=== PATIENT | female | born 1960 | race Caucasian/White ===

== ENCOUNTER → 2018-05-16 11:04 | Outpatient (CLI) | payer MEDICARE, MEDICAID, SELFPAY ==
[2018-05-16 12:45] LABS: Basophils % 0.5 % (0.1-2.0); Eosinophils # 0.2 K/mm3 (0.0-0.4); Eosinophils % 3.2 % (0.1-12.0); Hematocrit 38.9 % (37.0-47.0); Hemoglobin 12.4 g/dL (12.2-16.2); Lymphocytes # 1.3 K/mm3 (0.7-4.5); Mean Corpuscular HGB Conc 31.9 g/dL (31.8-35.4); Mean Corpuscular Hemoglobin 28.1 pg (27.0-31.2); Mean Corpuscular Volume 88.1 fl (81-99); Monocytes # 0.2 K/mm3 (0.1-1.0); Monocytes % 4.5 % (1.7-9.3); Neutrophils # 3.1 K/mm3 (1.8-7.8); Neutrophils % 64.8 % (37.0-80.0); Platelet Count 147 K/mm3 (142-424); Red Blood Count 4.41 M/mm3 (4.20-5.40); Red Cell Distribution Width 14.8 % (11.5-17.5); White Blood Count 4.8 K/mm3 (4.8-10.8)
[2018-05-16 14:42] LABS: Alanine Aminotransferase 46 U/L (12-78); Albumin Level 2.9 gm/dL (3.4-5.0); Albumin/Globulin Ratio 0.8 (1.1-1.8); Alkaline Phosphatase 131 U/L (46-116); Anion Gap 12.3 mEq/L (5-15); Aspartate Amino Transferase 52 U/L (15-37); Bilirubin,Total 0.3 mg/dL (0.2-1.0); Blood Urea Nitrogen 14 mg/dL (7-18); Calcium 8.3 mg/dL (8.5-10.1); Carbon Dioxide 29 mmol/L (21.0-32.0); Chloride 106 mmol/L (98-107); Chol/HDL Ratio 4.5 (1-3.5); Cholesterol 201 mg/dL (140-200); Creatinine,Serum 0.55 mg/dL (0.55-1.02); Estimated Glomerular Filt Rate 113 ml/min (>60); Ferritin 247 ng/mL (8-388); GFR (African American) 137 ML/MIN (>60); Globulin 3.7 gm/dl (1.3-3.2); Glucose 100 mg/dL (74-106); HDL Cholesterol 45 mg/dL (29-89); Iron 61 ug/dl (28-170); LDL Cholesterol 128 mg/dL (0-130); Magnesium 1.6 mg/dL (1.4-2.2); Phosphorous 3.3 mg/dL (2.4-4.9); Potassium 4.3 mmoL/L (3.5-5.1); Sodium 143 mmol/L (136-145); Thyroid Stimulating Hormone 2.18 uIU/ml (0.358-3.740); Total Protein,Serum 6.6 gm/dL (6.4-8.2); Triglycerides 139 mg/dL (30-200); VLDL Cholesterol 28 mg/dL (0-40)
[2018-05-16 17:44] LABS: Hemoglobin A1C 5.9 % (0.0-7.0)
[2018-05-17 15:53] LABS: Folate 15.2 ng/mL (>3.0); Prealbumin 21 mg/dL (10-36)
[2018-05-18 22:47] LABS: Zinc 76 ug/dL (56-134)
[2018-05-18 22:48] LABS: Vitamin B1 203.2 nmol/L (66.5-200.0)
[2018-05-21 03:38] LABS: Methylmalonic Acid 146 nmol/L (0-378)
[2018-05-21 10:24] LABS: Vitamin E Alpha Tocopherol 10.8 mg/L (7.0-25.1)
[2018-05-21 11:45] LABS: Vitamin A 40.2 ug/dL (33.1-100.0); Vitamin E Gamma Tocopherol 1.6 mg/L (0.5-5.5)
== END ==
PROVIDERS: Visit Provider Physician Assistant
DX: E11.9 Type 2 diabetes mellitus without complications (principal); R63.4 Abnormal weight loss; E78.5 Hyperlipidemia, unspecified; E55.9 Vitamin D deficiency, unspecified; Z98.84 Bariatric surgery status
CPT/HCPCS: 36415; 80053; 80061; 82131; 82652; 82728; 82746; 83036; 83540; 83735; 84100; 84134; 84425; 84443; 84446; 84590; 84630; 85025

== ENCOUNTER → 2018-08-26 09:08 | Outpatient (CLI) | payer MEDICARE, MEDICAID, SELFPAY ==
--- NOTE | 2018-08-26 09:17 | XR_ITS ---
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 Postmenopausal. Sleep apnea. TECHNIQUE: DEXA scan hip and lumbar spine The most complete data summary and color graphic presentation of the today's ( and any prior ) DEXA findings are available in PACS. Definition and treatment guidelines included. COMPARISON: None listed LUMBAR SPINE: Normal bone density L2 vertebral body demonstrates the lowest T score L1 1 0.4 with BMD1.304 g/cm sq Overall mean lumbar L1-L4 T score 2.2 with BMD1.449 g/cm sq . The generous marginal osteophytes multiple levels likely contribute to the increased bone density throughout the L-spine Noting Particular large exuberant marginal osteophytes to the right L2/3 HIPS: Femoral neck density is best predictor of hip fracture risk . Left femoral neck demonstrates the lowest T score -1.9 with BMD0.78 g/cm sq . Right femoral neck T score -1.5 with with BMD 0.825 Averaging region included yields today's mean Hip Mean T score -0.5 with BMD0.944 g/cm sq . ----IMPRESSION ---- 1. LUMBAR SPINE: Normal bone density overall as well as at each vertebral level. Lumbar spine. 2. HIPS: Overall low normal mean hip T score = -0.5. However note osteopenia the femoral necks. Left femoral neck T score = -1.9 WHO criteria for post-menopausal, Women: Normal: T-score at or above -1 SD Osteopenia: T-score between -1 and -2.5 SD Osteoporosis: T-score at or below -2.5 SD
--- NOTE | 2018-08-26 09:48 | MM_ITS ---
MM Dig screening mamm BI w/CAD CAD Screening COMPARISON: None, this is baseline INDICATION: There is no personal or family history of breast cancer TECHNIQUE: Standard CC and MLO images were obtained. R2 CAD reviewed. FINDINGS: The breasts are composed primarily of fat with minimal scattered fibroglandular densities in each breast. There is mild diffuse arterial calcification in each breast. There is no suspicious lesion and there are no suspicious microcalcifications. IMPRESSION: Fatty type breast parenchyma with no suspicious lesion seen BI-RADS Category: 2 Benign Finding(s) RECOMMENDED FOLLOW-UP: 1YR - 1 YEAR FOLLOW-UP (A letter has been sent to the patient regarding results of the study.)
== END ==
PROVIDERS: PCP Family Medicine; Visit Provider Family Medicine
DX: M85.89 Other specified disorders of bone density and structure, multiple sites (principal); Z12.31 Encounter for screening mammogram for malignant neoplasm of breast
CPT/HCPCS: 77067; 77080

== ENCOUNTER → 2018-12-13 08:29 | Outpatient (CLI) | payer MEDICARE, MEDICAID, SELFPAY ==
--- NOTE | 2018-12-13 08:36 | US_ITS ---
US 07/18/2013 History:Elevated liver enzymes, obesity Ordering Physician:Suzette Barton MD Patient Age: 58 years Comparison:07/18/2013 Findings: Pancreas:Unremarkable. No obvious mass or abnormal fluid collection. No ductal dilatation Liver:No focal liver lesions demonstrated. The liver is normal in size and shows overall increased and somewhat coarsened echogenicity consistent with diffuse fatty infiltration. The right kidney measures 9.1 x 4.4 x 6.4 cm and appears sonographically normal with no hydronephrosis or other abnormality. Gallbladder: The patient is post cholecystectomy. The common bile duct measures 6 mm in diameter. Impression:Diffuse fatty infiltration of the liver which has shown some interval progression from the previous study
== END ==
PROVIDERS: PCP Family Medicine; Visit Provider Family Medicine
DX: R94.5 Abnormal results of liver function studies (principal)
CPT/HCPCS: 76705

== ENCOUNTER → 2019-05-28 17:33 | Outpatient (CLI) | payer MEDICARE, MEDICAID, SELFPAY | PROVIDERS: Visit Provider Podiatrist | DX: B35.1 Tinea unguium (principal); L60.3 Nail dystrophy | CPT/HCPCS: 87102; 87206; 87220 ==

== ENCOUNTER → 2019-11-24 11:13 | Outpatient (CLI) | payer MEDICARE, MEDICAID, SELFPAY ==
[2019-11-24 12:23] LABS: Hematocrit 40.8 % (37.0-47.0); Mean Corpuscular HGB Conc 31.9 g/dL (31.8-35.4); Mean Corpuscular Hemoglobin 28.4 pg (27.0-31.2); Platelet Count 138 K/mm3 (142-424); Red Blood Count 4.59 M/mm3 (4.20-5.40); Red Cell Distribution Width 14.6 % (11.5-17.5); White Blood Count 5.1 K/mm3 (4.8-10.8)
[2019-11-24 12:42] LABS: Chloride 104 mmol/L (98-107)
[2019-11-24 12:43] LABS: Potassium 4.5 mmoL/L (3.5-5.1); Sodium 138 mmol/L (136-145)
[2019-11-24 12:45] LABS: Alanine Aminotransferase 20 U/L (12-78); Alkaline Phosphatase 97 U/L (38-126); Anion Gap 7.5 mEq/L (5-15); Aspartate Amino Transferase 34 U/L (14-36); Bilirubin,Total 0.3 mg/dl (0.2-1.3); Blood Urea Nitrogen 21 mg/dl (7-17); Carbon Dioxide 31 mmol/L (22.0-30.0); Cholesterol 201 mg/dl (140-200); Estimated Glomerular Filt Rate 73 ml/min (>60); GFR (African American) 88 ML/MIN (>60); Iron 81 ug/dL (37-170); Triglycerides 123 mg/dl (30-150); VLDL Cholesterol 25 mg/dL (0-40)
[2019-11-24 12:46] LABS: Albumin Level 3.5 g/dl (3.5-5.0); Albumin/Globulin Ratio 1.1 (1.1-1.8); Calcium 8.8 mg/dl (8.4-10.2); Chol/HDL Ratio 4.7 (1-3.5); Globulin 3.1 g/dL (1.3-3.2); Glucose 116 mg/dl (74-100); HDL Cholesterol 43 mg/dl (40-60); Phosphorous 3.4 mg/dl (2.5-4.5); Total Protein,Serum 6.6 g/dl (6.3-8.2)
[2019-11-24 12:50] LABS: Hemoglobin A1C 5.6 % (4.0-6.0)
[2019-11-24 12:57] LABS: Direct LDL Cholesterol 132.99 mg/dL (100-129)
[2019-11-24 13:17] LABS: Thyroid Stimulating Hormone 0.05 uIU/mL (0.465-4.68)
[2019-11-24 13:21] LABS: Ferritin 175 ng/ml (11.1-264)
[2019-11-25 13:34] LABS: Folate 16.9 ng/mL (>3.0); Prealbumin 22 mg/dL (10-36); Vitamin D 25 Hydroxy 43.3 ng/mL (30.0-100.0)
[2019-11-25 15:33] LABS: Parathyroid Hormone Intact 46 pg/mL (15-65)
[2019-11-27 11:34] LABS: Vitamin B1 216.4 nmol/L (66.5-200.0)
[2019-11-27 18:13] LABS: Methylmalonic Acid 149 nmol/L (0-378)
[2019-11-28 05:36] LABS: Vitamin A 50.7 ug/dL (22.0-69.5); Vitamin E Gamma Tocopherol 3.2 mg/L (0.5-4.9)
== END ==
PROVIDERS: Visit Provider Physician Assistant
DX: E11.9 Type 2 diabetes mellitus without complications (principal); E55.9 Vitamin D deficiency, unspecified; E78.5 Hyperlipidemia, unspecified
CPT/HCPCS: 36415; 80053; 80061; 82131; 82652; 82728; 82746; 83036; 83540; 83735; 83970; 84100; 84134; 84425; 84443; 84446; 84590; 85014; 85018; 85048; 85049

== ENCOUNTER 2019-11-28 19:44 | Emergency (ER) | payer MEDICARE, MEDICAID, SELFPAY ==
[2019-11-28 19:45] VITALS: BP 120/68; PULSE 67; RESP 18; TEMP 36.7; O2SAT 100; BMI 68.3
--- NOTE | 2019-11-28 19:55 | XR_ITS ---
PROCEDURE: XR FOOT LT MIN 3V CLINICAL INDICATION: PAIN Posttraumatic pain COMPARISON: No exams were available for comparison FINDINGS: Nondisplaced fracture involves the shaft of the proximal phalanx of the 5th toe . No other significant anomalies are evident. Other findings:None. IMPRESSION: Nondisplaced fracture of the proximal phalanx of the 5th toe Dictated by: Vj Reddy MD 11/28/2019 21:41 Electronically signed by Vj Reddy MD in [place] 11/28/2019 21:41
--- NOTE | 2019-11-28 20:22 | PC.NURSE ---
Renaldo speaking to dr Block at this time
--- NOTE | 2019-11-28 20:32 | HMH.EDUTC ---
[facility] Disposition Clinical Impression: Fracture of fifth toe, left, closed Qualifiers: Encounter type: initial encounter Qualified Code(s): S92.502A - Displaced unspecified fracture of left lesser toe(s), initial encounter for closed fracture Superficial laceration of foot Qualifiers: Encounter type: initial encounter Laterality: left Qualified Code(s): S91.312A - Laceration without foreign body, left foot, initial encounter Disposition: Home, Self-Care Condition on Discharge: Good Additional Instructions: Rest the extremity, Elevate the extremity as tolerated while you are resting. Take ibuprofen for pain. Take the antibiotics as directed. Watch the site for any signs of infection, such as redness, swelling, drainage, etc. Follow up with Dr. Madera. I called and spoke to Dr. Block. Please call Dr. Madera on Sunday and get an appointment to be seen in her office. Follow up with your regular doctor. GO TO THE ER FOR ANY WORSENING SYMPTOMS Prescriptions: Mupirocin [Bactroban 2% Ointment 22gm tube] 1 applicatio TP TID 7 Days #1 tube Transmission Status: Received by [facility] # cephALEXin [Keflex 500mg Cap] 500 mg PO Q6H 10 Days #40 cap Transmission Status: Received by [facility] [facility] # Referrals: Suzette Barton MD [Primary Care Provider] - Heather Madera DPM [Staff Physician] - Time of Disposition: 20:40 Medical Decision Making - Medical Records Medical records reviewed: No: I reviewed the patient's medical records. - [place] Inquiry Pt receiving controlled substance: No Vital Signs: 11/28/19 19:45 11/28/19 20:43 Temperature 98.1 F 98.2 F Temperature Source Oral Pulse Rate 87 Pulse Rate [Right] 67 Respiratory Rate 18 20 Blood Pressure 125/87 Blood Pressure [Right Arm] 120/68 Blood Pressure Mean [Right Arm] 85 02 Sat by Pulse Oximetry 100 - Radiology Data #1 Image(s): Foot/Toes Image Reviewed: Yes I reviewed the patient's radiology image, Yes I have reviewed radiologist's interpretation PROCEDURE: XR FOOT LT MIN 3V CLINICAL INDICATION: PAIN Posttraumatic pain COMPARISON: No exams were available for comparison FINDINGS: Nondisplaced fracture involves the shaft of the proximal phalanx of the 5th toe . No other significant anomalies are evident. Other findings:None. IMPRESSION: Nondisplaced fracture of the proximal phalanx of the 5th toe Dictated by: Vj Reddy MD 11/28/2019 21:41 Electronically signed by Vj Reddy MD in [place] 11/28/2019 21:41 Medical Decision Narrative: This case was discussed with Dr. Block over the telephone. [facility] HPI - General Stated complaint: bruise/possible broken toes on L foot Time Seen by Provider: 11/28/19 19:50 Mode of Arrival: Ambulatory Limitations: No Limitations Description of Symptoms (Recalled from Triage Doc. by RN): Injury to left foot HEENT Symptoms (Recalled from RN notes): No Resp Symptoms (Recalled from RN notes): No Skin Symptoms (Recalled from RN notes): No MS Symptoms (Recalled from RN notes): Yes Functional Status (Recalled from RN notes): na - History of Present Illness Provider Complaint: She states that she was riding her motorized wheel chair at home when she accidentily hooked her left smallest toe on the molding around a door. This caused her left toe to get jerked out to the side and also resulted in a laceration to the skin under the toe at the base. Since then she has had pain and tenderness of the foot in the area of the 5th toe. - Related Data Home Medications Medication Instructions Recorded Confirmed B-complex with vitamin C 1 cap PO DAILY cap 09/25/17 11/24/19 acetaminophen 500 mg capsule 500 mg PO Q6H PRN 09/25/17 11/24/19 cyanocobalamin (vitamin B-12) 1,000 mcg PO DAILY cap 09/25/17 11/24/19 1,000 mcg capsule diphenhydramine HCl 25 mg capsule 50 mg PO QHS cap 09/25/17 11/24/19 gabapentin 800 mg tablet 800 mg PO
[2019-11-28 20:43] VITALS: BP 125/87; PULSE 87; RESP 20; TEMP 36.8; O2SAT 98
== END 2019-11-28 20:43 | disposition home or self-care (01) ==
PROVIDERS: Emergency Provider Nurse Practitioner Family; PCP Family Medicine
DX: S91.312A Laceration without foreign body, left foot, initial encounter (principal); S92.515A Nondisplaced fracture of proximal phalanx of left lesser toe(s), initial encounter for closed fracture; W22.09XA Striking against other stationary object, initial encounter; Y92.019 Unspecified place in single-family (private) house as the place of occurrence of the external cause; I10 Essential (primary) hypertension; E11.9 Type 2 diabetes mellitus without complications; F41.9 Anxiety disorder, unspecified; E78.5 Hyperlipidemia, unspecified; E03.9 Hypothyroidism, unspecified; Z98.84 Bariatric surgery status; Z90.49 Acquired absence of other specified parts of digestive tract; Z88.1 Allergy status to other antibiotic agents; Z88.2 Allergy status to sulfonamides; Z79.899 Other long term (current) drug therapy
CPT/HCPCS: 29515; G0463; 73630; 99202

== ENCOUNTER → 2019-12-25 07:52 | Outpatient (CLI) | payer MEDICARE, MEDICAID, SELFPAY ==
--- NOTE | 2019-12-25 07:58 | XR_ITS ---
PROCEDURE: XR FOOT WT BEARING LT 3V CLINICAL INDICATION: fracture follow up. 8 percent the the COMPARISON: XR FOOT LT MIN 3V from 11/28/2019 FINDINGS: No fracture or dislocation. No lytic or blastic change. There is normal mineralization. Mild hypertrophic changes are present along the talar neck. Minimal osteoarthritic change 1st metatarsophalangeal joint. Other findings:None. IMPRESSION: Mild degenerative changes Dictated by: Vj Reddy MD 12/25/2019 17:33 Electronically signed by Vj Reddy MD in [place] 12/25/2019 17:33
== END ==
PROVIDERS: PCP Family Medicine; Visit Provider Podiatrist
DX: S92.502A Displaced unspecified fracture of left lesser toe(s), initial encounter for closed fracture (principal); T14.8XXA Other injury of unspecified body region, initial encounter
CPT/HCPCS: 73630

== ENCOUNTER → 2020-02-25 08:03 | Outpatient (CLI) | payer MEDICARE, MEDICAID, SELFPAY ==
--- NOTE | 2020-02-25 08:07 | XR_ITS ---
PROCEDURE: XR FOOT WT BEARING LT 3V CLINICAL INDICATION: left 5th toe fracture follow up. COMPARISON: CR XR FOOT LT MIN 3V from 11/28/2019 CR XR FOOT WT BEARING LT 3V from 12/25/2019 FINDINGS: Comminuted fracture proximal phalanx 5th toe once again noted. There is developing callus formation along the medial aspect of the fracture site. No other significant anomalies . Other findings:None. IMPRESSION: Healing fracture proximal phalanx 5th toe Dictated by: Vj Reddy MD 02/25/2020 14:53 Vj Reddy MD in [place] 02/25/2020 14:53
== END ==
PROVIDERS: PCP Family Medicine; Visit Provider Nurse Practitioner
DX: S92.502A Displaced unspecified fracture of left lesser toe(s), initial encounter for closed fracture (principal)
CPT/HCPCS: 73630

== ENCOUNTER → 2020-03-30 09:34 | Outpatient (CLI) | payer MEDICARE, MEDICAID, SELFPAY ==
--- NOTE | 2020-03-30 09:42 | XR_ITS ---
PROCEDURE: XR KNEE RT 3V CLINICAL INDICATION: right knee pain COMPARISON: CR KNEE3R KNEE-3 VIEWS-RT from 11/04/2013 CR KNEE3R KNEE-3 VIEWS-RT from 06/22/2015 CR KNEE3L KNEE-3 VIEWS-LT from 06/22/2015 FINDINGS: There are severe tricompartmental osteoarthritic changes with prominent osteophyte formation and mild genu varum. There is mild lateral translation of the tibia by 6 mm. Prominent osteophytes are present involving all 3 compartments facial at the distal femur. IMPRESSION: Severe osteoarthritis with prominent osteophyte formation which has progressed since 11/04/2013 Dictated by: Vj Reddy MD 03/30/2020 19:02 Vj Reddy MD in [place] 03/30/2020 19:02
--- NOTE | 2020-03-30 09:42 | XR_ITS ---
PROCEDURE: XR KNEE LT 3V CLINICAL INDICATION: left knee pain COMPARISON: CR KNEE3R KNEE-3 VIEWS-RT from 11/04/2013 CR KNEE3R KNEE-3 VIEWS-RT from 06/22/2015 CR KNEE3L KNEE-3 VIEWS-LT from 06/22/2015 FINDINGS: There are severe osteoarthritic changes involving all 3 compartments with loss of joint space with osteophyte formation. Prominent osteophyte is present along the distal femur at the patellofemoral junction. No acute fracture or dislocation. No significant change. Along the lateral aspect of the distal femur there is a faint density noted along with central lucency possibly due to a thin overlying osteophyte and may have been present previously but not as apparent due to the rotation. IMPRESSION: Osteoarthritis as described Dictated by: Vj Reddy MD 03/30/2020 18:40 Vj Reddy MD in [place] 03/30/2020 18:40
== END ==
PROVIDERS: PCP Family Medicine; Visit Provider Orthopaedic Surgery
DX: M25.562 Pain in left knee (principal); M25.561 Pain in right knee
CPT/HCPCS: 73562

== ENCOUNTER 2020-05-05 13:00 | Outpatient (RCR) | payer MEDICARE, MEDICAID, SELFPAY ==
--- NOTE | 2019-12-29 11:36 | HMH.PTOPEV ---
PT Outpatient Evaluation Rehab PT Outpatient Evaluation Start: 12/29/19 11:15 Freq: Status: Active Protocol: Document 12/29/19 11:15 MARY CARMEN (Rec: 12/29/19 11:35 PHOANN MARIE [id number]) Electronically Signed By Ab Mcqueen, PT 12/29/19 11:15 Outpatient Therapy Subjective History Subjective History Pt is 59 yowf who presents with c/o LBP and sciatic worse on the L side x > 30 yrs, worse x ~ 5 yrs. She is morbidly obese and has difficulty with transfers or gait, using a motorized chair for most mobility. She has OA in B knees which also limits mobility. She wishes to try aquatic therapy, as she has had success with this in the past. PMH: Depression, anxiety , DM-II, HTN, sleep apnea, OA. Chief Complaint Pain Symptom Type Ache Symptoms Relieved By Ice Symptoms Aggravated By Physical Activity,Lifting Prior Functional Limitations Standing,Recreation Activity, Walking Current Functional Limitations Standing,Recreation Activity, Walking Symptom Description Intermittent,Activity Dependent Level of pain today (0-10) 1 Pain scale - at its worst (0-10) 10 Lumbopelvic Eval Palapation tenderness left lumbar spinal tenderness Yes paraspinal tenderness Yes Range of Motion Lumbar Spine Active Flexion Range of 0-40 Motion (degrees) Lumbar Spine Active Extension Range of 0-10 Motion (degrees) Left Lumbar Spine Lateral Flexion Active 0-10 Range of Motion (degrees) Right Lumbar Spine Lateral Flexion 0-10 Active Range of Motion (degrees) Manual Muscle Test Bilateral Knee Extension Strength Grade 4 Good Knee Flexion Strength Grade 4 Good Hip Flexion Strength Grade 3 Fair Hip Abduction Strength Grade 3 Fair Hip Adduction Strength Grade 3 Fair Hip Extension Strength Grade 3 Fair Extensor Hallucis Longus Strength Grade 4 Good Ankle Dorsiflexion Strength Grade 4 Good Gastronemius/Soleus Strength Grade 4 Good Special Tests Sciatic Nerve Tension Test Negative Right,Positive Left Outpatient Therapy Assessment Impairments Problems/Impairmments Palpation Tenderness,Impaired Range of Motion,Impaired Strength,Impaired Endurance, Impaired Transfers,Impaired
--- NOTE | 2020-01-30 14:49 | HMH.RHREAS ---
Rehab Reassessment Rehab OP Re-assessment Start: 01/30/20 14:45 Freq: Status: Active Protocol: Document 01/30/20 14:46 MARY CARMEN (Rec: 01/30/20 14:49 PHOANN MARIE [id number]) Electronically Signed By Ab Mcqueen, PT 01/30/20 14:46 Rehab Re-assessment Subjective Subjective Pt reports she feels more comfortable with transfers and back is feeling a little better. Objective Objective Notes AROM Lumbar spine: Flex= 0-50 deg, Ext= 0-14 deg, R SB= 0-12 deg, L SB= 0-14 deg. Assessment Progress Assessment Progressing as Expected Assessment Notes Improving endurance to all activity in the therapy pool. Aquatic therapy helping build strength as well. Patient goals met none Goals Not Met ST,2,3,4,5 LT,2,3,4 ,5,6 Revised Goals none Plan Plan Continue per initial POC. Frequency of Therapy 2 x/wk Duration of therapy 8 wks Time and Billing Re-Eval Time 15 Re-Eval Billing Units 1 PHYSICIAN CERTIFICATION: I certify the specified therapy services for Lakshmi Merritt are required, authorized, and reviewed every 30 days.
--- NOTE | 2020-03-03 14:18 | HMH.RHREAS ---
Rehab Reassessment Rehab OP Re-assessment Start: 01/30/20 14:45 Freq: Status: Active Protocol: Document 03/03/20 14:15 PHOANN MARIE (Rec: 03/03/20 14:18 PHORRUBEN [id number]) Electronically Signed By Ab Mcqueen, PT 03/03/20 14:15 Rehab Re-assessment Subjective Subjective Pt reports, My right side feels better, but my left sicde hurts more now. I don't know if I lifted something too heavy or not. Objective Objective Notes AROM: lumbar spine flex= 0-50, ext= 0-15, R SB= 0-15, L SB= 0-15. Pain: remains 10/10 at worst. Assessment Progress Assessment Progressing as Expected Assessment Notes Pt continues to improve mobility overall and has less R sciatic symptoms. She continues to show poor endurance to activity and severely decreased stair climbing ability. Patient goals met ST,2,3,4,5 Goals Not Met LT,2,3,4,5,6 Revised Goals none Plan Plan Continue per initial POC. Frequency of Therapy 2 x/wk Duration of therapy 8 wks Time and Billing Re-Eval Time 15 Re-Eval Billing Units 1 PHYSICIAN CERTIFICATION: I certify the specified therapy services for Lakshmi Merritt are required, authorized, and reviewed every 30 days.
--- NOTE | 2020-04-05 14:19 | HMH.RHREAS ---
Rehab Reassessment Rehab OP Re-assessment Start: 01/30/20 14:45 Freq: Status: Active Protocol: Document 04/05/20 14:17 MARY CARMEN (Rec: 04/05/20 14:19 PHOANN MARIE [id number]) Electronically Signed By Ab Mcqueen, PT 04/05/20 14:17 Rehab Re-assessment Subjective Subjective Pt continues to report pain in the L LE to mid-thigh distally at all times. Objective Objective Notes AROM Lumbar spine: Flex= 0-55, ext= 0-17, R SB= 0-15, L SB= 0-15 Pain at rest: 11/15 Assessment Progress Assessment Progressing as Expected Assessment Notes [place] improved in aquatic therapy, continues to need improved and transfers. Patient goals met ST,2,3,4,5 Goals Not Met LT,2,3,4,5,6 Revised Goals none Plan Plan Continue per initial POC. Frequency of Therapy 2 x/wk Duration of therapy 8 wks Time and Billing Re-Eval Time 15 Re-Eval Billing Units 1 PHYSICIAN CERTIFICATION: I certify the specified therapy services for Lakshmi Merritt are required, authorized, and reviewed every 30 days.
== END 2020-05-05 13:05 | disposition home or self-care (01) ==
LOC: PT 13:00
PROVIDERS: PCP Family Medicine; Visit Provider Family Medicine
DX: M54.32 Sciatica, left side (principal)
CPT/HCPCS: 97110; 97113; 97163; 97164

== ENCOUNTER → 2020-05-26 07:42 | Outpatient (CLI) | payer MEDICARE, MEDICAID, SELFPAY ==
--- NOTE | 2020-05-26 07:46 | XR_ITS ---
PROCEDURE: XR FOOT WT BEARING LT 3V CLINICAL INDICATION: Fracture follow up Follow-up fracture COMPARISON: CR XR FOOT WT BEARING LT 3V from 02/25/2020 FINDINGS: Healing fracture once again noted involving the proximal phalanx of the 5th toe. Fracture line is barely visible at this. No other significant anomalies are evident aside from hammertoe deformity of the 2nd and 3rd toes. IMPRESSION: Healing proximal phalanx fracture of the 5th toe Dictated by: Vj Reddy MD 05/26/2020 15:24 Vj Reddy MD in [place] 05/26/2020 15:24
== END ==
PROVIDERS: PCP Family Medicine; Visit Provider Nurse Practitioner
DX: S92.502A Displaced unspecified fracture of left lesser toe(s), initial encounter for closed fracture (principal)
CPT/HCPCS: 73630

== ENCOUNTER → 2020-09-08 14:52 | Outpatient (CLI) | payer MEDICARE, MEDICAID, SELFPAY ==
[2020-09-08 16:17] LABS: Basophils % 0.4 % (0.1-2.0); Eosinophils # 0.1 K/mm3 (0.0-0.4); Eosinophils % 1.5 % (0.1-12.0); Hematocrit 41.9 % (37.0-47.0); Hemoglobin 13.7 g/dL (12.2-16.2); Lymphocytes # 1.5 K/mm3 (0.7-4.5); Lymphocytes % 23.1 % (10-50); Mean Corpuscular HGB Conc 32.7 g/dL (31.8-35.4); Mean Corpuscular Hemoglobin 29.4 pg (27.0-31.2); Mean Corpuscular Volume 89.8 fl (81-99); Mean Platelet Volume 7.6 fl (7.4-10.4); Monocytes # 0.2 K/mm3 (0.1-1.0); Monocytes % 3.7 % (1.7-9.3); Neutrophils # 4.5 K/mm3 (1.8-7.8); Neutrophils % 71.3 % (37.0-80.0); Platelet Count 152 K/mm3 (142-424); Red Blood Count 4.67 M/mm3 (4.20-5.40); Red Cell Distribution Width 13.8 % (11.5-17.5); White Blood Count 6.4 K/mm3 (4.8-10.8)
[2020-09-08 17:03] LABS: Hemoglobin A1C 5.9 % (4.0-6.0)
[2020-09-08 17:12] LABS: 25-OH Vitamin D, Total 57.8 ng/mL (30-100)
[2020-09-08 19:49] LABS: Chloride 107 mmol/L (98-107); Sodium 141 mmol/L (136-145)
[2020-09-08 19:50] LABS: Potassium 4.5 mmoL/L (3.5-5.1)
[2020-09-08 19:52] LABS: Alanine Aminotransferase 22 U/L (12-78); Albumin Level 3.6 g/dl (3.5-5.0); Albumin/Globulin Ratio 1.1 (1.1-1.8); Alkaline Phosphatase 102 U/L (38-126); Anion Gap 9.5 mEq/L (5-15); Aspartate Amino Transferase 40 U/L (14-36); Bilirubin,Total 0.4 mg/dl (0.2-1.3); Blood Urea Nitrogen 28 mg/dl (7-17); Calcium 9.4 mg/dl (8.4-10.2); Carbon Dioxide 29 mmol/L (22.0-30.0); Cholesterol 214 mg/dl (140-200); Estimated Glomerular Filt Rate 85 ml/min (>60); GFR (African American) 103 ML/MIN (>60); Globulin 3.4 g/dL (1.3-3.2); Glucose 111 mg/dl (74-100); Iron 77 ug/dL (37-170); Triglycerides 137 mg/dl (30-150); VLDL Cholesterol 27 mg/dL (0-40)
[2020-09-08 19:53] LABS: Chol/HDL Ratio 4.7 (1-3.5); HDL Cholesterol 46 mg/dl (40-60)
[2020-09-08 20:03] LABS: Direct LDL Cholesterol 129.65 mg/dL (100-129)
[2020-09-08 20:24] LABS: Thyroid Stimulating Hormone 0.05 uIU/mL (0.465-4.68)
[2020-09-08 20:28] LABS: Ferritin 143 ng/ml (11.1-264)
[2020-09-08 23:03] LABS: Folate > 20.00 ng/mL
[2020-09-10 14:02] LABS: Prealbumin 20 mg/dL (10-36)
[2020-09-17 00:06] LABS: Vitamin E Alpha Tocopherol 12.1 mg/L (9.0-29.0)
[2020-09-17 04:59] LABS: Vitamin A 41.1 ug/dL (22.0-69.5); Vitamin E Gamma Tocopherol 2.2 mg/L (0.5-4.9)
[2020-09-17 20:51] LABS: Methylmalonic Acid 172 nmol/L (0-378)
== END ==
PROVIDERS: Visit Provider Physician Assistant
DX: E11.9 Type 2 diabetes mellitus without complications (principal); E66.01 Morbid (severe) obesity due to excess calories; E55.9 Vitamin D deficiency, unspecified; Z98.84 Bariatric surgery status
CPT/HCPCS: 36415; 80053; 80061; 82131; 82306; 82728; 82746; 83036; 83540; 83970; 84134; 84425; 84443; 84446; 84590; 85025

== ENCOUNTER 2020-11-06 18:48 | Emergency (ER) | payer MEDICARE, MEDICAID, SELFPAY ==
[2020-11-06] VITALS (10 sets, daily range): BP systolic 110–135; BP diastolic 49–69; PULSE 59–75; RESP 18–20; TEMP 36.8–36.9; O2SAT 93–99; BMI 71.2; BMI 71.6
--- NOTE | 2020-11-06 19:05 | HMH.EDUTC ---
[facility] Disposition Clinical Impression: Abdominal pain Qualifiers: Abdominal location: unspecified location Qualified Code(s): R10.9 - Unspecified abdominal pain Disposition: Still a Patient Condition on Discharge: Good Referrals: Suzette Barton MD [Primary Care Provider] - Time of Disposition: 19:18 Medical Decision Making - [place] Inquiry Pt receiving controlled substance: No [place] was queried for this patient: No Vital Signs: 11/06/20 18:50 Temperature 98.5 F Temperature Source Oral Pulse Rate [Right Brachial] 75 Respiratory Rate 20 Blood Pressure [Right Arm] 132/51 L Blood Pressure Mean [Right Arm] 78 Blood Pressure Source [Right Arm] Automatic Cuff Blood Pressure Position [Right Arm] Sitting 02 Sat by Pulse Oximetry 99 Oxygen Delivery Method Room Air Medical Decision Narrative: Patient states that she started having pain in her left upper abdomen yesterday that has continued to get worse and has since moved throughout her abdomen but reports that worse pain in left lower quad. States that she has history of umbilical hernia Reports pain as sharp burning constant pain that is worse with certain movements Reports that she was belching a lot earlier and thought it may have been gas so she took GasX but not had any relief Discussed with patient and due to her complaining of abdominal pain that it was recommended that she be transferred to the ED for further work up for abdominal pain and patient agreed Called ED and spoke with staff and patient was moved to room 10 [facility] HPI - General Stated complaint: stomach pain Time Seen by Provider: 11/06/20 19:06 Mode of Arrival: Ambulatory Source of Information: Patient, Relative Limitations: No Limitations Description of Symptoms (Recalled from Triage Doc. by RN): PATIENT C/O LEFT SIDE ABDOMINAL PAIN THAT STARTED YESTERDAY. SHE REPORTS THAT LAST NIGHT IT DID MOVE ACROSS TO RIGHT SIDE, BUT IT IS MAINLY IN THE LEFT. DENIES NAUSEA, VOMITING, OR DIARRHEA. DESCRIBES PAIN SHARP, BURNING AND CONSTANT. PAIN IS ONLY RELIEVED WITH SLEEP. HAS NORMAL BOWEL MOVEMENT THIS MORNING HEENT Symptoms (Recalled from RN notes): No Resp Symptoms (Recalled from RN notes): No Skin Symptoms (Recalled from RN notes): No MS Symptoms (Recalled from RN notes): No Functional Status (Recalled from RN notes): WNL - History of Present Illness Provider Complaint: Patient states that she started having pain her left upper abdomen area yesterday and last night it moved down into her left lower abdomen and across to her right side of abdomen States that pain is more in left lower but when she moves it will shoot pain across her abdomen. States that she has history of umbilical hernia State that today pain continued States that she is not had any N/V/D and had BM eariler today States that pain is 10/10 right now States that she was belching and thought she may have gas so she took GasX but no relief - Related Data Home Medications Medication Instructions Recorded Confirmed B-complex with vitamin C 1 cap PO DAILY cap 09/25/17 09/08/20 acetaminophen 500 mg capsule 500 mg PO Q6H PRN 09/25/17 09/08/20 cyanocobalamin (vitamin B-12) 1,000 mcg PO DAILY cap 09/25/17 09/08/20 1,000 mcg capsule diphenhydramine HCl 25 mg capsule 50 mg PO QHS cap 09/25/17 09/08/20 levothyroxine 125 mcg capsule 125 mcg PO DAILY cap 09/25/17 09/08/20 mometasone 50 mcg/actuation nasal 2 spray INTRANASAL ONCE PRN 09/25/17 09/08/20 spray multivitamin with iron 1 tab PO ONCE 09/25/17 09/08/20 Ascorbic Acid [Vitamin C 500mg 500 mg PO DAILY 12/10/17 09/08/20 tablet] Calcium Carb/D3/Magnesium/Zinc 1 each PO DAILY 12/10/17 09/08/20 [Bartolome Mag Zinc + D Tablet] Sertraline HCl [Zoloft 100mg 200 mg PO DAILY 12/10/17 09/08/20 tablet] magnesium oxide 400 mg (241.3 mg 400 mg PO DAILY tab 03/26/18 09/08/20 magnesium) tablet alprazolam 1 mg tablet 1 mg PO DAILY tab 11/24/19 09/08/20 lisinopril 2.5 mg tablet 2.5 mg PO t
--- NOTE | 2020-11-06 19:15 | CT_ITS ---
PROCEDURE INFORMATION: Exam: CT Abdomen And Pelvis With Contrast Exam date and time: 11/06/2020 7:15 PM Age: 59 years old Clinical indication: Flank; Patient HX: Left sided abdominal pain; Additional info: Abd pain TECHNIQUE: Imaging protocol: Computed tomography of the abdomen and pelvis with contrast. Radiation optimization: All CT scans at this facility use at least one of these dose optimization techniques: automated exposure control; mA and/or kV adjustment per patient size (includes targeted exams where dose is matched to clinical indication); or iterative reconstruction. Contrast material: ISOVUE; Contrast volume: 75 ml; Contrast route: IV; COMPARISON: [id number] CT abdomen pelvis wo/w con 12/25/2017 12:37 PM FINDINGS: Lungs: Dependent bilateral lung base opacities favor atelectasis. Liver: Multiple calcific densities spleen and liver are likely related to prior granulomatous process. Gallbladder and bile ducts: Gallbladder surgically absent. Pancreas: Moderate fatty replacement of the pancreas with subtle nonspecific inflammatory changes could represent early pancreatitis in the appropriate clinical setting. Correlate with laboratory values. Spleen: Normal. No splenomegaly. Adrenal glands: Normal. No mass. Kidneys and ureters: Normal. No hydronephrosis. Stomach and bowel: Surgical changes compatible with partial gastrectomy with chain suture in place. No dilated loops of bowel to suggest obstruction. Appendix: No evidence of appendicitis. Intraperitoneal space: Unremarkable. No free air. No significant fluid collection. Vasculature: Infrarenal IVC filter in place. Lymph nodes: Unremarkable. No enlarged lymph nodes. Urinary bladder: Unremarkable as visualized. Reproductive: Unremarkable as visualized. Bones/joints: Multilevel discogenic degenerative changes of the lumbar spine are incidentally noted greatest at L5-S1. Soft tissues: Right lower quadrant ventral abdominal hernia measures 4.9 x 5.5 cm with hernia sac measuring 12.8 x 7.8 x 17.5 cm, which is incompletely imaged and contains bowel and mesenteries. IMPRESSION: 1. Moderate fatty replacement of the pancreas with subtle nonspecific inflammatory changes could represent early pancreatitis in the appropriate clinical setting. Correlate with laboratory values. 2. Right lower quadrant ventral abdominal hernia measures 4.9 x 5.5 cm with hernia sac measuring 12.8 x 7.8 x 17.5 cm, which is incompletely imaged and contains bowel and mesenteries. No dilated loops of bowel to suggest obstruction. COMMENTS: For patients with an IVC filter, recommend assessment for a management plan for the patient's IVC filter. If there is no established management plan, recommend referral to an interventional clinician on a nonemergent basis for evaluation.
[2020-11-06 19:35] LABS: Appearance,Urine SL CLOUDY (Clear); Bilirubin,Urine Negative (Negative); Blood, Urine 3+ (Negative); Color,Urine YELLOW (Yellow); Glucose,Urine (UA) Negative (Negative); Ketones,Urine Negative (Negative); Leukocyte Esterase,Urine 1+ (Negative); Microscopic, Urine URINE MICROSCOPIC (MICROSCOPIC); Nitrate,Urine Negative (Negative); PH,Urine 5.5 (5.0-8.5); Protein,Urine Negative (Negative); Urobilinogen,Urine 0.2 EU/dl (0.2)
[2020-11-06 19:44] LABS: Basophils % 0.5 % (0.1-2.0); Eosinophils # 0.1 K/mm3 (0.0-0.4); Eosinophils % 1.7 % (0.1-12.0); Hematocrit 44.3 % (37.0-47.0); Hemoglobin 14.3 g/dL (12.2-16.2); Lymphocytes # 1.3 K/mm3 (0.7-4.5); Lymphocytes % 21.3 % (10-50); Mean Corpuscular HGB Conc 32.2 g/dL (31.8-35.4); Mean Corpuscular Hemoglobin 29.2 pg (27.0-31.2); Mean Corpuscular Volume 90.4 fl (81-99); Mean Platelet Volume 7.9 fl (7.4-10.4); Monocytes # 0.3 K/mm3 (0.1-1.0); Monocytes % 4.6 % (1.7-9.3); Neutrophils # 4.5 K/mm3 (1.8-7.8); Neutrophils % 71.9 % (37.0-80.0); Platelet Count 163 K/mm3 (142-424); Red Blood Count 4.89 M/mm3 (4.20-5.40); Red Cell Distribution Width 14.5 % (11.5-17.5); White Blood Count 6.3 K/mm3 (4.8-10.8)
[2020-11-06 19:45] LABS: Bacteria,Urine 3+ /lpf; RBC,Urine TNTC #/hpf (0-3); Squamous Epithelial Cell,Urine 50-100 #/hpf (0-5); WBC,Urine TNTC #/hpf (0-3)
[2020-11-06 19:48] LABS: Chloride 105 mmol/L (98-107); Potassium 4.1 mmoL/L (3.5-5.1); Sodium 139 mmol/L (136-145)
[2020-11-06 19:50] LABS: Amylase 45 U/L (30-110)
[2020-11-06 19:51] LABS: Alanine Aminotransferase 22 U/L (12-78); Albumin Level 3.9 g/dl (3.5-5.0); Albumin/Globulin Ratio 1.1 (1.1-1.8); Alkaline Phosphatase 117 U/L (38-126); Anion Gap 11.1 mEq/L (5-15); Aspartate Amino Transferase 35 U/L (14-36); Bilirubin,Total 0.5 mg/dl (0.2-1.3); Blood Urea Nitrogen 18 mg/dl (7-17); Calcium 9.3 mg/dl (8.4-10.2); Carbon Dioxide 27 mmol/L (22.0-30.0); Creatinine Clearance Estimated 40 mL/min (50-200); Estimated Glomerular Filt Rate 85 ml/min (>60); GFR (African American) 103 ML/MIN (>60); Globulin 3.5 g/dL (1.3-3.2); Glucose 129 mg/dl (74-100); Lipase 59 U/L (23-300); Total Protein,Serum 7.4 g/dl (6.3-8.2)
[2020-11-06 20:04] LABS: C-Reactive Protein 36.6 mg/L (0-4)
[2020-11-06 20:13] LABS: Erythrocyte Sedimentation Rate 60 mm/hr (0-30)
[2020-11-06 20:14] LABS: Procalcitonin 0.063 ng/mL (0.0-2.0)
--- NOTE | 2020-11-06 20:17 | PC.NURSE ---
pt out of room. gone to radiology
--- NOTE | 2020-11-06 21:26 | HMH.EDNVD ---
ED Disposition Clinical Impression: Ventral hernia without obstruction or gangrene Abdominal pain Qualifiers: Abdominal location: unspecified location Qualified Code(s): R10.9 - Unspecified abdominal pain UTI (urinary tract infection) Qualifiers: Urinary tract infection type: site unspecified Hematuria presence: without hematuria Qualified Code(s): N39.0 - Urinary tract infection, site not specified Disposition: Home, Self-Care Condition on Discharge: Good Instructions: DI for Acute Abdominal Pain Additional Instructions: use meds and call pcp for follow up and urine culture results Prescriptions: cephALEXin [cephALEXin 500mg capsule*] 500 mg PO TID #21 cap Transmission Status: Pending to [facility] #[id number] Referrals: Suzette Barton MD [Primary Care Provider] - - Critical Care Critical Care Time: No Attestation: On 11/06/20, the high probability of a clinically significant, sudden or life threatening deterioration of the following system(s) required my full and direct attention, intervention and personal management. The time I documented below is in addition to time spent performing reported procedures but includes the following listed in this critical care notation. Medical Decision Making - Medical Records Medical records reviewed: Yes: I reviewed the patient's medical records. - Kennedy Inquiry Pt receiving controlled substance: No Vital Signs: 11/06/20 18:50 11/06/20 19:12 11/06/20 19:18 Temperature 98.5 F 98.3 F Temperature Source Oral Oral Pulse Rate Pulse Rate [Right Brachial] 75 65 72 Respiratory Rate 20 18 Blood Pressure Blood Pressure [Right Arm] 132/51 L 135/49 L 135/49 L Blood Pressure Mean Blood Pressure Mean [Right Arm] 78 77 77 Blood Pressure Source [Right Arm] Automatic Cuff Automatic Cuff Blood Pressure Position [Right Arm] Sitting Supine 02 Sat by Pulse Oximetry 99 95 95 Oxygen Delivery Method Room Air Room Air 11/06/20 19:37 11/06/20 19:43 11/06/20 20:30 Temperature Temperature Source Pulse Rate 66 63 Pulse Rate [Right Brachial] 69 Respiratory Rate Blood Pressure 110/69 120/60 Blood Pressure [Right Arm] 110/69 Blood Pressure Mean Blood Pressure Mean [Right Arm] 82 Blood Pressure Source [Right Arm] Automatic Cuff Blood Pressure Position [Right Arm] Supine 02 Sat by Pulse Oximetry 96 95 95 Oxygen Delivery Method Room Air 11/06/20 20:45 11/06/20 21:00 11/06/20 21:30 Temperature Temperature Source Pulse Rate 65 59 L Pulse Rate [Right Brachial] Respiratory Rate Blood Pressure 112/59 L 112/60 Blood Pressure [Right Arm] Blood Pressure Mean 68 Blood Pressure Mean [Right Arm] Blood Pressure Source [Right Arm] Blood Pressure Position [Right Arm] 02 Sat by Pulse Oximetry 93 L 93 L 95 Oxygen Delivery Method - Lab Data Lab results reviewed: Yes: I reviewed the patient's lab results. Lab Results 11/06/20 19:27: Urine Color Yellow, Urine Appearance Sl cloudy, Urine pH 5.5, Ur Specific [place] 1.020, Urine Protein Negative, Urine Glucose (UA) Negative, Urine Ketones Negative, Urine Blood 3+, Urine Nitrate Negative, Urine Bilirubin Negative, Urine Urobilinogen 0.2, Ur Leukocyte Esterase 1+ A, Urine RBC Tntc, Urine WBC Tntc, Ur Squamous Epith Cells 50-100, Urine Bacteria 3+ 11/06/20 19:34: WBC 6.3, RBC 4.89, Hgb 14.3, Hct 44.3, MCV 90.4, MCH 29.2, MCHC 32.2, RDW 14.5, Plt Count 163, MPV 7.9, Neut % (Auto) 71.9, Lymph % (Auto) 21.3, [place] % (Auto) 4.6, Eos % (Auto) 1.7, Baso % (Auto) 0.5, Neut # (Auto) 4.5, Lymph # (Auto) 1.3, [place] # (Auto) 0.3, Eos # (Auto) 0.1, Baso # (Auto) 0.0, ESR 60 H 11/06/20 19:34: Sodium 139, Potassium 4.1, Chloride 105, Carbon Dioxide 27, Anion Gap 11.1, BUN 18 H, Creatinine 0.70, Estimated Creat Clear 40, Estimated GFR 85, Est GFR ( Amer) 103, Glucose 129 H, Calcium 9.3, Total Bilirubin 0.5, AST 35, ALT 22, Alkaline Phosphatase 117, C-Reactive Protein 36.6 H, Tot
[2020-11-06 21:51] LABS: Prothrombin Time 26.5 seconds (10.1-12.5)
== END 2020-11-06 21:55 | disposition home or self-care (01) ==
LOC: UTC 18:53 → ER 19:11
PROVIDERS: Emergency Medicine; Emergency Provider Emergency Medicine; PCP Family Medicine
DX: K43.9 Ventral hernia without obstruction or gangrene (principal); I10 Essential (primary) hypertension; E78.5 Hyperlipidemia, unspecified; E03.9 Hypothyroidism, unspecified; F41.9 Anxiety disorder, unspecified; N39.0 Urinary tract infection, site not specified; Z79.899 Other long term (current) drug therapy; E66.01 Morbid (severe) obesity due to excess calories; Z68.45 Body mass index [BMI] 70 or greater, adult; Z88.0 Allergy status to penicillin; Z88.2 Allergy status to sulfonamides
CPT/HCPCS: 74177; 80053; 81001; 82150; 83690; 84145; 85025; 85610; 85651; 86140; 87086; 87088; 87186; 96365; 96375; 99283; Q9967

== ENCOUNTER → 2021-01-17 08:55 | Outpatient (CLI) | payer MEDICARE, MEDICAID, SELFPAY ==
[2021-01-17 09:42] LABS: Basophils % 0.4 % (0.1-2.0); Eosinophils # 0.2 K/mm3 (0.0-0.4); Hematocrit 41.5 % (37.0-47.0); Hemoglobin 13.6 g/dL (12.2-16.2); Lymphocytes # 1.4 K/mm3 (0.7-4.5); Lymphocytes % 30.4 % (10-50); Mean Corpuscular HGB Conc 32.7 g/dL (31.8-35.4); Mean Corpuscular Volume 88.7 fl (81-99); Mean Platelet Volume 7.5 fl (7.4-10.4); Monocytes # 0.2 K/mm3 (0.1-1.0); Monocytes % 4.7 % (1.7-9.3); Neutrophils # 2.7 K/mm3 (1.8-7.8); Neutrophils % 60.4 % (37.0-80.0); Platelet Count 134 K/mm3 (142-424); Red Blood Count 4.68 M/mm3 (4.20-5.40); Red Cell Distribution Width 14.1 % (11.5-17.5); White Blood Count 4.5 K/mm3 (4.8-10.8)
[2021-01-17 09:56] LABS: Prothrombin Time 27.3 seconds (10.1-12.5)
[2021-01-17 10:01] LABS: INR 2.47 (0.9-1.1)
[2021-01-17 10:37] LABS: Alanine Aminotransferase 23 U/L (12-78); Albumin Level 3.6 g/dl (3.5-5.0); Albumin/Globulin Ratio 1.2 (1.1-1.8); Alkaline Phosphatase 92 U/L (38-126); Anion Gap 11.1 mEq/L (5-15); Aspartate Amino Transferase 42 U/L (14-36); Bilirubin,Total 0.5 mg/dl (0.2-1.3); Blood Urea Nitrogen 26 mg/dl (7-17); Calcium 8.5 mg/dl (8.4-10.2); Carbon Dioxide 29 mmol/L (22.0-30.0); Chloride 104 mmol/L (98-107); Estimated Glomerular Filt Rate 85 ml/min (>60); GFR (African American) 103 ML/MIN (>60); Glucose 110 mg/dl (74-100); Potassium 4.1 mmoL/L (3.5-5.1); Sodium 140 mmol/L (136-145); Total Protein,Serum 6.6 g/dl (6.3-8.2)
[2021-01-18 09:14] LABS: AFP, Tumor Marker 2.8 ng/mL (0.0-8.3)
== END ==
PROVIDERS: Visit Provider Physician Assistant
DX: K74.60 Unspecified cirrhosis of liver (principal)
CPT/HCPCS: 36415; 80053; 82105; 85025; 85610

== ENCOUNTER 2021-06-15 16:49 | Emergency (ER) | payer MEDICARE, MEDICAID, SELFPAY ==
[2021-06-15 17:05] VITALS: BP 126/73; PULSE 79; RESP 18; TEMP 36.9; O2SAT 97; BMI 72.2
--- NOTE | 2021-06-15 17:20 | HMH.EDUTC ---
[facility] [place] Clinical Impression: Sinusitis Qualifiers: Sinusitis location: unspecified location Chronicity: unspecified Qualified Code(s): J32.9 - Chronic sinusitis, unspecified Disposition: Home, Self-Care Condition on Discharge: Good Instructions: Sinusitis, DI for Sinusitis Additional Instructions: *Monitor Temp, Over the counter Motrin or Tylenol as directed/as needed Tylenol every 4 hours and Motrin every 6 hours (as long as your family doctor has told you that you can take it) for fever or pain. and straight to ER if unable to lower temp less than 101.0 after medication given *Warm salt water gargles may help to soothe the throat *Throat Lozenges *Warm fluids like tea with honey may help to soothe the throat *Sleep elevated *Humidifier/Vaporizer Start oral medication tomorrow Make sure to notify the [facility] Clinic that you are on antibiotics they may need to adjust your Warfarin Follow up IMMEDIATELY for new or worsening symptoms or no Noticeable improvement over the next 48-72 hours. 911 for difficulty breathing or swallowing Prescriptions: Cefdinir [Omnicef 300mg Capsule] 300 mg PO BID #20 cap Transmission Status: Received by [facility] #[id number] Referrals: Suzette Barton MD [Primary Care Provider] - Medical Decision Making - Kennedy Inquiry Pt receiving controlled substance: No Kennedy was queried for this patient: No Vital Signs: 06/15/21 17:05 06/15/21 17:32 Temperature 98.5 F 98.5 F Temperature Source Oral Pulse Rate 79 Pulse Rate [Left] 79 Respiratory Rate 18 18 Blood Pressure 126/73 Blood Pressure [Right Arm] 126/73 Blood Pressure Mean [Right Arm] 90 02 Sat by Pulse Oximetry 97 - Lab Data Lab results reviewed: Yes: I reviewed the patient's lab results. Lab Results 06/15/21 17:33: Strep Scn Rapid Clinic Negative Orders (Tests/Meds): ED MEDICATIONS Discontinued Medications Generic Name Dose Route Start Last Admin Trade Name Freq PRN Reason Stop Dose Admin Ceftriaxone Sodium 1 gm 06/15/21 17:53 06/15/21 18:07 Ceftriaxone 1gm Vial IM 06/15/21 17:54 1 gm ONCE ONE Administration Lidocaine HCl 0 ml 06/15/21 17:53 06/15/21 18:07 Lidocaine 1% 5ml Pf Vial IM 06/15/21 17:54 2.5 ml ONCE ONE Administration Methylprednisolone Sodium Succinate 125 mg 06/15/21 17:53 06/15/21 18:07 Methylprednisolone Sod Succ 125mg Vial IM 06/15/21 17:54 125 mg ONCE ONE Administration ORDERS Category Date Time Status Full Resp Panel w/COVID ([facility]) Routine Lab 06/15/21 17:35 Received Strep Screen Confirmation Stat Micro 06/15/21 17:33 Received Medical Decision Narrative: Patient states that she has taken Cephalosporins in the past without complications or reactions [facility] - General Stated complaint: sore throat cough runny nose congestion/ covid gio Time Seen by Provider: 06/15/21 17:20 Mode of Arrival: Ambulatory Source of Information: Patient Limitations: No Limitations Description of Symptoms (Recalled from Triage Doc. by RN): pt c/o congestion and a cough. x3 days HEENT Symptoms (Recalled from RN notes): Yes (congestion) Resp Symptoms (Recalled from RN notes): Yes (cough) Skin Symptoms (Recalled from RN notes): No MS Symptoms (Recalled from RN notes): No Functional Status (Recalled from RN notes): wnl - History of Present Illness Provider Complaint: Patient states that she has been having sinus pain and pressure, drainage in the back of her throat and cough and congestion States that family was worried that she may have strep throat or COVID but she feels like she may ahve a sinus infection but she came in to get checked out - Related Data Home Medications Medication Instructions Recorded Confirmed B-complex with vitamin C 1 cap PO DAILY cap 09/25/17 03/23/21 acetaminophen 500 mg capsule 500 mg PO Q6H PRN 09/25/17 03/23/21 cyanocobalamin (vitamin B-12) 1,000 mcg PO DAILY cap 09/25/17 03/23/21 1,000 mcg
[2021-06-15 17:32] VITALS: BP 126/73; PULSE 79; RESP 18; TEMP 36.9
[2021-06-15 17:44] LABS: Adenovirus,PCR Not Detected (NotDetected); Bordetella Pertussis Not Detected (NotDetected); Chlamydophila Pneumoniae, PCR Not Detected (NotDetected); Coronavirus 19, PCR Not Detected (NotDetected); Coronavirus 229E Not Detected (NotDetected); Coronavirus NL63 Not Detected (NotDetected); Coronavirus OC43 Not Detected (NotDetected); Coronovirus HKU1,PCR Not Detected (NotDetected); Influenza A, PCR Not Detected (NotDetected); Influenza AH1, 2009 Not Detected (NotDetected); Influenza AH1, PCR Not Detected (NotDetected); Influenza AH3,PCR Not Detected (NotDetected); Influenza B, PCR Not Detected (NotDetected); Mycoplasma Pneumoniae, PCR Not Detected (NotDetected); Parainfluenza 1, PCR Not Detected (NotDetected); Parainfluenza 2, PCR Not Detected (NotDetected); Parainfluenza 3, PCR Not Detected (NotDetected); Parainfluenza 4, PCR Not Detected (NotDetected); Respiratory Syncytial Virus Not Detected (NotDetected); Rhinovirus/Enterovirus Not Detected (NotDetected)
[2021-06-15 17:49] LABS: UTC Strep Screen (Rapid) Negative (Negative)
[2021-06-15 23:15] LABS: Human Metapneumovirus Detected (NotDetected)
== END 2021-06-15 18:27 | disposition home or self-care (01) ==
PROVIDERS: Emergency Provider Nurse Practitioner; PCP Family Medicine
DX: J32.9 Chronic sinusitis, unspecified (principal); F41.9 Anxiety disorder, unspecified; E78.5 Hyperlipidemia, unspecified; I10 Essential (primary) hypertension; E03.9 Hypothyroidism, unspecified; Z79.899 Other long term (current) drug therapy; E66.01 Morbid (severe) obesity due to excess calories; Z68.45 Body mass index [BMI] 70 or greater, adult
CPT/HCPCS: 87581; 87632; 87798; 87880; 96372; 99202; C9803; G0463; U0003; U0005

== ENCOUNTER → 2021-08-09 11:32 | Outpatient (CLI) | payer MEDICARE, MEDICAID, SELFPAY ==
[2021-08-09 12:33] LABS: Adenovirus,PCR Not Detected (NotDetected); Bordetella Pertussis Not Detected (NotDetected); Chlamydophila Pneumoniae, PCR Not Detected (NotDetected); Coronavirus 229E Not Detected (NotDetected); Coronavirus NL63 Not Detected (NotDetected); Coronavirus OC43 Not Detected (NotDetected); Coronovirus HKU1,PCR Not Detected (NotDetected); Human Metapneumovirus Not Detected (NotDetected); Influenza A, PCR Not Detected (NotDetected); Influenza AH1, 2009 Not Detected (NotDetected); Influenza AH1, PCR Not Detected (NotDetected); Influenza AH3,PCR Not Detected (NotDetected); Influenza B, PCR Not Detected (NotDetected); Mycoplasma Pneumoniae, PCR Not Detected (NotDetected); Parainfluenza 1, PCR Not Detected (NotDetected); Parainfluenza 2, PCR Not Detected (NotDetected); Parainfluenza 3, PCR Not Detected (NotDetected); Parainfluenza 4, PCR Not Detected (NotDetected); Respiratory Syncytial Virus Not Detected (NotDetected); Rhinovirus/Enterovirus Not Detected (NotDetected)
== END ==
PROVIDERS: PCP Family Medicine; Visit Provider Family Medicine
DX: U07.1 COVID-19 (principal)
CPT/HCPCS: 87486; 87581; 87632; 87798; C9803; U0003; U0005

== ENCOUNTER 2021-08-16 14:51 | Emergency (ER) | payer MEDICARE, MEDICAID, SELFPAY ==
[2021-08-16 14:52] VITALS: BP 116/57; PULSE 72; RESP 20; TEMP 37.1; O2SAT 91; BMI 71.2
--- NOTE | 2021-08-16 15:06 | XR_ITS ---
FINAL REPORT CLINICAL HISTORY: weakness, covid 1 week ago COMPARISON: December 25, 2017 FINDINGS: The heart size is normal. The mediastinum is normal. There are mild bibasilar opacities worrisome for pneumonia. There are no pleural effusions. There is no pneumothorax. There is no osseous abnormality. IMPRESSION: Mild bibasilar opacities worrisome for pneumonia. Reviewed, Interpreted and Dictated by Benedicto Marie III, MD Transcribed by Tremaine Powell Authenticated by Benedicto Marie III, MD on 08/16/2021 03:53:13 PM [facility]
[2021-08-16 15:42] LABS: Basophils % 0.6 % (0.1-2.0); Eosinophils % 0.7 % (0.1-12.0); Hematocrit 43.5 % (37.0-47.0); Hemoglobin 13.8 g/dL (12.2-16.2); Lymphocytes # 0.8 K/mm3 (0.7-4.5); Lymphocytes % 16.4 % (10-50); Mean Corpuscular HGB Conc 31.8 g/dL (31.8-35.4); Mean Corpuscular Hemoglobin 29.4 pg (27.0-31.2); Mean Corpuscular Volume 92.5 fl (81-99); Mean Platelet Volume 8.4 fl (7.4-10.4); Monocytes # 0.2 K/mm3 (0.1-1.0); Monocytes % 3.3 % (1.7-9.3); Platelet Count 159 K/mm3 (142-424)
[2021-08-16 15:47] LABS: Anion Gap 9.9 mEq/L (5-15); Blood Urea Nitrogen 22 mg/dl (7-17); Calcium 8.6 mg/dl (8.4-10.2); Carbon Dioxide 27 mmol/L (22.0-30.0); Chloride 108 mmol/L (98-107); Creatinine Clearance Estimated 42 mL/min (50-200); Estimated Glomerular Filt Rate 101 ml/min (>60); GFR (African American) 123 ML/MIN (>60); Glucose 128 mg/dl (74-100); Potassium 3.9 mmoL/L (3.5-5.1); Sodium 141 mmol/L (136-145)
[2021-08-16 16:02] LABS: Troponin I < 0.01 ng/ml (0.00-0.034)
--- NOTE | 2021-08-16 16:02 | ECG_ITS ---
APPROVED REPORT Exam: Resting ECG HR:59 bpm ECG Measurements Heart Rate 59 AXES [place] 143 P 3 QRSd 77 QRS 27 QT 396 T 96 QTc 396 Conclusion SINUS BRADYCARDIA NONSPECIFIC T-WAVE ABNORMALITY ABNORMAL ECG UNCONFIRMED REPORT Electronically signed by : Emerson Prabhakar MD 08/18/2021 19:05:50
[2021-08-16 16:17] LABS: INR 5.35 (0.9-1.1); Prothrombin Time 53.4 seconds (10.1-12.5)
--- NOTE | 2021-08-16 16:18 | PC.NURSE ---
Lab called critical on patient, PT 53.4 and INR5.35 results were read back and verfied.
--- NOTE | 2021-08-16 16:43 | HMH.EDGENADL ---
ED Disposition Clinical Impression: Anxiety, Supratherapeutic INR Diarrhea Qualifiers: Diarrhea type: unspecified type Qualified Code(s): R19.7 - Diarrhea, unspecified Disposition: Home, Self-Care Condition on Discharge: Good Instructions: DI for Diarrhea and Traveler's Diarrhea -- Adult, DI for Nausea -- Adult Additional Instructions: Zofran as needed for uneasy stomach/nausea. [id number] Imodium as needed for diarrhea. Call Dr. Barton tomorrow for further care. Do not take Coumadin until you are further instructed by Dr. Barton tomorrow. Zithromax as prescribed. Prescriptions: Azithromycin [Zithromax 250mg tab] 250 mg PO DAILY #4 tab Transmission Status: Pending to [facility] #[id number] Ondansetron [Zofran 4mg ODT] 4 mg PO TIDP PRN #10 tab PRN Reason: Nausea And Vomiting Transmission Status: Pending to [facility] #[id number] Referrals: Suzette Barton MD [Primary Care Provider] - - Critical Care Critical Care Time: No Attestation: On 08/16/21, the high probability of a clinically significant, sudden or life threatening deterioration of the following system(s) required my full and direct attention, intervention and personal management. The time I documented below is in addition to time spent performing reported procedures but includes the following listed in this critical care notation. Medical Decision Making - Kennedy Inquiry Pt receiving controlled substance: No Kennedy was queried for this patient: No Vital Signs: 08/16/21 14:52 Temperature 98.8 F Temperature Source Oral Pulse Rate [Radial] 72 Respiratory Rate 20 Blood Pressure [Right Arm] 116/57 L Blood Pressure Mean [Right Arm] 76 Blood Pressure Position [Right Arm] Sitting 02 Sat by Pulse Oximetry 91 L Oxygen Delivery Method Room Air - Lab Data Lab Results 08/16/21 15:30: WBC 5.0, RBC 4.70, Hgb 13.8, Hct 43.5, MCV 92.5, MCH 29.4, MCHC 31.8, RDW 14.0, Plt Count 159, MPV 8.4, Neut % (Auto) 79.0, Lymph % (Auto) 16.4, [place] % (Auto) 3.3, Eos % (Auto) 0.7, Baso % (Auto) 0.6, Neut # (Auto) 4.0, Lymph # (Auto) 0.8, [place] # (Auto) 0.2, Eos # (Auto) 0.0, Baso # (Auto) 0.0 08/16/21 15:30: Sodium 141, Potassium 3.9, Chloride 108 H, Carbon Dioxide 27, Anion Gap 9.9, BUN 22 H, Creatinine 0.60, Estimated Creat Clear 42, Estimated GFR 101, Est GFR ( Amer) 123, Glucose 128 H, Calcium 8.6, Troponin I < 0.01 08/16/21 15:44: PT 53.4 H, INR 5.35 H Result diagrams: 08/16/21 15:30 08/16/21 15:30 Orders (Tests/Meds): ED MEDICATIONS Discontinued Medications Generic Name Dose Route Start Last Admin Trade Name Freq PRN Reason Stop Dose Admin Azithromycin 500 mg 08/16/21 17:21 Azithromycin 250mg Tablet PO 08/16/21 17:22 ONCE ONE Ondansetron HCl 4 mg 08/16/21 17:20 Ondansetron 4mg/2ml Vial IV 08/16/21 17:21 ONCE ONE ORDERS Category Date Time Status Troponin I Q3H Lab 08/16/21 18:15 Ordered Troponin I Q3H Lab 08/16/21 21:15 Ordered - Radiology Data #1 Image(s): Chest Image Reviewed: Yes I have reviewed radiologist's interpretation - ECG Data Tracing #1 EKG interpreted by David Banerjee MD: Rhythm: sinus Rate: 60 [place]: normal Ectopy: none Conduction: normal ST Segment Changes: none T Wave Changes: Nonspecific Q Waves: none No evidence of acute ischemia or injury No prior EKGs available for comparison. - Physician Consults Physician Consulted: Bella Time: 17:15 Reason -: Pt condition Comment/Response: Discussed all clinical findings. He feels patient can be discharged. Recommend Zithromax. Patient will also be started on Zofran. Dr. Blanco recommends that she call Dr. Barton tomorrow. Hold Coumadin until further instructed by Dr. Barton tomorrow. - Reevaluation(s) Time: 17:18 Reevaluation #1: I put the patient on room air when I saw her and her pulse ox is remained good since then. Currently she is 95% on room air. General Adult HP
--- NOTE | 2021-08-16 17:04 | PC.NURSE ---
Had acid crane operator page who is leasing consultant for Dr Barton, they stated Dr Blanco,
--- NOTE | 2021-08-16 17:11 | PC.NURSE ---
Dr Banerjee talking to Dr Blanco about patient.
[2021-08-16 18:01] VITALS: BP 135/74; PULSE 65; RESP 22; TEMP 36.6; O2SAT 98
== END 2021-08-16 18:03 | disposition home or self-care (01) ==
PROVIDERS: Emergency Provider Emergency Medicine; PCP Family Medicine
DX: R53.83 Other fatigue (principal); Z86.16 Personal history of COVID-19; D68.9 Coagulation defect, unspecified; F41.9 Anxiety disorder, unspecified; E03.9 Hypothyroidism, unspecified; I10 Essential (primary) hypertension; E78.5 Hyperlipidemia, unspecified; E11.9 Type 2 diabetes mellitus without complications; Z79.899 Other long term (current) drug therapy
CPT/HCPCS: 71045; 80048; 84484; 85025; 85610; 93005; 96374; 96375; 99283; J2405

== ENCOUNTER → 2022-07-06 10:11 | Outpatient (CLI) | payer MEDICARE, MEDICAID, SELFPAY ==
--- NOTE | 2022-07-06 10:15 | XR_ITS ---
FINAL REPORT CLINICAL HISTORY: knee pain FINDINGS: RIGHT KNEE 3 views of the right knee were obtained. The images are suboptimal secondary to patient body habitus. There is no acute fracture or dislocation. Visualized joint spaces are normally aligned. There is severe degenerative changes with 3 compartment joint space narrowing. Soft tissue calcifications are noted. IMPRESSION: Suboptimal images. Severe degenerative change with no acute bony abnormality. Reviewed, Interpreted and Dictated by Benedicto Marie III, MD Transcribed by Shea Paniagua Authenticated and [facility]
--- NOTE | 2022-07-06 10:15 | XR_ITS ---
FINAL REPORT CLINICAL HISTORY: knee pain FINDINGS: LEFT KNEE 3 views of the left knee were obtained. The images are suboptimal secondary to patient body habitus. There is no acute fracture or dislocation. Visualized joint spaces are normally aligned. There is severe degenerative changes with 3 compartment joint space narrowing. Soft tissue calcifications are noted. There is a posterior loose body measuring approximately 18 mm. IMPRESSION: Suboptimal images. Severe degenerative change with no acute bony abnormality. Reviewed, Interpreted and Dictated by Benedicto Marie III, MD Transcribed by Shea Paniagua Authenticated and . [facility]
== END ==
PROVIDERS: PCP Family Medicine; Visit Provider Nurse Practitioner Acute Care
DX: M25.561 Pain in right knee (principal); M25.562 Pain in left knee
CPT/HCPCS: 73562

== ENCOUNTER 2022-07-06 12:49 | Emergency (ER) | payer MEDICARE, MEDICAID, SELFPAY ==
[2022-07-06 13:05] VITALS: BP 118/61; PULSE 68; RESP 21; TEMP 36.8; O2SAT 99; BMI 70.3
--- NOTE | 2022-07-06 13:25 | EXP.UTC ---
Discharge Plan Disposition Patient Disposition: Home, Self-Care Condition: Good Prescriptions Prescriptions: No Action magnesium oxide 400 mg (241.3 mg magnesium) tablet 400 mg PO DAILY alprazolam 1 mg tablet 1 mg PO DAILY lisinopril 2.5 mg tablet 2.5 mg PO Label Comments: TK 1 T PO QD pantoprazole 40 mg tablet,delayed release (DR/EC) 40 mg PO Label Comments: TK 1 T PO DAILY oxybutynin chloride 5 mg tablet 5 mg PO BID ciclopirox 8 % solution 1 applic TOPICAL DAILY 90 Days Qty: 6.6 3RF Rx Instructions: apply over previous coat; remove with alcohol every 7 days and file down nail warfarin 10 mg tablet 10 mg PO Label Comments: TAKE 1 TABLET BY MOUTH EVERY DAY mometasone [Nasonex] 50 mcg/actuation spray,non-aerosol 2 spray INTRANASAL ONCE PRN (Reason: allergies) levothyroxine 125 mcg capsule 125 mcg PO DAILY multivitamin with iron [Daily Multi-Vitamins/Iron] tablet 1 tab PO ONCE diphenhydramine HCl [Benadryl] 25 mg capsule 50 mg PO QHS B-complex with vitamin C capsule 1 cap PO DAILY cyanocobalamin (vitamin B-12) 1,000 mcg capsule 1,000 mcg PO DAILY acetaminophen 500 mg capsule 500 mg PO Q6H PRN (Reason: pain) gabapentin 800 mg tablet 800 mg PO TID fluticasone propionate 50 mcg/actuation spray,suspension 1 spray INTRANASAL Label Comments: USE 1 SPRAY INTO EACH NOSTRIL DAILY vitamin E 200 unit capsule 200 unit PO DAILY oxybutynin chloride 10 mg tablet extended release 24hr 10 mg PO Label Comments: TAKE 1 TABLET BY MOUTH EVERY DAY ondansetron 4 MG tablet,disintegrating 4 mg PO TIDP PRN (Reason: Nausea And Vomiting) Qty: 10 0RF sertraline 100 MG tablet 200 mg PO DAILY ascorbic acid (vitamin C) 500 MG tablet 500 mg PO DAILY calcium carb-D3-mag ox-zinc ox 1 EACH tablet 1 each PO DAILY Referrals Follow up/Referrals: Cb Myers MD [Physician] - See instructions Bartolo Hunter MD [Physician] - See instructions Suzette Barton MD [Primary Care Provider] - See instructions Dorian Beatty III, MD [Staff Physician] - See instructions Activity Restrictions/Add. Instructions Additional Instructions/Restrictions: 1) Do not blow your nose until 2 days after the bleeding stops. 2) Do not pick your nose or put anything into it. These actions may dislodge any blood clots. 3) If the bleeding starts again, sit up, lean forward and breathe through your mouth. Pinch the soft part of your nose tightly for 10 minutes without letting go. 4) Use a humidifier or vaporizer in your home. This will increase the moisture to your mucous membranes to prevent future nosebleeds. 5) For the next few days, elevate your head on several pillows when lying down. Ice to the bridge of the nose may help [place] one spray of afrin in nose this may help to stop the bleeding Follow up with ENT for further evaluation and examination Return if needed Straight to ER if any life threatening symptoms Clinical Impressions Clinical Impression: Bleeding from the nose Instructions Patient Instructions: Nosebleeds (Alternative Therapy), Nosebleed, DI for Nosebleed Discharge ED Provider: Natividad Pruitt [facility] [place] General Stated complaint: Nose bleed Mode of Arrival: Ambulatory Source of Information: Patient Limitations: No Limitations Time Seen by Provider: 07/06/22 13:25 Description of Symptoms (Recalled from Triage Doc. by RN): PATIENT C/O NOSE BLEED THAT STARTE APPROX 0830 THIS MORNING HEENT Symptoms (Recalled from RN notes): Yes Resp Symptoms (Recalled from RN notes): No Skin Symptoms (Recalled from RN notes): No MS Symptoms (Recalled from RN notes): No Functional Status (Recalled from RN notes): WNL History of Present Illness Provider Complaint: Patient states that she has been having nose bleeds on and off States that this morning she woke up and around 8
[2022-07-06 13:42] VITALS: BP 118/61; PULSE 68; RESP 21; TEMP 36.8; O2SAT 99
== END 2022-07-06 13:45 | disposition home or self-care (01) ==
PROVIDERS: Emergency Provider Nurse Practitioner; PCP Family Medicine
DX: R04.0 Epistaxis (principal)
CPT/HCPCS: 73562; 99212; G0463

== ENCOUNTER 2022-10-24 21:58 | Inpatient (IN) | payer MEDICARE, MEDICAID, SELFPAY ==
[2022-10-24] VITALS (8 sets, daily range): BP systolic 59–82; BP diastolic 33–49; PULSE 81–117; RESP 16; TEMP 37.6–39.1; O2SAT 81–95; BMI 65.0
--- NOTE | 2022-10-24 22:20 | XR_ITS ---
PROCEDURE INFORMATION: Exam: XR Chest Exam date and time: 10/24/2022 10:55 PM Age: 61 years old Clinical indication: Fever TECHNIQUE: Imaging protocol: Radiologic exam of the chest. Views: 1 view. COMPARISON: CR XR CHEST PORTABLE 08/16/2021 3:18 PM FINDINGS: Lungs: Hyperinflated lungs. No infiltration is seen. Pleural spaces: Unremarkable. No pleural effusion. No pneumothorax. Heart/Mediastinum: Mediastinum aorta, cardiac silhouettes unremarkable. Bones/joints: Unremarkable. IMPRESSION: Hyperinflated lungs without infiltration identified.
[2022-10-24 22:24] LABS: Coronavirus 19, PCR Not Detected (NotDetected); Influenza A, PCR Not Detected (NotDetected); Influenza B, PCR Not Detected (NotDetected)
[2022-10-24 22:48] LABS: Microscopic, Urine URINE MICROSCOPIC (MICROSCOPIC)
[2022-10-24 22:51] LABS: Basophils % 0.2 % (0.1-2.0); Eosinophils # 0.1 K/mm3 (0.0-0.4); Eosinophils % 0.8 % (0.1-12.0); Hematocrit 41.3 % (37.0-47.0); Hemoglobin 13.5 g/dL (12.2-16.2); Lymphocytes # 0.8 K/mm3 (0.7-4.5); Lymphocytes % 7.1 % (10-50); Mean Corpuscular HGB Conc 32.7 g/dL (31.8-35.4); Mean Corpuscular Hemoglobin 28.7 pg (27.0-31.2); Mean Corpuscular Volume 87.7 fl (81-99); Mean Platelet Volume 8.1 fl (7.4-10.4); Monocytes # 0.3 K/mm3 (0.1-1.0); Monocytes % 2.2 % (1.7-9.3); Neutrophils # 10.4 K/mm3 (1.8-7.8); Neutrophils % 89.7 % (37.0-80.0); Platelet Count 126 K/mm3 (142-424); Red Blood Count 4.71 M/mm3 (4.20-5.40); Red Cell Distribution Width 16.3 % (11.5-17.5); White Blood Count 11.6 K/mm3 (4.8-10.8)
[2022-10-24 22:54] LABS: MANUAL DIFFERENTIAL MANUAL DIFFERENTIAL (MANUAL DIFF)
[2022-10-24 22:57] LABS: Appearance,Urine CLEAR (Clear); Blood, Urine Negative (Negative); Color,Urine YELLOW (Yellow); Glucose,Urine (UA) Negative (Negative); Ketones,Urine TRACE (Negative); Leukocyte Esterase,Urine 1+ (Negative); Nitrate,Urine Negative (Negative); Protein,Urine Negative (Negative)
[2022-10-24 22:59] LABS: Alanine Aminotransferase 43 U/L (12-78); Albumin Level 3.5 g/dl (3.5-5.0); Albumin/Globulin Ratio 1.1 (1.1-1.8); Alkaline Phosphatase 200 U/L (38-126); Anion Gap 11.9 mEq/L (5-15); Aspartate Amino Transferase 92 U/L (14-36); Bilirubin,Total 1.2 mg/dl (0.2-1.3); Blood Urea Nitrogen 18 mg/dl (7-17); Calcium 8.3 mg/dl (8.4-10.2); Carbon Dioxide 21 mmol/L (22.0-30.0); Chloride 104 mmol/L (98-107); Creatinine Clearance Estimated 34 mL/min (50-200); Estimated Glomerular Filt Rate 45 ml/min (>60); GFR (African American) 55 ML/MIN (>60); Globulin 3.3 g/dL (1.3-3.2); Glucose 140 mg/dl (74-100); Potassium 3.9 mmoL/L (3.5-5.1); Sodium 133 mmol/L (136-145); Total Protein,Serum 6.8 g/dl (6.3-8.2)
[2022-10-24 23:04] LABS: C-Reactive Protein 103.5 mg/L (0-4)
[2022-10-24 23:18] LABS: Procalcitonin 4.39 ng/mL (0.0-2.0)
[2022-10-24 23:23] LABS: Lactic Acid 3.9 mmol/L (0.7-2.1)
[2022-10-24 23:25] LABS: Bilirubin,Urine 1+ (Negative)
[2022-10-24 23:34] LABS: Bacteria,Urine 1+ /lpf; RBC,Urine Occasional #/hpf (0-3)
[2022-10-24 23:53] LABS: Lymphocytes % 10 % (10-50); Monocytes % 1 % (2-9); Neutrophils % 89 % (42-76); Platelet Estimate Normal; RBC Morphology Normal; Total Cells Counted 100
[2022-10-24 23:54] LABS: Erythrocyte Sedimentation Rate 100 mm/hr (0-30)
--- NOTE | 2022-10-24 23:59 | HMH.EDWEAK ---
Discharge Plan Disposition Patient Disposition: Admitted As Inpatient Chief Complaint: Weakness Clinical Impressions Clinical Impression: Acute febrile illness, Morbid obesity with BMI of 60.0-69.9, adult, Severe sepsis with acute organ dysfunction, Septic shock Discharge ED Provider: Juan (ED),Julio Pineda HPI General Chief complaint: Weakness Stated complaint: fever,chills, body aches Time Seen by Provider: 10/24/22 23:59 Mode of Arrival: Wheelchair Source of Information: Patient, Relative and Medical Record Limitations: No Limitations Description of Symptoms (Recalled from ER Triage Doc. by RN): pt c/o fever increasing weakness and redness under her abd fold that started today. History of Present Illness HPI Narrative: fever with weakness and reddness since last pm - no cough - MD Complaint: generalized weakness Onset (ago): hour(s) Duration: constant Location: generalized Migration: none Severity: moderate Associated symptoms: denies other symptoms Related Data Home Medications Medication Instructions Recorded Confirmed B-complex with vitamin C 1 cap PO DAILY Supplement 09/25/17 10/02/22 acetaminophen 500 mg capsule 500 mg PO Q6H PRN pain 09/25/17 10/02/22 cyanocobalamin (vitamin B-12) 1,000 mcg PO DAILY daily 09/25/17 10/02/22 1,000 mcg capsule diphenhydramine HCl 25 mg capsule 50 mg PO QHS allergies 09/25/17 10/02/22 (Benadryl) levothyroxine 125 mcg capsule 125 mcg PO DAILY hypothyroid 09/25/17 10/02/22 mometasone 50 mcg/actuation nasal 2 spray intranasal ONCE PRN 09/25/17 10/02/22 spray (Nasonex) allergies multivitamin with iron (Daily 1 tab PO ONCE Supplement 09/25/17 10/02/22 Multi-Vitamins/Iron tablet) ascorbic acid (vitamin C) 500 mg 500 mg PO DAILY Supplement 12/10/17 10/02/22 tablet calcium carb 333 mg-vit D3 133 1 each PO DAILY Supplement 12/10/17 10/02/22 unit-mag ox 133 mg-zinc oxide 5 mg tab sertraline 100 mg tablet 200 mg PO DAILY mood 12/10/17 10/02/22 magnesium oxide 400 mg (241.3 mg 400 mg PO DAILY 03/26/18 10/02/22 magnesium) tablet alprazolam 1 mg tablet 1 mg PO DAILY 11/24/19 10/02/22 lisinopril 2.5 mg tablet 2.5 mg PO 11/24/19 10/02/22 oxybutynin chloride 5 mg tablet 5 mg PO BID 11/24/19 10/02/22 pantoprazole 40 mg tablet,delayed 40 mg PO 11/24/19 10/02/22 release fluticasone propionate 50 1 spray intranasal 09/08/20 10/02/22 mcg/actuation nasal spray,suspension gabapentin 800 mg tablet 800 mg PO TID 09/08/20 10/02/22 vitamin E 200 unit capsule 200 unit PO DAILY 03/23/21 10/02/22 oxybutynin chloride 10 mg 10 mg PO 10/05/21 10/02/22 tablet,extended release 24 hr warfarin 10 mg tablet 10 mg PO 03/27/22 10/02/22 Previous Rx's Medication Instructions Recorded ciclopirox 8 % topical solution 1 applic topical DAILY toenail 05/26/20 fungus 3 months #6.6 mL ondansetron 4 mg disintegrating 4 mg PO TIDP PRN Nausea And 08/16/21 tablet Vomiting #10 tabs Allergies Allergy/AdvReac Type Severity Reaction Status Date / Time atorvastatin [ATORVASTATIN] Allergy Mild Verified 10/02/22 10:44 levofloxacin [From LEVAQUIN] Allergy Mild Verified 10/02/22 10:44 sulfamethoxazole Allergy Mild Verified 10/02/22 10:44 [From BACTRIM] trimethoprim [From BACTRIM] Allergy Mild Verified 10/02/22 10:44 amoxicillin AdvReac Severe Verified 10/02/22 10:44 clavulanic acid AdvReac Severe Verified 10/02/22 10:44 [From Augmentin] cyclobenzaprine AdvReac Severe Verified 10/02/22 10:44 [From Flexeril] [facility] Disclaimer: The information contained in this section may have been updated after the patient was seen, as this information can be updated by other users. Medical History Epistaxis Nasal septum ulceration Osteoarthritis of left knee Osteoarthritis of right knee Spinal stenosis at L4-L5 level Surgical History History of delive
[2022-10-25] VITALS (25 sets, daily range): BP systolic 59–150; BP diastolic 28–64; PULSE 62–113; RESP 16–26; TEMP 36.9–39.5; O2SAT 90–97; BMI 65.0; BMI 64.9
--- NOTE | 2022-10-25 00:11 | PC.NURSE ---
paged at this time.
--- NOTE | 2022-10-25 00:12 | PC.NURSE ---
on the phone with at this time.
[2022-10-25 00:13] LABS: INR 2.34 (0.9-1.1); Prothrombin Time 24.1 seconds (10.1-12.5)
--- NOTE | 2022-10-25 01:28 | PC.NURSE ---
PT. ARRIVED TO FLOOR AT THIS TIME
[2022-10-25 02:45] LABS: Reflex Lactic Add Lactic Reflex
[2022-10-25 03:21] LABS: Lactic Acid Follow Up (RFLX 1) 2.4 mmol/L (0.7-2.1)
--- NOTE | 2022-10-25 04:49 | ECG_ITS ---
APPROVED REPORT Exam: Resting ECG HR:100 bpm ECG Measurements Heart Rate 100 AXES [place] 147 P 62 QRSd 85 QRS 60 QT 345 T 69 QTc 402 Conclusion SINUS TACHYCARDIA ABNORMAL RHYTHM ECG UNCONFIRMED REPORT Electronically signed by : Emerson Prabhakar MD 10/27/2022 14:27:54
[2022-10-25 04:58] LABS: Reflex Lactic (2 hrs) Add Lactic Reflex
--- NOTE | 2022-10-25 05:12 | PC.NURSE ---
0415 BP reading 55/30 on datascope 0422 Manual BP 64/40 0424 Mick CAN paged [id number] Notified MD of bp, states to give 200ml NS bolus 0428 MD calls and states to order STAT EKG, set of troponins, and consult for cardiology. 0435 200ml NS bolus started 0455 BP rechecked, 60/40. 0505 Notified Mick CAN, states to move to step down and start levo gtt at this time. States to order echo this morning. 0515 supervisor compounding and finishing in room attempting to insert 2nd IV.
[2022-10-25 05:51] LABS: Basophils % 0.2 % (0.1-2.0); Eosinophils # 0.1 K/mm3 (0.0-0.4); Eosinophils % 0.6 % (0.1-12.0); Hematocrit 34.5 % (37.0-47.0); Lymphocytes # 0.5 K/mm3 (0.7-4.5); Lymphocytes % 6.1 % (10-50); Mean Corpuscular HGB Conc 32.7 g/dL (31.8-35.4); Mean Corpuscular Hemoglobin 28.7 pg (27.0-31.2); Mean Corpuscular Volume 87.7 fl (81-99); Mean Platelet Volume 8.9 fl (7.4-10.4); Monocytes # 0.3 K/mm3 (0.1-1.0); Monocytes % 3.1 % (1.7-9.3); Neutrophils # 7.9 K/mm3 (1.8-7.8); Neutrophils % 89.9 % (37.0-80.0); Platelet Count 87 K/mm3 (142-424); Red Blood Count 3.93 M/mm3 (4.20-5.40); Red Cell Distribution Width 16.5 % (11.5-17.5); White Blood Count 8.8 K/mm3 (4.8-10.8)
[2022-10-25 05:56] LABS: Lactic Acid Follow up (RFLX 2) 2.3 mmol/L (0.7-2.1)
[2022-10-25 05:58] LABS: Hemoglobin 11.4 g/dL (12.2-16.2)
[2022-10-25 06:07] LABS: Chloride 105 mmol/L (98-107); Potassium 3.6 mmoL/L (3.5-5.1); Sodium 132 mmol/L (136-145)
[2022-10-25 06:10] LABS: Anion Gap 8.6 mEq/L (5-15); Blood Urea Nitrogen 22 mg/dl (7-17); Carbon Dioxide 22 mmol/L (22.0-30.0); Creatinine Clearance Estimated 30 mL/min (50-200); Estimated Glomerular Filt Rate 41 ml/min (>60); GFR (African American) 50 ML/MIN (>60)
[2022-10-25 06:11] LABS: Calcium 7.2 mg/dl (8.4-10.2); Glucose 105 mg/dl (74-100)
[2022-10-25 06:17] LABS: Troponin I < 0.01 ng/ml (0.00-0.034)
--- NOTE | 2022-10-25 06:30 | PC.NURSE ---
0550 IV inserted into L UA. Levophed started at 8mcg/min @ 0602. BP 63/28Pt continues to be awake and alert
--- NOTE | 2022-10-25 06:36 | PC.NURSE ---
BP 59/30, Levo gtt titrated up to 12mcg/min
--- NOTE | 2022-10-25 06:50 | PC.NURSE ---
BP 75/46 Levo gtt titrated up to 16mcg/min
[2022-10-25 06:59] LABS: POC Glucose,Bedside 104 (70-110)
--- NOTE | 2022-10-25 07:46 | EXP.PHA.CONS ---
Pharmacy Consult Date: 10/25/22 Time: 07:46 Referring provider: DR BURT Reason for Consult:: VANCOMYCIN DOSING CONSULT Allergies Allergy/AdvReac Type Severity Reaction Status Date / Time atorvastatin [ATORVASTATIN] Allergy Mild Verified 10/02/22 10:44 levofloxacin [From LEVAQUIN] Allergy Mild Verified 10/02/22 10:44 sulfamethoxazole Allergy Mild Verified 10/02/22 10:44 [From BACTRIM] trimethoprim [From BACTRIM] Allergy Mild Verified 10/02/22 10:44 amoxicillin AdvReac Severe Verified 10/02/22 10:44 clavulanic acid AdvReac Severe Verified 10/02/22 10:44 [From Augmentin] cyclobenzaprine AdvReac Severe Verified 10/02/22 10:44 [From Flexeril] Home Medications Medication Instructions Recorded Confirmed Type acetaminophen 500 mg capsule 500 mg PO Q6H PRN pain 09/25/17 10/25/22 History cyanocobalamin (vitamin B-12) 1,000 mcg PO DAILY daily 09/25/17 10/25/22 History 1,000 mcg capsule diphenhydramine HCl 25 mg capsule 50 mg PO QHS allergies 09/25/17 10/25/22 History (Benadryl) levothyroxine 125 mcg capsule 125 mcg PO DAILY hypothyroid 09/25/17 10/25/22 History mometasone 50 mcg/actuation nasal 2 spray intranasal ONCE PRN 09/25/17 10/25/22 History spray (Nasonex) allergies multivitamin with iron (Daily 1 tab PO ONCE Supplement 09/25/17 10/25/22 History Multi-Vitamins/Iron tablet) ascorbic acid (vitamin C) 500 mg 500 mg PO HS Supplement 12/10/17 10/25/22 History tablet sertraline 100 mg tablet 200 mg PO DAILY mood 12/10/17 10/25/22 History magnesium oxide 400 mg (241.3 mg 400 mg PO HS Supplement 03/26/18 10/25/22 History magnesium) tablet alprazolam 1 mg tablet 1 mg PO HS Anxiety 11/24/19 10/25/22 History lisinopril 2.5 mg tablet 2.5 mg PO DAILY blood pressure 11/24/19 10/25/22 History pantoprazole 40 mg tablet,delayed 40 mg PO DAILY Heartburn 11/24/19 10/25/22 History release fluticasone propionate 50 1 spray intranasal NEEDED PRN 09/08/20 10/25/22 History mcg/actuation nasal allergies spray,suspension gabapentin 800 mg tablet 800 mg PO TID pain 09/08/20 10/25/22 History ondansetron 4 mg disintegrating 4 mg PO TIDP PRN Nausea And 08/16/21 10/25/22 Rx tablet Vomiting #10 tabs oxybutynin chloride 10 mg 10 mg PO BID Depression 10/05/21 10/25/22 History tablet,extended release 24 hr warfarin 10 mg tablet 7.5 mg PO DAILY Blood thinner 03/27/22 10/25/22 History New Prescriptions to Start Prescriptions: Height: 1.52 m Weight: 150.338 kg Laboratory Results:: Laboratory Results - last 24 hr 10/24/22 22:11: SARS-CoV-2 (PCR) Not detected, Influenza A Untype (PCR) Not detected, Influenza Type B (PCR) Not detected 10/24/22 22:30: Urine Color Yellow, Urine Appearance Clear, Urine pH 6.0, Ur Specific [place] 1.020, Urine Protein Negative, Urine Glucose (UA) Negative, Urine Ketones Trace, Urine Blood Negative, Urine Nitrate Negative, Urine Bilirubin 1+ A, Urine Urobilinogen 1.0, Ur Leukocyte Esterase 1+ A, Urine RBC Occasional, Urine WBC 3-5, Ur Squamous Epith Cells 10-20, Urine Bacteria 1+ 10/24/22 22:30: WBC 11.6 H, RBC 4.71, Hgb 13.5, Hct 41.3, MCV 87.7, MCH 28.7, MCHC 32.7, RDW 16.3, Plt Count 126 L, MPV 8.1, Neut % (Auto) 89.7 H, Lymph % (Auto) 7.1 L, [place] % (Auto) 2.2, Eos % (Auto) 0.8, Baso % (Auto) 0.2, Neut # (Auto) 10.4 H, Lymph # (Auto) 0.8, [place] # (Auto) 0.3, Eos # (Auto) 0.1, Baso # (Auto) 0.0, Total Counted 100, Neutrophils % (Manual) 89 H, Lymphocytes % (Manual) 10, Monocytes % (Manual) 1 L, Platelet Estimate Normal, RBC Morphology Normal, ESR 100 H 10/24/22 22:30: Sodium 133 L, Potassium 3.9, Chloride 104, Carbon Dioxide 21 L, Anion Gap 11.9, BUN 18 H, Creatinine 1.20 H, Estimated Creat Clear 34, Estimated GFR 45 L, Est GFR ( Amer) 55 L, Glucose 140 H, Calcium 8.3 L, Total Bilirubin 1.2, AST 92 H, ALT 43, Alkaline Phosphatase 200 H, C-Reactive Protein 103.5 H, Total Protein 6.8, Albumin 3.5, Globulin 3.3 H, Albumin/Globulin Ratio 1.1, Procalcitonin 4.39 H 10/24/22 22:30: La
--- NOTE | 2022-10-25 08:28 | EXP.HP ---
History of Present Illness *Admission Date: 10/25/22 *Reason for visit:: weakness, fever *History of present illness: Ms. Merritt is a 61-year-old morbidly obese female with a history of type 2 diabetes, hypertension, hypothyroidism, history of DVT on anticoagulation, and nonalcoholic cirrhosis who began running a fever on Sunday. She states she has been extremely weak but denies any pain. She has had some cellulitis on the right side of her abdomen and back. She became so weak that she was brought to the emergency room for evaluation. Her white blood cell count was elevated as was her ESR, procalcitonin, and lactate. Her blood pressure was low. She was admitted with severe sepsis and started on sepsis protocol. This morning she is still extremely weak. She has had multiple bags of fluids and has been unable to urinate. She continues to deny any pain. [facility] Disclaimer: The information contained in this section may have been updated after the patient was seen, as this information can be updated by other users. Medical History (Updated 10/25/22 @ 08:56 by JUDY Blanton) Cellulitis of right abdominal wall Epistaxis History of DVT (deep vein thrombosis) Hypertension Hypothyroidism Morbid obesity Morbid obesity with BMI of 70 and over, adult Nasal septum ulceration Osteoarthritis of left knee Osteoarthritis of right knee Sleep apnea Spinal stenosis at L4-L5 level Type 2 diabetes mellitus Umbilical hernia Surgical History (Updated 10/25/22 @ 08:50 by JUDY Blanton) H/O superior vena cava filter placement History of delivery History of cholecystectomy History of D&C History of ERCP History of esophagogastroduodenoscopy (EGD) History of gastric surgery History of tonsillectomy Family History (Updated 10/25/22 @ 08:50 by JUDY Blanton) Ankylosing spondylitis Social History (Updated 10/25/22 @ 01:54 by Betty Lauren RN) Smoking Status: Never smoker alcohol intake: never substance use type: denies use current occupational status: other Travel in the last 8 weeks: None household members: spouse housing: house Review of Systems Constitutional Constitutional: Reports fatigue, Reports fever(s), Denies headache(s) and Reports weakness Eyes Eyes: Denies blurry vision and Denies diplopia ENT Ears, Nose, Mouth, and Throat: Denies headache(s), Denies nasal congestion, Denies sore throat and Denies vertigo *Cardiovascular Cardiovascular: Denies chest pain, Denies dyspnea and Denies leg edema *Respiratory Respiratory: Denies cough and Denies dyspnea *Gastrointestinal Gastrointestinal: Denies abdominal pain, Denies loose stools, Denies nausea and Denies vomiting *Genitourinary Genitourinary: Reports difficulty voiding, Denies dysuria and Reports urinary hesitancy *Musculoskeletal Musculoskeletal: Denies arthralgias and Denies myalgias *Neurologic Neurologic: Denies headache(s), Denies vertigo and Reports weakness Endocrine Endocrine: Reports fatigue Meds Home Medications and Allergies Home Medications Medication Instructions Recorded Confirmed Type acetaminophen 500 mg capsule 500 mg PO Q6HP PRN pain 09/25/17 10/25/22 History cyanocobalamin (vitamin B-12) 1,000 mcg PO DAILY daily 09/25/17 10/25/22 History 1,000 mcg capsule diphenhydramine HCl 25 mg capsule 50 mg PO HS SLEEP 09/25/17 10/25/22 History (Benadryl) levothyroxine 125 mcg capsule 125 mcg PO DAILY THYROID 09/25/17 10/25/22 History ascorbic acid (vitamin C) 500 mg 500 mg PO HS Supplement 12/10/17 10/25/22 History tablet sertraline 100 mg tablet 200 mg PO DAILY mood 12/10/17 10/25/22 History magnesium oxide 400 mg (241.3 mg 400 mg PO HS Supplement 03/26/18 10/25/22 History magnesium) tablet alprazolam 1 mg tablet 1 mg PO HS Anxiety 11/24/19 10/25/22 History lisinopril 2.5 mg tablet 2.5 mg PO DAILY Hypertension 11/24/19 10/25/22 History pantoprazole 40 mg tablet,delayed 40 mg PO DAILY Acid reflux 11/23
[2022-10-25 09:18] LABS: Troponin I < 0.01 ng/ml (0.00-0.034)
--- NOTE | 2022-10-25 10:01 | EXP.CARD.CON ---
History of Present Illness History of Present Illness Consult date: 10/25/22 Requesting physician: Suzette Barton Chief complaint: sepsis History of present illness: 61-year-old white female with past medical history of morbid obesity, type 2 diabetes mellitus, hypertension, hypothyroidism, history of DVT on anticoagulation, recurrent UTIs and nonalcoholic cirrhosis presented to emergency department yesterday with complaints of fever and generalized weakness. Patient reports started feeling poorly on Sunday and developed fever which progressed throughout yesterday prompting patient to go to ER. Patient reports has had some cellulitis on right side of abdomen and back and has had some difficulties with urinating. Upon presentation to emergency department initial temperature was 102.3, pulse 116, and blood pressure 73/49. X-ray was negative for acute process. Labs as follow: WBC 11.6, hemoglobin 13.5, sed rate 100, sodium 133, potassium 3.9, BUN 18, creatinine 1.20, lactate 3.9, serial troponins negative C-reactive protein 103.5 and procalcitonin of 4.39. Urine was negative for nitrates and had 1+ leukocyte Esterease with 1+ bacteria and 10-20 squamous epithelial cells noted. Sepsis protocol was initiated and patient was admitted by her primary care provider with initial impression of sepsis and UTI per provider note. Cardiology was asked to consult to help manage hypotension in the setting of acute sepsis. This morning patient denies any complaints. Am labs reviewed. EKG from this morning reviewed and shows sinus tachycardia with a rate of 100 without acute ischemic changes noted. [facility] Disclaimer: The information contained in this section may have been updated after the patient was seen, as this information can be updated by other users. Medical History (Updated 10/25/22 @ 10:36 by Shirley Pizarro APRN) Cellulitis of right abdominal wall Epistaxis History of DVT (deep vein thrombosis) Hypertension Hypothyroidism Morbid obesity Morbid obesity with BMI of 70 and over, adult Nasal septum ulceration Osteoarthritis of left knee Osteoarthritis of right knee Sleep apnea Spinal stenosis at L4-L5 level Type 2 diabetes mellitus Umbilical hernia Surgical History (Updated 10/25/22 @ 08:50 by JUDY Blanton) H/O superior vena cava filter placement History of delivery History of cholecystectomy History of D&C History of ERCP History of esophagogastroduodenoscopy (EGD) History of gastric surgery History of tonsillectomy Family History (Updated 10/25/22 @ 08:50 by JUDY Blanton) Other Ankylosing spondylitis Social History (Updated 10/25/22 @ 01:54 by Betty Lauren RN) Smoking Status: Never smoker alcohol intake: never substance use type: denies use current occupational status: other Travel in the last 8 weeks: None household members: spouse housing: house Review of Systems Review of Systems Review of systems:: pertinent systems reviewed and negative unless documented below Constitutional Constitutional: Reports body ache(s), Denies headache(s) and Reports weakness ENT Ears, Nose, Mouth, and Throat: Denies headache(s) and Denies vertigo *Genitourinary Genitourinary: Reports urinary frequency *Neurologic Neurologic: Denies headache(s), Denies vertigo and Reports weakness Exam Data for Last 24 hours Vital signs and Labs for Last 24 Hours: Temp Pulse Resp BP Pulse Ox 100.5 F H 106 H 18 75/46 L 93 L 10/25/22 07:36 10/25/22 06:04 10/25/22 06:04 10/25/22 06:50 10/25/22 06:04 Laboratory Results - last 24 hr 10/24/22 22:11: SARS-CoV-2 (PCR) Not detected, Influenza A Untype (PCR) Not detected, Influenza Type B (PCR) Not detected 10/24/22 22:30: Urine Color Yellow, Urine Appearance Clear, Urine pH 6.0, Ur Specific [place] 1.020, Urine Protein Negative, Urine Glucose (UA) Negative, Urine Ketones Trace, Urine Blood Negative, Urine Nitrate Negative, Urine Bilirubin 1+ A
[2022-10-25 11:10] LABS: Troponin I < 0.01 ng/ml (0.00-0.034)
--- NOTE | 2022-10-25 12:02 | PC.NURSE ---
Levophed titration: 0730 @ 22 mcg/min 1045 @ 24 mcg/min 1133 @ 26 mcg/min
--- NOTE | 2022-10-25 12:24 | PC.WOUNDNOTE ---
(R) side of abdomen umbilical wound 1.5 cm ulceration
--- NOTE | 2022-10-25 13:36 | DIET.NUTRFU ---
upon visit patient reported she is weak and finding it tiresome to chew and swallow tough or dry meat and is requesting it come chopped up. Will notify kitchen
--- NOTE | 2022-10-25 13:56 | PC.NURSE ---
Pt resting in bed. No complaints stated. Levophed currently infusing @ 26 mcg/min. BP stable at this time. Pt declined her gabapentin @ 1300. Stated she doesn't want to take it until 4 pm.
[2022-10-25 14:38] LABS: Thyroid Stimulating Hormone 0.19 uIU/mL (0.465-4.68)
--- NOTE | 2022-10-25 16:00 | PC.NURSE ---
Levophed titrated to 24 mcg/min
[2022-10-25 16:10] LABS: POC Glucose,Bedside 88 (70-110)
[2022-10-25 16:10] LABS: POC Glucose,Bedside 78 (70-110)
--- NOTE | 2022-10-25 18:25 | EXP.ACUTE.PN ---
Subjective *Date: 10/25/22 *Time: 18:25 Interval history: She is improved this evening. She is mentating well. 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 Her blood pressure is normalizing. Her pulse is normalizing. Her hydration appears better. I see in the past a urinary tract infection with E. coli with wide sensitivities. Microbiology for the present is pending. She has no abdominal pain or shortness of breath. Medical Exam Vital signs and Labs for Last 24 Hours: Vital Signs Temp Pulse Pulse Pulse Resp BP BP 10/25/22 16:00 104 H 10/25/22 16:00 99 H 21 125/58 L 10/25/22 15:10 99.6 F 10/25/22 14:00 100 H 20 125/51 L 10/25/22 12:00 113 H 10/25/22 12:00 101 H 21 106/59 L 10/25/22 09:30 103 H 21 88/38 L 10/25/22 10:45 97 H 21 86/43 L 10/25/22 09:00 98.4 F 104 H 26 H 85/40 L 10/25/22 08:00 107 H 22 90/40 L 10/25/22 11:05 99.3 F 10/25/22 08:00 110 H 10/25/22 06:50 75/46 L 10/25/22 06:36 59/30 L 10/25/22 07:36 100.5 F H 10/25/22 02:50 103.1 F H 10/25/22 06:15 59/30 L 10/25/22 04:55 60/40 L 10/25/22 06:04 99.7 F H 106 H 18 63/28 L 10/25/22 04:00 101 H 18 64/40 L 10/25/22 02:00 101.0 F H 62 18 100/54 L 10/25/22 01:02 99.5 F 87 16 100/44 L 10/25/22 00:30 90 97/47 L 10/25/22 00:00 83 83/48 L 10/24/22 23:45 99.7 F H 81 82/42 L 10/24/22 23:30 83 71/33 L 10/24/22 23:22 85 59/42 L 10/24/22 23:00 92 H 77/42 L 10/24/22 22:41 105 H 72/48 L 10/24/22 22:15 117 H 73/49 L 10/24/22 22:13 73/33 L 10/24/22 21:59 102.3 F H 116 H 16 73/49 L Pulse Ox 10/25/22 16:00 10/25/22 16:00 97 10/25/22 15:10 10/25/22 14:00 93 L 10/25/22 12:00 10/25/22 12:00 94 L 10/25/22 09:30 94 L 10/25/22 10:45 96 10/25/22 09:00 92 L 10/25/22 08:00 93 L 10/25/22 11:05 10/25/22 08:00 10/25/22 06:50 10/25/22 06:36 10/25/22 07:36 10/25/22 02:50 10/25/22 06:15 10/25/22 04:55 10/25/22 06:04 93 L 10/25/22 04:00 90 L 10/25/22 02:00 92 L 10/25/22 01:02 10/25/22 00:30 96 10/25/22 00:00 95 10/24/22 23:45 95 10/24/22 23:30 94 L 10/24/22 23:22 95 10/24/22 23:00 94 L 10/24/22 22:41 92 L 10/24/22 22:15 93 L 10/24/22 22:13 81 L 10/24/22 21:59 93 L Intake and Output 10/25/22 10/25/22 10/25/22 03:59 11:59 19:59 Intake Total 2445 / 2445 618 / 618 Output Total 400 / 400 200 / 200 Balance 2044 / 204 418 / 418 Intake: Intake, Oral Amount 300 / 300 360 / 360 Intake, Total IV Amount 2145 / 214 258 / 258 0.9 % Sodium Chloride 1000ML 1, 2000 / 1999 000 ml @ 999 mls/hr IV .Q1H1M [facility] Rx#:[id number] Norepinephrine Bitartrate 8 mg 145 / 145 In Dextrose 5 % in Water 250 ml @ 22 MCG/MIN 42.57 mls/hr IV . Q6H4M [facility] Rx#:[id number] Output: Output, Urine Amount 200 / 200 0 / 0 Output, Urine Amount (Catheter) 200 / 200 200 / 200 Rios 200 / 200 200 / 200 Other: Number of Unmeasured Voids 0 0 Weight 331 lb 7 oz 330 lb 11.094 oz Laboratory Results - last 24 hr 10/24/22 22:11: SARS-CoV-2 (PCR) Not detected, Influenza A Untype (PCR) Not detected, Influenza Type B (PCR) Not detected 10/24/22 22:30: Urine Color Yellow, Urine Appearance Clear, Urine pH 6.0, Ur Specific [place] 1.020, Urine Protein Negative, Urine Glucose (UA) Negative, Urine Ketones Trace, Urine Blood Negative, Urine Nitrate Negative, Urine Bilirubin 1+ A, Urine Urobilinogen 1.0, Ur Leukocyte Esterase 1+ A, Urine RBC Occasional, Urine WBC 3-5, Ur Squamous Epith Cells 10-20, Urine Bacteria 1+ 10/24/22 22:30: WBC 11.6 H, RBC 4.71, Hgb 13.5, Hct 41.3, MCV 87.7, MCH 28.7, MCHC 32.7, RDW 16.3, Plt Count 126 L, MPV 8.1, Neut % (Auto) 89.7 H, Lymph % (Auto) 7.1 L, [place] % (Auto) 2.2, Eos % (Auto) 0.8,
--- NOTE | 2022-10-25 19:20 | PC.NURSE ---
pt would like password to be Evita
--- NOTE | 2022-10-25 20:28 | PC.NURSE ---
1900-bp124/49, decreased levophed drip to 18mcg/min 191-bp 144/52, decreased levophed drip to 16mcg/min 192-bp151/50, decreased levophed drip to 14mcg/min 1930-bp137/50, decreased levophed drip to 12mcg/min 194-bp133/48, decreased levophed drip to 10mcg/min 1999-bp 130/64, decreased levophed drip to 7.5mcg/min 2014-bp 146/52, decreased levophed drip to 5mcg/min
--- NOTE | 2022-10-25 20:45 | PC.NURSE ---
2029-bp 129/47, decreased levophed drip to 2.5mcg/min 2044-bp 123/56, held levophed drip at this time
--- NOTE | 2022-10-25 22:38 | PC.NURSE ---
pt had open area with mild sanguineous drainage from umbilicus, placed 2x2 and tegaderm over area
[2022-10-26] VITALS (16 sets, daily range): BP systolic 90–146; BP diastolic 41–62; PULSE 92–140; RESP 17–28; TEMP 36.9–38.5; O2SAT 92–96; BMI 69.4
--- NOTE | 2022-10-26 02:12 | PC.NURSE ---
changed pt to bariatric bed, used talat lift to move pt to new bed, call light within reach
[2022-10-26 06:29] LABS: INR 4.07 (0.9-1.1); Prothrombin Time 40.6 seconds (10.1-12.5)
--- NOTE | 2022-10-26 08:17 | PC.NURSE ---
0810 notified Kelsey Vázquez face to face that pt is requesting her xanax be ordered as she takes it at home. xanax 1 mg po in the am and at bedtime. and xanax 0.5mg po at 1600
--- NOTE | 2022-10-26 08:20 | EXP.ACUTE.PN ---
Subjective *Date: 10/26/22 *Time: 08:20 Interval history: Patient is feeling better this am. She is complaining of dry mouth and being achy all over. She has been able to eat and drink and has been much more alert. She is still having pain of the skin on the right side. Medical Exam Vital signs and Labs for Last 24 Hours: Vital Signs Temp Pulse Pulse Resp BP Pulse Ox 10/26/22 08:00 99.4 F 10/26/22 06:00 93 H 24 120/41 L 92 L 10/25/22 20:46 90 10/26/22 04:00 100 H 10/26/22 04:00 98.5 F 10/26/22 02:00 93 H 20 109/58 L 93 L 10/26/22 00:00 104 H 20 114/44 L 95 10/25/22 22:00 98 H 20 131/50 L 97 10/26/22 00:00 100.0 F H 10/26/22 00:16 100 H 10/25/22 20:00 100.8 F H 10/25/22 20:00 96 H 17 130/64 94 L 10/25/22 18:00 93 H 16 150/50 H 97 10/25/22 16:00 104 H 10/25/22 16:00 99 H 21 125/58 L 97 10/25/22 15:10 99.6 F 10/25/22 14:00 100 H 20 125/51 L 93 L 10/25/22 12:00 113 H 10/25/22 12:00 101 H 21 106/59 L 94 L 10/25/22 09:30 103 H 21 88/38 L 94 L 10/25/22 10:45 97 H 21 86/43 L 96 10/25/22 09:00 98.4 F 104 H 26 H 85/40 L 92 L 10/25/22 11:05 99.3 F Intake and Output 10/25/22 10/26/22 10/26/22 19:59 03:59 11:59 Intake Total 618 / 1388 530 / 1388 240 / 1388 Output Total 200 / 800 0 / 800 600 / 800 Balance 418 / 588 530 / 588 -360 / 588 Intake: Intake, Oral Amount 360 / 1080 480 / 1080 240 / 1080 Intake, Total IV Amount 258 / 308 50 / 308 Ceftriaxone 1 gm 1 gm In 0.9 % 50 / 50 Sodium Chloride 50 ml @ 100 mls /hr IV Q24H [facility] Rx#:[id number] Output: Output, Urine Amount 0 / 600 0 / 600 600 / 600 Output, Urine Amount (Catheter) 200 / 200 Rios 200 / 200 Other: Number of Unmeasured Voids 0 0 0 Number of Bowel Movements 1 Weight 353 lb 9.175 oz Patient Weight 10/26/22 11:59 Weight 353 lb 9.175 oz Laboratory Results - last 24 hr 10/24/22 22:30: Urine Color Yellow, Urine Appearance Clear, Urine pH 6.0, Ur Specific [place] 1.020, Urine Protein Negative, Urine Glucose (UA) Negative, Urine Ketones Trace, Urine Blood Negative, Urine Nitrate Negative, Urine Bilirubin 1+ A, Urine Urobilinogen 1.0, Ur Leukocyte Esterase 1+ A, Urine RBC Occasional, Urine WBC 3-5, Ur Squamous Epith Cells 10-20, Urine Bacteria 1+ 10/25/22 08:45: Troponin I < 0.01 10/25/22 08:45: TSH 0.19 L 10/25/22 10:30: Troponin I < 0.01 10/25/22 11:01: POC Glucose 88 10/25/22 15:50: POC Glucose 78 10/26/22 06:05: PT 40.6 H, INR 4.07 H I & O for Labs for Last 24 Hours: Intake & Output 10/23/22 10/24/22 10/25/22 10/26/22 11:59 11:59 11:59 11:59 Intake Total 2445 / 2445 1388 / 1388 Output Total 400 / 400 800 / 800 Balance 2045 / 2045 588 / 588 Weight 330 lb 11.094 oz 353 lb 9.175 oz Microbiology Reports for the Last 24 Hours: Microbiology 10/24/22 22:30 Blood Blood Culture - Preliminary Gram Positive Cocci 10/24/22 22:30 Blood Blood Culture - Preliminary Gram Positive Cocci 10/24/22 22:30 Urine,Clean Catch Urine Culture - Preliminary Constitutional: Present no acute distress ENT: Present mucous membranes dry Respiratory: Present CTA bilaterally Cardiac: Present Reg Rate and Rhythm GI: Present soft; Absent distention, tenderness or guarding Extremities: Present edema (trace) Skin: Present erythema (along entire right side onto the back, warm to the touch and tender) Neuro: Present alert and awake Assessment and Plan *Assessment and plan (1) Septic shock: Status: Acute Category: Medical Code(s): A41.9 - Sepsis, unspecified organism; R65.21 - Severe sepsis with septic shock (2) Hypotension: Status: Acute Category: Medical Code(s): I95.9 - Hypotension, unspecified (3) Acute febrile illness: Status: Acute Catego
--- NOTE | 2022-10-26 08:22 | HMH.PHAINT1 ---
Pharmacy Intervention Comments: Reconciled patient's home medications using pharmacy fill history and patient interview.
--- NOTE | 2022-10-26 09:12 | EXP.CARD.PN ---
Subjective Subjective Date: 10/26/22 Time: 08:00 Principal diagnosis: acute sepsis Interval history: Doing well this am, off of Levophed and holding acceptable BP. AM labs reviewed. Exam Data for Last 24 hours Vital signs and Labs for Last 24 Hours: Temp Pulse Resp BP Pulse Ox 99.4 F 96 H 20 90/53 L 95 10/26/22 08:00 10/26/22 08:00 10/26/22 08:00 10/26/22 08:00 10/26/22 08:00 Laboratory Results - last 24 hr 10/24/22 22:30: Urine Color Yellow, Urine Appearance Clear, Urine pH 6.0, Ur Specific [place] 1.020, Urine Protein Negative, Urine Glucose (UA) Negative, Urine Ketones Trace, Urine Blood Negative, Urine Nitrate Negative, Urine Bilirubin 1+ A, Urine Urobilinogen 1.0, Ur Leukocyte Esterase 1+ A, Urine RBC Occasional, Urine WBC 3-5, Ur Squamous Epith Cells 10-20, Urine Bacteria 1+ 10/25/22 08:45: Troponin I < 0.01 10/25/22 08:45: TSH 0.19 L 10/25/22 10:30: Troponin I < 0.01 10/25/22 11:01: POC Glucose 88 10/25/22 15:50: POC Glucose 78 10/26/22 06:05: PT 40.6 H, INR 4.07 H I & O for Last 24 hours: Intake & Output 10/23/22 10/24/22 10/25/22 10/26/22 23:59 23:59 23:59 23:59 Intake Total 3063 / 3063 770 / 770 Output Total 600 / 600 600 / 600 Balance 2463 / 2463 170 / 170 Weight 333 lb 330 lb 11.094 oz 353 lb 9.175 oz Microbiology Reports for the Last 24 Hours: Microbiology 10/24/22 22:30 Blood Blood Culture - Preliminary Gram Positive Cocci 10/24/22 22:30 Blood Blood Culture - Preliminary Gram Positive Cocci 10/24/22 22:30 Urine,Clean Catch Urine Culture - Preliminary Constitutional Constitutional: no acute distress *Routine Respiratory Exam Respiratory: Present CTA bilaterally and symmetric chest movement *Routine Cardiovascular Exam Cardiovascular: Present RRR, Normal S1 and Normal S2 *Routine Abdominal Exam Abdominal: Present soft and normoactive bowel sounds; Absent tenderness Comments: Erythema noted to right flank into right groin with warmth present. No visible abscess noted. *Routine Extremities Exam Extremities: Present full ROM and normal capillary refill; Absent edema *Routine Skin Exam Skin: Present intact, dry and warm Detailed Neck Exam: Thyroids Thyroid: Absent bruit Progress Note: A&P Assessment and plan (1) Septic shock: Status: Acute (2) Hypotension: Status: Acute (3) Acute febrile illness: Status: Acute (4) Cellulitis of right abdominal wall: Status: Acute (5) Bacteremia due to Streptococcus: Status: Acute (6) UTI (urinary tract infection): Status: Acute (7) Morbid obesity with BMI of 60.0-69.9, adult: Status: Chronic (8) Type 2 diabetes mellitus: Status: Chronic Assessment and Plan Assessment and Plan for All Diagnoses:: Acute sepsis -Secondary to UTI versus cellulitis of abdomen-primary service is following -Sepsis protocol initiated -Requiring Levophed for blood pressure support -Preliminary echo shows a normal ejection fraction, official read pending 10/26/2022: Off of Levo and holding BP. Official echo read from shows an estimated EF of 55 to 60%. [place] -BUN 22, creatinine 1.3 -Monitor closely 10/26/2022: improving Diabetes Mellitus Type 2 -Defer to primary service Morbid obesity -Complicates all aspects of care History of DVT -On Coumadin therapy CV summary 10/26/2022: Off of levo and maintaining BP. Continue to hold bp meds until BP can tolerate. Cards will sign off. Contact service as needed .
--- NOTE | 2022-10-26 09:24 | EXP.PHA.CONS ---
Pharmacy Consult Date: 10/26/22 Time: 09:24 Referring provider: DR. BURT Reason for Consult:: VANCOMYCIN DOSIN Allergies Allergy/AdvReac Type Severity Reaction Status Date / Time atorvastatin [ATORVASTATIN] Allergy Mild Verified 10/02/22 10:44 levofloxacin [From LEVAQUIN] Allergy Mild Verified 10/02/22 10:44 sulfamethoxazole Allergy Mild Verified 10/02/22 10:44 [From BACTRIM] trimethoprim [From BACTRIM] Allergy Mild Verified 10/02/22 10:44 amoxicillin AdvReac Severe Verified 10/02/22 10:44 clavulanic acid AdvReac Severe Verified 10/02/22 10:44 [From Augmentin] cyclobenzaprine AdvReac Severe Verified 10/02/22 10:44 [From Flexeril] Home Medications Medication Instructions Recorded Confirmed Type acetaminophen 500 mg capsule 500 mg PO Q6HP PRN pain 09/25/17 10/25/22 History cyanocobalamin (vitamin B-12) 1,000 mcg PO DAILY daily 09/25/17 10/25/22 History 1,000 mcg capsule diphenhydramine HCl 25 mg capsule 50 mg PO HS SLEEP 09/25/17 10/25/22 History (Benadryl) levothyroxine 125 mcg capsule 125 mcg PO DAILY THYROID 09/25/17 10/25/22 History ascorbic acid (vitamin C) 500 mg 500 mg PO HS Supplement 12/10/17 10/25/22 History tablet sertraline 100 mg tablet 200 mg PO AM mood 12/10/17 10/26/22 History magnesium oxide 400 mg (241.3 mg 400 mg PO HS Supplement 03/26/18 10/25/22 History magnesium) tablet alprazolam 1 mg tablet 1 mg PO HS Anxiety 11/24/19 10/25/22 History lisinopril 2.5 mg tablet 2.5 mg PO DAILY Hypertension 11/24/19 10/25/22 History pantoprazole 40 mg tablet,delayed 40 mg PO DAILY Acid reflux 11/24/19 10/25/22 History release fluticasone propionate 50 1 spray intranasal DAILYP PRN 09/08/20 10/25/22 History mcg/actuation nasal allergies spray,suspension gabapentin 800 mg tablet 800 mg PO TID pain 09/08/20 10/25/22 History oxybutynin chloride 10 mg 10 mg PO BID BLADDER 10/05/21 10/25/22 History tablet,extended release 24 hr warfarin 5 mg tablet 5 mg PO WEFR Blood thinner/HX OF PE 10/25/22 10/25/22 History warfarin 5 mg tablet 7.5 mg PO SUMOTUTHSA Blood 10/25/22 10/25/22 History thinner/HX OF PE alprazolam 1 mg tablet 0.5 mg PO 1600 Anxiety 10/26/22 10/26/22 History alprazolam 1 mg tablet 1 mg PO AM Anxiety 10/26/22 10/26/22 History New Prescriptions to Start Prescriptions: Height: 1.52 m Weight: 160.378 kg Laboratory Results:: Laboratory Results - last 24 hr 10/24/22 22:30: Urine Color Yellow, Urine Appearance Clear, Urine pH 6.0, Ur Specific [place] 1.020, Urine Protein Negative, Urine Glucose (UA) Negative, Urine Ketones Trace, Urine Blood Negative, Urine Nitrate Negative, Urine Bilirubin 1+ A, Urine Urobilinogen 1.0, Ur Leukocyte Esterase 1+ A, Urine RBC Occasional, Urine WBC 3-5, Ur Squamous Epith Cells 10-20, Urine Bacteria 1+ 10/25/22 08:45: TSH 0.19 L 10/25/22 10:30: Troponin I < 0.01 10/25/22 11:01: POC Glucose 88 10/25/22 15:50: POC Glucose 78 10/26/22 06:05: PT 40.6 H, INR 4.07 H Medical History: Medical History (Updated 10/26/22 @ 08:23 by JUDY Blanton) Cellulitis of right abdominal wall Epistaxis History of DVT (deep vein thrombosis) Hypertension Hypotension Hypothyroidism Morbid obesity Morbid obesity with BMI of 70 and over, adult Nasal septum ulceration Osteoarthritis of left knee Osteoarthritis of right knee Sleep apnea Spinal stenosis at L4-L5 level Type 2 diabetes mellitus Umbilical hernia Assessment and Plan Assessment and plan all Dx Assessment and Plan for all problems:: Pharmacokinetic dosing service Patient: Floor: Age: 61 yo Serum creatinine: 1.3 mg/dL Height: 59.8 Inches Weight (kg): 160 Assessment: IBW (kg): 45.35 Dosing wt(kg): 160 Estimated Creatinine clearance (ml/min): 31.7 CRCL method: Cockcroft and Gault using ibw(default). Drug selected: Vancomycin Loading dose (mg): 0 Vd (liters): 128.0 (factor used: 0.8 L/k
--- NOTE | 2022-10-26 09:47 | PC.NURSE ---
cleared for multiple shifts
[2022-10-26 09:57] LABS: Basophils % 0.2 % (0.1-2.0); Eosinophils # 0.1 K/mm3 (0.0-0.4); Eosinophils % 0.7 % (0.1-12.0); Hematocrit 33.4 % (37.0-47.0); Hemoglobin 10.9 g/dL (12.2-16.2); Lymphocytes # 0.5 K/mm3 (0.7-4.5); Lymphocytes % 6.3 % (10-50); Mean Corpuscular HGB Conc 32.6 g/dL (31.8-35.4); Mean Corpuscular Hemoglobin 29.1 pg (27.0-31.2); Mean Corpuscular Volume 89.4 fl (81-99); Mean Platelet Volume 9.2 fl (7.4-10.4); Monocytes # 0.1 K/mm3 (0.1-1.0); Monocytes % 1.3 % (1.7-9.3); Neutrophils # 7.1 K/mm3 (1.8-7.8); Neutrophils % 91.4 % (37.0-80.0); Platelet Count 62 K/mm3 (142-424); Red Blood Count 3.73 M/mm3 (4.20-5.40); Red Cell Distribution Width 16.4 % (11.5-17.5); White Blood Count 7.8 K/mm3 (4.8-10.8)
[2022-10-26 10:03] LABS: MANUAL DIFFERENTIAL MANUAL DIFFERENTIAL (MANUAL DIFF)
[2022-10-26 10:10] LABS: Chloride 106 mmol/L (98-107); Potassium 4.3 mmoL/L (3.5-5.1); Sodium 131 mmol/L (136-145)
[2022-10-26 10:13] LABS: Blood Urea Nitrogen 34 mg/dl (7-17); Creatinine Clearance Estimated 33 mL/min (50-200); Estimated Glomerular Filt Rate 45 ml/min (>60); GFR (African American) 55 ML/MIN (>60)
[2022-10-26 10:14] LABS: Anion Gap 8.3 mEq/L (5-15); Carbon Dioxide 21 mmol/L (22.0-30.0); Glucose 67 mg/dl (74-100)
[2022-10-26 10:25] LABS: Lymphocytes % 12 % (10-50); Monocytes % 2 % (2-9); Neutrophils % 86 % (42-76); Total Cells Counted 100
[2022-10-26 10:26] LABS: Platelet Estimate Marked Decrease; RBC Morphology Normal
[2022-10-26 11:32] LABS: POC Glucose,Bedside 63 (70-110)
--- NOTE | 2022-10-26 11:47 | PC.NURSE ---
[address] blount face to face during pt rounds that pt plts are 62, also notified md that pt has rash on abdomen that is painful (md to assess skin site) 1147 Messaged relayed through Lisa in Care Management, ok to transfer pt out of stepdown
--- NOTE | 2022-10-26 13:03 | PC.NURSE ---
CONTACTED SOFY ABOUT PT WANTING HER XANAX AT 0900, 1600, 2300. 1300 ORAL TEMP, 99.7. PTS HR 140'S. EKG ORDERED.
--- NOTE | 2022-10-26 13:06 | ECG_ITS ---
APPROVED REPORT Exam: Resting ECG HR:137 bpm ECG Measurements Heart Rate 137 AXES QRSd 80 QRS 42 QT 311 T -37 QTc 391 Conclusion ATRIAL FIBRILLATION WITH RAPID VENTRICULAR RESPONSE LOW QRS VOLTAGE IN PRECORDIAL LEADS [QRS DEFLECTION < 1.0 mV IN CHEST LEADS] NONSPECIFIC T-WAVE ABNORMALITY ABNORMAL ECG UNCONFIRMED REPORT Electronically signed by : Emerson Prabhakar MD 10/27/2022 14:22:11
--- NOTE | 2022-10-26 13:10 | PC.NURSE ---
pt noted to be in afib with rvr, ekg obtained. called and notified Shirley in cardiology. 1310 1312 notified john singh that pt is in afib with rvr at this time.
--- NOTE | 2022-10-26 13:41 | PC.NURSE ---
RECEIVED VERBAL ORDER FROM LOS TO GIVE 5MG METOPROLOL IV NOW. LOS STATED SHE WILL BE BACK TO ROUND ON PT.
--- NOTE | 2022-10-26 14:36 | PC.NURSE ---
Shirley at bedside at 1425. pt still noted to be in afib. 2nd dose of metoprolol 5mg iv ordered at this time. pt bp 143/52 hr 115. dose admin while shirley at bedside, pt remained in afib. bisoprolol 5mg po ordered at this time. (all med orders to be entered by shirley in Cardiology.)
[2022-10-26 16:52] LABS: POC Glucose,Bedside 91 (70-110)
[2022-10-26 20:13] LABS: POC Glucose,Bedside 88 (70-110)
[2022-10-27] VITALS: BP 107/41; PULSE 80; PULSE 83; RESP 27; TEMP 36.8; O2SAT 94
[2022-10-27 04:00] VITALS: BP 139/46; PULSE 80; PULSE 87; RESP 17; TEMP 38.2; O2SAT 92; BMI 71.7
--- NOTE | 2022-10-27 05:12 | PC.NURSE ---
NO ACUTE CHANGES SINCE PREVIOUS ASSESSMENT. PT HAS RESTED WELL. NO C/O COUGH OR SOB THIS SHIFT. REMAINS AFEBRILE. VSS. LUNG SOUNDS CLEAR. PT CONVERTED BACK TO NSR ON TELE THIS SHIFT. RATE IN THE MID 80'S.
[2022-10-27 05:15] LABS: POC Glucose,Bedside 93 (70-110)
[2022-10-27 06:18] LABS: INR 4.09 (0.9-1.1); Prothrombin Time 40.8 seconds (10.1-12.5)
--- NOTE | 2022-10-27 07:28 | XR_ITS ---
FINAL REPORT CLINICAL HISTORY: pulmonary edema COMPARISON: 10/24/2022 FINDINGS: A single portable view of the chest was obtained. The heart size is within normal limits. There is mild pulmonary vascular congestion, worse. The mediastinum is within normal limits. No acute pulmonary abnormality is identified. The bony thorax is intact. IMPRESSION: Mild pulmonary vascular congestion, worse. Reviewed, Interpreted and Dictated by Benedicto Marie III, MD Transcribed by Shea Paniagua Authenticated and . [facility]
--- NOTE | 2022-10-27 07:45 | ECG_ITS ---
APPROVED REPORT Exam: Resting ECG HR:80 bpm ECG Measurements Heart Rate 80 AXES [place] 140 P 65 QRSd 88 QRS 44 QT 373 T 61 QTc 409 Conclusion SINUS RHYTHM WITH OCCASIONAL SUPRAVENTRICULAR PREMATURE COMPLEXES LOW QRS VOLTAGE IN PRECORDIAL LEADS [QRS DEFLECTION < 1.0 mV IN CHEST LEADS] BORDERLINE ECG UNCONFIRMED REPORT Electronically signed by : Emerson Prabhakar MD 10/27/2022 14:19:35
[2022-10-27 08:00] VITALS: BP 137/50; PULSE 80; PULSE 90; RESP 20; TEMP 37.1; O2SAT 93
--- NOTE | 2022-10-27 08:16 | EXP.ACUTE.PN ---
Subjective *Date: 10/27/22 *Time: 08:16 Interval history: Patient is feeling better this am. Mouth is still dry and she still hurts along the right side where the cellulitis is present. She slept off and on last night. She has tried to eat. Has maintained BP off levo. She did go into afib with RVR yesterday. She was seen by cardiology and given Lopressor 5mg IV push x 2 with slight improvement of rate. Patient's daughter reports she developed afib rvr during another episode of sepsis years ago. Patient is already anticoagulated with warfarin. They started her on bisoprolol 5mg daily. She is in NSR now. Medical Exam Vital signs and Labs for Last 24 Hours: Vital Signs Temp Pulse Pulse Resp BP Pulse Ox 10/27/22 04:00 80 10/27/22 04:00 100.8 F H 87 17 139/46 L 92 L 10/27/22 00:00 80 10/27/22 00:00 98.2 F 83 27 H 107/41 L 94 L 10/26/22 20:00 110 H 10/26/22 19:50 100.1 F H 112 H 17 135/56 L 94 L 10/26/22 16:00 123 H 10/26/22 16:00 130 H 10/26/22 15:29 98.5 F 120 H 23 138/53 L 92 L 10/26/22 13:26 99.7 F H 140 H 26 H 146/57 H 93 L 10/26/22 12:13 92 H 26 H 122/51 L 96 10/26/22 12:00 133 H 10/26/22 11:22 101.3 F H 10/26/22 11:21 101.3 F H 10/26/22 10:00 100.3 F H 93 H 28 H 133/62 96 Intake and Output 10/26/22 10/27/22 10/27/22 19:59 03:59 11:59 Intake Total 1001 / 2394 1393 / 2394 Output Total 300 / 1700 800 / 1700 600 / 1700 Balance 701 / 694 -800 / 694 793 / 694 Intake: Intake, Oral Amount 240 / 240 Intake, Total IV Amount 761 / 2154 1393 / 2154 0.9 % Sodium Chloride 1000ML 1, 761 / 2154 1393 / 2154 000 ml @ 100 mls/hr IV .Q10H [facility] Rx#:[id number] Output: Output, Urine Amount 300 / 1700 800 / 1700 600 / 1700 Other: Number of Unmeasured Voids 0 0 Number of Bowel Movements 1 1 Weight 365 lb 4.895 oz Patient Weight 10/27/22 11:59 Weight 365 lb 4.895 oz Laboratory Results - last 24 hr 10/26/22 09:45: WBC 7.8, RBC 3.73 L, Hgb 10.9 L, Hct 33.4 L, MCV 89.4, MCH 29.1, MCHC 32.6, RDW 16.4, Plt Count 62 L D, MPV 9.2, Neut % (Auto) 91.4 H, Lymph % (Auto) 6.3 L, [place] % (Auto) 1.3 L, Eos % (Auto) 0.7, Baso % (Auto) 0.2, Neut # (Auto) 7.1, Lymph # (Auto) 0.5 L, [place] # (Auto) 0.1, Eos # (Auto) 0.1, Baso # (Auto) 0.0, Total Counted 100, Neutrophils % (Manual) 86 H, Lymphocytes % (Manual) 12, Monocytes % (Manual) 2, Platelet Estimate Marked decrease, RBC Morphology Normal 10/26/22 09:45: Sodium 131 L, Potassium 4.3, Chloride 106, Carbon Dioxide 21 L, Anion Gap 8.3, BUN 34 H D, Creatinine 1.20 H, Estimated Creat Clear 33, Estimated GFR 45 L, Est GFR ( Amer) 55 L, Glucose 67 L, Calcium 7.0 L 10/26/22 11:16: POC Glucose 63 L 10/26/22 16:35: POC Glucose 91 10/26/22 20:02: POC Glucose 88 10/27/22 05:02: POC Glucose 93 10/27/22 05:52: PT 40.8 H, INR 4.09 H I & O for Labs for Last 24 Hours: Intake & Output 10/24/22 10/25/22 10/26/22 10/27/22 11:59 11:59 11:59 11:59 Intake Total 2445 / 2445 3881 / 3881 2394 / 2394 Output Total 400 / 400 800 / 800 1700 / 1700 Balance 2045 / 2044 3081 / 3081 694 / 694 Weight 330 lb 11.094 oz 353 lb 9.175 oz 365 lb 4.895 oz Microbiology Reports for the Last 24 Hours: Microbiology 10/24/22 22:30 Urine,Clean Catch Urine Culture - Final Multiple organisms, suggests contamination. 10/24/22 22:30 Blood Blood Culture - Final Strep agalactiae - (group b) 10/24/22 22:30 Blood Blood Culture - Final Strep pyogenes (grp a) Constitutional: Present no acute distress ENT: Present mucous membranes dry Respiratory: Present CTA bilaterally Cardiac: Present Reg Rate and Rhythm GI: Present soft; Absent distention or tenderness Extremities: Present edema (bilateral LE's) Skin: Present erythema (still present along entire right side onto the back, tender and warm
[2022-10-27 08:49] LABS: Basophils % 0.3 % (0.1-2.0); Eosinophils # 0.1 K/mm3 (0.0-0.4); Eosinophils % 0.7 % (0.1-12.0); Hematocrit 32.2 % (37.0-47.0); Hemoglobin 10.5 g/dL (12.2-16.2); Lymphocytes # 0.7 K/mm3 (0.7-4.5); Lymphocytes % 9.6 % (10-50); Mean Corpuscular HGB Conc 32.5 g/dL (31.8-35.4); Mean Corpuscular Volume 89.1 fl (81-99); Mean Platelet Volume 9.2 fl (7.4-10.4); Monocytes # 0.1 K/mm3 (0.1-1.0); Monocytes % 1.9 % (1.7-9.3); Neutrophils # 6.2 K/mm3 (1.8-7.8); Neutrophils % 87.5 % (37.0-80.0); Red Blood Count 3.61 M/mm3 (4.20-5.40); Red Cell Distribution Width 16.5 % (11.5-17.5); White Blood Count 7.1 K/mm3 (4.8-10.8)
[2022-10-27 08:54] LABS: Chloride 108 mmol/L (98-107); Sodium 134 mmol/L (136-145)
--- NOTE | 2022-10-27 08:55 | US_ITS ---
FINAL REPORT CLINICAL HISTORY: cellulitis of abdomen COMPARISON: None FINDINGS: Sonographic images of the right upper quadrant were obtained. The pancreas is partially obscured. The portal vein is enlarged up to 15 mm with normal directional flow. There is a coarse hepatic echotexture consistent with history of cirrhosis. Gallbladder is absent. There is no evidence of biliary ductal dilatation.The common duct measures 3 mm. Limited images of the right kidney are unremarkable. There is edema or cellulitis in the right lateral abdomen wall. IMPRESSION: Edema or cellulitis right lateral abdominal wall. Cirrhosis of the liver. Enlarged portal vein with normal direction of flow. Reviewed, Interpreted and Dictated by Benedicto Marie III, MD Transcribed by Annie Payton Authenticated and . [facility]
[2022-10-27 08:56] LABS: Alanine Aminotransferase 35 U/L (12-78); Alkaline Phosphatase 130 U/L (38-126); Aspartate Amino Transferase 76 U/L (14-36); Bilirubin,Total 1.1 mg/dl (0.2-1.3); Blood Urea Nitrogen 41 mg/dl (7-17); Carbon Dioxide 21 mmol/L (22.0-30.0); Creatinine Clearance Estimated 36 mL/min (50-200); Estimated Glomerular Filt Rate 50 ml/min (>60); GFR (African American) 61 ML/MIN (>60)
[2022-10-27 08:57] LABS: Albumin Level 2.1 g/dl (3.5-5.0); Albumin/Globulin Ratio 0.7 (1.1-1.8); Globulin 2.9 g/dL (1.3-3.2); Glucose 95 mg/dl (74-100); Platelet Count 50 K/mm3 (142-424)
[2022-10-27 08:58] LABS: MANUAL DIFFERENTIAL MANUAL DIFFERENTIAL (MANUAL DIFF)
--- NOTE | 2022-10-27 08:58 | EXP.CARD.PN ---
Subjective Subjective Date: 10/27/22 Time: 08:00 Principal diagnosis: acute sepsis Interval history: Patient doing well this morning, Currently NSR with rate controlled. AM labs reviewed. Exam Data for Last 24 hours Vital signs and Labs for Last 24 Hours: Temp Pulse Resp BP Pulse Ox 98.8 F 80 20 137/50 L 93 L 10/27/22 08:00 10/27/22 08:00 10/27/22 08:00 10/27/22 08:00 10/27/22 08:00 Laboratory Results - last 24 hr 10/26/22 09:45: WBC 7.8, RBC 3.73 L, Hgb 10.9 L, Hct 33.4 L, MCV 89.4, MCH 29.1, MCHC 32.6, RDW 16.4, Plt Count 62 L D, MPV 9.2, Neut % (Auto) 91.4 H, Lymph % (Auto) 6.3 L, [place] % (Auto) 1.3 L, Eos % (Auto) 0.7, Baso % (Auto) 0.2, Neut # (Auto) 7.1, Lymph # (Auto) 0.5 L, [place] # (Auto) 0.1, Eos # (Auto) 0.1, Baso # (Auto) 0.0, Total Counted 100, Neutrophils % (Manual) 86 H, Lymphocytes % (Manual) 12, Monocytes % (Manual) 2, Platelet Estimate Marked decrease, RBC Morphology Normal 10/26/22 09:45: Sodium 131 L, Potassium 4.3, Chloride 106, Carbon Dioxide 21 L, Anion Gap 8.3, BUN 34 H D, Creatinine 1.20 H, Estimated Creat Clear 33, Estimated GFR 45 L, Est GFR ( Amer) 55 L, Glucose 67 L, Calcium 7.0 L 10/26/22 11:16: POC Glucose 63 L 10/26/22 16:35: POC Glucose 91 10/26/22 20:02: POC Glucose 88 10/27/22 05:02: POC Glucose 93 10/27/22 05:52: PT 40.8 H, INR 4.09 H 10/27/22 08:30: WBC 7.1, RBC 3.61 L, Hgb 10.5 L, Hct 32.2 L, MCV 89.1, MCH 29.0, MCHC 32.5, RDW 16.5, Plt Count 50 L, MPV 9.2, Neut % (Auto) 87.5 H, Lymph % (Auto) 9.6 L, [place] % (Auto) 1.9, Eos % (Auto) 0.7, Baso % (Auto) 0.3, Neut # (Auto) 6.2, Lymph # (Auto) 0.7, [place] # (Auto) 0.1, Eos # (Auto) 0.1, Baso # (Auto) 0.0 I & O for Last 24 hours: Intake & Output 10/24/22 10/25/22 10/26/22 10/27/22 23:59 23:59 23:59 23:59 Intake Total 3063 / 3063 4264 / 4264 1513 / 1513 Output Total 600 / 600 1300 / 1500 1000 / 1000 Balance 2463 / 2463 2964 / 2764 513 / 513 Weight 333 lb 330 lb 11.094 oz 353 lb 9.175 oz 365 lb 4.895 oz Microbiology Reports for the Last 24 Hours: Microbiology 10/24/22 22:30 Urine,Clean Catch Urine Culture - Final Multiple organisms, suggests contamination. 10/24/22 22:30 Blood Blood Culture - Final Strep agalactiae - (group b) 10/24/22 22:30 Blood Blood Culture - Final Strep pyogenes (grp a) Constitutional Constitutional: no acute distress *Routine Respiratory Exam Respiratory: Present CTA bilaterally and symmetric chest movement *Routine Cardiovascular Exam Cardiovascular: Present RRR, Normal S1 and Normal S2 *Routine Abdominal Exam Abdominal: Present soft and normoactive bowel sounds; Absent tenderness Comments: Erythema noted to right flank into right groin with warmth present. No visible abscess noted. *Routine Extremities Exam Extremities: Present full ROM and normal capillary refill; Absent edema *Routine Skin Exam Skin: Present intact, dry and warm Detailed Neck Exam: Thyroids Thyroid: Absent bruit Progress Note: A&P Assessment and plan (1) Septic shock: Status: Acute (2) Hypotension: Status: Acute (3) Acute febrile illness: Status: Acute (4) Cellulitis of right abdominal wall: Status: Acute (5) Bacteremia due to Streptococcus: Status: Acute (6) UTI (urinary tract infection): Status: Acute (7) Morbid obesity with BMI of 60.0-69.9, adult: Status: Chronic (8) Type 2 diabetes mellitus: Status: Chronic Assessment and Plan Assessment and Plan for All Diagnoses:: Acute sepsis -Secondary to UTI versus cellulitis of abdomen-primary service is following -Sepsis protocol initiated -Requiring Levophed for blood pressure support -Preliminary echo shows a normal ejection fraction, official read pending 10/26/2022: Off of Levo and holding BP.? Official echo read from [facility] shows an estimated EF of 55 to 60%. PAF Chadsvasc score 4 -Currently NSR on and rate contr
[2022-10-27 09:16] LABS: Vancomycin,Trough 14.6 ug/mL (5.0-10.0)
[2022-10-27 09:39] LABS: Lymphocytes % 9 % (10-50); Monocytes % 2 % (2-9); Neutrophils % 89 % (42-76); Total Cells Counted 100
[2022-10-27 09:40] LABS: Platelet Estimate Moderate Decrease; RBC Morphology Normal
--- NOTE | 2022-10-27 11:06 | HMH.OTEV ---
OT Inpatient Evaluation Rehab OT IP Evaluation Start: 10/27/22 07:53 Freq: ONCE Status: Active Protocol: Document 10/27/22 10:17 FOX (Rec: 10/27/22 11:05 FOX [id number]) Rehab OT IP Assessment Subjective History Ms. Merritt is a 61-year-old morbidly obese female with a history of type 2 diabetes, hypertension, hypothyroidism, history of DVT on anticoagulation, and nonalcoholic cirrhosis who began running a fever on Sunday. She states she has been extremely weak but denies any pain. She has had some cellulitis on the right side of her abdomen and back. She became so weak that she was brought to the emergency room for evaluation. Her white blood cell count was elevated as was her ESR, procalcitonin, and lactate. Her blood pressure was low. She was admitted with severe sepsis and started on sepsis protocol . This morning she is still extremely weak. She has had multiple bags of fluids and has been unable to urinate. She continues to deny any pain . Patient lives alone with family who provide transportations. Patient uses a power wheelchair to maneuver throughout the house and outside of home. Subjective I need help. Instructed Patient on participating in bed mobility of supine->sit @ EOB requiring TD x4 due to patient being morbidly obese. Patient able to sit @ EOB for >5 mins with needing SBA to prevent fall risk. Instructed patient to lay back in bed with needing TD x4 with repositioning. Left Patient sitting upright with
--- NOTE | 2022-10-27 11:46 | HMH.PTEV ---
Physical Therapy Evaluation Rehab PT IP Evaluation Start: 10/27/22 07:53 Freq: ONCE Status: Active Protocol: Document 10/27/22 11:33 LIU (Rec: 10/27/22 11:46 LIU [id number]) Subjective/History History History Pt is a 61 year old female that presented to the ED on with reports of running a fever since 2022. Pt reported that she has been extremely weak but denies any pain. She has had some cellulitis on the right side of her abdomen and back. er white blood cell count was elevated as was her ESR, procalcitonin, and lactate. On evaluation, pt's blood pressure was low. She was admitted with severe sepsis and started on sepsis protocol . PMH: Cellulitis of right abdominal wall, Epistaxis, History of DVT (deep vein thrombosis), Hypertension, Hypothyroidism, Morbid obesity , Morbid obesity with BMI of 70 and over, adult, Nasal septum ulceration, Osteoarthritis of left knee, Osteoarthritis of right knee, Sleep apnea, Spinal stenosis at L4-L5 level, Type 2 diabetes mellitus, Umbilical hernia Subjective Subjective Pt presents supine in bed, agreeable to therapy initial evaluation. Pt reports the right side of her abdomen is hurting at rest. At baseline, pt reports she lives at home alone and uses a motorized w/c for all mobility, states she is typically to use a walker to perform transfers. Pt reports that she uses community transportation for mobility outside the home. Pt performed supine to sit on EOB transfer with dependent assist x4, pt able to maintain
[2022-10-27 12:00] VITALS: BP 149/41; PULSE 78; PULSE 80; RESP 20; TEMP 37.2; O2SAT 96
--- NOTE | 2022-10-27 14:23 | EXP.PHA.CONS ---
Pharmacy Consult Date: 10/27/22 Time: 14:24 Referring provider: DR. BURT Reason for Consult:: VANCOMYCIN LEVEL Allergies Allergy/AdvReac Type Severity Reaction Status Date / Time atorvastatin [ATORVASTATIN] Allergy Mild Verified 10/02/22 10:44 levofloxacin [From LEVAQUIN] Allergy Mild Verified 10/02/22 10:44 sulfamethoxazole Allergy Mild Verified 10/02/22 10:44 [From BACTRIM] trimethoprim [From BACTRIM] Allergy Mild Verified 10/02/22 10:44 amoxicillin AdvReac Severe Verified 10/02/22 10:44 clavulanic acid AdvReac Severe Verified 10/02/22 10:44 [From Augmentin] cyclobenzaprine AdvReac Severe Verified 10/02/22 10:44 [From Flexeril] Home Medications Medication Instructions Recorded Confirmed Type acetaminophen 500 mg capsule 500 mg PO Q6HP PRN pain 09/25/17 10/25/22 History cyanocobalamin (vitamin B-12) 1,000 mcg PO DAILY daily 09/25/17 10/25/22 History 1,000 mcg capsule diphenhydramine HCl 25 mg capsule 50 mg PO HS SLEEP 09/25/17 10/25/22 History (Benadryl) levothyroxine 125 mcg capsule 125 mcg PO DAILY THYROID 09/25/17 10/25/22 History ascorbic acid (vitamin C) 500 mg 500 mg PO HS Supplement 12/10/17 10/25/22 History tablet sertraline 100 mg tablet 200 mg PO AM mood 12/10/17 10/26/22 History magnesium oxide 400 mg (241.3 mg 400 mg PO HS Supplement 03/26/18 10/25/22 History magnesium) tablet alprazolam 1 mg tablet 1 mg PO HS Anxiety 11/24/19 10/25/22 History lisinopril 2.5 mg tablet 2.5 mg PO DAILY Hypertension 11/24/19 10/25/22 History pantoprazole 40 mg tablet,delayed 40 mg PO DAILY Acid reflux 11/24/19 10/25/22 History release fluticasone propionate 50 1 spray intranasal DAILYP PRN 09/08/20 10/25/22 History mcg/actuation nasal allergies spray,suspension gabapentin 800 mg tablet 800 mg PO TID pain 09/08/20 10/25/22 History oxybutynin chloride 10 mg 10 mg PO BID BLADDER 10/05/21 10/25/22 History tablet,extended release 24 hr warfarin 5 mg tablet 5 mg PO WEFR Blood thinner/HX OF PE 10/25/22 10/25/22 History warfarin 5 mg tablet 7.5 mg PO SUMOTUTHSA Blood 10/25/22 10/25/22 History thinner/HX OF PE alprazolam 1 mg tablet 0.5 mg PO 1600 Anxiety 10/26/22 10/26/22 History alprazolam 1 mg tablet 1 mg PO AM Anxiety 10/26/22 10/26/22 History New Prescriptions to Start Prescriptions: Height: 1.52 m Weight: 165.7 kg Laboratory Results:: Laboratory Results - last 24 hr 10/26/22 16:35: POC Glucose 91 10/26/22 20:02: POC Glucose 88 10/27/22 05:02: POC Glucose 93 10/27/22 05:52: PT 40.8 H, INR 4.09 H 10/27/22 08:30: Vancomycin Trough 14.6 H 10/27/22 08:30: WBC 7.1, RBC 3.61 L, Hgb 10.5 L, Hct 32.2 L, MCV 89.1, MCH 29.0, MCHC 32.5, RDW 16.5, Plt Count 50 L, MPV 9.2, Neut % (Auto) 87.5 H, Lymph % (Auto) 9.6 L, [place] % (Auto) 1.9, Eos % (Auto) 0.7, Baso % (Auto) 0.3, Neut # (Auto) 6.2, Lymph # (Auto) 0.7, [place] # (Auto) 0.1, Eos # (Auto) 0.1, Baso # (Auto) 0.0, Total Counted 100, Neutrophils % (Manual) 89 H, Lymphocytes % (Manual) 9 L, Monocytes % (Manual) 2, Platelet Estimate Moderate decrease, RBC Morphology Normal 10/27/22 08:30: Sodium 134 L, Potassium 4.0, Chloride 108 H, Carbon Dioxide 21 L, Anion Gap 9.0, BUN 41 H, Creatinine 1.10 H, Estimated Creat Clear 36, Estimated GFR 50 L, Est GFR ( Amer) 61, Glucose 95 D, Calcium 7.0 L, Total Bilirubin 1.1, AST 76 H, ALT 35, Alkaline Phosphatase 130 H, Total Protein 5.0 L D, Albumin 2.1 L, Globulin 2.9, Albumin/Globulin Ratio 0.7 L Medical History: Medical History (Updated 10/26/22 @ 14:39 by Karla Martínez RN) Cellulitis of right abdominal wall Epistaxis History of DVT (deep vein thrombosis) Hypertension Hypotension Hypothyroidism Morbid obesity Morbid obesity with BMI of 70 and over, adult Nasal septum ulceration Osteoarthritis of left knee Osteoarthritis of right knee Paroxysmal atrial fibrillation Sleep apnea Spinal stenosis at L4-L5 level Type 2 diabetes mellitus Umbilical hernia Assessment and Plan Asses
[2022-10-27 14:25] LABS: Vancomycin,Peak 31.4 ug/ml (11-39)
--- NOTE | 2022-10-27 14:55 | CARE MANAGER ---
Met with patient and daughter at bedside to discuss discharge planning. Per PT/OT evals, patient will benefit from SNF upon discharge. Patient Choice signed for [facility] as first choice and [facility] swing bed ([place]) as second choice. Clinical faxed to [facility] and Re[facility] notified. [facility] is reviewing referral. CM will continue to follow.
[2022-10-27 16:00] VITALS: BP 139/53; PULSE 79; PULSE 80; RESP 18; TEMP 36.9; O2SAT 94
--- NOTE | 2022-10-27 19:19 | PC.NURSE ---
pt is aox4, able to make needs known to staff. barrier cream applied to problem areas in skin folds. tolerating room air well. juarez cath remains in place draining clear yellow urine.
[2022-10-27 20:00] VITALS: BP 157/57; PULSE 75; PULSE 79; PULSE 80; RESP 18; TEMP 36.9; O2SAT 92; O2SAT 98
[2022-10-28] VITALS (9 sets, daily range): BP systolic 80–161; BP diastolic 44–92; PULSE 68–80; RESP 18–26; TEMP 36.4–38; O2SAT 90–95; BMI 72.7
--- NOTE | 2022-10-28 06:29 | PC.NURSE ---
no acute distress, vss, o2 sats dip down to 88-89% while sleeping and encouraged to wear cpap machine, sats up to 92% after wearing machine, pt with cellulitis to lower abd more on right than left, umbilicus dressing changed, noted quarter dollar size open area under dressing when removed, pt with sheet under skin folds for wheeping, noted blister areas to right lower abd area, f/c to bsd with oralia clear urine noted, telemetry reveals nsr, ble edema 2-3+ non pitting, no other issues at this time.
[2022-10-28 06:45] LABS: POC Glucose,Bedside 90 (70-110)
[2022-10-28 06:45] LABS: POC Glucose,Bedside 106 (70-110)
[2022-10-28 06:45] LABS: POC Glucose,Bedside 99 (70-110)
[2022-10-28 06:45] LABS: POC Glucose,Bedside 90 (70-110)
[2022-10-28 07:06] LABS: INR 2.54 (0.9-1.1)
[2022-10-28 11:30] LABS: POC Glucose,Bedside 110 (70-110)
--- NOTE | 2022-10-28 13:29 | EXP.ACUTE.PN ---
Subjective *Date: 10/28/22 *Time: 13:29 Interval history: So today her blood pressure has again declined after running 160 systolic yesterday. She received 2.5 mg of lisinopril this morning. I had increased the furosemide. She got 40 mg twice yesterday and once this morning. Her mentation has not been as good as well according to her family. She has been more drowsy. She has been able to eat. Yesterday I found it reassuring that her INR was still therapeutic at 2.54. I resumed the order of warfarin 5 mg which she received this morning. We will have to watch this closely but I feel she does need anticoagulation due to her history of DVT. She still is at extreme risk for DVT due to her size and immobility. I plan to obtain venous duplex of her legs on Sunday morning. Her legs are not significantly edematous today. Again she has cultured strep agalactiae: And strep pyogenes. These are both sensitive to the antibiotics she is receiving. The erythema of her pannus seems decreased today. Medical Exam Vital signs and Labs for Last 24 Hours: Vital Signs Temp Pulse Pulse Resp BP Pulse Ox 10/28/22 08:00 80 10/28/22 11:09 99.7 F H 73 19 88/48 L 92 L 10/28/22 08:00 77 18 95 10/28/22 07:46 100.4 F H 78 20 161/73 H 95 10/28/22 04:00 97.6 F 79 18 152/66 H 90 L 10/28/22 04:00 80 10/28/22 00:00 80 10/27/22 20:00 75 10/27/22 20:00 79 92 L 10/28/22 00:00 99.2 F 80 18 141/92 H 91 L 10/27/22 20:00 98.4 F 80 18 157/57 H 98 10/27/22 16:00 80 10/27/22 16:00 98.4 F 79 18 139/53 L 94 L Intake and Output 10/28/22 10/28/22 10/28/22 03:59 11:59 19:59 Intake Total 50 / 1010 360 / 1010 Output Total 1900 / 6050 2250 / 6050 Balance -1850 / -5040 -1890 / -5040 Intake: Intake, Oral Amount 360 / 960 Intake, Total IV Amount 50 / 50 Ceftriaxone 1 gm 1 gm In 0.9 % 50 / 50 Sodium Chloride 50 ml @ 100 mls /hr IV Q24H [facility] Rx#:[id number] Output: Output, Urine Amount 1900 / 6050 2250 / 6050 Other: Number of Unmeasured Voids 0 1 Weight 370 lb 9.553 oz Laboratory Results - last 24 hr 10/27/22 11:33: POC Glucose 90 10/27/22 13:22: Vancomycin Peak 31.4 10/27/22 15:54: POC Glucose 90 10/27/22 21:10: POC Glucose 99 10/28/22 06:33: PT 26.0 H, INR 2.54 H 10/28/22 06:37: POC Glucose 106 10/28/22 11:14: POC Glucose 110 I & O for Labs for Last 24 Hours: Intake & Output 10/26/22 10/27/22 10/28/22 10/29/22 11:59 11:59 11:59 11:59 Intake Total 3881 / 3881 2514 / 2514 1010 / 1010 Output Total 800 / 800 1700 / 3600 6050 / 6050 Balance 3081 / 3081 814 / -1086 -5040 / -5040 Weight 353 lb 9.175 oz 365 lb 4.895 oz 370 lb 9.553 oz Head: Present normocephalic Neck: Present normal inspection Respiratory: Present normal respiratory effort Cardiac: Present Reg Rate and Rhythm GI: Present soft and tenderness (Especially at the right abdomen. Huge pannus. Dressing on the umbilicus. There seems to be less inflammation) Rectal (female): Present deferred (female): Present deferred Extremities: Present edema (Mild for her); Absent tenderness, joint swelling, calf tenderness or cyanosis Skin: Present erythema (Particularly of the right abdomen.) and wounds (Erosion of the umbilicus. There are some erosions in the sacral area as well.) Neuro: Present alert (Less so today.) Assessment and Plan *Assessment and plan (1) Cellulitis: Status: Acute Qualifiers: Site of cellulitis: unspecified site Qualified Code(s): L03.90 - Cellulitis, unspecified Category: Medical Code(s): L03.90 - Cellulitis, unspecified (2) Sepsis: Status: Acute Category: Medical Code(s): A41.9 - Sepsis, unspecified organism (3) Morbid obesity with BMI of 60.0-69.9, adult: Status: Chronic Category: Medical Code(s): E66.01 - Morbid (severe) obesity due to excess calories; Z68.44 - Body
[2022-10-28 13:38] LABS: Basophils % 0.4 % (0.1-2.0); Chloride 106 mmol/L (98-107); Eosinophils # 0.1 K/mm3 (0.0-0.4); Eosinophils % 1.3 % (0.1-12.0); Hematocrit 32.4 % (37.0-47.0); Hemoglobin 10.5 g/dL (12.2-16.2); Lymphocytes % 11.4 % (10-50); Mean Corpuscular HGB Conc 32.3 g/dL (31.8-35.4); Mean Corpuscular Hemoglobin 28.9 pg (27.0-31.2); Mean Corpuscular Volume 89.4 fl (81-99); Mean Platelet Volume 11.6 fl (7.4-10.4); Monocytes # 0.3 K/mm3 (0.1-1.0); Monocytes % 3.1 % (1.7-9.3); Neutrophils # 6.9 K/mm3 (1.8-7.8); Neutrophils % 83.7 % (37.0-80.0); Platelet Count 72 K/mm3 (142-424); Red Blood Count 3.63 M/mm3 (4.20-5.40); Red Cell Distribution Width 16.4 % (11.5-17.5); Sodium 135 mmol/L (136-145); White Blood Count 8.2 K/mm3 (4.8-10.8)
[2022-10-28 13:39] LABS: Potassium 3.5 mmoL/L (3.5-5.1)
[2022-10-28 13:41] LABS: Alanine Aminotransferase 32 U/L (12-78); Albumin Level 1.9 g/dl (3.5-5.0); Albumin/Globulin Ratio 0.7 (1.1-1.8); Alkaline Phosphatase 180 U/L (38-126); Anion Gap 8.5 mEq/L (5-15); Aspartate Amino Transferase 66 U/L (14-36); Bilirubin,Total 1.1 mg/dl (0.2-1.3); Blood Urea Nitrogen 42 mg/dl (7-17); Carbon Dioxide 24 mmol/L (22.0-30.0); Creatinine Clearance Estimated 39 mL/min (50-200); Estimated Glomerular Filt Rate 56 ml/min (>60); GFR (African American) 68 ML/MIN (>60); Globulin 2.6 g/dL (1.3-3.2); Total Protein,Serum 4.5 g/dl (6.3-8.2)
[2022-10-28 13:42] LABS: Calcium 7.3 mg/dl (8.4-10.2); Glucose 102 mg/dl (74-100)
--- NOTE | 2022-10-28 16:52 | PC.NURSE ---
A&OX4. PT HAS BEEN VERY SLEEPY THIS SHIFT. TOLERATING RA WELL. FAMILY AT BEDSIDE. MAX ASSIST, VOIDING PER F/C AND BEDPAN. DARK YELLOW URINE NOTED. PT HAS HAD NO NEEDS OR C/O THUS FAR. VSS.
[2022-10-28 18:09] LABS: POC Glucose,Bedside 124 (70-110)
--- NOTE | 2022-10-28 21:40 | PC.NURSE ---
pt lifted with talat lift and bed was changed, pt was positioned with pillows and wedge under right side to get pt off of her right side, family at bedside, no acute distress, dr blount was at bedside earlier and made aware of b/p still running on the lower soft side at times, pt requested fsbs be stopped, note new orders entered per provider.
--- NOTE | 2022-10-28 21:43 | PC.NURSE ---
dr blount told pt that he would discontinue finger sticks
[2022-10-28 22:16] LABS: POC Glucose,Bedside 121 (70-110)
[2022-10-29] VITALS (8 sets, daily range): BP systolic 83–106; BP diastolic 42–56; PULSE 68–115; RESP 11–18; TEMP 36.7–38.3; O2SAT 92–99; BMI 70.8
--- NOTE | 2022-10-29 00:15 | PC.NURSE ---
dr blount called regarding pt noted to be back in atrial fib on monitor with rate 115-130, b/p 83/47, maps have been 60-65, note telephone order received to obtain ekg and given lasix 20mg iv x1 dose now repeated and verified.
--- NOTE | 2022-10-29 00:30 | ECG_ITS ---
APPROVED REPORT Exam: Resting ECG HR:116 bpm ECG Measurements Heart Rate 116 AXES QRSd 93 QRS 26 QT 353 T 0 QTc 422 Conclusion ATRIAL FIBRILLATION WITH RAPID VENTRICULAR RESPONSE NONSPECIFIC ST & T-WAVE ABNORMALITY ABNORMAL RHYTHM ECG UNCONFIRMED REPORT Electronically signed by : Emerson Prabhakar MD 10/30/2022 19:45:04
--- NOTE | 2022-10-29 00:57 | PC.NURSE ---
0025 dr blount called back and gave telephone order to give amiodarone 200mg po now repeated and verified. informed ekg obtained revealed atrial fib with rvr hr 116
--- NOTE | 2022-10-29 01:43 | PC.NURSE ---
noted on monitor pt has converted back to nsr with rate 83-75
--- NOTE | 2022-10-29 04:23 | PC.NURSE ---
pt remains in nsr after po amiodarone for afib w/rvr rate was 115-136, good uop after iv lasix, pt attempted to turn to left side but did not tolerate after couple hours with complaints bilateral feet pain, b/p remains on the softer side with maps 60-65, telemetry at this time remains nsr, ble edema, cellulitis to abd with blistering noted and some oozing, pt encouraged to turn and reposition. no acute distress, no other issues at this time.
[2022-10-29 06:58] LABS: Basophils # 0.1 K/mm3 (0-0.2); Basophils % 0.6 % (0.1-2.0); Eosinophils # 0.2 K/mm3 (0.0-0.4); Eosinophils % 1.3 % (0.1-12.0); Hematocrit 35.9 % (37.0-47.0); Hemoglobin 11.5 g/dL (12.2-16.2); Lymphocytes % 8.9 % (10-50); Mean Corpuscular HGB Conc 31.9 g/dL (31.8-35.4); Mean Corpuscular Hemoglobin 28.4 pg (27.0-31.2); Mean Platelet Volume 9.8 fl (7.4-10.4); Monocytes # 0.3 K/mm3 (0.1-1.0); Neutrophils # 9.3 K/mm3 (1.8-7.8); Neutrophils % 86.2 % (37.0-80.0); Platelet Count 85 K/mm3 (142-424); Red Blood Count 4.03 M/mm3 (4.20-5.40); Red Cell Distribution Width 16.4 % (11.5-17.5); White Blood Count 10.8 K/mm3 (4.8-10.8)
[2022-10-29 07:03] LABS: MANUAL DIFFERENTIAL MANUAL DIFFERENTIAL (MANUAL DIFF)
[2022-10-29 07:05] LABS: Chloride 103 mmol/L (98-107); Sodium 134 mmol/L (136-145)
[2022-10-29 07:08] LABS: Blood Urea Nitrogen 37 mg/dl (7-17); Creatinine Clearance Estimated 39 mL/min (50-200); Estimated Glomerular Filt Rate 63 ml/min (>60); GFR (African American) 77 ML/MIN (>60)
[2022-10-29 07:09] LABS: Anion Gap 7.9 mEq/L (5-15); Calcium 7.6 mg/dl (8.4-10.2); Carbon Dioxide 26 mmol/L (22.0-30.0); Glucose 114 mg/dl (74-100); INR 2.52 (0.9-1.1); Prothrombin Time 25.8 seconds (10.1-12.5)
[2022-10-29 07:19] LABS: Potassium 2.9 mmoL/L (3.5-5.1)
--- NOTE | 2022-10-29 07:20 | PC.NURSE ---
CRITICALLAB OF POTASSIUM 2.9 RECEIVED ON PT, REPORTED TO NURSEALICE AT THIS TIME.
[2022-10-29 07:52] LABS: Lymphocytes % 12 % (10-50); Monocytes % 8 % (2-9); Neutrophils % 80 % (42-76); Platelet Estimate Moderate Decrease; RBC Morphology Normal; Total Cells Counted 100
[2022-10-29 08:59] LABS: Vancomycin,Trough 16.9 ug/mL (5.0-10.0)
--- NOTE | 2022-10-29 10:42 | EXP.PHA.CONS ---
Pharmacy Consult Date: 10/29/22 Time: 10:42 Referring provider: DR. BURT Reason for Consult:: VANCOMYCIN TROUGH LEVEL Allergies Allergy/AdvReac Type Severity Reaction Status Date / Time atorvastatin [ATORVASTATIN] Allergy Mild Verified 10/02/22 10:44 levofloxacin [From LEVAQUIN] Allergy Mild Verified 10/02/22 10:44 sulfamethoxazole Allergy Mild Verified 10/02/22 10:44 [From BACTRIM] trimethoprim [From BACTRIM] Allergy Mild Verified 10/02/22 10:44 amoxicillin AdvReac Severe Verified 10/02/22 10:44 clavulanic acid AdvReac Severe Verified 10/02/22 10:44 [From Augmentin] cyclobenzaprine AdvReac Severe Verified 10/02/22 10:44 [From Flexeril] Home Medications Medication Instructions Recorded Confirmed Type acetaminophen 500 mg capsule 500 mg PO Q6HP PRN pain 09/25/17 10/25/22 History cyanocobalamin (vitamin B-12) 1,000 mcg PO DAILY daily 09/25/17 10/25/22 History 1,000 mcg capsule diphenhydramine HCl 25 mg capsule 50 mg PO HS SLEEP 09/25/17 10/25/22 History (Benadryl) levothyroxine 125 mcg capsule 125 mcg PO DAILY THYROID 09/25/17 10/25/22 History ascorbic acid (vitamin C) 500 mg 500 mg PO HS Supplement 12/10/17 10/25/22 History tablet sertraline 100 mg tablet 200 mg PO AM mood 12/10/17 10/26/22 History magnesium oxide 400 mg (241.3 mg 400 mg PO HS Supplement 03/26/18 10/25/22 History magnesium) tablet alprazolam 1 mg tablet 1 mg PO HS Anxiety 11/24/19 10/25/22 History lisinopril 2.5 mg tablet 2.5 mg PO DAILY Hypertension 11/24/19 10/25/22 History pantoprazole 40 mg tablet,delayed 40 mg PO DAILY Acid reflux 11/24/19 10/25/22 History release fluticasone propionate 50 1 spray intranasal DAILYP PRN 09/08/20 10/25/22 History mcg/actuation nasal allergies spray,suspension gabapentin 800 mg tablet 800 mg PO TID pain 09/08/20 10/25/22 History oxybutynin chloride 10 mg 10 mg PO BID BLADDER 10/05/21 10/25/22 History tablet,extended release 24 hr warfarin 5 mg tablet 5 mg PO WEFR Blood thinner/HX OF PE 10/25/22 10/25/22 History warfarin 5 mg tablet 7.5 mg PO SUMOTUTHSA Blood 10/25/22 10/25/22 History thinner/HX OF PE alprazolam 1 mg tablet 0.5 mg PO 1600 Anxiety 10/26/22 10/26/22 History alprazolam 1 mg tablet 1 mg PO AM Anxiety 10/26/22 10/26/22 History New Prescriptions to Start Prescriptions: Height: 1.52 m Weight: 163.7 kg Laboratory Results:: Laboratory Results - last 24 hr 10/28/22 06:33: WBC 8.2, RBC 3.63 L, Hgb 10.5 L, Hct 32.4 L, MCV 89.4, MCH 28.9, MCHC 32.3, RDW 16.4, Plt Count 72 L D, MPV 11.6 H, Neut % (Auto) 83.7 H, Lymph % (Auto) 11.4, [place] % (Auto) 3.1, Eos % (Auto) 1.3, Baso % (Auto) 0.4, Neut # (Auto) 6.9, Lymph # (Auto) 1.0, [place] # (Auto) 0.3, Eos # (Auto) 0.1, Baso # (Auto) 0.0 10/28/22 06:33: Sodium 135 L, Potassium 3.5, Chloride 106, Carbon Dioxide 24, Anion Gap 8.5, BUN 42 H, Creatinine 1.00, Estimated Creat Clear 39, Estimated GFR 56 L, Est GFR ( Amer) 68, Glucose 102 H, Calcium 7.3 L, Total Bilirubin 1.1, AST 66 H, ALT 32, Alkaline Phosphatase 180 H, Total Protein 4.5 L, Albumin 1.9 L, Globulin 2.6, Albumin/Globulin Ratio 0.7 L 10/28/22 11:14: POC Glucose 110 10/28/22 16:10: POC Glucose 124 H 10/28/22 20:54: POC Glucose 121 H 10/29/22 06:50: PT 25.8 H, INR 2.52 H 10/29/22 06:50: WBC 10.8 D, RBC 4.03 L, Hgb 11.5 L, Hct 35.9 L, MCV 89.0, MCH 28.4, MCHC 31.9, RDW 16.4, Plt Count 85 L, MPV 9.8, Neut % (Auto) 86.2 H, Lymph % (Auto) 8.9 L, [place] % (Auto) 3.0, Eos % (Auto) 1.3, Baso % (Auto) 0.6, Neut # (Auto) 9.3 H, Lymph # (Auto) 1.0, [place] # (Auto) 0.3, Eos # (Auto) 0.2, Baso # (Auto) 0.1, Total Counted 100, Neutrophils % (Manual) 80 H, Lymphocytes % (Manual) 12, Monocytes % (Manual) 8, Platelet Estimate Moderate decrease, RBC Morphology Normal 10/29/22 06:50: Sodium 134 L, Potassium 2.9 L*, Chloride 103, Carbon Dioxide 26, Anion Gap 7.9, BUN 37 H, Creatinine 0.90, Estimated Creat Clear 39, Estimated GFR 63, Est GFR ( Amer) 77, Glucose 114 H, Calcium 7.6 L 04
--- NOTE | 2022-10-29 12:59 | EXP.PHA.PN ---
Subjective *Date: 10/29/22 *Time: 12:59 Medical Exam Vital signs and Labs for Last 24 Hours: Vital Signs Temp Pulse Pulse Resp BP BP Pulse Ox 10/29/22 12:00 70 10/29/22 11:03 98.1 F 72 15 98/49 L 96 10/29/22 08:00 98.3 F 68 18 104/50 L 96 10/29/22 08:00 70 10/29/22 04:00 70 10/29/22 04:00 98.4 F 72 106/56 L 94 L 10/29/22 00:00 115 H 10/29/22 00:00 99.8 F H 111 H 18 83/47 L 95 10/28/22 20:00 95 10/28/22 20:00 75 10/28/22 20:00 98.4 F 74 18 97/58 L 95 10/28/22 16:00 70 10/28/22 16:00 80/60 L 10/28/22 14:59 97.8 F 68 26 H 90/44 L 94 L Intake and Output 10/28/22 10/29/22 10/29/22 23:59 07:59 15:59 Intake Total 599 / 2927 1678 / 2038 360 / 2038 Output Total 1150 / 5300 1700 / 2100 400 / 2100 Balance -551 / -2373 -22 / -62 -40 / -62 Intake: Intake, Oral Amount 240 / 840 360 / 360 Intake, Other Amount 50 / 50 Intake, Total IV Amount 2036 1628 / 1628 Sodium Chloride 0.45 % 1,000 ml 1986 1628 / 1628 @ 125 mls/hr IV .Q8H [facility] Rx#: [id number] Output: Output, Urine Amount 1150 / 5300 1450 / 1850 400 / 1850 Output, Urine Amount (Catheter) 250 / 250 Rios 250 / 250 Other: Number of Unmeasured Voids 0 0 1 Weight 163.7 kg 163.7 kg Patient Weight 10/29/22 23:59 Weight 163.7 kg Laboratory Results - last 24 hr 10/28/22 06:33: WBC 8.2, RBC 3.63 L, Hgb 10.5 L, Hct 32.4 L, MCV 89.4, MCH 28.9, MCHC 32.3, RDW 16.4, Plt Count 72 L D, MPV 11.6 H, Neut % (Auto) 83.7 H, Lymph % (Auto) 11.4, [place] % (Auto) 3.1, Eos % (Auto) 1.3, Baso % (Auto) 0.4, Neut # (Auto) 6.9, Lymph # (Auto) 1.0, [place] # (Auto) 0.3, Eos # (Auto) 0.1, Baso # (Auto) 0.0 10/28/22 06:33: Sodium 135 L, Potassium 3.5, Chloride 106, Carbon Dioxide 24, Anion Gap 8.5, BUN 42 H, Creatinine 1.00, Estimated Creat Clear 39, Estimated GFR 56 L, Est GFR ( Amer) 68, Glucose 102 H, Calcium 7.3 L, Total Bilirubin 1.1, AST 66 H, ALT 32, Alkaline Phosphatase 180 H, Total Protein 4.5 L, Albumin 1.9 L, Globulin 2.6, Albumin/Globulin Ratio 0.7 L 10/28/22 16:10: POC Glucose 124 H 10/28/22 20:54: POC Glucose 121 H 10/29/22 06:50: PT 25.8 H, INR 2.52 H 10/29/22 06:50: WBC 10.8 D, RBC 4.03 L, Hgb 11.5 L, Hct 35.9 L, MCV 89.0, MCH 28.4, MCHC 31.9, RDW 16.4, Plt Count 85 L, MPV 9.8, Neut % (Auto) 86.2 H, Lymph % (Auto) 8.9 L, [place] % (Auto) 3.0, Eos % (Auto) 1.3, Baso % (Auto) 0.6, Neut # (Auto) 9.3 H, Lymph # (Auto) 1.0, [place] # (Auto) 0.3, Eos # (Auto) 0.2, Baso # (Auto) 0.1, Total Counted 100, Neutrophils % (Manual) 80 H, Lymphocytes % (Manual) 12, Monocytes % (Manual) 8, Platelet Estimate Moderate decrease, RBC Morphology Normal 10/29/22 06:50: Sodium 134 L, Potassium 2.9 L*, Chloride 103, Carbon Dioxide 26, Anion Gap 7.9, BUN 37 H, Creatinine 0.90, Estimated Creat Clear 39, Estimated GFR 63, Est GFR ( Amer) 77, Glucose 114 H, Calcium 7.6 L 10/29/22 08:13: Vancomycin Trough 16.9 H I & O for Labs for Last 24 Hours: Intake & Output 10/26/22 10/27/22 10/28/22 10/29/22 23:59 23:59 23:59 23:59 Intake Total 4264 / 4264 2113 / 2163 1249 / 2927 2037 / 2037 Output Total 1300 / 1500 2900 / 2900 5300 / 5300 2100 / 2100 Balance 2964 / 2764 -787 / -737 -4051 / -2373 -62 / -62 Weight 160.378 kg 165.7 kg 168.1 kg 163.7 kg The patient's infection will respond to the chosen ABx?: Yes Is the patient receiving the right drug, dose, and route?: Yes Could a more targeted ABx be ordered?: No
--- NOTE | 2022-10-29 13:35 | EXP.ACUTE.PN ---
Subjective *Date: 10/29/22 *Time: 13:35 Interval history: She went into atrial fibrillation last night about 12:30 AM. I initiated amiodarone 200 mg. This will be continued twice daily. She did convert back to normal sinus rhythm before morning. Her blood pressure remains in the 90/50 range. I also, this morning, have decreased the bisoprolol to 2.5 mg a day from 5 mg. She complains of mouth irritation. Her daughter also asks about topical treatment for her inflammation of the abdomen. I will order Mycelex troches 5 times a day. I will order nystatin topical cream 3 times a day. Medical Exam Vital signs and Labs for Last 24 Hours: Vital Signs Temp Pulse Pulse Resp BP BP Pulse Ox 10/29/22 12:00 70 10/29/22 11:03 98.1 F 72 15 98/49 L 96 10/29/22 08:00 98.3 F 68 18 104/50 L 96 10/29/22 08:00 70 10/29/22 04:00 70 10/29/22 04:00 98.4 F 72 106/56 L 94 L 10/29/22 00:00 115 H 10/29/22 00:00 99.8 F H 111 H 18 83/47 L 95 10/28/22 20:00 95 10/28/22 20:00 75 10/28/22 20:00 98.4 F 74 18 97/58 L 95 10/28/22 16:00 70 10/28/22 16:00 80/60 L 10/28/22 14:59 97.8 F 68 26 H 90/44 L 94 L Intake and Output 10/29/22 10/29/22 10/29/22 03:59 11:59 19:59 Intake Total 1678 / 2877 360 / 2877 240 / 240 Output Total 250 / 3250 2100 / 3250 0 / 0 Balance 1428 / -373 -1740 / -373 240 / 240 Intake: Intake, Oral Amount 360 / 840 240 / 240 Intake, Other Amount 50 / 50 Intake, Total IV Amount 1627 Sodium Chloride 0.45 % 1,000 ml 1627 @ 125 mls/hr IV .Q8H [facility] Rx#: [id number] Output: Output, Urine Amount 250 / 3000 1850 / 3000 0 / 0 Output, Urine Amount (Catheter) 250 / 250 Rios 250 / 250 Other: Number of Unmeasured Voids 0 1 1 Weight 360 lb 14.347 oz Laboratory Results - last 24 hr 10/28/22 06:33: WBC 8.2, RBC 3.63 L, Hgb 10.5 L, Hct 32.4 L, MCV 89.4, MCH 28.9, MCHC 32.3, RDW 16.4, Plt Count 72 L D, MPV 11.6 H, Neut % (Auto) 83.7 H, Lymph % (Auto) 11.4, [place] % (Auto) 3.1, Eos % (Auto) 1.3, Baso % (Auto) 0.4, Neut # (Auto) 6.9, Lymph # (Auto) 1.0, [place] # (Auto) 0.3, Eos # (Auto) 0.1, Baso # (Auto) 0.0 10/28/22 06:33: Sodium 135 L, Potassium 3.5, Chloride 106, Carbon Dioxide 24, Anion Gap 8.5, BUN 42 H, Creatinine 1.00, Estimated Creat Clear 39, Estimated GFR 56 L, Est GFR ( Amer) 68, Glucose 102 H, Calcium 7.3 L, Total Bilirubin 1.1, AST 66 H, ALT 32, Alkaline Phosphatase 180 H, Total Protein 4.5 L, Albumin 1.9 L, Globulin 2.6, Albumin/Globulin Ratio 0.7 L 10/28/22 16:10: POC Glucose 124 H 10/28/22 20:54: POC Glucose 121 H 10/29/22 06:50: PT 25.8 H, INR 2.52 H 10/29/22 06:50: WBC 10.8 D, RBC 4.03 L, Hgb 11.5 L, Hct 35.9 L, MCV 89.0, MCH 28.4, MCHC 31.9, RDW 16.4, Plt Count 85 L, MPV 9.8, Neut % (Auto) 86.2 H, Lymph % (Auto) 8.9 L, [place] % (Auto) 3.0, Eos % (Auto) 1.3, Baso % (Auto) 0.6, Neut # (Auto) 9.3 H, Lymph # (Auto) 1.0, [place] # (Auto) 0.3, Eos # (Auto) 0.2, Baso # (Auto) 0.1, Total Counted 100, Neutrophils % (Manual) 80 H, Lymphocytes % (Manual) 12, Monocytes % (Manual) 8, Platelet Estimate Moderate decrease, RBC Morphology Normal 10/29/22 06:50: Sodium 134 L, Potassium 2.9 L*, Chloride 103, Carbon Dioxide 26, Anion Gap 7.9, BUN 37 H, Creatinine 0.90, Estimated Creat Clear 39, Estimated GFR 63, Est GFR ( Amer) 77, Glucose 114 H, Calcium 7.6 L 10/29/22 08:13: Vancomycin Trough 16.9 H I & O for Labs for Last 24 Hours: Intake & Output 10/27/22 10/28/22 10/29/22 10/30/22 11:59 11:59 11:59 11:59 Intake Total 2514 / 2514 1010 / 1010 2877 / 2877 240 / 240 Output Total 1700 / 3600 6050 / 6050 3250 / 3250 0 / 0 Balance 814 / -1086 -5040 / -5040 -373 / -373 240 / 240 Weight 365 lb 4.895 oz 370 lb 9.553 oz 360 lb 14.347 oz Head: Present normocephalic Neck: Present normal inspection Respiratory: Present CTA bilaterally; Absent respiratory distress Cardiac: Present Re
[2022-10-29 14:09] LABS: Hemoglobin A1C 5.4 % (4.0-6.0)
--- NOTE | 2022-10-29 14:24 | PC.NURSE ---
PT HAS FAMILY AT BEDSIDE. PT HAS REQUESTED TO HOLD OFF ON MEDICATIONS UNTIL AROUND 4
[2022-10-30] VITALS (10 sets, daily range): BP systolic 80–104; BP diastolic 39–51; PULSE 56–70; RESP 18–30; TEMP 36.6–37.4; O2SAT 92–98; BMI 73.0
--- NOTE | 2022-10-30 | CA_ITS ---
FINAL REPORT TECHNIQUE: Multiple transverse and longitudinal images were performed of right and left the femoral-popliteal deep venous system with augmentation and compression maneuvers. CLINICAL HISTORY: Prev DVT. Bed ridden, 370+ pounds 4'11 . Limited exam due to extreme body habitus FINDINGS: Exam is severely limited due to patient body habitus. Right and left lower extremity duplex ultrasound demonstrates normal flow in the visualized deep venous systems of the right and left lower extremity. IMPRESSION: Significantly limited exam with no DVT seen in the visualized venous systems of the right or left lower extremity. Reviewed, Interpreted and Dictated by Benedicto Marie III, MD Transcribed by Franny Frausto Authenticated and [facility]
--- NOTE | 2022-10-30 03:56 | PC.NURSE ---
Spoke with daughter last night about her mother's belly cellulitis and care. She had no changes noted.
[2022-10-30 06:25] LABS: Chloride 105 mmol/L (98-107); Potassium 3.2 mmoL/L (3.5-5.1); Sodium 133 mmol/L (136-145)
[2022-10-30 06:28] LABS: Anion Gap 5.2 mEq/L (5-15); Blood Urea Nitrogen 32 mg/dl (7-17); Carbon Dioxide 26 mmol/L (22.0-30.0); Creatinine Clearance Estimated 39 mL/min (50-200); Estimated Glomerular Filt Rate 63 ml/min (>60); GFR (African American) 77 ML/MIN (>60); INR 3.03 (0.9-1.1); Prothrombin Time 30.7 seconds (10.1-12.5)
[2022-10-30 06:29] LABS: Calcium 7.2 mg/dl (8.4-10.2); Glucose 97 mg/dl (74-100)
--- NOTE | 2022-10-30 08:17 | EXP.ACUTE.PN ---
Subjective *Date: 10/30/22 *Time: 08:51 Interval history: Patient does not admit to any pain. She feels her breathing is okay. She is currently on BiPAP and removes after awakening. She denies any chest pain. She has been working with physical therapy. She feels she is eating okay. She continues with Rios catheter to bedside drainage. She is passing flatus and bowels have moved. Nursing and documentation reveal blood pressure systolic in the 80s and 90s. Blood pressure being taken In the thigh due to body habitus. INR is 3.03 today. Potassium has improved but is still low at 3.2. BUN is 32 and creatinine 0.9. Calcium is low at 7.2. Had venous Doppler studies this a.m. with pending results. Patient did again go into atrial fibs with a rapid ventricular rate. She was given 200 of amiodarone and started on amiodarone 200 mg twice daily. Medical Exam Vital signs and Labs for Last 24 Hours: Vital Signs Temp Pulse Pulse Resp BP BP Pulse Ox 10/30/22 07:53 97.9 F 64 20 80/40 L 97 10/30/22 04:00 61 10/30/22 04:00 99.0 F 59 L 18 91/43 L 94 L 10/30/22 00:00 67 10/30/22 00:00 99.3 F 56 L 18 88/41 L 92 L 10/29/22 20:00 97 10/29/22 20:00 74 10/29/22 20:00 101.0 F H 77 18 88/42 L 92 L 10/29/22 16:00 72 10/29/22 14:50 99.4 F 69 11 L 98/44 L 99 10/29/22 12:00 70 10/29/22 11:03 98.1 F 72 15 98/49 L 96 Intake and Output 10/29/22 10/30/22 10/30/22 19:59 03:59 11:59 Intake Total 1227 / 1227 950 / 2177 120 / 2297 Output Total 400 / 400 100 / 500 100 / 600 Balance 827 / 827 850 / 1677 20 / 1697 Intake: Intake, Oral Amount 600 / 600 120 / 720 Intake, Total IV Amount 627 / 627 950 / 1577 Sodium Chloride 0.45 % 1,000 ml 627 / 627 700 / 1327 @ 100 mls/hr IV .Q10H [facility] Rx#: [id number] Vancomycin HCl 2,250 mg In 0.9 250 / 250 % Sodium Chloride 250 ml @ 125 mls/hr IV 0900 [facility] Rx#:[id number] Output: Output, Urine Amount 400 / 400 100 / 500 100 / 600 Other: Number of Unmeasured Voids 1 Number of Bowel Movements 1 Weight 372 lb 2.244 oz Patient Weight 10/30/22 11:59 Weight 372 lb 2.244 oz Laboratory Results - last 24 hr 10/29/22 06:50: Hemoglobin A1c 5.4 10/29/22 08:13: Vancomycin Trough 16.9 H 10/30/22 05:47: PT 30.7 H, INR 3.03 H 10/30/22 05:47: Sodium 133 L, Potassium 3.2 L, Chloride 105, Carbon Dioxide 26, Anion Gap 5.2, BUN 32 H, Creatinine 0.90, Estimated Creat Clear 39, Estimated GFR 63, Est GFR ( Amer) 77, Glucose 97, Calcium 7.2 L I & O for Labs for Last 24 Hours: Intake & Output 10/27/22 10/28/22 10/29/22 10/30/22 11:59 11:59 11:59 11:59 Intake Total 2514 / 2514 1010 / 1010 2877 / 2877 2297 / 2297 Output Total 1700 / 1700 6050 / 6050 3250 / 3250 600 / 600 Balance 814 / 814 -5040 / -5040 -373 / -373 1697 / 1697 Weight 365 lb 4.895 oz 370 lb 9.553 oz 360 lb 14.347 oz 372 lb 2.244 oz Constitutional: Present no acute distress Comment:: Conversant Respiratory: Present CTA bilaterally Cardiac: Present Reg Rate and Rhythm (Monitor showing sinus rhythm in the 60s and 70s) GI: Present normal bowel sounds and other (Grossly obese) (female): Present other (Rios catheter to bedside drainage patent and draining) Extremities: Absent calf tenderness Comment:: Obese Skin: Present erythema (All lower abdomen greater on the right side. Some middle blistering. Erythema apparently is less.), warm (And dry) and wounds (At level of umbilicus circular 2 cm open wound appears clean and healing) Neuro: Present alert and oriented x 3 Assessment and Plan *Assessment and plan (1) Septic shock: Status: Acute Category: Medical Code(s): A41.9 - Sepsis, unspecified organism; R65.21 - Severe sepsis with septic shock (2) Acute febrile illness: Status: Acute Category: Medical Code(s): R50.9 - Fever, unspecified (3) Cellulitis:
[2022-10-30 10:23] LABS: Magnesium 1.4 mg/dl (1.6-2.3)
--- NOTE | 2022-10-30 10:34 | EXP.CARD.PN ---
Subjective Subjective Date: 10/30/22 Time: 10:35 Principal diagnosis: acute sepsis Interval history: 61-year-old white female admitted for sepsis related to abdominal wound. Patient currently off of Levophed with blood pressure in the 80-90 mmHg systolic. Cardiology consulted for paroxysmal atrial fibrillation that is responded to low-dose beta-karen and now addition of oral amiodarone. Echocardiogram this admission shows preserved ejection fraction at 55 to 60%. Unable to quantify diastolic function. RVSP estimated at 33 mmHg. No significant valve disease. Exam Data for Last 24 hours Vital signs and Labs for Last 24 Hours: Temp Pulse Resp BP Pulse Ox 97.9 F 70 20 80/40 L 97 10/30/22 07:53 10/30/22 08:00 10/30/22 07:53 10/30/22 07:53 10/30/22 07:53 Laboratory Results - last 24 hr 10/29/22 06:50: Hemoglobin A1c 5.4 10/30/22 05:47: PT 30.7 H, INR 3.03 H 10/30/22 05:47: Sodium 133 L, Potassium 3.2 L, Chloride 105, Carbon Dioxide 26, Anion Gap 5.2, BUN 32 H, Creatinine 0.90, Estimated Creat Clear 39, Estimated GFR 63, Est GFR ( Amer) 77, Glucose 97, Calcium 7.2 L 10/30/22 05:47: Magnesium 1.4 L I & O for Last 24 hours: Intake & Output 10/27/22 10/28/22 10/29/22 10/30/22 11:59 11:59 11:59 11:59 Intake Total 2514 / 2514 1010 / 1010 2877 / 2877 2297 / 2297 Output Total 1700 / 3600 6050 / 6050 3250 / 3250 1200 / 1200 Balance 814 / -1086 -5040 / -5040 -373 / -373 1097 / 1097 Weight 365 lb 4.895 oz 370 lb 9.553 oz 360 lb 14.347 oz 372 lb 2.244 oz Constitutional Constitutional: no acute distress and morbidly obese *Routine Respiratory Exam Respiratory: Present CTA bilaterally and diminished air movement *Routine Cardiovascular Exam Cardiovascular: Present RRR *Routine Abdominal Exam Abdominal: Present obese *Routine Extremities Exam Extremities: Present edema *Routine Neurological Exam Neurological: Present alert, oriented X3 and CN II-XII intact Progress Note: A&P Assessment and plan (1) Septic shock: Status: Acute (2) Acute febrile illness: Status: Acute (3) Cellulitis: Status: Acute (4) Morbid obesity with BMI of 60.0-69.9, adult: Status: Chronic (5) Ventral hernia without obstruction or gangrene: Status: Acute (6) Paroxysmal atrial fibrillation: Status: Acute (7) Hypokalemia: Status: Acute (8) Yeast infection of the skin: Status: Acute (9) Hypothyroidism: Status: Chronic (10) Hypertension: Status: Chronic (11) History of DVT (deep vein thrombosis): Status: Chronic (12) Hypotension: Status: Acute Assessment and Plan Assessment and Plan for All Diagnoses:: 1. Sepsis related to abdominal cellulitis versus UTI, currently on ceftriaxone and vancomycin. Levophed has been discontinued 2. Paroxysmal atrial fibrillation, CHADS-VASC 4 currently in sinus rhythm on amiodarone. Will increase to 400 mg twice daily for 1 week then back to 200 mg twice daily long-term. Patient is on chronic anticoagulation for history of DVT. Venous ultrasound this admission pending. INR today is 3.03 Consider CTA of the lungs to assess for PE In patient with sedentary lifestyle, hypoxemia, morbid obesity, prior DVT and paroxysmal A-fib. Body habitus may preclude evaluation with CTA. 3. Morbid obesity which complicates all aspects of care 4. Diabetes mellitus type 2, per PCP 5. Mild anemia, improving 6. Thrombocytopenia, improving 7. Hypokalemia, improving. Magnesium level low, will supplement 8. Hypotension, maintaining systolic blood pressure 80-90 mmHg off Levophed
--- NOTE | 2022-10-30 11:39 | CT_ITS ---
FINAL REPORT TECHNIQUE: Then section axial CT images of the chest were obtained with contrast. Three-D reformatted images were also obtained.This study was performed with techniques to keep radiation doses as low as reasonably achievable (ALARA). Individualized dose reduction techniques using automated exposure control or adjustment of mA and/or kV according to the patient''s size were employed. CLINICAL HISTORY: Sepsis, morbid obesity, A. fib, Hypoxemia, h/o DVT FINDINGS: There is no evidence of pulmonary embolism. There is no evidence of thoracic aortic aneurysm or dissection. There is no evidence of mediastinal or hilar mass or adenopathy. A small area of atelectasis or pneumonia is seen in the anterior left upper lobe. Bibasilar atelectasis is seen with small bilateral pleural effusions. Soft tissue edema is seen of the right lateral chest wall. Limited images of the upper abdomen reveal a lobular liver contour consistent with cirrhosis. Partially imaged splenomegaly is noted. Pneumobilia is seen which is likely secondary to postoperative change. Postoperative changes are seen from gastric sleeve procedure.. IMPRESSION: No evidence of pulmonary embolism. Small area of atelectasis or pneumonia in the anterior left upper lobe. Findings of cirrhosis with portal hypertension. Authenticated and ERN
--- NOTE | 2022-10-30 13:20 | PC.NURSE ---
Pt to CT via bed
--- NOTE | 2022-10-30 17:45 | PC.NURSE ---
Pt alert and oriented. VSS. On room air. Multiple skin issues noted with pictures in chart. One incontinent void. One BM. Pt turned q 2 hrs and prn.
--- NOTE | 2022-10-30 20:49 | PC.NURSE ---
Addendum entered by Momo Self RN 10/30/22 21:03: Dr. Lujan returned call, defers management of current xanax order to Dr. Barton tomorrow. Patient notified of MDs response. Original Note: Pt states active xanax order is incorrect and that she takes 1mg q am 0.5mg afternoon and 1mg HS at home. Pt would like order updated to reflect home dosing schedule. Dr. Lujan extrusion bender for Dr. Barton paged, awaiting return call at this time.
[2022-10-31] VITALS (9 sets, daily range): BP systolic 92–110; BP diastolic 41–65; PULSE 60–110; RESP 18–22; TEMP 36.6–37.1; O2SAT 2–98; BMI 73.7; BMI 70.8
[2022-10-31 05:58] LABS: Basophils # 0.1 K/mm3 (0-0.2); Basophils % 0.6 % (0.1-2.0); Eosinophils # 0.2 K/mm3 (0.0-0.4); Eosinophils % 1.3 % (0.1-12.0); Hematocrit 30.9 % (37.0-47.0); Lymphocytes % 9.3 % (10-50); Mean Corpuscular HGB Conc 32.3 g/dL (31.8-35.4); Mean Corpuscular Hemoglobin 29.2 pg (27.0-31.2); Mean Corpuscular Volume 90.4 fl (81-99); Mean Platelet Volume 8.9 fl (7.4-10.4); Monocytes # 0.3 K/mm3 (0.1-1.0); Monocytes % 2.4 % (1.7-9.3); Neutrophils # 9.5 K/mm3 (1.8-7.8); Neutrophils % 86.4 % (37.0-80.0); Platelet Count 162 K/mm3 (142-424); Red Blood Count 3.41 M/mm3 (4.20-5.40); Red Cell Distribution Width 16.3 % (11.5-17.5)
[2022-10-31 06:05] LABS: Chloride 106 mmol/L (98-107); Potassium 3.4 mmoL/L (3.5-5.1); Sodium 136 mmol/L (136-145)
[2022-10-31 06:08] LABS: Anion Gap 6.4 mEq/L (5-15); Blood Urea Nitrogen 33 mg/dl (7-17); Carbon Dioxide 27 mmol/L (22.0-30.0); Creatinine Clearance Estimated 39 mL/min (50-200); Estimated Glomerular Filt Rate 63 ml/min (>60); GFR (African American) 77 ML/MIN (>60)
[2022-10-31 06:09] LABS: Calcium 7.2 mg/dl (8.4-10.2); Glucose 92 mg/dl (74-100)
[2022-10-31 06:11] LABS: INR 3.12 (0.9-1.1); Prothrombin Time 31.6 seconds (10.1-12.5)
[2022-10-31 06:18] LABS: MANUAL DIFFERENTIAL MANUAL DIFFERENTIAL (MANUAL DIFF)
[2022-10-31 07:17] LABS: Lymphocytes % 7 % (10-50); Monocytes % 4 % (2-9); Neutrophils % 89 % (42-76); Platelet Estimate Normal; RBC Morphology Normal; Total Cells Counted 100
[2022-10-31 07:37] LABS: Magnesium 1.7 mg/dl (1.6-2.3)
--- NOTE | 2022-10-31 07:44 | EXP.ACUTE.PN ---
Subjective *Date: 10/31/22 *Time: 07:44 Interval history: Patient is better. She states her abdomen is just sore now. She has been able to eat without problems. Rios catheter was removed yesterday and she has a pure wick in place. Bowels are moving. She does have a minimal cough. She denies shortness of breath. She wears her CPAP at night. She worked with physical therapy. She was unable to walk to the chair due to weakness. Patient venous Doppler studies were negative. Chest CTA was negative for PE. CT results: FINDINGS: There is no evidence of pulmonary embolism.? There is no evidence of thoracic aortic aneurysm or dissection.? There is no evidence of mediastinal or hilar mass or adenopathy.? A small area of atelectasis or pneumonia is seen in the anterior left upper lobe.? Bibasilar atelectasis is seen with small bilateral pleural effusions.? Soft tissue edema is seen of the right lateral chest wall.? Limited images of the upper abdomen reveal a lobular liver contour consistent with cirrhosis.? Partially imaged splenomegaly is noted.? Pneumobilia is seen which is likely secondary to postoperative change.? Postoperative changes are seen from gastric sleeve procedure.. IMPRESSION: No evidence of pulmonary embolism.? Small area of atelectasis or pneumonia in the anterior left upper lobe.? Findings of cirrhosis with portal hypertension. White blood cell count today is slightly elevated at 11,000. Hemoglobin is 10 with a hematocrit of 30.9. Blood chemistries show potassium of 3.4 with a BUN of Cardiology to follow today as well. She remains on amiodarone 400 mg p.o. twice daily and bisoprolol 2.5 mg p.o. she continues with ceftriaxone and vancomycin. Medical Exam Vital signs and Labs for Last 24 Hours: Vital Signs Temp Pulse Pulse Resp BP BP Pulse Ox 10/31/22 07:04 98.0 F 62 20 104/65 L 97 10/31/22 04:00 60 10/31/22 04:00 97.9 F 62 22 108/61 L 96 10/31/22 00:00 64 10/30/22 20:00 69 10/30/22 23:38 99.2 F 65 30 H 97/49 L 96 10/30/22 19:33 99.1 F 62 24 104/39 L 98 10/30/22 16:00 66 10/30/22 16:00 98.2 F 64 21 91/47 L 95 10/30/22 12:00 70 10/30/22 11:36 98.4 F 56 L 19 96/51 L 94 L 10/30/22 08:00 70 10/30/22 07:53 97.9 F 64 20 80/40 L 97 Intake and Output 10/30/22 10/31/22 10/31/22 19:59 03:59 11:59 Intake Total 640 / 640 240 / 880 Output Total 200 / 200 400 / 600 Balance 440 / 440 -400 / 40 240 / 280 Intake: Intake, Oral Amount 640 / 640 240 / 880 Output: Output, Urine Amount 200 / 200 400 / 600 Other: Number of Unmeasured Voids 1 Number of Bowel Movements 1 Weight 375 lb 10.683 oz Patient Weight 10/31/22 11:59 Weight 375 lb 10.683 oz Laboratory Results - last 24 hr 10/30/22 05:47: Magnesium 1.4 L 10/31/22 05:25: WBC 11.0 H, RBC 3.41 L, Hgb 10.0 L, Hct 30.9 L, MCV 90.4, MCH 29.2, MCHC 32.3, RDW 16.3, Plt Count 162 D, MPV 8.9, Neut % (Auto) 86.4 H, Lymph % (Auto) 9.3 L, Becker % (Auto) 2.4, Eos % (Auto) 1.3, Baso % (Auto) 0.6, Neut # (Auto) 9.5 H, Lymph # (Auto) 1.0, Becker # (Auto) 0.3, Eos # (Auto) 0.2, Baso # (Auto) 0.1, Total Counted 100, Neutrophils % (Manual) 89 H, Lymphocytes % (Manual) 7 L, Monocytes % (Manual) 4, Platelet Estimate Normal, RBC Morphology Normal 10/31/22 05:25: PT 31.6 H, INR 3.12 H 10/31/22 05:25: Sodium 136, Potassium 3.4 L, Chloride 106, Carbon Dioxide 27, Anion Gap 6.4, BUN 33 H, Creatinine 0.90, Estimated Creat Clear 39, Estimated GFR 63, Est GFR ( Amer) 77, Glucose 92, Calcium 7.2 L 10/31/22 05:25: Magnesium 1.7 D I & O for Labs for Last 24 Hours: Intake & Output 10/28/22 10/29/22 10/30/22 10/31/22 11:59 11:59 11:59 11:59 Intake Total 1010 / 1010 2877 / 2877 2297 / 2297 880 / 880 Output Total 6050 / 6050 3250 / 3250 1200 / 1200 600 / 600 Balance -5040 / -5040 -373 / -373 1097 / 1097 280 / 280 Weight 370 lb 9.553 oz 360 lb 14.347 oz 372 l
--- NOTE | 2022-10-31 08:07 | EXP.CARD.PN ---
Subjective Subjective Date: 10/31/22 Time: 08:07 Principal diagnosis: acute sepsis Interval history: 61-year-old white female lying in bed with nasal CPAP in place. Telemetry shows sinus rhythm. CTA of the chest yesterday was negative for pulmonary embolus. Changes from prior gastric sleeve noted. Small area of pneumonia or atelectasis in the anterior left upper lobe. Findings of cirrhosis with portal hypertension also noted. Exam Data for Last 24 hours Vital signs and Labs for Last 24 Hours: Temp Pulse Resp BP Pulse Ox 98.0 F 62 20 104/65 L 97 10/31/22 07:04 10/31/22 07:04 10/31/22 07:04 10/31/22 07:04 10/31/22 07:04 Laboratory Results - last 24 hr 10/30/22 05:47: Magnesium 1.4 L 10/31/22 05:25: WBC 11.0 H, RBC 3.41 L, Hgb 10.0 L, Hct 30.9 L, MCV 90.4, MCH 29.2, MCHC 32.3, RDW 16.3, Plt Count 162 D, MPV 8.9, Neut % (Auto) 86.4 H, Lymph % (Auto) 9.3 L, [place] % (Auto) 2.4, Eos % (Auto) 1.3, Baso % (Auto) 0.6, Neut # (Auto) 9.5 H, Lymph # (Auto) 1.0, [place] # (Auto) 0.3, Eos # (Auto) 0.2, Baso # (Auto) 0.1, Total Counted 100, Neutrophils % (Manual) 89 H, Lymphocytes % (Manual) 7 L, Monocytes % (Manual) 4, Platelet Estimate Normal, RBC Morphology Normal 10/31/22 05:25: PT 31.6 H, INR 3.12 H 10/31/22 05:25: Sodium 136, Potassium 3.4 L, Chloride 106, Carbon Dioxide 27, Anion Gap 6.4, BUN 33 H, Creatinine 0.90, Estimated Creat Clear 39, Estimated GFR 63, Est GFR ( Amer) 77, Glucose 92, Calcium 7.2 L 10/31/22 05:25: Magnesium 1.7 D I & O for Last 24 hours: Intake & Output 10/28/22 10/29/22 10/30/2210/31/23 11:59 11:59 11:59 11:59 Intake Total 1010 / 1010 2877 / 2877 2297 / 2297 880 / 880 Output Total 6050 / 6050 3250 / 3250 1200 / 1200 600 / 600 Balance -5040 / -5040 -373 / -373 1097 / 1097 280 / 280 Weight 370 lb 9.553 oz 360 lb 14.347 oz 372 lb 2.244 oz 375 lb 10.683 oz Constitutional Constitutional: no acute distress *Routine Respiratory Exam Respiratory: Present decreased breath sounds *Routine Cardiovascular Exam Cardiovascular: Present RRR Progress Note: A&P Assessment and plan (1) Septic shock: Status: Acute (2) Acute febrile illness: Status: Acute (3) Cellulitis: Status: Acute (4) Morbid obesity with BMI of 60.0-69.9, adult: Status: Chronic (5) Ventral hernia without obstruction or gangrene: Status: Acute (6) Paroxysmal atrial fibrillation: Status: Acute (7) Hypokalemia: Status: Acute (8) Yeast infection of the skin: Status: Acute (9) Hypothyroidism: Status: Chronic (10) Hypertension: Status: Chronic (11) History of DVT (deep vein thrombosis): Status: Chronic (12) Hypotension: Status: Acute Assessment and Plan Assessment and Plan for All Diagnoses:: 1. Sepsis related to abdominal cellulitis versus UTI, currently on ceftriaxone and vancomycin. 2. Paroxysmal atrial fibrillation, CHADS-VASC 4 currently in sinus rhythm on amiodarone. Will increase to 400 mg twice daily for 1 week then back to 200 mg twice daily long-term. Patient is on chronic anticoagulation for history of DVT. Venous ultrasound this admission is limited due to body habitus but no DVT. INR today is 3.12 3. Morbid obesity which complicates all aspects of care 4. Diabetes mellitus type 2, per PCP 5. Mild anemia, improving 6. Thrombocytopenia, improving 7. Hypokalemia, improving. 8. Hypomagnesemia, resolved. Continue oral supplement 8. Hypotension, maintaining systolic blood pressure 80-90 mmHg
--- NOTE | 2022-10-31 09:40 | SW/DCPLANNER ---
Addendum entered by [facility] 11/03/22 15:13: Ortho Consult and afternoon pt note will be faxed to Reina at [facility] today. Addendum entered by [facility] 11/03/22 12:41: Updated CT and MD note has been faxed to [facility]. Addendum entered by [facility] 11/03/22 10:37: I have updated [facility] that patient is currently waiting for Ortho Consult. Addendum entered by [facility] 11/02/22 15:09: [facility] has now called back stating that due to patient knee pain and swelling she will require an Ortho Consult prior to them admitting. [facility] has put a hold on this admission till Ortho can see patient and patient can work with PT OOB. I have updated patient/family, MD, Ortho and therapy. Addendum entered by [facility] 11/02/22 10:49: Patient will discharge to [facility] today. I have updated patient's nurse and Chute Feeder of phone number for report and fax number. Addendum entered by [facility] 11/01/22 15:11: [facility] called me stating they are no longer able to accept her at this time. I did request that Reina call and speak with family regarding situation. I went back and spoke with daughter regarding situation as well. Daughter and patient became very upset stating that patient will need to stay at [facility] due to not having a safe discharge plan. I updated patient/daughter regarding [facility] is not able to meet patient's needs but [facility] was able to accept. Patient requested a moment alone with daughter to discuss situation. In the meantime [facility] called me back and they are now stating they can accept this patient. Family prefers to discharge to [facility]. I am currently waiting for a phone call back from Reina regarding admission at [facility] today or tomorrow. I will continue to follow up with patient/family. Patient is medically stable for discharge. Addendum entered by [facility] 11/01/22 10:37: [facility] onsite this AM to evaluate this patient and stated that she can accept patient. She is speaking with [facility] regarding admission today or tomorrow. Addendum entered by [facility] 10/31/22 15:37: Maame young/ [facility] will be on campus to evaluate this patient in the AM. I have updated patient/family. Addendum entered by Lisa Oropeza RN 10/31/22 15:27: Patient has a bed offer from [facility] Patient is agreeable to go to [facility] [place], but would like to see if [facility] offers a bed as well. She would prefer [facility] if bed is offered. Plan is for discharge with 7 days of Rocephin via PICC. PICC line order has been placed. Addendum entered by Linda Dunn 10/31/22 13:15: [facility] is not able to accept this patient. [facility] has not been able to accept/deny patient and this point but has advised us to search elsewhere. I spoke with patient and her daughter via phone: daughter was interested in [facility] in [place] and I explained due to [facility] denying this would apply to [facility] as well. Patient/family are agreeable for patient information to be faxed to [facility] and [facility] at this time. Per daughter's request I have asked [facility] to contact the daughter. Addendum entered by [facility] 10/31/22 10:20: [facility] is not able to accept this patient at this time. Addendum entered by [facility] 10/31/22 10:19: Patient has stated that if these three facilities can not accept her she prefers to discharge home with home health services. Patient is not interested in placement elsewhere. Original Note: Patient information has been faxed to the following facilities for SNF level of care per patient/family request: [facility], [facility] and [facility]. I am currently waiting to hear back from facilities. I will continue to update patient/family and MD.
--- NOTE | 2022-10-31 12:01 | CARE MANAGER ---
Vital Signs - 24 hr 10/30/22 16:00 10/30/22 16:00 10/30/22 19:33 Temperature 98.2 F 99.1 F Pulse Rate 66 Pulse Rate [Apical] 64 62 Respiratory Rate 21 24 Blood Pressure [Left Calf] 91/47 L 104/39 L Blood Pressure [Right Arm] 02 Sat by Pulse Oximetry 95 98 10/30/22 23:38 10/30/22 20:00 10/31/22 00:00 Temperature 99.2 F Pulse Rate 69 64 Pulse Rate [Apical] 65 Respiratory Rate 30 H Blood Pressure [Left Calf] 97/49 L Blood Pressure [Right Arm] 02 Sat by Pulse Oximetry 96 10/31/22 04:00 10/31/22 04:00 10/31/22 07:04 Temperature 97.9 F 98.0 F Pulse Rate 60 Pulse Rate [Apical] 62 62 Respiratory Rate 22 20 Blood Pressure [Left Calf] 108/61 L Blood Pressure [Right Arm] 104/65 L 02 Sat by Pulse Oximetry 96 97 10/31/22 08:00 10/31/22 08:00 10/31/22 10:36 Temperature 98.2 F Pulse Rate 61 Pulse Rate [Apical] 61 Respiratory Rate 20 Blood Pressure [Left Calf] Blood Pressure [Right Arm] 110/43 L 02 Sat by Pulse Oximetry 2 L 98
[2022-11-01] VITALS (9 sets, daily range): BP systolic 86–104; BP diastolic 44–64; PULSE 59–70; RESP 18–22; TEMP 36.6–36.9; O2SAT 94–98; BMI 71.5
--- NOTE | 2022-11-01 06:00 | XR_ITS ---
FINAL REPORT CLINICAL HISTORY: Confirm PICC line placement COMPARISON: 10/27/2022 FINDINGS: A single view of the chest was obtained. A new left PICC line is present. The tip is not well visualized but is favored to be in the brachiocephalic vein. The heart is normal in size. The mediastinum is unremarkable. There is persistent right base atelectasis or pneumonia. There is no pleural effusion. There is no pneumothorax. There is no acute osseous abnormality. IMPRESSION: Persistent right base atelectasis or pneumonia. PICC tip not well visualized, favored to be in the brachiocephalic vein. If indicated, repeat radiograph may be helpful. Reviewed, Interpreted and Dictated by Benedicto Marie III, MD Transcribed by Kelly Ro Authenticated and [facility]
[2022-11-01 06:35] LABS: INR 3.18 (0.9-1.1); Prothrombin Time 32.2 seconds (10.1-12.5)
--- NOTE | 2022-11-01 08:19 | EXP.ACUTE.PN ---
Subjective *Date: 11/01/22 *Time: 08:19 Interval history: Patient had PICC line placed and tolerated this well. She says she still has pain along the skin of the right side of the abdomen. She slept off and on and is eating small amounts. Medical Exam Vital signs and Labs for Last 24 Hours: Vital Signs Temp Pulse Pulse Pulse Resp BP BP 11/01/22 07:07 98.2 F 59 L 20 95/47 L 11/01/22 04:00 60 11/01/22 04:00 98.1 F 66 20 93/44 L 11/01/22 00:00 97.9 F 64 22 104/48 L 11/01/22 00:00 70 10/31/22 20:00 98.7 F 63 18 102/45 L 10/31/22 20:00 60 10/31/22 16:00 110 H 10/31/22 14:45 98.1 F 75 20 92/41 L 10/31/22 12:00 60 10/31/22 10:36 98.2 F 61 20 110/43 L Pulse Ox 11/01/22 07:07 97 11/01/22 04:00 11/01/22 04:00 94 L 11/01/22 00:00 94 L 11/01/22 00:00 10/31/22 20:00 97 10/31/22 20:00 10/31/22 16:00 10/31/22 14:45 98 10/31/22 12:00 10/31/22 10:36 98 Intake and Output 10/31/22 11/01/22 11/01/22 19:59 03:59 11:59 Intake Total 540 / 880 100 / 880 240 / 880 Output Total 700 / 1200 200 / 1200 300 / 1200 Balance -160 / -320 -100 / -320 -60 / -320 Intake: Intake, Oral Amount 540 / 780 240 / 780 Intake, Total IV Amount 100 / 100 Sodium Chloride 0.45 % 1,000 ml 100 / 100 @ 100 mls/hr IV .Q10H COUNT INCLUDES THE [facility] Rx#: [id number] Output: Output, Urine Amount 700 / 1200 200 / 1200 300 / 1200 Other: Number of Unmeasured Voids 0 0 0 Number of Bowel Movements 1 Weight 364 lb 3.258 oz Patient Weight 11/01/22 11:59 Weight 364 lb 3.258 oz Laboratory Results - last 24 hr 11/01/22 05:49: PT 32.2 H, INR 3.18 H I & O for Labs for Last 24 Hours: Intake & Output 10/29/22 10/30/22 10/31/22 11/01/22 11:59 11:59 11:59 11:59 Intake Total 2877 / 2877 2297 / 2297 940 / 940 880 / 880 Output Total 3250 / 3250 1200 / 1200 1550 / 1550 1200 / 1200 Balance -373 / -373 1097 / 1097 -610 / -610 -320 / -320 Weight 360 lb 14.347 oz 372 lb 2.244 oz 360 lb 10.82 oz 364 lb 3.258 oz Constitutional: Present no acute distress and morbidly obese Respiratory: Present CTA bilaterally Cardiac: Present Reg Rate and Rhythm (Monitor showing sinus rhythm) GI: Present soft (Morbidly obese) and normal bowel sounds; Absent distention, tenderness or guarding Extremities: Present full ROM; Absent edema Skin: Present erythema (still with abdominal wall erythema) Neuro: Present alert and oriented x 3 Assessment and Plan *Assessment and plan (1) Septic shock: Status: Acute Category: Medical Code(s): A41.9 - Sepsis, unspecified organism; R65.21 - Severe sepsis with septic shock (2) Acute febrile illness: Status: Acute Category: Medical Code(s): R50.9 - Fever, unspecified (3) Cellulitis: Status: Acute Qualifiers: Site of cellulitis: unspecified site Qualified Code(s): L03.90 - Cellulitis, unspecified Category: Medical Code(s): L03.90 - Cellulitis, unspecified (4) Morbid obesity with BMI of 60.0-69.9, adult: Status: Chronic Category: Medical Code(s): E66.01 - Morbid (severe) obesity due to excess calories; Z68.44 - Body mass index [BMI] 60.0-69.9, adult (5) Ventral hernia without obstruction or gangrene: Status: Acute Category: Medical Code(s): K43.9 - Ventral hernia without obstruction or gangrene (6) Paroxysmal atrial fibrillation: Status: Acute Category: Medical Code(s): I48.0 - Paroxysmal atrial fibrillation (7) Hypokalemia: Status: Acute Category: Medical Code(s): E87.6 - Hypokalemia (8) Yeast infection of the skin: Status: Acute Category: Medical Code(s): B37.2 - Candidiasis of skin and nail (9) Hypothyroidism: Status: Chronic Category: Medical Code(s): E03.9 - Hypothyroidism, unspecified (10) Hypertension:
--- NOTE | 2022-11-01 10:28 | XR_ITS ---
FINAL REPORT CLINICAL HISTORY: RT KNEE PAIN BEST FILMS POSSIBLE, PT WOULD NOT MOVE LEG MUCH AND WOULD NOT LET US RAISE HER BELLY FOR FILMS COMPARISON: 07/06/2022 FINDINGS: RIGHT KNEE: 4 views of the right knee obtained. There is no acute fracture or dislocation. There is severe degenerative change. There is 8 mm of lateral subluxation of the tibia in relation to the distal femur. There is no soft tissue abnormality. IMPRESSION: No acute bony abnormality. Reviewed, Interpreted and Dictated by Benedicto Marie III, MD Transcribed by Annie Payton Authenticated and . [facility]
[2022-11-01 10:44] LABS: Chloride 109 mmol/L (98-107); Sodium 138 mmol/L (136-145)
[2022-11-01 10:45] LABS: Potassium 3.9 mmoL/L (3.5-5.1)
[2022-11-01 10:47] LABS: Blood Urea Nitrogen 31 mg/dl (7-17); Creatinine Clearance Estimated 39 mL/min (50-200); Estimated Glomerular Filt Rate 72 ml/min (>60); GFR (African American) 88 ML/MIN (>60)
[2022-11-01 10:48] LABS: Anion Gap 9.9 mEq/L (5-15); Carbon Dioxide 23 mmol/L (22.0-30.0); Glucose 96 mg/dl (74-100)
--- NOTE | 2022-11-01 11:02 | XR_ITS ---
FINAL REPORT CLINICAL HISTORY: PICC Line placement COMPARISON: 3 hours prior FINDINGS: A single portable view of the chest was obtained. Left PICC line tip is still not well visualized, favor in the left brachiocephalic vein. The heart size and pulmonary vascularity are within normal limits. The mediastinum is within normal limits. No acute pulmonary abnormality is identified. The bony thorax is intact. IMPRESSION: Left PICC line tip favored to be in the left brachiocephalic vein, not well visualized. Reviewed, Interpreted and Dictated by Benedicto Marie III, MD Transcribed by Annie Payton Authenticated and [facility]
[2022-11-01 11:08] LABS: Basophils % 0.4 % (0.1-2.0); Eosinophils # 0.1 K/mm3 (0.0-0.4); Eosinophils % 1.1 % (0.1-12.0); Hematocrit 31.2 % (37.0-47.0); Hemoglobin 10.1 g/dL (12.2-16.2); Lymphocytes # 0.8 K/mm3 (0.7-4.5); Lymphocytes % 8.1 % (10-50); Mean Corpuscular HGB Conc 32.4 g/dL (31.8-35.4); Mean Corpuscular Hemoglobin 29.2 pg (27.0-31.2); Mean Corpuscular Volume 90.1 fl (81-99); Mean Platelet Volume 10.3 fl (7.4-10.4); Monocytes # 0.3 K/mm3 (0.1-1.0); Monocytes % 2.6 % (1.7-9.3); Neutrophils # 8.9 K/mm3 (1.8-7.8); Neutrophils % 87.8 % (37.0-80.0); Platelet Count 217 K/mm3 (142-424); Red Blood Count 3.47 M/mm3 (4.20-5.40); Red Cell Distribution Width 16.4 % (11.5-17.5); White Blood Count 10.1 K/mm3 (4.8-10.8)
[2022-11-01 11:14] LABS: MANUAL DIFFERENTIAL MANUAL DIFFERENTIAL (MANUAL DIFF)
--- NOTE | 2022-11-01 11:43 | EXP.CARD.PN ---
Subjective Subjective Date: 11/01/22 Time: 11:43 Principal diagnosis: acute sepsis, A. fib Interval history: 61-year-old white female in bed in no acute distress. She does relate falling this morning and injuring her right foot and knee. X-rays have been ordered and are pending at this time. Telemetry continues to show sinus rhythm. Exam Data for Last 24 hours Vital signs and Labs for Last 24 Hours: Temp Pulse Resp BP Pulse Ox 98.2 F 62 20 99/46 L 97 11/01/22 10:58 11/01/22 10:58 11/01/22 10:58 11/01/22 10:58 11/01/22 10:58 Laboratory Results - last 24 hr 11/01/22 05:49: PT 32.2 H, INR 3.18 H 11/01/22 05:49: WBC 10.1, RBC 3.47 L, Hgb 10.1 L, Hct 31.2 L, MCV 90.1, MCH 29.2, MCHC 32.4, RDW 16.4, Plt Count 217 D, MPV 10.3, Neut % (Auto) 87.8 H, Lymph % (Auto) 8.1 L, [place] % (Auto) 2.6, Eos % (Auto) 1.1, Baso % (Auto) 0.4, Neut # (Auto) 8.9 H, Lymph # (Auto) 0.8, [place] # (Auto) 0.3, Eos # (Auto) 0.1, Baso # (Auto) 0.0 11/01/22 05:49: Sodium 138, Potassium 3.9, Chloride 109 H, Carbon Dioxide 23, Anion Gap 9.9, BUN 31 H, Creatinine 0.80, Estimated Creat Clear 39, Estimated GFR 72, Est GFR ( Amer) 88, Glucose 96, Calcium 7.0 L I & O for Last 24 hours: Intake & Output 10/29/22 10/30/22 10/31/22 11/01/22 11:59 11:59 11:59 11:59 Intake Total 2877 / 2877 2297 / 2297 940 / 940 880 / 880 Output Total 3250 / 3250 1200 / 1200 1550 / 1550 1450 / 1450 Balance -373 / -373 1097 / 1097 -610 / -610 -570 / -570 Weight 360 lb 14.347 oz 372 lb 2.244 oz 360 lb 10.82 oz 364 lb 3.258 oz Constitutional Constitutional: no acute distress *Routine Respiratory Exam Respiratory: Present CTA bilaterally *Routine Cardiovascular Exam Cardiovascular: Present RRR Progress Note: A&P Assessment and plan (1) Septic shock: Status: Acute (2) Acute febrile illness: Status: Acute (3) Cellulitis: Status: Acute (4) Morbid obesity with BMI of 60.0-69.9, adult: Status: Chronic (5) Ventral hernia without obstruction or gangrene: Status: Acute (6) Paroxysmal atrial fibrillation: Status: Acute (7) Hypokalemia: Status: Acute (8) Yeast infection of the skin: Status: Acute (9) Hypothyroidism: Status: Chronic (10) Hypertension: Status: Chronic (11) History of DVT (deep vein thrombosis): Status: Chronic (12) Hypotension: Status: Acute Assessment and Plan Assessment and Plan for All Diagnoses:: 1. Sepsis related to abdominal cellulitis versus UTI, currently on ceftriaxone. 2. Paroxysmal atrial fibrillation, CHADS-VASC 4 currently in sinus rhythm on amiodarone 400 mg twice daily for 1 week (ending 11/07/2022) then back to 200 mg twice daily long-term. Patient is on chronic anticoagulation for history of DVT. Venous ultrasound this admission is limited due to body habitus but no DVT. INR today is 3.18 3. Morbid obesity which complicates all aspects of care 4. Diabetes mellitus type 2, per PCP 5. Mild anemia, improving 6. Thrombocytopenia, resolved 7. Hypokalemia, resolved 8. Hypomagnesemia, resolved. Continue oral supplement 8. Hypotension, maintaining systolic blood pressure 90-100 mmHg Nothing further to add. Will be available if needed. Discharge med recommendations: Amiodarone 400 mg twice daily until 11/07/2022 then changed to 200 mg twice daily Continue bisoprolol 2.5 mg daily Discontinue lisinopril
[2022-11-01 12:36] LABS: Eosinophils % 1 % (0-3); Lymphocytes % 15 % (10-50); Monocytes % 7 % (2-9); Neutrophils % 77 % (42-76); Platelet Estimate Normal; RBC Morphology Normal; Total Cells Counted 100
--- NOTE | 2022-11-01 12:56 | PC.NURSE ---
Patient requested to take 1300 medications at 1600.
--- NOTE | 2022-11-01 14:19 | XR_ITS ---
FINAL REPORT CLINICAL HISTORY: verify picc placement COMPARISON: 3 hours prior FINDINGS: A single portable view of the chest was obtained. The left PICC tip appears to be in the upper superior vena cava. There has been no change in the appearance of the lungs since the prior exam. IMPRESSION: Left PICC line tip appears to be in this upper superior vena cava. Reviewed, Interpreted and Dictated by Benedicto Marie III, MD Transcribed by Kelly Ro Authenticated and [facility]
--- NOTE | 2022-11-01 18:31 | PC.NURSE ---
Addendum entered by Carmen Clements RN 11/02/22 09:34: Patient frequently rounded on 11/01/22 post event. Family remained at bedside during shift. Original Note: Patient alert and oriented. PICC line placed but had to be reinserted as placement could not be visualized. XRAY on knee obtained after fall. Dr. Barton notified of results, no new orders. VS stable and patient remained on room air.
[2022-11-02] VITALS (10 sets, daily range): BP systolic 90–112; BP diastolic 46–61; PULSE 50–70; RESP 17–22; TEMP 36.4–36.9; O2SAT 93–98; BMI 71.8
[2022-11-02 06:54] LABS: INR 3.23 (0.9-1.1); Prothrombin Time 32.6 seconds (10.1-12.5)
--- NOTE | 2022-11-02 08:37 | EXP.ACUTE.PN ---
Subjective *Date: 11/02/22 *Time: 08:37 Interval history: Patient states she is not feeling well this morning. She is having some pain in her right leg. She states she went to the ground yesterday while working with therapy because her knee gave out and her right knee has been hurting ever since. She did meet with [facility] yesterday and they have accepted her and she is wanting to go today. She states she would like to talk to Dr. Barton about her anxiety medication. She feels it needs to be increased upon discharge. Medical Exam Vital signs and Labs for Last 24 Hours: Vital Signs Temp Pulse Pulse Pulse Resp BP Pulse Ox 11/02/22 08:00 70 11/02/22 07:47 97.6 F 59 L 18 90/57 L 98 11/02/22 04:00 60 11/02/22 04:00 98.4 F 64 18 106/61 L 95 11/02/22 00:00 98.2 F 62 17 105/46 L 93 L 11/02/22 00:00 60 11/01/22 20:00 60 11/01/22 20:00 98.4 F 63 18 104/64 L 95 11/01/22 16:00 60 11/01/22 15:12 98.1 F 60 20 86/51 L 98 11/01/22 12:00 60 11/01/22 10:58 98.2 F 62 20 99/46 L 97 Intake and Output 11/01/22 11/02/22 11/02/22 19:59 03:59 11:59 Intake Total 720 / 1010 50 / 1010 240 / 1010 Output Total 500 / 1100 0 / 1100 600 / 1100 Balance 220 / -90 50 / -90 -360 / -90 Intake: Intake, Oral Amount 720 / 960 240 / 960 Intake, Total IV Amount 50 / 50 Ceftriaxone 1 gm 1 gm In 0.9 % 50 / 50 Sodium Chloride 50 ml @ 100 mls /hr IV Q24H [facility] Rx#:[id number] Output: Output, Urine Amount 500 / 1100 0 / 1100 600 / 1100 Other: Number of Unmeasured Voids 0 0 0 Weight 366 lb Patient Weight 11/02/22 11:59 Weight 366 lb Laboratory Results - last 24 hr 11/01/22 05:49: WBC 10.1, RBC 3.47 L, Hgb 10.1 L, Hct 31.2 L, MCV 90.1, MCH 29.2, MCHC 32.4, RDW 16.4, Plt Count 217 D, MPV 10.3, Neut % (Auto) 87.8 H, Lymph % (Auto) 8.1 L, [place] % (Auto) 2.6, Eos % (Auto) 1.1, Baso % (Auto) 0.4, Neut # (Auto) 8.9 H, Lymph # (Auto) 0.8, [place] # (Auto) 0.3, Eos # (Auto) 0.1, Baso # (Auto) 0.0, Total Counted 100, Neutrophils % (Manual) 77 H, Lymphocytes % (Manual) 15, Monocytes % (Manual) 7, Eosinophils % (Manual) 1, Platelet Estimate Normal, RBC Morphology Normal 11/01/22 05:49: Sodium 138, Potassium 3.9, Chloride 109 H, Carbon Dioxide 23, Anion Gap 9.9, BUN 31 H, Creatinine 0.80, Estimated Creat Clear 39, Estimated GFR 72, Est GFR ( Amer) 88, Glucose 96, Calcium 7.0 L 11/02/22 06:35: PT 32.6 H, INR 3.23 H I & O for Labs for Last 24 Hours: Intake & Output 10/30/22 10/31/22 11/01/22 11/02/22 11:59 11:59 11:59 11:59 Intake Total 2297 / 2297 940 / 940 880 / 880 1010 / 1010 Output Total 1200 / 1200 1550 / 1550 1450 / 1450 1100 / 1100 Balance 1097 / 1097 -610 / -610 -570 / -570 -90 / -90 Weight 372 lb 2.244 oz 360 lb 10.82 oz 364 lb 3.258 oz 366 lb Constitutional: Present no acute distress and morbidly obese Respiratory: Present CTA bilaterally Cardiac: Present Reg Rate and Rhythm (Monitor showing sinus rhythm) GI: Present soft (Morbidly obese) and normal bowel sounds; Absent distention, tenderness or guarding Extremities: Present full ROM and tenderness (just below the right knee); Absent edema Skin: Present erythema (still with abdominal wall erythema) Neuro: Present alert and oriented x 3 Assessment and Plan *Assessment and plan (1) Septic shock: Status: Acute Category: Medical Code(s): A41.9 - Sepsis, unspecified organism; R65.21 - Severe sepsis with septic shock (2) Acute febrile illness: Status: Acute Category: Medical Code(s): R50.9 - Fever, unspecified (3) Cellulitis: Status: Acute Qualifiers: Site of cellulitis: unspecified site Qualified Code(s): L03.90 - Cellulitis, unspecified Category: Medical Code(s): L03.90 - Cellulitis, unspecified (4) Morbid obesity with BMI of 60.0-69.9, adult: Status: Chronic Category: Medical
--- NOTE | 2022-11-02 12:41 | EXP.DC.SUM ---
General Admission date:: 10/25/22 Discharge date: 11/02/22 HPI HPI HPI: Ms. Merritt is a 61-year-old morbidly obese female with a history of type 2 diabetes, hypertension, hypothyroidism, history of DVT on anticoagulation, and nonalcoholic cirrhosis who began running a fever on Sunday.? She states she has been extremely weak but denies any pain.? She has had some cellulitis on the right side of her abdomen and back.? She became so weak that she was brought to the emergency room for evaluation.? Her white blood cell count was elevated as was her ESR, procalcitonin, and lactate.? Her blood pressure was low.? She was admitted with severe sepsis and started on sepsis protocol. This morning she is still extremely weak.? She has had multiple bags of fluids and has been unable to urinate.? She continues to deny any pain. Hospital Course Hospital Course Hospital Course: The patient's chest x-ray showed hyperinflated lungs without infiltration. She was started on sepsis protocol and admitted. She had been unable to urinate and a Rios was placed. She was started on IV antibiotics and her white blood cell count normalized but her renal function worsened. She did have to be started on Levophed to increase her blood pressure and was still behind on her fluids, therefore they were increased. She was seen by cardiology and they felt she should continue Levophed and hydration with sepsis protocol. She did begin feeling better by 10/25/2022 and her blood pressure and pulse began normalizing. Her hydration improved. Her mentation also improved. She continued with some pain and redness of the skin on the right side of her abdomen onto her back. She was continued on vancomycin and Rocephin pending cultures. Her INR was elevated and her Coumadin had to be held. On 10/25/2022 she was able to be weaned off of the Levophed and her blood pressure remained normal. At 1306 she then went into A-fib with RVR 837. She was given Lopressor 5 mg IV push x2 with improvement in her rate. She was already anticoagulated with warfarin and she was started on bisoprolol 5 mg daily. She did convert back to normal sinus rhythm. Her culture was growing 2 strains of strep and both were sensitive to Rocephin. Her huge pannus was still inflamed and tender and it was felt this was likely the site of infection that caused the sepsis. She was continued on IV antibiotics. She was given 40 mg of IV Lasix for fluid overload on 10/27/2022. Her blood pressure did decrease again after receiving multiple doses of Lasix. Her INR did become therapeutic at 2.5 on 10/28/2022. Her Coumadin was therefore resumed. Her lisinopril was discontinued due to low blood pressures and her Lasix was discontinued as well. She was resumed on IV fluids at 125 an hour due to low blood pressure. A bilateral venous duplex of the lower extremities was ordered as well. She went back into atrial fib on 10/29/2022 at 12:30 AM. She was started on amiodarone 200 mg and did convert back to normal sinus rhythm before morning. Her blood pressure remained 90/50 even though her bisoprolol had been decreased to 2.5 mg a day from 5 mg a day. Mycelex troches were ordered 5 times a day for oral sami and nystatin cream was ordered as well for the inflammation of her abdomen. She was continued on IV Lasix at 20 mg daily and was started on p.o. potassium 3 times a day due to hypokalemia. Her potassium did improve with supplementation. The patient was seen again by cardiology. Her echo showed a preserved ejection fraction of 55 to 60%. Her RVSP was estimated at 33 mmHg. They wanted to increase her amiodarone to 400 mg twice daily for 1 week and then go back down to 200 mg twice daily long-term. They felt she should stay on chronic anticoagulation and consider a CTA of the lungs to assess for PE. Her Rios was able to be removed and a pure wick was placed. She was trying to work with therapy, but was [facility]
--- NOTE | 2022-11-02 18:05 | PC.NURSE ---
VS stable. Patient remained on room air. Redness on abdomen fading and area less tender than previous shift. Lung sounds diminished.
[2022-11-03] VITALS (7 sets, daily range): BP systolic 97–107; BP diastolic 46–59; PULSE 60–70; RESP 16–20; TEMP 36.6–37; O2SAT 93–99; BMI 71.4
[2022-11-03 07:06] LABS: INR 3.28 (0.9-1.1); Prothrombin Time 33.1 seconds (10.1-12.5)
--- NOTE | 2022-11-03 08:33 | EXP.ACUTE.PN ---
Subjective *Date: 11/03/22 *Time: 08:33 Interval history: Patient's discharge was cancelled yesterday due to her knee pain. She is scheduled to see ortho today. The rash on the pannus and back seems to be improving with the nystatin. Medical Exam Vital signs and Labs for Last 24 Hours: Vital Signs Temp Pulse Pulse Resp BP Pulse Ox 11/03/22 04:00 98 F 63 17 97/53 L 95 11/03/22 04:00 70 11/03/22 00:00 60 11/02/22 23:54 98 F 60 17 112/54 L 94 L 11/02/22 20:00 60 11/02/22 20:00 98.2 F 64 22 112/55 L 97 11/02/22 16:07 50 L 11/02/22 15:37 98.1 F 63 19 99/49 L 93 L 11/02/22 12:32 60 11/02/22 11:39 98.1 F 64 19 91/50 L 96 Intake and Output 11/02/22 11/03/22 11/03/22 19:59 03:59 11:59 Intake Total 300 / 350 50 / 350 Output Total 250 / 700 450 / 700 Balance 50 / -350 -400 / -350 Intake: Intake, Oral Amount 300 / 300 Intake, Total IV Amount 50 / 50 Ceftriaxone 1 gm 1 gm In 0.9 % 50 / 50 Sodium Chloride 50 ml @ 100 mls /hr IV Q24H [facility] Rx#:[id number] Output: Output, Urine Amount 250 / 700 450 / 700 Other: Number of Unmeasured Voids 1 Number of Bowel Movements 1 Weight 363 lb 12.203 oz Patient Weight 11/03/22 11:59 Weight 363 lb 12.203 oz Laboratory Results - last 24 hr 11/03/22 06:47: PT 33.1 H, INR 3.28 H I & O for Labs for Last 24 Hours: Intake & Output 10/31/22 11/01/22 11/02/22 11/03/22 11:59 11:59 11:59 11:59 Intake Total 940 / 940 880 / 880 1010 / 1010 350 / 350 Output Total 1550 / 1550 1450 / 1450 1900 / 1900 700 / 700 Balance -610 / -610 -570 / -570 -890 / -890 -350 / -350 Weight 360 lb 10.82 oz 364 lb 3.258 oz 366 lb 363 lb 12.203 oz Constitutional: Present no acute distress and morbidly obese Respiratory: Present CTA bilaterally Cardiac: Present Reg Rate and Rhythm (Monitor showing sinus rhythm) GI: Present soft (Morbidly obese) and normal bowel sounds; Absent distention, tenderness or guarding Extremities: Present full ROM and tenderness (just below the right knee and tender along the medial aspect of the knee); Absent edema Skin: Present erythema (still with abdominal wall erythema but improving) Neuro: Present alert and oriented x 3 Assessment and Plan *Assessment and plan (1) Septic shock: Status: Acute Category: Medical Code(s): A41.9 - Sepsis, unspecified organism; R65.21 - Severe sepsis with septic shock (2) Acute febrile illness: Status: Acute Category: Medical Code(s): R50.9 - Fever, unspecified (3) Cellulitis: Status: Acute Qualifiers: Site of cellulitis: unspecified site Qualified Code(s): L03.90 - Cellulitis, unspecified Category: Medical Code(s): L03.90 - Cellulitis, unspecified (4) Morbid obesity with BMI of 60.0-69.9, adult: Status: Chronic Category: Medical Code(s): E66.01 - Morbid (severe) obesity due to excess calories; Z68.44 - Body mass index [BMI] 60.0-69.9, adult (5) Ventral hernia without obstruction or gangrene: Status: Acute Category: Medical Code(s): K43.9 - Ventral hernia without obstruction or gangrene (6) Paroxysmal atrial fibrillation: Status: Acute Category: Medical Code(s): I48.0 - Paroxysmal atrial fibrillation (7) Hypokalemia: Status: Acute Category: Medical Code(s): E87.6 - Hypokalemia (8) Yeast infection of the skin: Status: Acute Category: Medical Code(s): B37.2 - Candidiasis of skin and nail (9) Hypothyroidism: Status: Chronic Category: Medical Code(s): E03.9 - Hypothyroidism, unspecified (10) Hypertension: Status: Chronic Category: Medical Code(s): I10 - Essential (primary) hypertension (11) History of DVT (deep vein thrombosis): Status: Chronic Category: Medical Code(s): Z86.718 - Personal histo
--- NOTE | 2022-11-03 10:00 | PC.NURSE ---
admin morning meds pt asked about the bisoprolol and amiodarone. educated pt on both medications what its for, dosage, times pt will get med. pt verbalized understanding. no further questions at this time. guerda rubio rounded on pt.
--- NOTE | 2022-11-03 10:00 | CT_ITS ---
FINAL REPORT CLINICAL HISTORY: right knee pain FINDINGS: Thin section axial CT images of the right lower extremity were obtained without contrast. Sagittal and coronal reformatted images were also obtained. Three-D reformatted images were also obtained and reviewed. This study was performed with techniques to keep radiation doses as low as reasonably achievable (ALARA). Individualized dose reduction techniques using automated exposure control or adjustment of mA and/or kV according to the patient''s size were employed. There is no evidence of fracture or dislocation. Severe degenerative changes are noted of the knee. Multiple chronic soft tissue calcifications are seen at the level of the knee. There is diffuse muscular atrophy. No soft tissue mass or abnormal fluid collection is seen. IMPRESSION: Severe degenerative changes of the knee without evidence of acute bony abnormality. Diffuse muscular atrophy of the right lower extremity. Authenticated and [facility]
--- NOTE | 2022-11-03 14:42 | PC.NURSE ---
magda rounded on pt, gave the ok to notify pt. pt currently in the room.
--- NOTE | 2022-11-03 15:05 | EXP.ORTH.CON ---
History of Present Illness *Admission Date: 10/25/22 *History of present illness: Ms. Merritt is a 61-year-old morbidly obese female with a history of type 2 diabetes, hypertension, hypothyroidism, history of DVT on anticoagulation, and nonalcoholic cirrhosis who began running a fever on Sunday.? She states she has been extremely weak but denies any pain.? She has had some cellulitis on the right side of her abdomen and back.? She became so weak that she was brought to the emergency room for evaluation.? Her white blood cell count was elevated as was her ESR, procalcitonin, and lactate.? Her blood pressure was low.? She was admitted with severe sepsis and started on sepsis protocol. This morning she is still extremely weak.? She has had multiple bags of fluids and has been unable to urinate.? She continues to deny any pain. [facility] Disclaimer: The information contained in this section may have been updated after the patient was seen, as this information can be updated by other users. Medical History (Updated 11/03/22 @ 08:35 by JUDY Blanton) Cellulitis of right abdominal wall Epistaxis History of DVT (deep vein thrombosis) Hypertension Hypokalemia Hypotension Hypothyroidism Morbid obesity Morbid obesity with BMI of 70 and over, adult Nasal septum ulceration Osteoarthritis of left knee Osteoarthritis of right knee Paroxysmal atrial fibrillation Paroxysmal atrial fibrillation Sleep apnea Spinal stenosis at L4-L5 level Type 2 diabetes mellitus Umbilical hernia Surgical History (Updated 10/25/22 @ 08:50 by JUDY Blanton) H/O superior vena cava filter placement History of delivery History of cholecystectomy History of D&C History of ERCP History of esophagogastroduodenoscopy (EGD) History of gastric surgery History of tonsillectomy Family History (Updated 10/25/22 @ 08:50 by JUDY Blanton) Other Ankylosing spondylitis Social History (Updated 10/25/22 @ 01:54 by Betty Lauren RN) Smoking Status: Never smoker alcohol intake: never substance use type: denies use current occupational status: other Travel in the last 8 weeks: None household members: spouse housing: house Review of Systems Constitutional Constitutional: Denies headache(s) and Reports weakness ENT Ears, Nose, Mouth, and Throat: Denies headache(s) and Denies vertigo *Neurologic Neurologic: Denies headache(s), Denies vertigo and Reports weakness Meds Home Medications and Allergies Home Medications Medication Instructions Recorded Confirmed Type acetaminophen 500 mg capsule 500 mg PO Q6HP PRN pain 09/25/17 10/25/22 History cyanocobalamin (vitamin B-12) 1,000 mcg PO DAILY daily 09/25/17 10/25/22 History 1,000 mcg capsule diphenhydramine HCl 25 mg capsule 50 mg PO HS sleep 09/25/17 10/25/22 History (Benadryl) ascorbic acid (vitamin C) 500 mg 500 mg PO HS Supplement 12/10/17 10/25/22 History tablet sertraline 100 mg tablet 200 mg PO AM mood 12/10/17 10/26/22 History magnesium oxide 400 mg (241.3 mg 400 mg PO HS Supplement 03/26/18 10/25/22 History magnesium) tablet pantoprazole 40 mg tablet,delayed 40 mg PO DAILY Acid reflux 11/24/19 10/25/22 History release fluticasone propionate 50 1 spray intranasal DAILYP PRN 09/08/20 10/25/22 History mcg/actuation nasal allergies spray,suspension oxybutynin chloride 10 mg 10 mg PO BID overactive bladder 10/05/21 10/25/22 History tablet,extended release 24 hr alprazolam 1 mg tablet 0.5 mg PO TID Anxiety #45 tabs 11/02/22 10/26/22 Rx bisoprolol fumarate 5 mg tablet 2.5 mg PO DAILY #45 tabs 11/02/22 Rx ceftriaxone 1 gram intravenous 1 g IV Q24H cellulitis #10 ea 11/02/22 Rx solution nystatin-triamcinolone 100,000 1 applic topical TID dermatitis 11/02/22 Rx unit/g-0.1 % topical cream #60 grams potassium chloride 20 mEq 20 meq PO DAILY #30 tabs 11/02/22 Rx tablet,extended release(part/cryst) New Prescriptions to Start Pres
--- NOTE | 2022-11-03 18:04 | PC.NURSE ---
no acute changes from previous shift. from thaniakriss evans: we have the okay for pt to be transported to [facility] tomorrow. updated pt adn daughter about plans. no further questions from pt and daughter. ems notified, transport scheduled for 0915 tomorrow morning 11/04.
--- NOTE | 2022-11-03 20:43 | PC.NURSE ---
PATIENT REFUSES 9 PM MEDS AT THIS TIME. WANTS THEM CLOSE TO 2200.
[2022-11-04] VITALS: BP 91/48; PULSE 56; RESP 14; TEMP 36.8; O2SAT 96
--- NOTE | 2022-11-04 03:25 | PC.NURSE ---
RESTING IN BED. FREQUENT SAFETY CHECKS SECONDARY TO PREVIOUS ASSISTED FALL WHILE WORKING WITH P.T. A/O X 4. COOPERATIVE. VENANCIO IN USE. BRADYCARDIC AT TIMES PER TELEMETRY. TO [facility] TOMORROW FOR REHAB IF ALL GOES PLANED.
[2022-11-04 04:00] VITALS: BP 97/54; PULSE 59; RESP 17; TEMP 36.6; O2SAT 95; BMI 71.8
[2022-11-04 06:00] VITALS: PULSE 59
[2022-11-04 07:54] VITALS: BP 113/63; PULSE 61; RESP 19; TEMP 36.6; O2SAT 96
[2022-11-04 08:00] VITALS: PULSE 63
--- NOTE | 2022-11-04 08:42 | EXP.ACUTE.PN ---
Subjective *Date: 11/04/22 *Time: 08:42 Interval history: Dr. Barton called and asked me to see patient this morning. Her discharge to [facility] was held yesterday so an orthopedic evaluation could be completed. Dr. Aggarwal saw patient and stated she had knee arthritis and a probable MCL sprain and cleared for weight bearing as tolerated and for rehab at [facility]. Pt is anxious and ready to go to rehab today. Medical Exam Vital signs and Labs for Last 24 Hours: Vital Signs Temp Pulse Pulse Resp BP BP Pulse Ox 11/04/22 07:54 97.9 F 61 19 113/63 96 11/04/22 06:00 59 L 11/04/22 04:00 98 F 59 L 17 97/54 L 95 11/04/22 04:00 59 L 11/04/22 00:00 56 L 11/04/22 00:00 98.2 F 56 L 14 91/48 L 96 11/04/22 00:00 56 L 11/03/22 20:00 64 11/03/22 20:00 98.1 F 60 18 97/46 L 93 L 11/03/22 20:00 99 11/03/22 20:00 64 11/03/22 12:00 63 11/03/22 16:00 64 11/03/22 15:25 98.6 F 61 16 107/54 L 98 Intake and Output 11/03/22 11/04/22 11/04/22 23:59 07:59 15:59 Intake Total 360 / 1280 530 / 530 Output Total 100 / 100 600 / 600 Balance 260 / 1180 -70 / -70 Intake: Intake, Oral Amount 360 / 1180 480 / 480 Intake, Total IV Amount 50 / 50 Ceftriaxone 1 gm 1 gm In 0.9 % 50 / 50 Sodium Chloride 50 ml @ 100 mls /hr IV Q24H [facility] Rx#:[id number] Output: Output, Urine Amount 100 / 100 600 / 600 Other: Number of Bowel Movements 1 Weight 365 lb 15.477 oz Patient Weight 11/04/22 23:59 Weight 365 lb 15.477 oz I & O for Labs for Last 24 Hours: Intake & Output 11/01/22 11/02/22 11/03/22 11/04/22 23:59 23:59 23:59 23:59 Intake Total 1060 / 1110 590 / 640 990 / 1280 530 / 530 Output Total 1250 / 1250 2100 / 2100 100 / 100 600 / 600 Balance -190 / -140 -1510 / -1460 890 / 1180 -70 / -70 Weight 364 lb 3.258 oz 366 lb 363 lb 12.203 oz 365 lb 15.477 oz Constitutional: Present no acute distress and morbidly obese Respiratory: Present CTA bilaterally Cardiac: Present Reg Rate and Rhythm (Monitor showing sinus rhythm) Neuro: Present alert and oriented x 3 Assessment and Plan *Assessment and plan (1) Septic shock: Status: Acute Category: Medical Code(s): A41.9 - Sepsis, unspecified organism; R65.21 - Severe sepsis with septic shock (2) Acute febrile illness: Status: Acute Category: Medical Code(s): R50.9 - Fever, unspecified (3) Cellulitis: Status: Acute Qualifiers: Site of cellulitis: unspecified site Qualified Code(s): L03.90 - Cellulitis, unspecified Category: Medical Code(s): L03.90 - Cellulitis, unspecified (4) Morbid obesity with BMI of 60.0-69.9, adult: Status: Chronic Category: Medical Code(s): E66.01 - Morbid (severe) obesity due to excess calories; Z68.44 - Body mass index [BMI] 60.0-69.9, adult (5) Ventral hernia without obstruction or gangrene: Status: Acute Category: Medical Code(s): K43.9 - Ventral hernia without obstruction or gangrene (6) Paroxysmal atrial fibrillation: Status: Acute Category: Medical Code(s): I48.0 - Paroxysmal atrial fibrillation (7) Hypokalemia: Status: Acute Category: Medical Code(s): E87.6 - Hypokalemia (8) Yeast infection of the skin: Status: Acute Category: Medical Code(s): B37.2 - Candidiasis of skin and nail (9) Hypothyroidism: Status: Chronic Category: Medical Code(s): E03.9 - Hypothyroidism, unspecified (10) Hypertension: Status: Chronic Category: Medical Code(s): I10 - Essential (primary) hypertension (11) History of DVT (deep vein thrombosis): Status: Chronic Category: Medical Code(s): Z86.718 - Personal history of other venous thrombosis and embolism (12) Hypotension: Status: Acute
--- NOTE | 2022-11-04 09:41 | PC.NURSE ---
report called to [facility] unit. awaiting transfer service. PICC to [facility]. pt given a bath prior to discahrge.
--- NOTE | 2022-11-04 10:50 | PC.NURSE ---
pt has been discahrged off the unit vis EMS. took all belongings with her and voiced understanding of all dc education. Spoke with [facility] regarding pt coumadin being held due to elevated PT INR.
--- NOTE | 2022-11-04 11:08 | P.CONPHA_ITS ---
Pharmacy Intervention Comments: REGARDING DISCHARGE MEDICATION LIST AND DISCONTINUATION OF WARFARIN DR BURT STOPPED WARFARIN ON D/C TO SNF AND NO REPLACEMENT BLOOD THINNER SELECTED. I CALLED FOR DR CONRAD (WHO WAS SEEING DR. BURT'S PATIENTS THIS WEEKEND) BUT HE HAS LEFT AND DR MILLIGAN WAS PLACED SLAB INSTALLER FOR HIM. I CALLED AND LEFT MESSAGE WITH DR MILLIGAN'S OFFICE. I CALLED AND SPOKE WITH RITESH DOSS RN WHO WAS THE NURSE FOR THIS PATIENT. SHE STATED SHE MENTIONED TO [facility] ON REPORT THAT WE HAD BEEN HOLDING THE WARFARIN INPATIENT DUE TO SUPRATHERAPEUTIC INR. I REACHED OUT TO ANIA VAIL, RADIOLOGY RECEPTIONIST WHO SAID SHE WOULD MESSAGE DR BURT TO CLARIFY BUT RECOMMENDED CALLING THE PATIENT' S NURSE AND MAKING SURE [facility] WAS AWARE. I MENTIONED THAT I HAD ALREADY CALLED THE PATIENT'S NURSE.
--- NOTE | 2022-11-04 11:08 | HMH.PHAINT1 ---
Pharmacy Intervention Comments: REGARDING DISCHARGE MEDICATION LIST AND DISCONTINUATION OF WARFARIN DR BURT STOPPED WARFARIN ON D/C TO [facility] AND NO REPLACEMENT BLOOD THINNER SELECTED. I CALLED FOR DR CONRAD (WHO WAS SEEING DR. BURT'S PATIENTS THIS WEEKEND) BUT HE HAS LEFT AND DR MILLIGAN WAS PLACED HOSPICE MASSAGE THERAPIST FOR HIM. I CALLED AND LEFT MESSAGE WITH DR MLILIGAN'S OFFICE. I CALLED AND SPOKE WITH RITESH DOSS RN WHO WAS THE NURSE FOR THIS PATIENT. SHE STATED SHE MENTIONED TO [facility] ON REPORT THAT WE HAD BEEN HOLDING THE WARFARIN INPATIENT DUE TO SUPRATHERAPEUTIC INR. I REACHED OUT TO ANIA VAIL, CORRECTIONAL SUBSTANCE ABUSE COUNSELOR WHO SAID SHE WOULD MESSAGE DR BURT TO CLARIFY BUT RECOMMENDED CALLING THE PATIENT'S NURSE AND MAKING SURE [facility] WAS AWARE. I MENTIONED THAT I HAD ALREADY CALLED THE PATIENT'S NURSE.
== END 2022-11-04 10:50 | DRG 871 ==
LOC: ER 22:08 → 2ND 10-25 00:31
PROVIDERS: Nurse Practitioner; Nurse Practitioner Family; Physician Assistant; Admitting Provider Family Medicine; Emergency Provider Emergency Medicine; PCP Family Medicine; Visit Provider Family Medicine
DX: A41.9 Sepsis, unspecified organism (principal); R65.21 Severe sepsis with septic shock; Z68.45 Body mass index [BMI] 70 or greater, adult; L03.311 Cellulitis of abdominal wall; N39.0 Urinary tract infection, site not specified; N17.9 Acute kidney failure, unspecified; E66.01 Morbid (severe) obesity due to excess calories; M17.0 Bilateral primary osteoarthritis of knee; E11.9 Type 2 diabetes mellitus without complications; I10 Essential (primary) hypertension; E03.9 Hypothyroidism, unspecified; Z86.718 Personal history of other venous thrombosis and embolism; B37.2 Candidiasis of skin and nail; E87.6 Hypokalemia; I48.0 Paroxysmal atrial fibrillation; D64.9 Anemia, unspecified; D69.6 Thrombocytopenia, unspecified; K74.60 Unspecified cirrhosis of liver
CPT/HCPCS: 36415; 36569; 71045; 71275; 73562; 73700; 76705; 80048; 80053; 80202; 81001; 82962; 83036; 83605; 83735; 84145; 84443; 84484; 85007; 85025; 85610; 85651; 86140; 87040; 87077; 87086; 87186; 93005; 93306; 93970; 97110; 97162; 97165; 97530; 97535; 99285; C1751; C9803; J0696; J2405; J3370; J3475; Q9967; U0003; U0005

== ENCOUNTER 2022-12-24 10:03 | Emergency (ER) | payer MEDICARE, MEDICAID, SELFPAY ==
[2022-12-24] VITALS (8 sets, daily range): BP systolic 95–111; BP diastolic 50–65; PULSE 67–75; RESP 18–22; TEMP 36.7–36.8; O2SAT 95–100; BMI 64.4
--- NOTE | 2022-12-24 10:30 | EXP.UTC ---
Discharge Plan Disposition Patient Disposition: Still a Patient Condition: Fair Prescriptions Prescriptions: No Action magnesium oxide 400 mg (241.3 mg magnesium) tablet 400 mg PO HS pantoprazole 40 mg tablet,delayed release (DR/EC) 40 mg PO DAILY Label Comments: TK 1 T PO DAILY diphenhydramine HCl [Benadryl] 25 mg capsule 50 mg PO HS cyanocobalamin (vitamin B-12) 1,000 mcg capsule 1,000 mcg PO DAILY acetaminophen 500 mg capsule 500 mg PO Q6HP PRN (Reason: pain) fluticasone propionate 50 mcg/actuation spray,suspension 1 spray INTRANASAL DAILYP PRN (Reason: allergies) Label Comments: USE 1 SPRAY INTO EACH NOSTRIL DAILY oxybutynin chloride 10 mg tablet extended release 24hr 10 mg PO BID Label Comments: TAKE 1 TABLET BY MOUTH EVERY DAY ceftriaxone 1 gram Recon Soln 1 g IV Q24H Qty: 10 0RF bisoprolol fumarate 5 mg Tablet 2.5 mg PO DAILY Qty: 45 1RF nystatin-triamcinolone 100,000-0.1 unit/g-% Cream 1 applic topical TID Qty: 60 2RF potassium chloride 20 mEq Tablet,Er Particles/Crystals 20 meq PO DAILY Qty: 30 4RF alprazolam 1 mg tablet 0.5 mg PO TID Qty: 45 2RF sertraline 100 MG tablet 200 mg PO AM ascorbic acid (vitamin C) 500 MG tablet 500 mg PO HS Referrals Follow up/Referrals: Suzette Barton MD [Primary Care Provider] - See instructions Clinical Impressions Clinical Impression: Cellulitis Discharge ED Provider: Renaldo Hale [facility] General Stated complaint: back pain,fever,headache Time Seen by Provider: 12/24/22 10:31 History of Present Illness Provider Complaint: She is here with c/o fever since yesterday, right sided abdominal redness, and low back pain. She was released from [facility] rehab about 1 week ago. She was there for rehab after being hospitalized here with sepsis from cellulitis of her abdominal wall. Related Data Home Medications Medication Instructions Recorded Confirmed acetaminophen 500 mg capsule 500 mg PO Q6HP PRN pain 09/25/17 10/25/22 cyanocobalamin (vitamin B-12) 1,000 mcg PO DAILY daily 09/25/17 10/25/22 1,000 mcg capsule diphenhydramine HCl 25 mg capsule 50 mg PO HS sleep 09/25/17 10/25/22 (Benadryl) ascorbic acid (vitamin C) 500 mg 500 mg PO HS Supplement 12/10/17 10/25/22 tablet sertraline 100 mg tablet 200 mg PO AM mood 12/10/17 10/26/22 magnesium oxide 400 mg (241.3 mg 400 mg PO HS Supplement 03/26/18 10/25/22 magnesium) tablet pantoprazole 40 mg tablet,delayed 40 mg PO DAILY Acid reflux 11/24/19 10/25/22 release fluticasone propionate 50 1 spray intranasal DAILYP PRN 09/08/20 10/25/22 mcg/actuation nasal allergies spray,suspension oxybutynin chloride 10 mg 10 mg PO BID overactive bladder 10/05/21 10/25/22 tablet,extended release 24 hr Previous Rx's Medication Instructions Recorded alprazolam 1 mg tablet 0.5 mg PO TID Anxiety #45 tabs 11/02/22 bisoprolol fumarate 5 mg tablet 2.5 mg PO DAILY #45 tabs 11/02/22 ceftriaxone 1 gram intravenous 1 g IV Q24H cellulitis #10 ea 11/02/22 solution nystatin-triamcinolone 100,000 1 applic topical TID dermatitis 11/02/22 unit/g-0.1 % topical cream #60 grams potassium chloride 20 mEq 20 meq PO DAILY #30 tabs 11/02/22 tablet,extended release(part/cryst) Allergies Allergy/AdvReac Type Severity Reaction Status Date / Time atorvastatin [ATORVASTATIN] Allergy Mild Verified 10/02/22 10:44 levofloxacin [From LEVAQUIN] Allergy Mild Verified 10/02/22 10:44 sulfamethoxazole Allergy Mild Verified 10/02/22 10:44 [From BACTRIM] trimethoprim [From BACTRIM] Allergy Mild Verified 10/02/22 10:44 amoxicillin AdvReac Severe Verified 10/02/22 10:44 clavulanic acid AdvReac Severe Verified 10/02/22 10:44 [From Augmentin] cyclobenzaprine AdvReac Severe Verified 10/02/22 10:44 [From Flexeril] [facility] Disclaimer: The information contained in this section may have been updated a
[2022-12-24 11:23] LABS: Microscopic, Urine URINE MICROSCOPIC (MICROSCOPIC)
[2022-12-24 11:24] LABS: Appearance,Urine CLOUDY (Clear); Blood, Urine 2+ (Negative); Color,Urine YELLOW (Yellow); Glucose,Urine (UA) Negative (Negative); Ketones,Urine Negative (Negative); Leukocyte Esterase,Urine 3+ (Negative); Nitrate,Urine POSITIVE (Negative); Protein,Urine 2+ (Negative); Specific Gravity, Urine 1.025 (1.005-1.030)
[2022-12-24 11:28] LABS: Bilirubin,Urine 1+ (Negative)
[2022-12-24 11:42] LABS: Bacteria,Urine 4+ /lpf; Squamous Epithelial Cell,Urine Occasional #/hpf (0-5); WBC,Urine 20-50 #/hpf (0-3)
[2022-12-24 11:54] LABS: Basophils % 0.2 % (0.1-2.0); Eosinophils # 0.1 K/mm3 (0.0-0.4); Eosinophils % 1.6 % (0.1-12.0); Hematocrit 35.8 % (37.0-47.0); Hemoglobin 11.1 g/dL (12.2-16.2); Lymphocytes # 0.9 K/mm3 (0.7-4.5); Lymphocytes % 10.8 % (10-50); Mean Corpuscular HGB Conc 30.9 g/dL (31.8-35.4); Mean Corpuscular Hemoglobin 28.2 pg (27.0-31.2); Mean Corpuscular Volume 91.1 fl (81-99); Mean Platelet Volume 8.7 fl (7.4-10.4); Monocytes # 0.3 K/mm3 (0.1-1.0); Monocytes % 4.3 % (1.7-9.3); Neutrophils # 6.5 K/mm3 (1.8-7.8); Neutrophils % 83.1 % (37.0-80.0); Platelet Count 132 K/mm3 (142-424); Red Blood Count 3.93 M/mm3 (4.20-5.40); Red Cell Distribution Width 16.7 % (11.5-17.5); White Blood Count 7.9 K/mm3 (4.8-10.8)
--- NOTE | 2022-12-24 11:55 | HMH.EDGENADL ---
Discharge Plan Disposition Patient Disposition: Home, Self-Care Condition: Fair Prescriptions Prescriptions: New cephalexin 500 mg capsule 500 mg PO Q6H 7 Days Qty: 28 0RF No Action magnesium oxide 400 mg (241.3 mg magnesium) tablet 400 mg PO HS pantoprazole 40 mg tablet,delayed release (DR/EC) 40 mg PO DAILY Label Comments: TK 1 T PO DAILY diphenhydramine HCl [Benadryl] 25 mg capsule 50 mg PO HS cyanocobalamin (vitamin B-12) 1,000 mcg capsule 1,000 mcg PO DAILY acetaminophen 500 mg capsule 500 mg PO Q6HP PRN (Reason: pain) fluticasone propionate 50 mcg/actuation spray,suspension 1 spray INTRANASAL DAILYP PRN (Reason: allergies) Label Comments: USE 1 SPRAY INTO EACH NOSTRIL DAILY oxybutynin chloride 10 mg tablet extended release 24hr 10 mg PO BID Label Comments: TAKE 1 TABLET BY MOUTH EVERY DAY ceftriaxone 1 gram Recon Soln 1 g IV Q24H Qty: 10 0RF bisoprolol fumarate 5 mg Tablet 2.5 mg PO DAILY Qty: 45 1RF nystatin-triamcinolone 100,000-0.1 unit/g-% Cream 1 applic topical TID Qty: 60 2RF potassium chloride 20 mEq Tablet,Er Particles/Crystals 20 meq PO DAILY Qty: 30 4RF alprazolam 1 mg tablet 0.5 mg PO TID Qty: 45 2RF sertraline 100 MG tablet 200 mg PO AM ascorbic acid (vitamin C) 500 MG tablet 500 mg PO HS Referrals Follow up/Referrals: Suzette Barton MD [Primary Care Provider] - See instructions Activity Restrictions/Add. Instructions Additional Instructions/Restrictions: You have been evaluated for dysuria, diagnosed with a urinary tract infection. Please monitor your symptoms closely. Take Cephalexin as prescribed. Continue using nystatin over your lower abdomen. Follow-up with your primary care doctor for recheck in 1 to 2 days. Your urine culture today is pending. You may need to be on a different antibiotic. Return to the emergency department at once for any new or worsening symptoms Clinical Impressions Clinical Impression: Cystitis Instructions Patient Instructions: DI for Urinary Tract Infection (UTI) Discharge ED Provider: Ingrid Ross Adult [facility] General Chief complaint: Fever Stated complaint: back pain,fever,headache Time Seen by Provider: 12/24/22 10:31 Mode of Arrival: Wheelchair Source of Information: Patient Limitations: No Limitations Description of Symptoms (Recalled from ER Triage Doc. by RN): pt reports fever for the last 2 nights along with LL back pain and a headache, states usually with these symptoms she has a UTI, denies any burning with urination, states fever has been as high as 101.3, also states she has been getting treated for cellilutis and was just released from [facility] a week ago History of Present Illness HPI narrative: 62-year-old female presenting to the emergency department with dysuria, malaise. Symptoms started in the last 2 days. She feels like she is urinating frequently. Has occasional burning. She feels more tired than normal. Says this is sometimes how she feels before she gets infection, sepsis. She was recently treated for abdominal wall cellulitis. She was admitted to [facility] for rehab. She says she has been doing well. She has been home for about 1 week. She had a fever 2 nights ago of 101 Fahrenheit. She currently is not on antibiotics. She is using nystatin cream. She denies cough, shortness of breath, chest pain, abdominal pain, diarrhea, lower extremity swelling, dysuria Related Data Home Medications Medication Instructions Recorded Confirmed acetaminophen 500 mg capsule 500 mg PO Q6HP PRN pain 09/25/17 10/25/22 cyanocobalamin (vitamin B-12) 1,000 mcg PO DAILY daily 09/25/17 10/25/22 1,000 mcg capsule diphenhydramine HCl 25 mg capsule 50 mg PO HS sleep 09/25/17 10/25/22 (Benadryl) ascorbic acid (vitamin C) 500 mg 500 mg PO HS Supplement 12/10/17 10/25/22 tablet sertraline 100 mg tablet 200 mg P
[2022-12-24 11:56] LABS: Chloride 102 mmol/L (98-107); Sodium 138 mmol/L (136-145)
[2022-12-24 11:58] LABS: Blood Urea Nitrogen 21 mg/dl (7-17); Creatinine Clearance Estimated 41 mL/min (50-200); Estimated Glomerular Filt Rate 63 ml/min (>60); GFR (African American) 76 ML/MIN (>60); Lactic Acid 1.7 mmol/L (0.7-2.1)
[2022-12-24 11:59] LABS: Alanine Aminotransferase 30 U/L (12-78); Albumin Level 3.1 g/dl (3.5-5.0); Albumin/Globulin Ratio 0.7 (1.1-1.8); Alkaline Phosphatase 244 U/L (38-126); Aspartate Amino Transferase 68 U/L (14-36); Bilirubin,Total 0.6 mg/dl (0.2-1.3); Calcium 8.1 mg/dl (8.4-10.2); Carbon Dioxide 26 mmol/L (22.0-30.0); Globulin 4.2 g/dL (1.3-3.2); Glucose 126 mg/dl (74-100); Total Protein,Serum 7.3 g/dl (6.3-8.2)
[2022-12-24 12:21] LABS: Procalcitonin 1.16 ng/mL (0.0-2.0)
--- NOTE | 2022-12-24 12:52 | PC.NURSE ---
rounded on pt, Pt IVF infusion complete. NOtified pt will have ALLAN CAN come update her on POC
== END 2022-12-24 13:10 | disposition home or self-care (01) ==
LOC: UTC 10:06 → ER 10:48
PROVIDERS: Emergency Provider Emergency Medicine; PCP Family Medicine
DX: N30.90 Cystitis, unspecified without hematuria (principal); R51.9 Headache, unspecified; R50.9 Fever, unspecified; E11.9 Type 2 diabetes mellitus without complications; E66.01 Morbid (severe) obesity due to excess calories; I10 Essential (primary) hypertension; I48.0 Paroxysmal atrial fibrillation; D61.818 Other pancytopenia
CPT/HCPCS: 80053; 81001; 83605; 84145; 85025; 87040; 87077; 87086; 87088; 87186; 99285

== ENCOUNTER → 2022-12-27 12:26 | Outpatient (CLI) | payer MEDICARE, MEDICAID, SELFPAY ==
[2022-12-27 12:45] LABS: Basophils % 0.2 % (0.1-2.0); Eosinophils # 0.1 K/mm3 (0.0-0.4); Eosinophils % 2.7 % (0.1-12.0); Hematocrit 29.5 % (37.0-47.0); Hemoglobin 9.4 g/dL (12.2-16.2); Lymphocytes # 0.8 K/mm3 (0.7-4.5); Lymphocytes % 22.8 % (10-50); Mean Corpuscular HGB Conc 31.9 g/dL (31.8-35.4); Mean Corpuscular Hemoglobin 28.6 pg (27.0-31.2); Mean Corpuscular Volume 89.4 fl (81-99); Mean Platelet Volume 8.9 fl (7.4-10.4); Monocytes # 0.2 K/mm3 (0.1-1.0); Monocytes % 5.4 % (1.7-9.3); Neutrophils # 2.3 K/mm3 (1.8-7.8); Neutrophils % 68.9 % (37.0-80.0); Platelet Count 102 K/mm3 (142-424); Red Cell Distribution Width 16.2 % (11.5-17.5); White Blood Count 3.4 K/mm3 (4.8-10.8)
[2022-12-27 13:03] LABS: Alanine Aminotransferase 21 U/L (12-78); Albumin Level 2.3 g/dl (3.5-5.0); Albumin/Globulin Ratio 0.7 (1.1-1.8); Alkaline Phosphatase 216 U/L (38-126); Anion Gap 12.8 mEq/L (5-15); Aspartate Amino Transferase 42 U/L (14-36); Bilirubin,Total 0.4 mg/dl (0.2-1.3); Blood Urea Nitrogen 25 mg/dl (7-17); Calcium 7.6 mg/dl (8.4-10.2); Carbon Dioxide 27 mmol/L (22.0-30.0); Chloride 104 mmol/L (98-107); Estimated Glomerular Filt Rate 63 ml/min (>60); GFR (African American) 76 ML/MIN (>60); Globulin 3.3 g/dL (1.3-3.2); Glucose 95 mg/dl (74-100); Potassium 3.8 mmoL/L (3.5-5.1); Sodium 140 mmol/L (136-145); Total Protein,Serum 5.6 g/dl (6.3-8.2)
[2022-12-27 13:35] LABS: Thyroid Stimulating Hormone 0.95 uIU/mL (0.465-4.68)
[2022-12-27 13:55] LABS: Vitamin B12 > 1000 pg/mL (239-931)
[2023-01-01 19:09] LABS: 1,25 Dihydroxy Vitamin D 35 pg/mL (.); 1,25-Dihydroxy, Vitamin D-2 <10 pg/mL (.); 1,25-Dihydroxy, Vitamin D-3 35 pg/mL (.)
== END ==
PROVIDERS: PCP Family Medicine; Visit Provider Family Medicine
DX: E11.9 Type 2 diabetes mellitus without complications (principal); I10 Essential (primary) hypertension; E03.9 Hypothyroidism, unspecified; E53.8 Deficiency of other specified B group vitamins
CPT/HCPCS: 80053; 82607; 82652; 84443; 85025

== ENCOUNTER 2023-01-30 13:53 | Outpatient (RCR) | payer MEDICARE, MEDICAID, SELFPAY ==
--- NOTE | 2023-01-30 16:08 | HMH.PTOPWND ---
Rehab Outpt Wound Evaluation Rehab OP Wound Evaluation Start: 01/30/23 14:01 Freq: Status: Active Protocol: Document 01/30/23 15:59 MARY CARMEN (Rec: 01/30/23 16:08 PHOANN MARIE [id number]) E-signed By Ab Mcqueen, PT Subjective/History History History This is the initial PT eval for Lakshmi Merritt, 62 yowf who presents with c/o R LE increased edema x ~ 3 mos. She was hospitalized with R side abdominal cellulitis then transfered to inpatient rehab facility for ~ 6 wks. She reports receiving lymphedema care at rehab facility which significantly helped reduce her LE edema. She is non- ambulatory currently and has been using a motorized power chair for all mobility for many years. She reports no pain or numbness/tingling in the R LE even with increased edema. She has PMH of umbilical hernia, anxiety, depression, hypothyroidism, sleep apnea, and morbid obesity. Subjective Subjective Currently no c/o pain or palpation tenderness noted throughout the R LE. 1+ pitting edema in the R lower leg, moderate fibrotic edema noted throughout the R LE and into abdomen. Lymphedema Eval Classification of Lymphedema Secondary Lymphedema Yes Stemmer's sign Stemmer's Sign no Stage of Lymphedema Lymphedema stages Stage II (Pitting edema, increased fibrosis w/ decreased pitting) Skin Changes Dry Skin Yes Taut, Shiny Skin Yes Skin Folds Yes Papillomatosis Yes Redness Yes Brittle Uneven Nails Yes Discoloration of Skin Yes Other Changes Yes Pain Scale Pain Scale (0-10) 0 Affected Extremities Areas Affected by Lymphedema/Edema Abdomen,Right Lower Extremity Manual Lymphatic Drainage Treatment Area MLD Treatment Area Abdomen,Right Lower Extremity Wound Problems/Impairments Impairments Problems/Impairmments
== END 2023-01-30 13:55 | disposition home or self-care (01) ==
LOC: PT 13:53
PROVIDERS: PCP Family Medicine; Visit Provider Physician Assistant
DX: I89.0 Lymphedema, not elsewhere classified (principal)
CPT/HCPCS: 97140; 97163

== ENCOUNTER 2023-02-03 10:57 | Inpatient (IN) | payer MEDICARE, MEDICAID, SELFPAY ==
[2023-02-03] VITALS (7 sets, daily range): BP systolic 80–139; BP diastolic 48–56; PULSE 74–90; RESP 18; TEMP 36.9–37.6; O2SAT 93–97; BMI 62.4; BMI 64.7
--- NOTE | 2023-02-03 11:34 | PC.NURSE ---
lab at bedside.
--- NOTE | 2023-02-03 11:44 | HMH.EDGENADL ---
Discharge Plan Disposition Patient Disposition: Admitted Chief Complaint: Abdominal Pain Prescriptions Prescriptions: No Action pantoprazole 40 mg tablet,delayed release (DR/EC) 40 mg PO DAILY Patient Comments: TK 1 T PO DAILY diphenhydramine HCl [Benadryl] 25 mg capsule 50 mg PO HS acetaminophen 500 mg capsule 500 mg PO Q6HP PRN (Reason: pain) fluticasone propionate 50 mcg/actuation spray,suspension 1 spray INTRANASAL DAILYP PRN (Reason: allergies) Patient Comments: USE 1 SPRAY INTO EACH NOSTRIL DAILY oxybutynin chloride 10 mg tablet extended release 24hr 10 mg PO BID Patient Comments: TAKE 1 TABLET BY MOUTH EVERY DAY sertraline 100 MG tablet 200 mg PO DAILY warfarin 4 mg tablet 4 mg PO DAILY Patient Comments: TAKE 1 TABLET BY MOUTH EVERY DAY alprazolam 0.5 mg tablet 0.5 mg PO 0900,1200 Patient Comments: TAKE 1 TABLET BY MOUTH IN THE MORNING AND AT NOON AND 2 TABLETS EVERY NIGHT alprazolam 0.5 mg tablet 1 mg PO HS Patient Comments: TAKE 1 TABLET BY MOUTH IN THE MORNING AND AT NOON AND 2 TABLETS EVERY NIGHT gabapentin 800 mg tablet 800 mg PO TID Patient Comments: TAKE 1 TABLET BY MOUTH THREE TIMES DAILY levothyroxine 150 mcg tablet 150 mcg PO DAILY Patient Comments: TAKE 1 TABLET BY MOUTH EVERY DAY Referrals Follow up/Referrals: Suzette Barton MD [Primary Care Provider] - See instructions Clinical Impressions Clinical Impression: Abdominal wall cellulitis Instructions Patient Instructions: DI for Acute Abdominal Pain Discharge ED Provider: Clare Rawls General Adult HPI General Chief complaint: Abdominal Pain Stated complaint: fever,abd pain Time Seen by Provider: 02/03/23 11:28 Mode of Arrival: Wheelchair Source of Information: Patient Limitations: Physical Limitations Description of Symptoms (Recalled from ER Triage Doc. by RN): pt presents to ED c/o lower abdominal pain that started around 0300. pt states she was in the hospital for sepsis in October. pt denies burning with urination. pt reports fever. pt denies vomiting and diarrhea. pt states she did take 500 mg Tylenol machine captain. History of Present Illness HPI narrative: 62-year-old female presenting with abdominal erythema warmth and fever at home greater than 101 today. She was recently admitted in October of this year for pannus cellulitis and she had septic shock associated with this. Her daughter accompanies her and states that they went to get on top of that before she got that sick this time. She is having significant pain and redness and tenderness over this area. She was treated with IV antibiotics for 10 days in the hospital and was at [facility] for an extended period of time last time as well. Related Data Home Medications Medication Instructions Recorded Confirmed acetaminophen 500 mg capsule 500 mg PO Q6HP PRN pain 09/25/17 02/03/23 diphenhydramine HCl 25 mg capsule 50 mg PO HS sleep 09/25/17 01/08/23 (Benadryl) sertraline 100 mg tablet 200 mg PO DAILY mood 12/10/17 02/03/23 pantoprazole 40 mg tablet,delayed 40 mg PO DAILY Acid reflux 11/24/19 02/03/23 release fluticasone propionate 50 1 spray intranasal DAILYP PRN 09/08/20 01/08/23 mcg/actuation nasal allergies spray,suspension oxybutynin chloride 10 mg 10 mg PO BID overactive bladder 10/05/21 02/03/23 tablet,extended release 24 hr alprazolam 0.5 mg tablet 0.5 mg PO 0900,1200 Anxiety 02/03/23 02/03/23 alprazolam 0.5 mg tablet 1 mg PO HS Anxiety 02/03/23 02/03/23 gabapentin 800 mg tablet 800 mg PO TID Pain 02/03/23 02/03/23 levothyroxine 150 mcg tablet 150 mcg PO DAILY THYROID 02/03/23 02/03/23 warfarin 4 mg tablet 4 mg PO DAILY Blood Thinner/Afib 02/03/23 02/03/23 Allergies Allergy/AdvReac Type Severity Reaction Status Date / Time atorvastatin [ATORVASTATIN] Allergy Mild Verified 01/08/23 10:21 levofloxacin [From LEVAQUIN] Allergy Mild Ve
[2023-02-03 11:46] LABS: Appearance,Urine CLEAR (Clear); Bilirubin,Urine Negative (Negative); Blood, Urine TRACE-I (Negative); Color,Urine YELLOW (Yellow); Glucose,Urine (UA) Negative (Negative); Ketones,Urine Negative (Negative); Leukocyte Esterase,Urine 3+ (Negative); Microscopic, Urine URINE MICROSCOPIC (MICROSCOPIC); Nitrate,Urine POSITIVE (Negative); Protein,Urine TRACE (Negative); Specific Gravity, Urine 1.025 (1.005-1.030); Urobilinogen,Urine 0.2 EU/dl (0.2)
--- NOTE | 2023-02-03 11:50 | PC.NURSE ---
called pharmacy regarding Vanc consult
[2023-02-03 11:56] LABS: Basophils % 0.1 % (0.1-2.0); Eosinophils # 0.1 K/mm3 (0.0-0.4); Eosinophils % 0.5 % (0.1-12.0); Hematocrit 36.6 % (37.0-47.0); Hemoglobin 11.2 g/dL (12.2-16.2); Lymphocytes # 0.6 K/mm3 (0.7-4.5); Lymphocytes % 5.4 % (10-50); Mean Corpuscular HGB Conc 30.5 g/dL (31.8-35.4); Mean Corpuscular Hemoglobin 27.3 pg (27.0-31.2); Mean Corpuscular Volume 89.6 fl (81-99); Mean Platelet Volume 8.6 fl (7.4-10.4); Monocytes # 0.3 K/mm3 (0.1-1.0); Monocytes % 2.7 % (1.7-9.3); Neutrophils # 9.6 K/mm3 (1.8-7.8); Neutrophils % 91.2 % (37.0-80.0); Platelet Count 107 K/mm3 (142-424); Red Blood Count 4.09 M/mm3 (4.20-5.40); White Blood Count 10.5 K/mm3 (4.8-10.8)
[2023-02-03 11:58] LABS: MANUAL DIFFERENTIAL MANUAL DIFFERENTIAL (MANUAL DIFF)
[2023-02-03 12:05] LABS: Chloride 109 mmol/L (98-107); Potassium 4.4 mmoL/L (3.5-5.1)
--- NOTE | 2023-02-03 12:05 | HMH.PHAINT1 ---
Pharmacy Intervention Comments: MEDICATION RECONCILIATION COMPLETED ON PATIENT USING EXTERNAL FILL HISTORY FROM PHARMACY. -AMILCAR HUERTA, LORIED
[2023-02-03 12:08] LABS: Bacteria,Urine 3+ /lpf; RBC,Urine Occasional #/hpf (0-3)
[2023-02-03 12:08] LABS: Alanine Aminotransferase 47 U/L (12-78); Albumin Level 3.1 g/dl (3.5-5.0); Albumin/Globulin Ratio 0.8 (1.1-1.8); Alkaline Phosphatase 314 U/L (38-126); Aspartate Amino Transferase 148 U/L (14-36); Bilirubin,Total 0.5 mg/dl (0.2-1.3); Blood Urea Nitrogen 22 mg/dl (7-17); Carbon Dioxide 27 mmol/L (22.0-30.0); Creatinine Clearance Estimated 41 mL/min (50-200); Estimated Glomerular Filt Rate 72 ml/min (>60); GFR (African American) 87 ML/MIN (>60); Globulin 3.8 g/dL (1.3-3.2); Total Protein,Serum 6.9 g/dl (6.3-8.2)
[2023-02-03 12:09] LABS: Calcium 8.5 mg/dl (8.4-10.2); Glucose 205 mg/dl (74-100)
[2023-02-03 12:10] LABS: Lactic Acid 2.1 mmol/L (0.7-2.1)
--- NOTE | 2023-02-03 12:10 | PC.NURSE ---
2nd set of blood culture sent to lab.
[2023-02-03 12:11] LABS: Activated Partial Thrombo Time 32.8 seconds (22.8-30.6); INR 1.68 (0.9-1.1); Prothrombin Time 17.5 seconds (10.1-12.5)
[2023-02-03 12:17] LABS: Anion Gap 9.4 mEq/L (5-15); Hypochromasia 1+; Lymphocytes % 7 % (10-50); Monocytes % 2 % (2-9); Neutrophils % 91 % (42-76); Sodium 141 mmol/L (136-145); Total Cells Counted 100
[2023-02-03 12:18] LABS: Platelet Estimate Slight Decrease
--- NOTE | 2023-02-03 12:19 | EXP.PHA.CONS ---
Pharmacy Consult Date: 02/03/23 Time: 12:19 Referring provider: DR. SWIFT Reason for Consult:: VANCOMYCIN DOSING Allergies Allergy/AdvReac Type Severity Reaction Status Date / Time atorvastatin [ATORVASTATIN] Allergy Mild Verified 01/08/23 10:21 levofloxacin [From LEVAQUIN] Allergy Mild Verified 01/08/23 10:21 sulfamethoxazole Allergy Mild Verified 01/08/23 10:21 [From BACTRIM] trimethoprim [From BACTRIM] Allergy Mild Verified 01/08/23 10:21 nitrofurantoin Allergy Verified 01/08/23 10:21 [From Macrobid] amoxicillin AdvReac Severe Verified 01/08/23 10:21 clavulanic acid AdvReac Severe Verified 01/08/23 10:21 [From Augmentin] cyclobenzaprine AdvReac Severe Verified 01/08/23 10:21 [From Flexeril] Home Medications Medication Instructions Recorded Confirmed Type acetaminophen 500 mg capsule 500 mg PO Q6HP PRN pain 09/25/17 02/03/23 History diphenhydramine HCl 25 mg capsule 50 mg PO HS sleep 09/25/17 01/08/23 History (Benadryl) sertraline 100 mg tablet 200 mg PO DAILY mood 12/10/17 02/03/23 History pantoprazole 40 mg tablet,delayed 40 mg PO DAILY Acid reflux 11/24/19 02/03/23 History release fluticasone propionate 50 1 spray intranasal DAILYP PRN 09/08/20 01/08/23 History mcg/actuation nasal allergies spray,suspension oxybutynin chloride 10 mg 10 mg PO BID overactive bladder 10/05/21 02/03/23 History tablet,extended release 24 hr alprazolam 0.5 mg tablet 0.5 mg PO 0900,1200 Anxiety 02/03/23 02/03/23 History alprazolam 0.5 mg tablet 1 mg PO HS Anxiety 02/03/23 02/03/23 History gabapentin 800 mg tablet 800 mg PO TID Pain 02/03/23 02/03/23 History levothyroxine 150 mcg tablet 150 mcg PO DAILY THYROID 02/03/23 02/03/23 History warfarin 4 mg tablet 4 mg PO DAILY Blood Thinner/Afib 02/03/23 02/03/23 History New Prescriptions to Start Prescriptions: Height: 1.52 m Weight: 145.15 kg Laboratory Results:: Laboratory Results - last 24 hr 02/03/23 09:30: Urine Color Yellow, Urine Appearance Clear, Urine pH 6.0, Ur Specific [place] 1.025, Urine Protein Trace, Urine Glucose (UA) Negative, Urine Ketones Negative, Urine Blood Trace-i, Urine Nitrate Positive, Urine Bilirubin Negative, Urine Urobilinogen 0.2, Ur Leukocyte Esterase 3+ A, Urine RBC Occasional, Urine WBC 10-20, Ur Squamous Epith Cells 3-5, Urine Bacteria 3+ 02/03/23 11:20: WBC 10.5, RBC 4.09 L, Hgb 11.2 L, Hct 36.6 L, MCV 89.6, MCH 27.3, MCHC 30.5 L, RDW 16.0, Plt Count 107 L, MPV 8.6, Neut % (Auto) 91.2 H, Lymph % (Auto) 5.4 L, [place] % (Auto) 2.7, Eos % (Auto) 0.5, Baso % (Auto) 0.1, Neut # (Auto) 9.6 H, Lymph # (Auto) 0.6 L, [place] # (Auto) 0.3, Eos # (Auto) 0.1, Baso # (Auto) 0.0, Total Counted 100, Neutrophils % (Manual) 91 H, Lymphocytes % (Manual) 7 L, Monocytes % (Manual) 2, Platelet Estimate Slight decrease, RBC Morphology Not Reportable, Hypochromasia 1+, PT 17.5 H, INR 1.68 H, APTT 32.8 H, Sodium 141, Potassium 4.4, Chloride 109 H, Carbon Dioxide 27, Anion Gap 9.4, BUN 22 H, Creatinine 0.80, Estimated Creat Clear 41, Estimated GFR 72, Est GFR ( Amer) 87, Glucose 205 H, Lactate 2.1, Calcium 8.5, Total Bilirubin 0.5, AST 148 H, ALT 47, Alkaline Phosphatase 314 H, C-Reactive Protein 37.0 H, Total Protein 6.9, Albumin 3.1 L, Globulin 3.8 H, Albumin/Globulin Ratio 0.8 L Medical History: Medical History (Updated 02/03/23 @ 11:47 by Clare Swift MD) Abdominal pain Abrasion of lower extremity without infection Cellulitis of right abdominal wall Epistaxis Fracture dislocation of joint Fracture of fifth toe, left, closed History of DVT (deep vein thrombosis) Hypertension Hypokalemia Hypotension Hypothyroidism Morbid obesity Morbid obesity with BMI of 70 and over, adult Nasal septum ulceration Osteoarthritis of left knee Osteoarthritis of right knee Paroxysmal atrial fibrillation Paroxysmal atrial fibrillation Sinusitis Sleep apnea Spinal stenosis at L4-L5 level Superficial laceration of foot Type 2 diabetes mellitus [place]i
--- NOTE | 2023-02-03 12:49 | PC.NURSE ---
DR HOUSTON AKBAR FOR DR BURT
--- NOTE | 2023-02-03 12:51 | PC.NURSE ---
speaking with Dr. Lujan at this time.
--- NOTE | 2023-02-03 13:01 | PC.NURSE ---
ARTIFICIAL TEETH INSPECTOR NOTIFIED OF ADMISSION
[2023-02-03 15:52] LABS: Reflex Lactic Add Lactic Reflex
[2023-02-03 16:38] LABS: Lactic Acid Follow Up (RFLX 1) 1.6 mmol/L (0.7-2.1)
--- NOTE | 2023-02-03 17:52 | PC.NURSE ---
A&OX4. TOLERATING RA WELL. PT UP WITH X2 ASSIST AND WHEELCHAIR, HAS GOTTEN UP TO BATHROOM. PT STATES THAT SHE IS AWARE THAT SHE NEEDS TO GET UP AND MOVE AROUND THIS HOSPITAL STAY. PT HAS HAD NO NEEDS OR C/O SINCE ARRIVAL TO FLOOR. DID GREG HER ABD REDNESS. RECEIVED FLUID BOLUS PER SEP. VSS.
[2023-02-04 04:00] VITALS: BMI 66.9
--- NOTE | 2023-02-04 05:00 | PC.NURSE ---
PATIENT USED CPAP MOST OF THE NIGHT. VERY TALKATIVE, PLEASANT. USES MOTORIZED W/C FOR MOBILITY. REQUIRE ASSIST X 1 GETTING IN/OUT OF BED. NO C/O PAIN AT THIS TIME. ABDOMINAL REDNESS IMPROVING. DAUGHTER BROUGHT IN A BAG OF MEDS. LOCKED IN RESIDENTIAL MONITOR PATIENTS ROOM.
--- NOTE | 2023-02-04 06:40 | PC.NURSE ---
this nurse asked pt. if she would like to have a bath and pt. refused.
[2023-02-04 07:12] LABS: Eosinophils # 0.1 K/mm3 (0.0-0.4); Lymphocytes # 0.7 K/mm3 (0.7-4.5); Monocytes # 0.2 K/mm3 (0.1-1.0)
[2023-02-04 07:20] LABS: Basophils % 0.1 % (0.1-2.0); Eosinophils % 2.5 % (0.1-12.0); Hematocrit 32.4 % (37.0-47.0); Lymphocytes % 17.7 % (10-50); Mean Corpuscular HGB Conc 30.7 g/dL (31.8-35.4); Mean Corpuscular Hemoglobin 27.1 pg (27.0-31.2); Mean Corpuscular Volume 88.5 fl (81-99); Mean Platelet Volume 8.3 fl (7.4-10.4); Monocytes % 3.9 % (1.7-9.3); Neutrophils % 75.9 % (37.0-80.0); Platelet Count 76 K/mm3 (142-424); Red Blood Count 3.66 M/mm3 (4.20-5.40)
[2023-02-04 07:22] LABS: INR 1.67 (0.9-1.1); Prothrombin Time 17.4 seconds (10.1-12.5)
[2023-02-04 07:23] LABS: Anion Gap 7.1 mEq/L (5-15); Blood Urea Nitrogen 20 mg/dl (7-17); Carbon Dioxide 29 mmol/L (22.0-30.0); Chloride 110 mmol/L (98-107); Creatinine Clearance Estimated 39 mL/min (50-200); Estimated Glomerular Filt Rate 84 ml/min (>60); GFR (African American) 102 ML/MIN (>60); Glucose 94 mg/dl (74-100); Hemoglobin 9.9 g/dL (12.2-16.2); Potassium 4.1 mmoL/L (3.5-5.1); Sodium 142 mmol/L (136-145)
[2023-02-04 07:55] VITALS: BP 106/56; PULSE 72; RESP 18; TEMP 36.8; O2SAT 92
--- NOTE | 2023-02-04 10:33 | EXP.HP ---
History of Present Illness *Admission Date: 02/03/23 *Reason for visit:: Abdominal pain *History of present illness: Ms. Merritt is a 62 year old female patient of [facility], who receives her primary care from Dr. Barton. She presented to [facility] ER yesterday complaining of bilateral lower abdominal pain, low grade fever and urinary frequency. She was evaluated in the ER and was diagnosed with abdominal wall cellulitis. She has a similar episode earlier this year that resulted in sepsis and a prolonged stay at [facility] for rehabilitation. Patient was started on Vancomycin the ER yesterday. Dr. Barton called this morning asking me to see patient in his absence as he was having car trouble/transportation issues and would not be able to make hospital rounds today. Patient feels some better today. She is unhappy with the timinig of her medication administration and wants to know if she is being treated for a UTI. [facility] Disclaimer: The information contained in this section may have been updated after the patient was seen, as this information can be updated by other users. Medical History Abdominal pain Abrasion of lower extremity without infection Cellulitis of right abdominal wall Epistaxis Fracture dislocation of joint Fracture of fifth toe, left, closed History of DVT (deep vein thrombosis) Hypertension Hypokalemia Hypotension Hypothyroidism snf current use of anticoagulant Morbid obesity Morbid obesity with BMI of 70 and over, adult Nasal septum ulceration Osteoarthritis of left knee Osteoarthritis of right knee Paroxysmal atrial fibrillation Paroxysmal atrial fibrillation Sinusitis Sleep apnea Spinal stenosis at L4-L5 level Superficial laceration of foot Type 2 diabetes mellitus Umbilical hernia Surgical History H/O superior vena cava filter placement History of delivery History of cholecystectomy History of D&C History of ERCP History of esophagogastroduodenoscopy (EGD) History of gastric surgery History of tonsillectomy Family History Ankylosing spondylitis Social History Smoking Status: Never smoker alcohol intake: never substance use type: denies use current occupational status: other Travel in the last 8 weeks: None household members: spouse housing: house Review of Systems Constitutional Constitutional: Denies chills and Reports fever(s) Eyes Eyes: Denies blurry vision ENT Ears, Nose, Mouth, and Throat: Denies abnormal hearing and Denies dizziness *Cardiovascular Cardiovascular: Denies chest pain *Respiratory Respiratory: Denies cough *Gastrointestinal Gastrointestinal: Denies change in bowel habits *Genitourinary Genitourinary: Denies dysuria *Musculoskeletal Musculoskeletal: Denies myalgias *Neurologic Neurologic: Denies abnormal hearing and Denies dizziness Meds Home Medications and Allergies Home Medications Medication Instructions Recorded Confirmed Type acetaminophen 500 mg capsule 500 mg PO Q6HP PRN pain 09/25/17 02/03/23 History diphenhydramine HCl 25 mg capsule 25 mg PO HS sleep 09/25/17 02/03/23 History (Benadryl) sertraline 100 mg tablet 200 mg PO DAILY mood 12/10/17 02/03/23 History pantoprazole 40 mg tablet,delayed 40 mg PO DAILY Acid reflux 11/24/19 02/03/23 History release oxybutynin chloride 10 mg 10 mg PO BID overactive bladder 10/05/21 02/03/23 History tablet,extended release 24 hr alprazolam 0.5 mg tablet 0.5 mg PO 0900,1200 Anxiety 02/03/23 02/03/23 History alprazolam 0.5 mg tablet 1 mg PO HS Anxiety 02/03/23 02/03/23 History ascorbic acid (vitamin C) 100 mg 100 mg PO DAILY Supplement 02/03/23 02/03/23 History tablet (Vitamin C) calcium 100 mg capsule 100 mg PO DAILY Supplement 02/03/23 02/03/23 History antonina
[2023-02-04 15:12] VITALS: BP 147/58; PULSE 72; RESP 16; TEMP 37.2; O2SAT 97
--- NOTE | 2023-02-04 18:53 | PC.NURSE ---
VS stable, patient on room air. Redness on abdomen improving from admission.
[2023-02-04 20:00] VITALS: BP 139/73; PULSE 78; RESP 18; TEMP 37.6; O2SAT 97
[2023-02-05 04:00] VITALS: BP 100/49; PULSE 73; RESP 18; TEMP 37; O2SAT 96; BMI 68.0
--- NOTE | 2023-02-05 05:42 | PC.NURSE ---
PATIENT RESTING IN BED AT THIS TIME WITH CPAP IN USE. NO C/O PAIN OR DISCOMFORT. BLEs ELEVATED., EDEMA IMPROVED. LOWER ABDOMEN CONTINUES TO IMPROVE.
[2023-02-05 06:46] LABS: Basophils % 0.1 % (0.1-2.0); Eosinophils # 0.1 K/mm3 (0.0-0.4); Eosinophils % 1.8 % (0.1-12.0); Hematocrit 31.6 % (37.0-47.0); Hemoglobin 9.7 g/dL (12.2-16.2); Lymphocytes # 0.8 K/mm3 (0.7-4.5); Lymphocytes % 14.3 % (10-50); Mean Corpuscular HGB Conc 30.8 g/dL (31.8-35.4); Mean Corpuscular Hemoglobin 27.2 pg (27.0-31.2); Mean Corpuscular Volume 88.3 fl (81-99); Mean Platelet Volume 8.3 fl (7.4-10.4); Monocytes # 0.3 K/mm3 (0.1-1.0); Monocytes % 4.5 % (1.7-9.3); Neutrophils # 4.5 K/mm3 (1.8-7.8); Neutrophils % 79.2 % (37.0-80.0); Platelet Count 77 K/mm3 (142-424); Red Blood Count 3.57 M/mm3 (4.20-5.40); White Blood Count 5.7 K/mm3 (4.8-10.8)
[2023-02-05 06:55] LABS: Anion Gap 6.8 mEq/L (5-15); Blood Urea Nitrogen 16 mg/dl (7-17); Calcium 7.7 mg/dl (8.4-10.2); Carbon Dioxide 27 mmol/L (22.0-30.0); Chloride 108 mmol/L (98-107); Creatinine Clearance Estimated 39 mL/min (50-200); Estimated Glomerular Filt Rate 84 ml/min (>60); GFR (African American) 102 ML/MIN (>60); Glucose 102 mg/dl (74-100); Potassium 3.8 mmoL/L (3.5-5.1); Sodium 138 mmol/L (136-145)
[2023-02-05 06:57] LABS: INR 1.46 (0.9-1.1); Prothrombin Time 15.4 seconds (10.1-12.5)
[2023-02-05 07:13] VITALS: BP 127/62; PULSE 79; RESP 18; TEMP 37.5; O2SAT 93
--- NOTE | 2023-02-05 08:18 | EXP.ACUTE.PN ---
Subjective *Date: 02/05/23 *Time: 08:41 Interval history: Patient states she is feeling well. She has had a low-grade fever. She denies abdominal pain. She has urinary urgency. Bowels have been moving. She is eating without difficulty. She has been out of bed and up the posada and in the waiting area in her electronic wheelchair. Weight has increased probably due to IV fluids. IV fluids have been discontinued and she has a saline lock. Hemoglobin is 9.7 with hematocrit of 31.6 this a.m. renal function is good. Calcium is low at 7.7. She is eating and drinking well. Medical Exam Vital signs and Labs for Last 24 Hours: Vital Signs Temp Pulse Resp BP Pulse Ox O2 Del Method 02/05/23 07:13 99.5 F 79 18 127/62 93 L Room Air 02/05/23 06:38 CPAP 02/05/23 05:00 CPAP 02/05/23 04:00 98.6 F 73 18 100/49 L 96 Room Air 02/05/23 03:00 CPAP 02/05/23 01:00 CPAP 02/04/23 23:00 Room Air 02/04/23 21:00 Room Air 02/04/23 20:00 97 Room Air 02/04/23 20:00 99.7 F H 78 18 139/73 97 Room Air 02/04/23 18:52 Room Air 02/04/23 16:44 Room Air 02/04/23 08:32 Room Air 02/04/23 15:06 Room Air 02/04/23 13:00 Room Air 02/04/23 10:55 Room Air 02/04/23 08:32 Room Air 02/04/23 15:12 99.0 F 72 16 147/58 H 97 Room Air Intake and Output 02/04/23 02/05/23 02/05/23 19:59 03:59 11:59 Intake Total 650 / 650 720 / 1370 490 / 1860 Output Total 0 / 0 300 / 300 200 / 500 Balance 650 / 650 420 / 1070 290 / 1360 Intake: Intake, Oral Amount 600 / 600 720 / 1320 240 / 1560 Intake, Total IV Amount 50 / 50 250 / 300 Ceftriaxone 1 gm 1 gm In 0.9 % 50 / 50 Sodium Chloride 50 ml @ 100 mls /hr IV Q24H [facility] Rx#:[id number] Vancomycin HCl 2,250 mg In 0.9 250 / 250 % Sodium Chloride 250 ml @ 125 mls/hr IV Q18H [facility] Rx#:[id number] Output: Output, Urine Amount 0 / 0 300 / 300 200 / 500 Other: Number of Unmeasured Voids 1 1 Weight 346 lb 5.539 oz Patient Weight 02/05/23 11:59 Weight 346 lb 5.539 oz Laboratory Results - last 24 hr 02/03/23 09:30: Urine Color Yellow, Urine Appearance Clear, Urine pH 6.0, Ur Specific [place] 1.025, Urine Protein Trace, Urine Glucose (UA) Negative, Urine Ketones Negative, Urine Blood Trace-i, Urine Nitrate Positive, Urine Bilirubin Negative, Urine Urobilinogen 0.2, Ur Leukocyte Esterase 3+ A, Urine RBC Occasional, Urine WBC 10-20, Ur Squamous Epith Cells 3-5, Urine Bacteria 3+ 02/05/23 06:02: WBC 5.7 D, RBC 3.57 L, Hgb 9.7 L, Hct 31.6 L, MCV 88.3, MCH 27.2, MCHC 30.8 L, RDW 16.0, Plt Count 77 L, MPV 8.3, Neut % (Auto) 79.2, Lymph % (Auto) 14.3, [place] % (Auto) 4.5, Eos % (Auto) 1.8, Baso % (Auto) 0.1, Neut # (Auto) 4.5, Lymph # (Auto) 0.8, [place] # (Auto) 0.3, Eos # (Auto) 0.1, Baso # (Auto) 0.0, PT 15.4 H, INR 1.46 H, Sodium 138, Potassium 3.8, Chloride 108 H, Carbon Dioxide 27, Anion Gap 6.8, BUN 16, Creatinine 0.70, Estimated Creat Clear 39, Estimated GFR 84, Est GFR ( Amer) 102, Glucose 102 H, Calcium 7.7 L I & O for Labs for Last 24 Hours: Intake & Output 02/02/23 02/03/23 02/04/23 02/05/23 11:59 11:59 11:59 11:59 Intake Total 4770 / 4770 1860 / 1860 Output Total 500 / 500 Balance 4769 / 4769 1360 / 1360 Weight 320 lb 341 lb 0.882 oz 346 lb 5.539 oz Microbiology Reports for the Last 24 Hours: Microbiology 02/03/23 09:30 Urine,Clean Catch Urine Culture - Preliminary Gram Negative Rods Gram Negative Rods#2 Constitutional: Present no acute distress Comment:: Lying in bed and eating her breakfast. She appears comfortable. Conversant. Respiratory: Present CTA bilaterally Cardiac: Present Regular Rate GI: Present soft and normal bowel sounds; Absent tenderness or guarding Comments:: Obese with big deep skin folds. Extremities: Present edema Comment:: 1+ Skin: Present erythema (Diego
--- NOTE | 2023-02-05 09:44 | XR_ITS ---
FINAL REPORT CLINICAL HISTORY: Confirm PICC line placement. COMPARISON: 12/04/2022 FINDINGS: A single portable view of the chest was obtained. New right PICC line with tip in the upper SVC. The heart size and pulmonary vascularity are within normal limits. The mediastinum is within normal limits. No acute pulmonary abnormality is identified. The bony thorax is intact. IMPRESSION: New right PICC line, tip in the upper SVC. No acute cardiopulmonary process Reviewed, Interpreted and Dictated by Benedicto Marie III, MD Transcribed by Annie Payton Authenticated and [facility]
[2023-02-05 15:33] VITALS: BP 91/50; PULSE 72; RESP 18; TEMP 37.6; O2SAT 96
--- NOTE | 2023-02-05 15:47 | PC.NURSE ---
courtesy tech note: pt assisted to use bed ayala. call light is within reach and pt will call out when ready.
[2023-02-05 18:11] LABS: Vancomycin,Trough 15.6 ug/mL (5.0-10.0)
--- NOTE | 2023-02-05 18:37 | PC.NURSE ---
pt has done well this shift. decrease in redness and swelling on rt abd area. picc placed in rue. cb within reach, family at bedside. pt has no needs or concerns a this time.
[2023-02-05 19:41] VITALS: BP 137/69; PULSE 74; RESP 17; TEMP 36.6; O2SAT 96
[2023-02-05 23:11] LABS: Vancomycin,Peak 29.4 ug/ml (11-39)
[2023-02-06 03:22] VITALS: BP 114/50; PULSE 68; RESP 17; TEMP 36.6; O2SAT 93; BMI 67.2
[2023-02-06 05:54] LABS: Basophils % 0.2 % (0.1-2.0); Eosinophils # 0.2 K/mm3 (0.0-0.4); Eosinophils % 2.7 % (0.1-12.0); Hematocrit 31.4 % (37.0-47.0); Hemoglobin 9.7 g/dL (12.2-16.2); Lymphocytes # 0.9 K/mm3 (0.7-4.5); Lymphocytes % 14.2 % (10-50); Mean Corpuscular HGB Conc 30.9 g/dL (31.8-35.4); Mean Corpuscular Hemoglobin 27.2 pg (27.0-31.2); Mean Platelet Volume 8.6 fl (7.4-10.4); Monocytes # 0.3 K/mm3 (0.1-1.0); Monocytes % 5.3 % (1.7-9.3); Neutrophils # 4.8 K/mm3 (1.8-7.8); Neutrophils % 77.7 % (37.0-80.0); Platelet Count 94 K/mm3 (142-424); Red Blood Count 3.58 M/mm3 (4.20-5.40); Red Cell Distribution Width 15.5 % (11.5-17.5); White Blood Count 6.1 K/mm3 (4.8-10.8)
[2023-02-06 05:55] LABS: Chloride 107 mmol/L (98-107); INR 1.39 (0.9-1.1); Potassium 3.8 mmoL/L (3.5-5.1); Prothrombin Time 14.7 seconds (10.1-12.5); Sodium 136 mmol/L (136-145)
[2023-02-06 05:58] LABS: Blood Urea Nitrogen 17 mg/dl (7-17); Creatinine Clearance Estimated 39 mL/min (50-200); Estimated Glomerular Filt Rate 101 ml/min (>60); GFR (African American) 122 ML/MIN (>60)
[2023-02-06 05:59] LABS: Anion Gap 5.8 mEq/L (5-15); Calcium 7.7 mg/dl (8.4-10.2); Carbon Dioxide 27 mmol/L (22.0-30.0); Glucose 107 mg/dl (74-100)
[2023-02-06 07:40] VITALS: BP 109/56; PULSE 64; RESP 18; TEMP 37.3; O2SAT 95
--- NOTE | 2023-02-06 07:42 | EXP.ACUTE.PN ---
Subjective *Date: 02/06/23 *Time: 08:32 Interval history: She is tired. Had a busy day yesterday with putting in a PICC line. Was a difficult procedure. Thus she did not get out of bed yesterday. She did sleep some despite bed beeping. She is eating without difficulty. She denies chest pain and shortness of breath. Her abdomen does not hurt. Temps 99 2. Weight has decreased from 3 46-3 42. [place] weight was 320. White blood count is 6100 with a hemoglobin of 9.7 hematocrit of 31.4. INR remains low at 1.39. ID on urine culture is pending. Blood culture at 48 hours shows no growth. Medical Exam Vital signs and Labs for Last 24 Hours: Vital Signs Temp Pulse Resp BP Pulse Ox O2 Del Method 02/06/23 07:40 99.2 F 64 18 109/56 L 95 Room Air 02/06/23 03:22 98 F 68 17 114/50 L 93 L 02/06/23 03:00 Room Air 02/06/23 01:00 Room Air 02/05/23 23:00 Room Air 02/05/23 21:00 Room Air 02/05/23 20:00 Room Air 02/05/23 19:41 98 F 74 17 137/69 96 Room Air 02/05/23 18:35 Room Air 02/05/23 17:00 Room Air 02/05/23 15:33 99.6 F 72 18 91/50 L 96 Room Air 02/05/23 15:00 Room Air 02/05/23 13:00 Room Air 02/05/23 11:00 Room Air 02/05/23 09:00 Room Air 02/05/23 08:00 Room Air Intake and Output 02/05/23 02/06/23 02/06/23 19:59 03:59 11:59 Intake Total 240 / 240 250 / 490 360 / 850 Balance 240 / 240 250 / 490 360 / 850 Intake: Intake, Oral Amount 240 / 240 360 / 600 Intake, Total IV Amount 250 / 250 Vancomycin HCl 2,250 mg In 0.9 250 / 250 % Sodium Chloride 250 ml @ 125 mls/hr IV Q18H [facility] Rx#:[id number] Other: Weight 342 lb 9.573 oz Patient Weight 02/06/23 11:59 Weight 342 lb 9.573 oz Laboratory Results - last 24 hr 02/05/23 17:35: Vancomycin Trough 15.6 H 02/05/23 22:30: Vancomycin Peak 29.4 02/06/23 05:35: WBC 6.1, RBC 3.58 L, Hgb 9.7 L, Hct 31.4 L, MCV 88.0, MCH 27.2, MCHC 30.9 L, RDW 15.5, Plt Count 94 L, MPV 8.6, Neut % (Auto) 77.7, Lymph % (Auto) 14.2, [place] % (Auto) 5.3, Eos % (Auto) 2.7, Baso % (Auto) 0.2, Neut # (Auto) 4.8, Lymph # (Auto) 0.9, [place] # (Auto) 0.3, Eos # (Auto) 0.2, Baso # (Auto) 0.0, PT 14.7 H, INR 1.39 H, Sodium 136, Potassium 3.8, Chloride 107, Carbon Dioxide 27, Anion Gap 5.8, BUN 17, Creatinine 0.60, Estimated Creat Clear 39, Estimated GFR 101, Est GFR ( Amer) 122, Glucose 107 H, Calcium 7.7 L I & O for Labs for Last 24 Hours: Intake & Output 02/03/23 02/04/23 02/05/23 02/06/23 11:59 11:59 11:59 11:59 Intake Total 4770 / 4770 1860 / 1860 850 / 850 Output Total 500 / 500 Balance 4769 / 4769 1360 / 1360 850 / 850 Weight 320 lb 341 lb 0.882 oz 346 lb 5.539 oz 342 lb 9.573 oz Microbiology Reports for the Last 24 Hours: Microbiology 02/03/23 12:00 Blood Blood Culture - Preliminary NO GROWTH AFTER 48 HOURS 02/03/23 11:20 Blood Blood Culture - Preliminary NO GROWTH AFTER 48 HOURS 02/03/23 09:30 Urine,Clean Catch Urine Culture - Preliminary Gram Negative Rods Gram Negative Rods#2 Constitutional: Present no acute distress Comment:: Lying in bed and eating breakfast. Appears comfortable. Conversant. Respiratory: Present CTA bilaterally Cardiac: Present Regular Rate GI: Present soft and normal bowel sounds; Absent tenderness Comments:: Erythema on right abdomen and skin folds remains about the same. Extremities: Present edema (Trace bilateral lower legs) Neuro: Present alert and oriented x 3 Assessment and Plan *Assessment and plan (1) Abdominal wall cellulitis: Status: Acute Category: Medical Code(s): L03.311 - Cellulitis of abdominal wall (2) Cystitis: Status: Acute Category: Medical Code(s): N30.90 - Cystitis, unspecified without hematuria (3) Paroxysmal atrial fibrillation:
[2023-02-06 08:00] VITALS: O2SAT 97
--- NOTE | 2023-02-06 08:01 | EXP.PHA.CONS ---
Pharmacy Consult Date: 02/06/23 Time: 08:02 Referring provider: DR BURT Reason for Consult:: VANCOMYCIN PEAK AND TROUGH LEVELS OBTAINED. Allergies Allergy/AdvReac Type Severity Reaction Status Date / Time atorvastatin [ATORVASTATIN] Allergy Mild Verified 02/03/23 13:29 levofloxacin [From LEVAQUIN] Allergy Mild Verified 02/03/23 13:29 sulfamethoxazole Allergy Mild Verified 02/03/23 13:29 [From BACTRIM] trimethoprim [From BACTRIM] Allergy Mild Verified 02/03/23 13:29 nitrofurantoin Allergy Verified 02/03/23 13:29 [From Macrobid] amoxicillin AdvReac Severe Verified 02/03/23 13:29 clavulanic acid AdvReac Severe Verified 02/03/23 13:29 [From Augmentin] cyclobenzaprine AdvReac Severe Verified 02/03/23 13:29 [From Flexeril] Home Medications Medication Instructions Recorded Confirmed Type acetaminophen 500 mg capsule 500 mg PO Q6HP PRN pain 09/25/17 02/03/23 History diphenhydramine HCl 25 mg capsule 25 mg PO HS sleep 09/25/17 02/03/23 History (Benadryl) sertraline 100 mg tablet 200 mg PO DAILY mood 12/10/17 02/03/23 History pantoprazole 40 mg tablet,delayed 40 mg PO DAILY Acid reflux 11/24/19 02/03/23 History release oxybutynin chloride 10 mg 10 mg PO BID overactive bladder 10/05/21 02/03/23 History tablet,extended release 24 hr alprazolam 0.5 mg tablet 0.5 mg PO 0900,1200 Anxiety 02/03/23 02/03/23 History alprazolam 0.5 mg tablet 1 mg PO HS Anxiety 02/03/23 02/03/23 History ascorbic acid (vitamin C) 100 mg 100 mg PO DAILY Supplement 02/03/23 02/03/23 History tablet (Vitamin C) calcium 100 mg capsule 100 mg PO DAILY Supplement 02/03/23 02/03/23 History gabapentin 800 mg tablet 800 mg PO TID Pain 02/03/23 02/03/23 History iron 50 mg iron tablet 1 tab PO WEEKLY Supplement 02/03/23 02/05/23 History levothyroxine 150 mcg tablet 150 mcg PO DAILY THYROID 02/03/23 02/03/23 History magnesium oxide 400 mg PO DAILY Supplement 02/03/23 02/03/23 History multivitamin 1 tab PO DAILY Supplement 02/03/23 02/03/23 History warfarin 4 mg tablet 4 mg PO TUTH Blood Thinner/Afib 02/03/23 02/04/23 History warfarin 4 mg tablet 5 mg PO SUMOWEFRSA Blood 02/04/23 02/04/23 History Thinner/Afib New Prescriptions to Start Prescriptions: Height: 1.52 m Weight: 155.4 kg Laboratory Results:: Laboratory Results - last 24 hr 02/05/23 17:35: Vancomycin Trough 15.6 H 02/05/23 22:30: Vancomycin Peak 29.4 02/06/23 05:35: WBC 6.1, RBC 3.58 L, Hgb 9.7 L, Hct 31.4 L, MCV 88.0, MCH 27.2, MCHC 30.9 L, RDW 15.5, Plt Count 94 L, MPV 8.6, Neut % (Auto) 77.7, Lymph % (Auto) 14.2, [place] % (Auto) 5.3, Eos % (Auto) 2.7, Baso % (Auto) 0.2, Neut # (Auto) 4.8, Lymph # (Auto) 0.9, [place] # (Auto) 0.3, Eos # (Auto) 0.2, Baso # (Auto) 0.0, PT 14.7 H, INR 1.39 H, Sodium 136, Potassium 3.8, Chloride 107, Carbon Dioxide 27, Anion Gap 5.8, BUN 17, Creatinine 0.60, Estimated Creat Clear 39, Estimated GFR 101, Est GFR ( Amer) 122, Glucose 107 H, Calcium 7.7 L Medical History: Medical History (Updated 02/04/23 @ 10:45 by Ernesto Lujan MD) Abdominal pain Abrasion of lower extremity without infection Cellulitis of right abdominal wall Epistaxis Fracture dislocation of joint Fracture of fifth toe, left, closed History of DVT (deep vein thrombosis) Hypertension Hypokalemia Hypotension Hypothyroidism custodial current use of anticoagulant Morbid obesity Morbid obesity with BMI of 70 and over, adult Nasal septum ulceration Osteoarthritis of left knee Osteoarthritis of right knee Paroxysmal atrial fibrillation Paroxysmal atrial fibrillation Sinusitis Sleep apnea Spinal stenosis at L4-L5 level Superficial laceration of foot Type 2 diabetes mellitus Umbilical hernia Assessment and Plan Assessment and plan all Dx Assessment and Plan for all problems:: VANCOMYCIN PEAK AND TROUGH LEVELS OBTAINED. VANCOMYCIN TROUGH: 15.6 MCG/ML VANCOMYCIN PEAK: 29.4 MCG/ML RECOMMEND CONTINUING CURRENT REGIMEN OF IV VANCOMYCIN 2250 MG Q1
[2023-02-06 09:37] VITALS: BMI 67.2
--- NOTE | 2023-02-06 09:56 | HMH.PHAINT1 ---
Pharmacy Intervention Comments: Discharge medications were discussed with patient -Vancomycin (N/V/D) -cefdiner (N/V/D) -ferrous sulfate (Nausea and headaches) Dwayne Hernandez, PharmD student
--- NOTE | 2023-02-06 11:11 | CARE MANAGER ---
Addendum entered by Lisa Oropeza RN 02/06/23 14:54: Patient discharging home today. Medication will be delivered to home today, per Britta @ [facility]. Per Melanie @ [facility], SN will be there tomorrow @ 0900 for first administration of home infusions. Original Note: Met with patient this morning to discuss discharge planning needs. Patient currently has [facility]. She will require 1 week of IV antibiotics. Orders and clinicals faxed to [facility] and [facility]. Patient Choice has been signed and placed on the chart.
--- NOTE | 2023-02-06 11:56 | EXP.DC.SUM ---
General Admission date:: 02/03/23 Discharge date: 02/06/23 HPI HPI HPI: Ms. Merritt is a 62 [facility] who receives her primary care from Dr. Barton. She presented to [facility] ER yesterday complaining of bilateral lower abdominal pain, low grade fever and urinary frequency. She was evaluated in the ER and was diagnosed with abdominal wall cellulitis. She has a similar episode earlier this year that resulted in sepsis and a prolonged stay at [facility] for rehabilitation. Patient was started on Vancomycin the ER yesterday. Dr. Barton called this morning asking me to see patient in his absence as he was having car trouble/transportation issues and would not be able to make hospital rounds today. Patient feels some better today. She is unhappy with the timinig of her medication administration and wants to know if she is being treated for a UTI. Hospital Course Hospital Course Hospital Course: Patient was started on vancomycin in the emergency room for her pannus cellulitis and continued as per peaks and troughs per pharmacy calculations. She initially received IVF bolus due to low blood pressure with continued IVs at 125 an hour. This was eventually discontinued when blood pressure stabilized. IV Rocephin was added for urinary tract infection. CBC was monitored as well as blood chemistries. She was started on iron for her anemia. Erythema of the abdomen improved. Abdomen was nontender throughout her stay. She was able to get out of bed and ambulate in her motorized wheelchair. She was able to eat without difficulty. She did run a low-grade fever. INR was subtherapeutic and Coumadin was increased.Urine culture revealed E. coli and Citrobacter. Both were sensitive to cephalosporins. Blood culture was negative at discharge. On 02/06/2023 patient had PICC line in place. Care management did see the patient and arranged for in-home IV antibiotics for 1 week. She was also to start p.o. antibiotic for her urinary tract infection. On this date she was discharged home in stable and satisfactory condition with follow-up with Dr. Barton. Exam Data for Last 24 hours Vital signs and Labs for Last 24 Hours: Temp Pulse Resp BP Pulse Ox O2 Del Method 99.2 F 64 18 109/56 L 97 Room Air 02/06/23 07:40 02/06/23 07:40 02/06/23 07:40 02/06/23 07:40 02/06/23 08:00 02/06/23 09:00 Laboratory Results - last 24 hr 02/05/23 17:35: Vancomycin Trough 15.6 H 02/05/23 22:30: Vancomycin Peak 29.4 02/06/23 05:35: WBC 6.1, RBC 3.58 L, Hgb 9.7 L, Hct 31.4 L, MCV 88.0, MCH 27.2, MCHC 30.9 L, RDW 15.5, Plt Count 94 L, MPV 8.6, Neut % (Auto) 77.7, Lymph % (Auto) 14.2, [place] % (Auto) 5.3, Eos % (Auto) 2.7, Baso % (Auto) 0.2, Neut # (Auto) 4.8, Lymph # (Auto) 0.9, [place] # (Auto) 0.3, Eos # (Auto) 0.2, Baso # (Auto) 0.0, PT 14.7 H, INR 1.39 H, Sodium 136, Potassium 3.8, Chloride 107, Carbon Dioxide 27, Anion Gap 5.8, BUN 17, Creatinine 0.60, Estimated Creat Clear 39, Estimated GFR 101, Est GFR ( Amer) 122, Glucose 107 H, Calcium 7.7 L I & O for Last 24 hours: Intake & Output 02/03/23 02/04/23 02/05/23 02/06/23 11:59 11:59 11:59 11:59 Intake Total 4770 / 4770 1860 / 1860 850 / 850 Output Total 500 / 500 0 / 0 Balance 4769 / 4769 1360 / 1360 850 / 850 Weight 320 lb 341 lb 0.882 oz 346 lb 5.539 oz 342 lb 9.573 oz Microbiology Reports for the Last 24 Hours: Microbiology 02/03/23 09:30 Urine,Clean Catch Urine Culture - Final Escherichia coli Citrobacter braakii 02/03/23 12:00 Blood Blood Culture - Preliminary NO GROWTH AFTER 48 HOURS 02/03/23 11:20 Blood Blood Culture - Preliminary NO GROWTH AFTER 48 HOURS Narrative: Medical Exam Vital signs and Labs for Last 24 Hours: Vital Signs Temp Pulse Resp BP Pulse Ox O2 Del Method 02/06/23 07:40 99.2 F 64 18 109/56
--- NOTE | 2023-02-07 10:50 | CARE MANAGER ---
Called and spoke with patient regarding recent discharge. She stated that she is doing well and has started new medication prescribed at discharge. Home health nurse visited patient this morning to teach patient about administration of home infusions. She was aware of scheduled f/u appt. No concerns or questions at time of call.
== END 2023-02-06 15:05 | disposition home health service (06) | DRG 603 ==
LOC: ER 13:03 → 2ND 14:15
PROVIDERS: Admitting Provider Family Medicine; Emergency Provider Student in an Organized Health Care Education/Training Program; PCP Family Medicine; Visit Provider Family Medicine
DX: L03.311 Cellulitis of abdominal wall (principal); N39.0 Urinary tract infection, site not specified; Z68.44 Body mass index [BMI] 60.0-69.9, adult; N30.90 Cystitis, unspecified without hematuria; I48.0 Paroxysmal atrial fibrillation; K43.9 Ventral hernia without obstruction or gangrene; F41.9 Anxiety disorder, unspecified; E66.01 Morbid (severe) obesity due to excess calories; E11.9 Type 2 diabetes mellitus without complications; E03.9 Hypothyroidism, unspecified; I10 Essential (primary) hypertension; Z86.718 Personal history of other venous thrombosis and embolism; Z79.01 Long term (current) use of anticoagulants; D64.9 Anemia, unspecified
CPT/HCPCS: 36569; 36410; 36415; 71045; 80048; 80053; 80202; 81001; 83605; 85007; 85025; 85610; 85730; 86140; 87040; 87086; 87088; 87186; 99285; C1751; J0696; J3370

== ENCOUNTER → 2023-02-09 10:47 | Outpatient (CLI) | payer MEDICARE, MEDICAID, SELFPAY ==
[2023-02-09 12:13] LABS: Anion Gap 13.2 mEq/L (5-15); Blood Urea Nitrogen 44 mg/dl (7-17); Calcium 7.5 mg/dl (8.4-10.2); Carbon Dioxide 24 mmol/L (22.0-30.0); Chloride 109 mmol/L (98-107); Estimated Glomerular Filt Rate 13 ml/min (>60); GFR (African American) 15 ML/MIN (>60); Glucose 97 mg/dl (74-100); Potassium 4.2 mmoL/L (3.5-5.1); Sodium 142 mmol/L (136-145)
== END ==
PROVIDERS: PCP Family Medicine; Visit Provider Family Medicine
DX: L03.311 Cellulitis of abdominal wall (principal)
CPT/HCPCS: 80048; 80202

== ENCOUNTER → 2023-02-12 10:23 | Outpatient (CLI) | payer MEDICARE, MEDICAID, SELFPAY ==
[2023-02-12 11:20] LABS: Anion Gap 13.5 mEq/L (5-15); Calcium 7.6 mg/dl (8.4-10.2); Carbon Dioxide 22 mmol/L (22.0-30.0); Chloride 111 mmol/L (98-107); Estimated Glomerular Filt Rate 10 ml/min (>60); GFR (African American) 12 ML/MIN (>60); Glucose 85 mg/dl (74-100); Potassium 4.5 mmoL/L (3.5-5.1); Sodium 142 mmol/L (136-145)
[2023-02-12 11:46] LABS: Vancomycin,Trough 61.8 ug/mL (5.0-10.0)
[2023-02-12 11:47] LABS: Blood Urea Nitrogen 58 mg/dl (7-17)
== END ==
PROVIDERS: PCP Family Medicine; Visit Provider Family Medicine
DX: L03.311 Cellulitis of abdominal wall (principal)
CPT/HCPCS: 80048; 80202

== ENCOUNTER 2023-02-12 18:36 | Inpatient (IN) | payer MEDICARE, MEDICAID, SELFPAY ==
[2023-02-12 18:38] VITALS: BP 133/46; PULSE 70; RESP 18; TEMP 36.9; O2SAT 97; BMI 64.4
--- NOTE | 2023-02-12 18:55 | PC.NURSE ---
Dr. Canales s/w Dr. Prabhakar (on-call Dr. Barton) for admission, agrees.
--- NOTE | 2023-02-12 18:59 | HMH.EDGENADL ---
Discharge Plan Disposition Patient Disposition: Admitted Condition: Good Prescriptions Prescriptions: No Action pantoprazole 40 mg tablet,delayed release (DR/EC) 40 mg PO DAILY Patient Comments: TK 1 T PO DAILY diphenhydramine HCl [Benadryl] 25 mg capsule 25 mg PO HS acetaminophen 500 mg capsule 500 mg PO Q6HP PRN (Reason: pain) oxybutynin chloride 10 mg tablet extended release 24hr 10 mg PO BID Patient Comments: TAKE 1 TABLET BY MOUTH EVERY DAY sertraline 100 MG tablet 200 mg PO DAILY warfarin 4 mg tablet 4 mg PO TUTH alprazolam 0.5 mg tablet 0.5 mg PO 0900,1200 Patient Comments: TAKE 1 TABLET BY MOUTH IN THE MORNING AND AT NOON AND 2 TABLETS EVERY NIGHT alprazolam 0.5 mg tablet 1 mg PO HS Patient Comments: TAKE 1 TABLET BY MOUTH IN THE MORNING AND AT NOON AND 2 TABLETS EVERY NIGHT gabapentin 800 mg tablet 800 mg PO TID Patient Comments: TAKE 1 TABLET BY MOUTH THREE TIMES DAILY levothyroxine 150 mcg tablet 150 mcg PO DAILY Patient Comments: TAKE 1 TABLET BY MOUTH EVERY DAY multivitamin Tablet 1 tab PO DAILY Vitamin C 100 mg Tablet 100 mg PO DAILY calcium 100 mg Capsule 100 mg PO DAILY magnesium oxide 200 mg magnesium Tablet 400 mg PO DAILY warfarin 4 mg tablet 5 mg PO SUMOWEFRSA cefdinir 300 mg capsule 300 mg PO BID Qty: 20 0RF Vancomycin HCl [Vancomycin 1000mg vial] 2250 MG 0.9 % Sodium Chloride [Sod Chlor 0.9% 250mL Bag] 250 ML 125 mls/hr IV Q18H Reason for use: Infection Ordered By: Suzette Barton MD Last Taken: Unknown ferrous sulfate 325 mg (65 mg iron) Tablet 325 mg PO BID Qty: 100 2RF Referrals Follow up/Referrals: Suzette Barton MD [Primary Care Provider] - See instructions Clinical Impressions Clinical Impression: Acute kidney injury Discharge ED Provider: Hemant Canales General Adult HPI General Chief complaint: Recheck/Abnormal Lab/Rx Stated complaint: sent by Dr. Barton due to labs Time Seen by Provider: 02/12/23 18:52 History of Present Illness HPI narrative: Patient has a PMHx significant for DVT, paroxysmal A-fib, BREE, diabetes, hypertension, hypothyroidism on warfarin who presents to the ED with complaints of worsening kidney function. Patient notes that she has been battling a right lower pannus/abdominal cellulitis for the past few weeks. 1 week ago, she was brought into the ED and subsequently admitted to the hospital for IV antibiotic treatment of the cellulitis. While admitted, patient was receiving vancomycin and she was discharged with a right upper extremity PICC line to continue vancomycin therapy. Patient was also discharged on cefdinir p.o. for treatment of UTI. Patient notes that last dose of vancomycin via IV was today. Home health came to obtain blood work and they noted a creatinine of 4.40. Patient's primary care doctor recommended she come to the ED for evaluation. On February 06, the patient had a creatinine of 0.60, at time of discharge patient had creatinine of 3.6. Today, patient had creatinine of 4.4. Related Data Home Medications Medication Instructions Recorded Confirmed acetaminophen 500 mg capsule 500 mg PO Q6HP PRN pain 09/25/17 02/03/23 diphenhydramine HCl 25 mg capsule 25 mg PO HS sleep 09/25/17 02/03/23 (Benadryl) sertraline 100 mg tablet 200 mg PO DAILY mood 12/10/17 02/03/23 pantoprazole 40 mg tablet,delayed 40 mg PO DAILY Acid reflux 11/24/19 02/03/23 release oxybutynin chloride 10 mg 10 mg PO BID overactive bladder 10/05/21 02/03/23 tablet,extended release 24 hr alprazolam 0.5 mg tablet 0.5 mg PO 0900,1200 Anxiety 02/03/23 02/03/23 alprazolam 0.5 mg tablet 1 mg PO HS Anxiety 02/03/23 02/03/23 ascorbic acid (vitamin C) 100 mg 100 mg PO DAILY Supplement 02/03/23 02/03/23 tablet (Vitamin C) calcium 100 mg capsule 100 mg PO DAILY Supplement 02/03/23 02/03/23 ga
--- NOTE | 2023-02-12 19:05 | PC.NURSE ---
HOUSE CALLED FOR ADMISSION
[2023-02-12 19:15] VITALS: BP 120/56; PULSE 66; O2SAT 100
[2023-02-12 19:30] VITALS: BP 139/67; PULSE 65; O2SAT 100
[2023-02-12 19:31] VITALS: BP 120/76; PULSE 66; RESP 19; TEMP 36.9; O2SAT 98
--- NOTE | 2023-02-12 19:34 | PC.NURSE ---
Report called to KAYLA Barr. Awaiting transport from 2nd floor
[2023-02-12 19:41] LABS: Basophils % 0.2 % (0.1-2.0); Eosinophils # 0.2 K/mm3 (0.0-0.4); Eosinophils % 2.9 % (0.1-12.0); Hemoglobin 10.9 g/dL (12.2-16.2); Lymphocytes % 13.4 % (10-50); Mean Corpuscular HGB Conc 30.3 g/dL (31.8-35.4); Mean Corpuscular Hemoglobin 26.9 pg (27.0-31.2); Mean Corpuscular Volume 88.8 fl (81-99); Mean Platelet Volume 7.7 fl (7.4-10.4); Monocytes # 0.2 K/mm3 (0.1-1.0); Monocytes % 2.7 % (1.7-9.3); Neutrophils # 6.3 K/mm3 (1.8-7.8); Neutrophils % 80.8 % (37.0-80.0); Platelet Count 210 K/mm3 (142-424); Red Blood Count 4.05 M/mm3 (4.20-5.40); White Blood Count 7.8 K/mm3 (4.8-10.8)
--- NOTE | 2023-02-12 19:46 | PC.NURSE ---
Waiting for 2nd floor to get bariatric bed in room and then they will come down for transport
[2023-02-12 19:48] LABS: Anion Gap 16.4 mEq/L (5-15); Blood Urea Nitrogen 57 mg/dl (7-17); Calcium 8.3 mg/dl (8.4-10.2); Carbon Dioxide 18 mmol/L (22.0-30.0); Chloride 112 mmol/L (98-107); Creatinine Clearance Estimated 8 mL/min (50-200); Estimated Glomerular Filt Rate 9 ml/min (>60); GFR (African American) 11 ML/MIN (>60); Glucose 105 mg/dl (74-100); Potassium 4.4 mmoL/L (3.5-5.1); Sodium 142 mmol/L (136-145)
[2023-02-12 20:00] VITALS: BP 137/63; PULSE 78; RESP 18; TEMP 36.4; O2SAT 92; BMI 64.7
--- NOTE | 2023-02-12 20:13 | PC.NURSE ---
2nd floor charge updated this RN that bed is now in patient's room upstairs Awaiting transport
--- NOTE | 2023-02-12 20:37 | PC.NURSE ---
Pt ariived to floor at 20:25 by wheelchair
[2023-02-13 04:00] VITALS: BP 96/48; PULSE 63; RESP 18; TEMP 36.6; O2SAT 95; BMI 64.7
[2023-02-13 06:32] LABS: Eosinophils # 0.2 K/mm3 (0.0-0.4); Lymphocytes # 0.9 K/mm3 (0.7-4.5); Monocytes # 0.2 K/mm3 (0.1-1.0); Platelet Count 174 K/mm3 (142-424); Red Blood Count 3.51 M/mm3 (4.20-5.40)
[2023-02-13 06:34] LABS: Anion Gap 12.4 mEq/L (5-15); Blood Urea Nitrogen 57 mg/dl (7-17); Calcium 7.6 mg/dl (8.4-10.2); Carbon Dioxide 21 mmol/L (22.0-30.0); Chloride 114 mmol/L (98-107); Creatinine Clearance Estimated 8 mL/min (50-200); Estimated Glomerular Filt Rate 10 ml/min (>60); GFR (African American) 12 ML/MIN (>60); Glucose 87 mg/dl (74-100); Potassium 4.4 mmoL/L (3.5-5.1); Sodium 143 mmol/L (136-145)
[2023-02-13 06:35] LABS: INR 2.16 (0.9-1.1); Prothrombin Time 22.2 seconds (10.1-12.5)
[2023-02-13 06:43] LABS: Basophils % 0.5 % (0.1-2.0); Hematocrit 30.8 % (37.0-47.0); Mean Corpuscular HGB Conc 30.6 g/dL (31.8-35.4); Mean Corpuscular Hemoglobin 26.8 pg (27.0-31.2); Mean Corpuscular Volume 87.7 fl (81-99); Mean Platelet Volume 8.3 fl (7.4-10.4); Monocytes % 4.4 % (1.7-9.3); Neutrophils # 3.3 K/mm3 (1.8-7.8); Neutrophils % 71.2 % (37.0-80.0); Red Cell Distribution Width 15.8 % (11.5-17.5); White Blood Count 4.6 K/mm3 (4.8-10.8)
[2023-02-13 06:45] LABS: Hemoglobin 9.4 g/dL (12.2-16.2)
--- NOTE | 2023-02-13 07:40 | HMH.PHAINT1 ---
Pharmacy Intervention Comments: Patient's home medications were verified by a discharge packet from 02/06/23. -Dwayne Hernandez, PharmD student
[2023-02-13 08:00] VITALS: BP 108/58; PULSE 70; RESP 18; TEMP 36.4; O2SAT 98
--- NOTE | 2023-02-13 08:31 | EXP.HP ---
History of Present Illness *Admission Date: 02/12/23 *Reason for visit:: Renal failure *History of present illness: Mr. Allen is a 62-year-old female with a complicated history to include type 2 diabetes mellitus, hypertension, hypothyroidism, DVT, morbid obesity, and cellulitis of the abdomen/pannus who recently was discharged from [facility] on 02/06/2023 after being treated with vancomycin IV for ongoing infection. She continued with IV Vanco and cefdinir (for UTI). At the time of discharge from [facility] on 02/06/2023 patient was stable with a normal BUN and creatinine of 17/0.6. ( To note this was documented incorrectly in the ER note that BUN was 44 and creatinine was 3.6 which was actually drawn on 02/09/2023). While at home patient stated her activity was as usual. She did have 2 falls which required fire and ambulance staff to assist her back into her chair and into bed. She feels that she was eating as usual but was not drinking fluids as usual. She states her urinary output was as usual. Bowels last move yesterday. Home health was in attendance and did see her yesterday at which time labs were drawn. Creatinine was found to be 4.4 and she was sent to the ER for further evaluation. With evaluation in the ER patient was found to be afebrile and hemodynamically stable and in no respiratory distress. Given her acute kidney injury she was admitted for IV fluid resuscitation and monitoring of renal function. This a.m. patient denies chest pain, shortness of breath and abdominal pain. She was able to eat breakfast. She did not sleep much due to anxiety and not receiving her medicines as she usually takes them at home. [facility] Disclaimer: The information contained in this section may have been updated after the patient was seen, as this information can be updated by other users. Medical History Abdominal pain Abrasion of lower extremity without infection Cellulitis of right abdominal wall Epistaxis Fracture dislocation of joint Fracture of fifth toe, left, closed History of DVT (deep vein thrombosis) Hypertension Hypokalemia Hypotension Hypothyroidism salvage determiner current use of anticoagulant Morbid obesity Morbid obesity with BMI of 70 and over, adult Nasal septum ulceration Osteoarthritis of left knee Osteoarthritis of right knee Paroxysmal atrial fibrillation Paroxysmal atrial fibrillation Sinusitis Sleep apnea Spinal stenosis at L4-L5 level Superficial laceration of foot Type 2 diabetes mellitus Umbilical hernia Surgical History H/O superior vena cava filter placement History of delivery History of cholecystectomy History of D&C History of ERCP History of esophagogastroduodenoscopy (EGD) History of gastric surgery History of tonsillectomy Family History Ankylosing spondylitis Social History Smoking Status: Never smoker alcohol intake: never substance use type: denies use current occupational status: other Travel in the last 8 weeks: None household members: spouse housing: house Review of Systems Constitutional Constitutional: Denies body ache(s), Denies fever(s), Reports frequent falls, Denies headache(s) and Reports poor appetite Eyes Eyes: Denies change in vision ENT Ears, Nose, Mouth, and Throat: Denies dizziness, Reports dry mouth, Denies otalgia, Denies headache(s), Denies nasal congestion, Denies neck pain, Reports post nasal drip, Denies sore throat and Denies vertigo *Cardiovascular Cardiovascular: Denies chest pain and Denies dyspnea *Respiratory Respiratory: Denies chest congestion, Denies cough and Denies dyspnea *Gastrointestinal Gastrointestinal: Denies belching, Denies constipation, Denies diarrhea, Denies dyspepsia, Denies heartburn, Denies hem
--- NOTE | 2023-02-13 10:12 | HMH.PTEV ---
Physical Therapy Evaluation Rehab PT IP Evaluation Start: 02/13/23 08:49 Freq: ONCE Status: Active Protocol: Document 02/13/23 10:07 MARY CARMEN (Rec: 02/13/23 10:12 MARY CARMEN [id number]) Subjective/History History History 62 yowf adm to [facility] with [place] and chronic R side abdomen/ pannus cellulitis. She reports 2 recent falls at home whil trying to transfer with her RW . She has hx of DM, HTN, HLD, morbid obesity, and anxiety. She lives with family, no steps to enter the home, and she uses a motorized chair for primary mobility. Subjective Subjective Pt c/o feeling shaky when I try to stand over the past 1- 2 wks and general feeling of weakness. Rehab PT IP Eval Objective Appearance Patient Behavior Appropriate Patient Orientation Person,Place,Time Difficulty following instructions none Speech Pattern Clear Ambulation Patient Able to Ambulate No Balance Ability to Arise Able, uses arms to help Sitting Balance Steady, safe Dynamic Sitting Balance Ability Good Transfers Bed Transfer Ability Minimal x 1 (25% assist) Rehab PT IP prob,goals,plan Problems Date of Evaluation: 02/13/23 PT IP Problems Bed Mobility,Transfers Rehab Potential Rehab Potential Fair Plan PT Intervention Plan Bed Mobility,Transfers, Therapeutic Exercise PT Plan Frequency Daily Duration LOS Discharge Goals Bed Transfer Ability Contact Guard/Hand Hold Sit to Stand Chair Transfer Ability Moderate x 1 (50% assist) Discharge Plan PT Discharge Plan Pt is currently most appropriate for rehab placement once medically stable for d/c. Without skilled intervention she will be at increased risk for falls , wounds, injury, and . G -code Required No Eval Complexity Eval Charge Codes 80367 - High Complexity PHYSICIAN CERTIFICATION: I certify the specified therapy services for Lakshmi Merritt are required, authorized, and reviewed every 30 days.
--- NOTE | 2023-02-13 10:26 | HMH.OTEV ---
OT Inpatient Evaluation Rehab OT IP Evaluation Start: 02/13/23 08:50 Freq: ONCE Status: Active Protocol: Document 02/13/23 10:09 FOX (Rec: 02/13/23 10:25 FOX [id number]) Rehab OT IP Assessment Subjective History Mr. Allen is a 62-year-old female with a complicated history to include type 2 diabetes mellitus, hypertension, hypothyroidism, DVT, morbid obesity, and cellulitis of the abdomen/ pannus who recently was discharged from [facility] on 02/06/2023 after being treated with vancomycin IV for ongoing infection. She continued with IV Vanco and cefdinir (for UTI). At the time of discharge from [facility] on 02/06/2023 patient was stable with a normal BUN and creatinine of 17/0.6. ( To note this was documented incorrectly in the ER note that BUN was 44 and creatinine was 3.6 which was actually drawn on 02/09/2023). While at home patient stated her activity was as usual. She did have 2 falls which required fire and ambulance staff to assist her back into her chair and into bed. She feels that she was eating as usual but was not drinking fluids as usual. She states her urinary output was as usual. Bowels last move yesterday. Home health was in attendance and did see her yesterday at which time labs were drawn. Creatinine was found to be 4.4 and she was sent to the ER for further evaluation. With evaluation in the ER patient was found to be afebrile and hemodynamically stable and in no respiratory distress.
--- NOTE | 2023-02-13 13:13 | SW/DCPLANNER ---
Addendum entered by [facility] 02/16/23 10:52: [facility] has denied this patient today. Patient will discharge to [facility] SNF level of care today: patient is agreeable with discharge plan. Addendum entered by [facility] 02/16/23 09:55: Cherelle young/ [facility] is currently reviewing patient information at this time. Addendum entered by Linda Saint Michael 02/15/23 14:45: [facility] is not able to accept patient at this time. Myself, Servomechanism Assembler (Lisa), patient and her daughter all spoke regarding discharge plans: [facility] is able to accept patient but they do not want to commit and would like for us to call [facility] in [facility]. [facility] does have female beds at this time: patient information has been faxed. Patient and daughter are aware that pending no setbacks patient will be medically stable for discharge tomorrow. Addendum entered by Lisa Oropeza RN 02/15/23 11:37: I spoke with patient and daughter this morning. Patient is medically ready for discharge, per Dr. Barton. Patient's daughter states that she is going to reach out to the [facility] and if they can't offer a bed, second choice is [facility]. will continue to monitor. Addendum entered by [facility] 02/14/23 14:29: Patient's daughter called and requested that patient information be faxed to [facility] in [place]. Information has been faxed at this time ([phone]). Addendum entered by Linda Saint Michael 02/14/23 12:58: I have presented to this patient the following facilities are able to accept her: [facility], [facility], [facility] and [facility]. Patient is aware that the following facilities have denied her: [facility], [facility], [facility] (only [facility]) and [facility]. I have informed patient to please let her daughter know so she can tour facilities as she requested this AM. Addendum entered by [facility] 02/14/23 10:33: [facility] and [facility] are not able to accept this patient. Patient is agreeable for patient information to be faxed to the following facilities: [facility], [facility], [facility], [facility], [facility] and [facility]. Tanesha w/ [facility] stated that patient does not have a skillable diagnosis and can not accept at this time. I will continue to follow up with patient, MD and facilities. Addendum entered by Linda Pineda 02/13/23 15:44: Reina w/ [facility] is reviewing information at this time and will follow up with me in the AM. Addendum entered by Linda Pineda 02/13/23 15:21: Tova w/ [facility] is unable to accept this patient. I am currently waiting for Reina at [facility] to review information. Original Note: I spoke with this patient regarding plans once medically stable for discharge. PT/OT evaluated patient and recommended SNF level of care. Patient stated that she resides at home alone, recently (December 14) discharged from [facility] and is currently established / [facility]. Patient is agreeable to placement at this time and would prefer [facility] or [facility]. I will fax patient information to both facilities and continue to follow up with patient and MD. Discharge date is unknown at this time.
[2023-02-13 14:49] LABS: Microscopic, Urine URINE MICROSCOPIC (MICROSCOPIC)
[2023-02-13 14:56] LABS: Appearance,Urine SL CLOUDY (Clear); Bilirubin,Urine Negative (Negative); Blood, Urine 3+ (Negative); Color,Urine YELLOW (Yellow); Glucose,Urine (UA) Negative (Negative); Ketones,Urine Negative (Negative); Leukocyte Esterase,Urine TRACE (Negative); Nitrate,Urine Negative (Negative); PH,Urine 5.5 (5.0-8.5); Protein,Urine 1+ (Negative); Specific Gravity, Urine 1.025 (1.005-1.030); Urobilinogen,Urine 0.2 EU/dl (0.2)
[2023-02-13 15:40] LABS: Bacteria,Urine Trace /lpf; RBC,Urine 20-50 #/hpf (0-3)
[2023-02-13 16:00] VITALS: BP 119/69; PULSE 69; RESP 18; TEMP 36.6; O2SAT 97
[2023-02-13 20:00] VITALS: BP 118/59; PULSE 69; RESP 18; TEMP 37.4; O2SAT 99
[2023-02-14 04:00] VITALS: BP 119/55; PULSE 63; RESP 18; TEMP 37.4; O2SAT 97; BMI 64.7
[2023-02-14 06:25] LABS: INR 2.59 (0.9-1.1); Prothrombin Time 26.3 seconds (10.1-12.5)
[2023-02-14 07:27] VITALS: BP 112/55; PULSE 62; RESP 16; TEMP 36.6; O2SAT 97
[2023-02-14 07:35] VITALS: O2SAT 97
[2023-02-14 08:12] LABS: Basophils % 0.3 % (0.1-2.0); Eosinophils # 0.2 K/mm3 (0.0-0.4); Eosinophils % 3.2 % (0.1-12.0); Hematocrit 30.2 % (37.0-47.0); Hemoglobin 9.2 g/dL (12.2-16.2); Lymphocytes # 0.8 K/mm3 (0.7-4.5); Lymphocytes % 16.5 % (10-50); Mean Corpuscular HGB Conc 30.3 g/dL (31.8-35.4); Mean Corpuscular Hemoglobin 26.9 pg (27.0-31.2); Mean Corpuscular Volume 88.7 fl (81-99); Mean Platelet Volume 8.7 fl (7.4-10.4); Monocytes # 0.2 K/mm3 (0.1-1.0); Monocytes % 4.5 % (1.7-9.3); Neutrophils # 3.7 K/mm3 (1.8-7.8); Neutrophils % 75.5 % (37.0-80.0); Platelet Count 164 K/mm3 (142-424); Red Blood Count 3.41 M/mm3 (4.20-5.40)
--- NOTE | 2023-02-14 08:15 | EXP.ACUTE.PN ---
Subjective *Date: 02/14/23 *Time: 08:31 Interval history: Patient is upset because her xanax has not been scheduled. She states she is a nervous wreck. She still has redness of the abdomen and would like a wedge to lift her stomach as this seemed to help in the past. Medical Exam Vital signs and Labs for Last 24 Hours: Vital Signs Temp Pulse Resp BP Pulse Ox O2 Del Method 02/14/23 07:35 97 Room Air 02/14/23 07:27 97.9 F 62 16 112/55 L 97 Room Air 02/14/23 07:00 CPAP 02/14/23 05:00 CPAP 02/14/23 04:00 99.3 F 63 18 119/55 L 97 Room Air, CPAP 02/14/23 03:00 CPAP 02/14/23 01:00 Room Air 02/13/23 20:00 Room Air 02/13/23 23:00 Room Air 02/13/23 21:00 Room Air 02/13/23 20:00 99.3 F 69 18 118/59 L 99 Room Air 02/13/23 16:00 97.9 F 69 18 119/69 97 Room Air Intake and Output 02/13/23 02/14/23 02/14/23 19:59 03:59 11:59 Intake Total 240 / 2169 1929 / 2169 Output Total 375 / 975 600 / 975 Balance -135 / 1194 1329 / 1194 Intake: Intake, Oral Amount 240 / 420 180 / 420 Intake, Total IV Amount 1749 / 1749 0.9 % Sodium Chloride 1000ML 1, 1749 / 1749 000 ml @ 125 mls/hr IV .Q8H [facility] Rx#:[id number] Output: Output, Urine Amount 375 / 975 600 / 975 Other: Number of Unmeasured Voids 0 0 Number of Bowel Movements 1 Weight 330 lb 1.217 oz Patient Weight 02/14/23 11:59 Weight 330 lb 1.217 oz Laboratory Results - last 24 hr 02/13/23 14:13: Urine Color Yellow, Urine Appearance Sl cloudy, Urine pH 5.5, Ur Specific [place] 1.025, Urine Protein 1+, Urine Glucose (UA) Negative, Urine Ketones Negative, Urine Blood 3+, Urine Nitrate Negative, Urine Bilirubin Negative, Urine Urobilinogen 0.2, Ur Leukocyte Esterase Trace, Urine RBC 20-50, Urine WBC 5-10, Ur Squamous Epith Cells 5-10, Urine Bacteria Trace, Fine Granular Casts 3-5 02/14/23 05:39: WBC 5.0, RBC 3.41 L, Hgb 9.2 L, Hct 30.2 L, MCV 88.7, MCH 26.9 L, MCHC 30.3 L, RDW 16.0, Plt Count 164, MPV 8.7, Neut % (Auto) 75.5, Lymph % (Auto) 16.5, [place] % (Auto) 4.5, Eos % (Auto) 3.2, Baso % (Auto) 0.3, Neut # (Auto) 3.7, Lymph # (Auto) 0.8, [place] # (Auto) 0.2, Eos # (Auto) 0.2, Baso # (Auto) 0.0, PT 26.3 H, INR 2.59 H I & O for Labs for Last 24 Hours: Intake & Output 02/11/23 02/12/23 02/13/23 02/14/23 11:59 11:59 11:59 11:59 Intake Total 1390 / 1390 2169 / 2169 Output Total 500 / 500 975 / 975 Balance 890 / 890 1194 / 1194 Weight 329 lb 15.806 oz 330 lb 1.217 oz Constitutional: Present no acute distress Respiratory: Present CTA bilaterally Cardiac: Present Reg Rate and Rhythm GI: Present soft, tenderness (over right side of the abdomen) and normal bowel sounds; Absent guarding Extremities: Present edema (lower extremities ) Skin: Present erythema (right lower abdomen) Neuro: Present alert and awake Assessment and Plan *Assessment and plan (1) Abdominal wall cellulitis: Status: Acute Category: Medical Code(s): L03.311 - Cellulitis of abdominal wall (2) Cystitis: Status: Acute Category: Medical Code(s): N30.90 - Cystitis, unspecified without hematuria (3) Paroxysmal atrial fibrillation: Status: Acute Category: Medical Code(s): I48.0 - Paroxysmal atrial fibrillation (4) Ventral hernia without obstruction or gangrene: Status: Acute Category: Medical Code(s): K43.9 - Ventral hernia without obstruction or gangrene (5) Anxiety: Status: Acute Category: Medical Code(s): F41.9 - Anxiety disorder, unspecified (6) Morbid obesity: Status: Chronic Category: Medical Code(s): E66.01 - Morbid (severe) obesity due to excess calories (7) Type 2 diabetes mellitus: Status: Chronic Category: Medical Code(s): E11.9 - Type 2 diabetes mellitus without complications (8) Hypothyroidism: Status: Chronic Category: Medical
[2023-02-14 08:21] LABS: Anion Gap 11.6 mEq/L (5-15); Blood Urea Nitrogen 54 mg/dl (7-17); Calcium 7.3 mg/dl (8.4-10.2); Carbon Dioxide 19 mmol/L (22.0-30.0); Chloride 115 mmol/L (98-107); Creatinine Clearance Estimated 9 mL/min (50-200); Estimated Glomerular Filt Rate 10 ml/min (>60); GFR (African American) 12 ML/MIN (>60); Glucose 89 mg/dl (74-100); Potassium 4.6 mmoL/L (3.5-5.1); Sodium 141 mmol/L (136-145)
[2023-02-14 11:47] VITALS: BMI 64.7
[2023-02-14 15:04] VITALS: BP 117/57; PULSE 68; RESP 16; TEMP 37; O2SAT 99
--- NOTE | 2023-02-14 16:47 | PC.NURSE ---
pt alert and oriented. pt ls clear t/o. abdomen soft, round, bs active. pt did have f/c at start of this shift. f/c was removed around 1330, pt has not voided at this time. pt denies the urge or feeling as if she needs to go. pt has been using the wedge to help in turns. pt does have redness and excoriation between skin folds and eldon-area. pt has been getting nystatin oinment applied QID. pt did have pt/ot to work with her. pt was given bands so that she may perform exercises at her own leisure. pt has been working with case management regarding placement for rehab after discharge. call light w/i reach.
--- NOTE | 2023-02-14 18:06 | PC.NURSE ---
pt voided at this time.
[2023-02-14 20:00] VITALS: BP 112/66; PULSE 62; RESP 18; TEMP 36.7; O2SAT 99
[2023-02-15 04:00] VITALS: BMI 64.7
[2023-02-15 04:30] VITALS: BP 124/56; PULSE 66; RESP 18; TEMP 36.5; O2SAT 95
[2023-02-15 06:19] LABS: Chloride 115 mmol/L (98-107)
[2023-02-15 06:20] LABS: Potassium 4.5 mmoL/L (3.5-5.1); Sodium 140 mmol/L (136-145)
[2023-02-15 06:22] LABS: Blood Urea Nitrogen 54 mg/dl (7-17); Creatinine Clearance Estimated 8 mL/min (50-200); Estimated Glomerular Filt Rate 10 ml/min (>60); GFR (African American) 12 ML/MIN (>60)
[2023-02-15 06:23] LABS: Anion Gap 12.5 mEq/L (5-15); Calcium 7.9 mg/dl (8.4-10.2); Carbon Dioxide 17 mmol/L (22.0-30.0); Glucose 95 mg/dl (74-100)
[2023-02-15 06:46] LABS: INR 2.69 (0.9-1.1); Prothrombin Time 27.2 seconds (10.1-12.5)
[2023-02-15 07:21] VITALS: BP 121/64; PULSE 64; RESP 16; TEMP 36.6; O2SAT 98
[2023-02-15 08:00] VITALS: O2SAT 98
--- NOTE | 2023-02-15 08:29 | EXP.ACUTE.PN ---
Subjective *Date: 02/15/23 *Time: 08:29 Interval history: Patient states she is very tired today. She denies any pain. She slept on a wedge and this seemed to help the cellulitis on the stomach. She is trying to eat and drink. Medical Exam Vital signs and Labs for Last 24 Hours: Vital Signs Temp Pulse Resp BP Pulse Ox O2 Del Method 02/15/23 07:21 97.9 F 64 16 121/64 98 Room Air 02/15/23 06:11 Room Air 02/15/23 04:30 97.7 F 66 18 124/56 L 95 Room Air 02/15/23 05:00 Room Air 02/15/23 03:00 Room Air 02/15/23 00:39 Room Air 02/14/23 23:00 Room Air 02/14/23 21:00 Room Air 02/14/23 20:00 Room Air 02/14/23 20:00 98.1 F 62 18 112/66 99 Room Air 02/14/23 18:42 Room Air 02/14/23 16:52 Room Air 02/14/23 15:04 98.6 F 68 16 117/57 L 99 Room Air 02/14/23 14:38 Room Air 02/14/23 12:56 Room Air 02/14/23 10:41 Room Air 02/14/23 08:56 Room Air Intake and Output 02/14/23 02/15/23 02/15/23 19:59 03:59 11:59 Intake Total 540 / 720 180 / 720 Output Total 850 / 1500 650 / 1500 Balance -310 / -780 -470 / -780 Intake: Intake, Oral Amount 540 / 720 180 / 720 Output: Output, Urine Amount 150 / 800 650 / 800 Output, Urine Amount (Catheter) 700 / 700 Rios 700 / 700 Other: Number of Unmeasured Voids 0 Number of Bowel Movements 1 Weight 330 lb 1.217 oz Patient Weight 02/15/23 11:59 Weight 330 lb 1.217 oz Laboratory Results - last 24 hr 02/15/23 05:56: PT 27.2 H, INR 2.69 H, Sodium 140, Potassium 4.5, Chloride 115 H, Carbon Dioxide 17 L, Anion Gap 12.5, BUN 54 H, Creatinine 4.60 H, Estimated Creat Clear 8, Estimated GFR 10 L*, Est GFR ( Amer) 12 L*, Glucose 95, Calcium 7.9 L I & O for Labs for Last 24 Hours: Intake & Output 02/12/23 02/13/23 02/14/23 02/15/23 11:59 11:59 11:59 11:59 Intake Total 1390 / 1390 2169 / 2169 720 / 720 Output Total 500 / 500 975 / 975 1500 / 1500 Balance 890 / 890 1194 / 1194 -780 / -780 Weight 329 lb 15.806 oz 330 lb 1.217 oz 330 lb 1.217 oz Constitutional: Present no acute distress Respiratory: Present CTA bilaterally Cardiac: Present Reg Rate and Rhythm GI: Present soft, tenderness (over right side of the abdomen) and normal bowel sounds; Absent guarding Extremities: Present edema (lower extremities ) Skin: Present erythema (right lower abdomen) Neuro: Present alert and awake Assessment and Plan *Assessment and plan (1) Abdominal wall cellulitis: Status: Acute Category: Medical Code(s): L03.311 - Cellulitis of abdominal wall (2) Cystitis: Status: Acute Category: Medical Code(s): N30.90 - Cystitis, unspecified without hematuria (3) Paroxysmal atrial fibrillation: Status: Acute Category: Medical Code(s): I48.0 - Paroxysmal atrial fibrillation (4) Ventral hernia without obstruction or gangrene: Status: Acute Category: Medical Code(s): K43.9 - Ventral hernia without obstruction or gangrene (5) Anxiety: Status: Acute Category: Medical Code(s): F41.9 - Anxiety disorder, unspecified (6) Morbid obesity: Status: Chronic Category: Medical Code(s): E66.01 - Morbid (severe) obesity due to excess calories (7) Type 2 diabetes mellitus: Status: Chronic Category: Medical Code(s): E11.9 - Type 2 diabetes mellitus without complications (8) Hypothyroidism: Status: Chronic Category: Medical Code(s): E03.9 - Hypothyroidism, unspecified (9) Hypertension: Status: Chronic Category: Medical Code(s): I10 - Essential (primary) hypertension (10) History of DVT (deep vein thrombosis): Status: Inactive Category: Medical Code(s): Z86.718 - Personal history of other venous thrombosis and embolism (11) [facility] current use of anticoagulant: Status: Acute
[2023-02-15 16:00] VITALS: BP 127/70; PULSE 75; RESP 21; TEMP 36.6; O2SAT 99
--- NOTE | 2023-02-15 17:54 | PC.NURSE ---
PT IS RESTING IN BED. ALERT AND ORIENTED X4. EATING AND DRINKING WELL. PT REPOSITIONS SELF IN BED. PT HAS EXCORIATION NOTED TO WILL AREA. OPEN AREA NOTED TO RIGHT GROIN FOLD AND RIGHT BUTTOCKS. SCATTERED BRUISING NOTED. REDNESS NOTED TO THE RIGHT SIDE OF THE ABDOMEN. LUNG SOUNDS CLEAR. PT TOLERATED SITTING UP IN THE CHAIR THIS SHIFT. WILL CONTINUE TO MONITOR.
[2023-02-15 19:53] VITALS: BP 114/49; PULSE 66; RESP 17; TEMP 37.5; O2SAT 97
[2023-02-16 04:00] VITALS: BP 124/68; PULSE 77; RESP 16; TEMP 36.9; O2SAT 98; BMI 64.7
[2023-02-16 05:48] LABS: Chloride 117 mmol/L (98-107)
[2023-02-16 05:49] LABS: Potassium 4.6 mmoL/L (3.5-5.1); Sodium 141 mmol/L (136-145)
[2023-02-16 05:51] LABS: Prothrombin Time 23.5 seconds (10.1-12.5)
[2023-02-16 05:52] LABS: Anion Gap 9.6 mEq/L (5-15); Blood Urea Nitrogen 54 mg/dl (7-17); Calcium 7.8 mg/dl (8.4-10.2); Carbon Dioxide 19 mmol/L (22.0-30.0); Creatinine Clearance Estimated 9 mL/min (50-200); Estimated Glomerular Filt Rate 10 ml/min (>60); GFR (African American) 12 ML/MIN (>60); Glucose 89 mg/dl (74-100)
--- NOTE | 2023-02-16 06:06 | PC.NURSE ---
Pt has rested well this shift. Pt has had no complaints. Pt wore CPAP from home while sleeping. Pt bathed this shift, and tolerated well. Pt able to turn/roll in bed. NS infusing @ 125ml/hr.
--- NOTE | 2023-02-16 06:09 | PC.NURSE ---
Addendum entered by Karla Aleman RN 02/16/23 06:12: Spoke with Dr Barton at this time. Notified of pts creat level of 4.5. No new orders at this time Original Note: Dr. Barton paged at this time regarding critical creat
[2023-02-16 07:55] VITALS: BP 127/60; PULSE 65; RESP 16; TEMP 36.6; O2SAT 98
--- NOTE | 2023-02-16 08:38 | EXP.ACUTE.PN ---
Subjective *Date: 02/16/23 *Time: 09:44 Interval history: Patient feeling about the same today. No new complaints. She was able to sleep last night. Denies any pain other than in her knee. Medical Exam Vital signs and Labs for Last 24 Hours: Vital Signs Temp Pulse Resp BP Pulse Ox O2 Del Method 02/16/23 07:55 98 F 65 16 127/60 98 Room Air 02/16/23 06:34 Room Air 02/16/23 05:00 Room Air 02/16/23 03:00 CPAP 02/16/23 04:00 98.4 F 77 16 124/68 98 CPAP 02/16/23 01:00 CPAP 02/15/23 23:00 Room Air 02/15/23 21:00 Room Air 02/15/23 20:00 Room Air 02/15/23 19:53 99.5 F 66 17 114/49 L 97 Room Air 02/15/23 18:36 Room Air 02/15/23 17:00 Room Air 02/15/23 16:00 98 F 75 21 127/70 99 Room Air 02/15/23 14:43 Room Air 02/15/23 12:41 Room Air 02/15/23 10:28 Room Air 02/15/23 09:00 Room Air Intake and Output 02/15/23 02/16/23 02/16/23 19:59 03:59 11:59 Intake Total 1575 / 3404 1829 / 3404 Output Total 2 / 2 Balance 1575 / 3402 1827 / 3402 Intake: Intake, Oral Amount 720 / 960 240 / 960 Intake, Total IV Amount 855 / 2444 1589 / 2444 0.9 % Sodium Chloride 1000ML 1, 855 / 2444 1589 / 2444 000 ml @ 125 mls/hr IV .Q8H [facility] Rx#:[id number] Output: Output, Urine Amount 2 / 2 Other: Number of Unmeasured Voids 450 Number of Bowel Movements 1 Weight 330 lb 1.217 oz Patient Weight 02/16/23 11:59 Weight 330 lb 1.217 oz Laboratory Results - last 24 hr 02/16/23 05:22: PT 23.5 H, INR 2.30 H, Sodium 141, Potassium 4.6, Chloride 117 H, Carbon Dioxide 19 L, Anion Gap 9.6, BUN 54 H, Creatinine 4.50 H, Estimated Creat Clear 9, Estimated GFR 10 L*, Est GFR ( Amer) 12 L*, Glucose 89, Calcium 7.8 L I & O for Labs for Last 24 Hours: Intake & Output 02/13/23 02/14/23 02/15/23 02/16/23 11:59 11:59 11:59 11:59 Intake Total 1390 / 1390 2169 / 2169 720 / 720 3404 / 3404 Output Total 500 / 500 975 / 975 1650 / 1650 2 / 2 Balance 890 / 890 1194 / 1194 -930 / -930 3402 / 3402 Weight 329 lb 15.806 oz 330 lb 1.217 oz 330 lb 1.217 oz 330 lb 1.217 oz Constitutional: Present no acute distress Respiratory: Present CTA bilaterally Cardiac: Present Reg Rate and Rhythm GI: Present soft, tenderness (over right side of the abdomen) and normal bowel sounds; Absent guarding Extremities: Present edema (lower extremities ) Skin: Present erythema (right lower abdomen) Neuro: Present alert and awake Assessment and Plan *Assessment and plan (1) Acute kidney injury: Status: Acute Category: Medical Code(s): N17.9 - Acute kidney failure, unspecified (2) Abdominal wall cellulitis: Status: Acute Category: Medical Code(s): L03.311 - Cellulitis of abdominal wall (3) group home current use of anticoagulant: Status: Acute Category: Medical Code(s): Z79.01 - buttermaker helper (current) use of anticoagulants (4) Ventral hernia without obstruction or gangrene: Status: Acute Category: Medical Code(s): K43.9 - Ventral hernia without obstruction or gangrene (5) Morbid obesity: Status: Chronic Category: Medical Code(s): E66.01 - Morbid (severe) obesity due to excess calories (6) Anemia: Status: Acute Category: Medical Code(s): D64.9 - Anemia, unspecified (7) Paroxysmal atrial fibrillation: Status: Acute Category: Medical Code(s): I48.0 - Paroxysmal atrial fibrillation (8) Type 2 diabetes mellitus: Status: Chronic Category: Medical Code(s): E11.9 - Type 2 diabetes mellitus without complications (9) Hypertension: Status: Chronic Category: Medical Code(s): I10 - Essential (primary) hypertension (10) Hypothyroidism: Status: Chronic Category: Medical Code(s): E03.9 - Hypothyroidism, unspecified (11) Cystitis: Status:
--- NOTE | 2023-02-16 12:13 | EXP.DC.SUM ---
General Admission date:: 02/12/23 Discharge date: 02/16/23 HPI HPI HPI: Ms. Merritt is a 62-year-old female with a complicated history to include type 2 diabetes mellitus, hypertension, hypothyroidism, DVT, morbid obesity, and cellulitis of the abdomen/pannus who recently was discharged from [facility] on 02/06/2023 after being treated with vancomycin IV for ongoing infection. She continued with IV Vanco and cefdinir (for UTI). At the time of discharge from [facility] on 02/06/2023 patient was stable with a normal BUN and creatinine of 17/0.6. ( To note this was documented incorrectly in the ER note that BUN was 44 and creatinine was 3.6 which was actually drawn on 02/09/2023). While at home patient stated her activity was as usual. She did have 2 falls which required fire and ambulance staff to assist her back into her chair and into bed. She feels that she was eating as usual but was not drinking fluids as usual. She states her urinary output was as usual. Bowels last move yesterday. Home health was in attendance and did see her yesterday at which time labs were drawn. Creatinine was found to be 4.4 and she was sent to the ER for further evaluation. With evaluation in the ER patient was found to be afebrile and hemodynamically stable and in no respiratory distress. Given her acute kidney injury she was admitted for IV fluid resuscitation and monitoring of renal function. This a.m. patient denies chest pain, shortness of breath and abdominal pain. She was able to eat breakfast. She did not sleep much due to anxiety and not receiving her medicines as she usually takes them at home. Hospital Course Hospital Course Hospital Course: The patient was admitted and started back on some of her home medications as well as IV fluids at 125 mL an hour. Her renal function was monitored and PT and OT were consulted. It was felt she would benefit from rehab upon discharge. Nystatin cream was ordered to apply to the abdominal wall. The patient had very minimal improvement in her renal function throughout her stay. Dr. Barton spoke with the flying teacher at [facility] and the flying teacher felt transfer was not necessary at this time. He felt the patient could be discharged with plans to monitor her renal function as an outpatient. He did not recommend any additional medications. Her pantoprazole, vitamin C, and calcium were all discontinued. A bed was found for the patient at [facility] and she was stable to be discharged and will a BMP weekly to monitor her renal function and electrolytes. Exam Data for Last 24 hours Vital signs and Labs for Last 24 Hours: Temp Pulse Resp BP Pulse Ox O2 Del Method 98 F 65 16 127/60 98 Room Air 02/16/23 07:55 02/16/23 07:55 02/16/23 07:55 02/16/23 07:55 02/16/23 07:55 02/16/23 09:00 Laboratory Results - last 24 hr 02/16/23 05:22: PT 23.5 H, INR 2.30 H, Sodium 141, Potassium 4.6, Chloride 117 H, Carbon Dioxide 19 L, Anion Gap 9.6, BUN 54 H, Creatinine 4.50 H, Estimated Creat Clear 9, Estimated GFR 10 L*, Est GFR ( Amer) 12 L*, Glucose 89, Calcium 7.8 L I & O for Last 24 hours: Intake & Output 02/14/23 02/15/23 02/16/23 02/17/23 11:59 11:59 11:59 11:59 Intake Total 2169 / 2169 720 / 720 3404 / 3404 Output Total 975 / 975 1650 / 1650 2 / 2 Balance 1194 / 1194 -930 / -930 3402 / 3402 Weight 330 lb 1.217 oz 330 lb 1.217 oz 330 lb 1.217 oz Narrative: Constitutional Constitutional: no acute distress and obese *Routine HEENT Exam Head: Present normocephalic and atraumatic Eye: Present PERRL; Absent conjunctival icterus, scleral injection or conjunctivae pink ENT: Present oropharynx clear; Absent mucous membranes moist *Routine Neck Exam Neck: Present full ROM; Absent carotid bruit, lymphadenopathy or thyromegaly *Routine Respiratory Exam Respiratory: Present CTA bilaterally (Anteriorly and posteriorly) *Routine Cardiovascular Exam Cardiov
== END 2023-02-16 15:00 | DRG 603 ==
LOC: ER 19:06 → 2ND 21:25
PROVIDERS: Nurse Practitioner Family; Admitting Provider Internal Medicine Adolescent Medicine; Emergency Provider Emergency Medicine; PCP Family Medicine; Visit Provider Family Medicine
DX: L03.311 Cellulitis of abdominal wall (principal); N17.9 Acute kidney failure, unspecified; Z68.44 Body mass index [BMI] 60.0-69.9, adult; N30.90 Cystitis, unspecified without hematuria; I48.0 Paroxysmal atrial fibrillation; K43.9 Ventral hernia without obstruction or gangrene; F41.9 Anxiety disorder, unspecified; E66.01 Morbid (severe) obesity due to excess calories; E11.9 Type 2 diabetes mellitus without complications; E03.9 Hypothyroidism, unspecified; I10 Essential (primary) hypertension; Z86.718 Personal history of other venous thrombosis and embolism; Z79.01 Long term (current) use of anticoagulants; D64.9 Anemia, unspecified; G47.33 Obstructive sleep apnea (adult) (pediatric); B96.20 Unspecified Escherichia coli [E. coli] as the cause of diseases classified elsewhere
CPT/HCPCS: 36415; 80048; 80202; 81001; 85025; 85610; 97110; 97163; 97165; 97530; 97535; 99285

== ENCOUNTER 2023-02-23 18:17 | Emergency (ER) | payer MEDICARE, MEDICAID, SELFPAY ==
[2023-02-23] VITALS (9 sets, daily range): BP systolic 114–127; BP diastolic 59–72; PULSE 62–91; RESP 18–19; TEMP 36.6–37.1; O2SAT 94–99; BMI 70.9
--- NOTE | 2023-02-23 18:10 | PC.NURSE ---
Pt arrived from [facility], taking pt to room 1.
--- NOTE | 2023-02-23 18:15 | PC.NURSE ---
@ 1809- Registration let us know that pt's and daughter are here. I let them know they will need to wait for a few minutes for us to get pt settled in room and receive report from EMS.
--- NOTE | 2023-02-23 19:10 | PC.NURSE ---
pt placed on bed ayala and purwick placed also. Pt is unable to stand or ambulate.
--- NOTE | 2023-02-23 19:17 | XR_ITS ---
PROCEDURE INFORMATION: Exam: XR Chest Exam date and time: 02/23/2023 7:21 PM Age: 62 years old Clinical indication: Shortness of breath; Additional info: SOA TECHNIQUE: Imaging protocol: Radiologic exam of the chest. Views: 1 view. COMPARISON: CR XR CHEST PORTABLE PICC PLAC 02/05/2023 1:28 PM FINDINGS: Tubes, catheters and devices: Right upper extremity PICC appears to be in the proximal subclavian region, likely adequate for use. Lungs: Unremarkable. No consolidation. Pleural spaces: Unremarkable. No pleural effusion. No pneumothorax. Heart/Mediastinum: Unremarkable. No cardiomegaly. Bones/joints: Unremarkable. IMPRESSION: Tip of the PICC in the proximal right subclavian region, likely adequate for use
--- NOTE | 2023-02-23 19:19 | HMH.EDGENADL ---
Discharge Plan Disposition Patient Disposition: Xfer [facility] Condition: Fair Chief Complaint: Shortness of Breath/Dyspnea Prescriptions Prescriptions: No Action diphenhydramine HCl [Benadryl] 25 mg capsule 25 mg PO HS acetaminophen 500 mg capsule 500 mg PO Q6HP PRN (Reason: pain) ferrous sulfate 325 mg (65 mg iron) tablet 325 mg PO BID gabapentin 600 mg tablet 600 mg PO TID Qty: 90 4RF warfarin 4 mg tablet 4 mg PO DAILY Qty: 30 4RF oxybutynin chloride 5 mg tablet 5 mg PO HS Qty: 30 5RF sertraline 100 MG tablet 200 mg PO DAILY alprazolam 0.5 mg tablet 0.5 mg PO 0900,1200 Patient Comments: TAKE 1 TABLET BY MOUTH IN THE MORNING AND AT NOON AND 2 TABLETS EVERY NIGHT alprazolam 0.5 mg tablet 1 mg PO HS Patient Comments: TAKE 1 TABLET BY MOUTH IN THE MORNING AND AT NOON AND 2 TABLETS EVERY NIGHT levothyroxine 150 mcg tablet 150 mcg PO DAILY Patient Comments: TAKE 1 TABLET BY MOUTH EVERY DAY Referrals Follow up/Referrals: Suzette Barton MD [Primary Care Provider] - See instructions Clinical Impressions Clinical Impression: Volume overload Discharge ED Provider: Rudy Miller General Adult HPI General Chief complaint: Shortness of Breath/Dyspnea Stated complaint: SOA, respiratory distress Time Seen by Provider: 02/23/23 18:31 Mode of Arrival: EMS Limitations: No Limitations Description of Symptoms (Recalled from ER Triage Doc. by RN): PT FROM [employer] [place]. PT REPORTS SHORTNESS OF BREATH AT REST THAT STARTED AFTER EATING ALMONDS AROUND 1700. PT DENIES LIP OR TONGUE SWELLING. PT PLACED ON NC FROM [place], LATER PLACED ON NRB PER EMS. PT DENIES DIFFICULTY BREATHING, FEELING BETTER AT THIS TIME History of Present Illness HPI narrative: Patient is a 62-year-old female with multiple comorbidities who presents emergency department for evaluation of shortness of breath. Patient had shortness of breath after eating almonds at approximately 1700. Patient became transiently hypoxic placed on 6 L nasal cannula and EMS was called. No lip or tongue swelling. Patient developed redness in her face and shortness of breath. No vomiting. No allergic reaction to almonds before. Patient states that she was recently admitted for cellulitis. Per chart review patient was admitted to hospital medicine has type 2 diabetes, previous DVT, morbid obesity, cellulitis who presented to the hospital and was admitted for MARIETTA in the setting of vancomycin (baseline creatinine 0.6, creatinine at admission was 4.4). The case was discussed with nephrology and patient was appropriate for outpatient rehabilitation at this time. There appears to be a significant weight difference of 30 pounds at the facility which she is at over the last week. Patient is oxygen requirement was de-escalated to room air prior to arrival. Patient has no acute complaints upon arrival. Related Data Home Medications Medication Instructions Recorded Confirmed acetaminophen 500 mg capsule 500 mg PO Q6HP PRN pain 09/25/17 02/13/23 diphenhydramine HCl 25 mg capsule 25 mg PO HS sleep 09/25/17 02/13/23 (Benadryl) sertraline 100 mg tablet 200 mg PO DAILY mood 12/10/17 02/13/23 alprazolam 0.5 mg tablet 0.5 mg PO 0900,1200 Anxiety 02/03/23 02/13/23 alprazolam 0.5 mg tablet 1 mg PO HS Anxiety 02/03/23 02/13/23 levothyroxine 150 mcg tablet 150 mcg PO DAILY Thyroid 02/03/23 02/13/23 ferrous sulfate 325 mg (65 mg 325 mg PO BID Iron supplementation 02/13/23 02/13/23 iron) tablet Previous Rx's Medication Instructions Recorded gabapentin 600 mg tablet 600 mg PO TID #90 tabs 02/16/23 oxybutynin chloride 5 mg tablet 5 mg PO HS #30 tabs 02/16/23 warfarin 4 mg tablet 4 mg PO DAILY #30 tabs 02/16/23 Allergies Allergy/AdvReac Type Severity Reaction Status Date / Time atorvastatin [ATORVASTATIN] Allergy Mild Verified 02/03/23 13:29 levofloxacin [From LEVAQUIN] Allergy Mild Verified 02/03/23 13:29
[2023-02-23 19:24] LABS: Basophils % 0.1 % (0.1-2.0); Eosinophils # 0.1 K/mm3 (0.0-0.4); Eosinophils % 0.9 % (0.1-12.0); Hematocrit 32.2 % (37.0-47.0); Hemoglobin 10.2 g/dL (12.2-16.2); Lymphocytes # 0.8 K/mm3 (0.7-4.5); Lymphocytes % 10.1 % (10-50); Mean Corpuscular HGB Conc 31.5 g/dL (31.8-35.4); Mean Corpuscular Hemoglobin 27.8 pg (27.0-31.2); Mean Corpuscular Volume 88.2 fl (81-99); Mean Platelet Volume 7.7 fl (7.4-10.4); Monocytes # 0.3 K/mm3 (0.1-1.0); Monocytes % 3.4 % (1.7-9.3); Neutrophils # 6.3 K/mm3 (1.8-7.8); Neutrophils % 85.5 % (37.0-80.0); Platelet Count 122 K/mm3 (142-424); Red Blood Count 3.65 M/mm3 (4.20-5.40); Red Cell Distribution Width 16.5 % (11.5-17.5); White Blood Count 7.4 K/mm3 (4.8-10.8)
[2023-02-23 19:25] LABS: Chloride 116 mmol/L (98-107)
[2023-02-23 19:26] LABS: Potassium 5.2 mmoL/L (3.5-5.1); Sodium 143 mmol/L (136-145)
[2023-02-23 19:28] LABS: Alanine Aminotransferase 19 U/L (12-78); Alkaline Phosphatase 250 U/L (38-126); Anion Gap 14.2 mEq/L (5-15); Aspartate Amino Transferase 44 U/L (14-36); Bilirubin,Total 0.3 mg/dl (0.2-1.3); Blood Urea Nitrogen 50 mg/dl (7-17); Carbon Dioxide 18 mmol/L (22.0-30.0); Creatinine Clearance Estimated 11 mL/min (50-200); Estimated Glomerular Filt Rate 12 ml/min (>60); GFR (African American) 14 ML/MIN (>60); MANUAL DIFFERENTIAL MANUAL DIFFERENTIAL (MANUAL DIFF)
[2023-02-23 19:29] LABS: Albumin Level 2.4 g/dl (3.5-5.0); Albumin/Globulin Ratio 0.7 (1.1-1.8); Calcium 8.3 mg/dl (8.4-10.2); Globulin 3.3 g/dL (1.3-3.2); Glucose 121 mg/dl (74-100); Total Protein,Serum 5.7 g/dl (6.3-8.2)
--- NOTE | 2023-02-23 19:33 | PC.NURSE ---
Pt called out that she was completed on the bed ayala. Pt had a large, soft BM. Some urine spilled out onto chux pads. Pt was cleaned up and new brief placed under pt. Purwick is working. Pt was adjusted in bed and pillows adjusted for comfort.
--- NOTE | 2023-02-23 19:43 | PC.NURSE ---
Addendum entered by Anette Yeboah RN 02/23/23 19:44: correction, MD was notified. Original Note: Pt's weight scale was 368.1. lbs. was educated.
[2023-02-23 20:06] LABS: Lymphocytes % 12 % (10-50); Monocytes % 1 % (2-9); Neutrophils % 87 % (42-76); Total Cells Counted 100
[2023-02-23 20:07] LABS: Hypochromasia 1+; Platelet Estimate Slight Decrease
--- NOTE | 2023-02-23 20:17 | ECG_ITS ---
APPROVED REPORT Exam: Resting ECG HR:75 bpm ECG Measurements Heart Rate 75 AXES NE 168 P 63 QRSd 80 QRS 32 QT 395 T 54 QTc 425 Conclusion SINUS RHYTHM LOW QRS VOLTAGE IN PRECORDIAL LEADS [QRS DEFLECTION < 1.0 mV IN CHEST LEADS] BORDERLINE ECG UNCONFIRMED REPORT Electronically signed by : Emerson Prabhakar MD 02/24/2023 21:01:07
--- NOTE | 2023-02-23 21:42 | PC.NURSE ---
Dr. Miller at BS
== END 2023-02-23 22:39 ==
PROVIDERS: Emergency Provider Emergency Medicine; PCP Family Medicine
DX: E87.70 Fluid overload, unspecified (principal); R09.02 Hypoxemia; I10 Essential (primary) hypertension; E03.9 Hypothyroidism, unspecified; E11.9 Type 2 diabetes mellitus without complications; I48.0 Paroxysmal atrial fibrillation; E66.01 Morbid (severe) obesity due to excess calories; G47.30 Sleep apnea, unspecified; M48.061 Spinal stenosis, lumbar region without neurogenic claudication
CPT/HCPCS: 71045; 80053; 85007; 85025; 93005; 99285

== ENCOUNTER → 2023-04-09 15:14 | Outpatient (CLI) | payer MEDICARE, MEDICAID, SELFPAY | PROVIDERS: Visit Provider Nurse Practitioner Family | DX: B35.1 Tinea unguium (principal); M79.674 Pain in right toe(s) | CPT/HCPCS: 87102; 87206; 87220 ==

== ENCOUNTER 2023-09-26 10:00 | Outpatient (RCR) | payer MEDICARE, MEDICAID, SELFPAY ==
--- NOTE | 2023-09-04 11:40 | HMH.PTOPWND ---
Rehab Outpt Wound Evaluation Rehab OP Wound Evaluation Start: 09/04/23 11:21 Freq: Status: Active Protocol: Document 09/04/23 11:22 MARY CARMEN (Rec: 09/04/23 11:34 PHORRUBEN [id number]) E-signed By Ab Mcqueen, PT Subjective/History History History This is the initial PT eval for Lakshmi Merritt, 62 yowf who presents with c/o increased abdominal/pannus edema x ~ 1 yr. She was hospitalized with R side abdominal cellulitis last year and has seen steadily increased edema on the R side since that time. She is non-ambulatory currently and has been using a motorized power chair for all mobility for many years. She reports no pain or numbness/ tingling in the R LE even with increased edema. She has PMH of umbilical hernia, anxiety, depression, hypothyroidism, sleep apnea, and morbid obesity. Subjective Subjective She currently has no pitting edema, but significant fibrotic edema throughout her pannus and worse on the R side of her abdomen. No tenderness to palpation and no c/o pain at this time. She reports the increased size of her pannus has made transfers much more difficult. New diagnosis of cancer in past 12 No months? Lymphedema Eval Classification of Lymphedema Secondary Lymphedema Yes Stemmer's sign Stemmer's Sign no Stage of Lymphedema Lymphedema stages Stage III (Non-pitting, fibrosis and sclerosis, skin changes) Skin Changes Dry Skin Yes Taut, Shiny Skin Yes Skin Folds Yes Hyperkeratosis Yes Papillomatosis Yes Redness Yes Discoloration of Skin Yes Other Changes Yes Affected Extremities Areas Affected by Lymphedema/Edema Abdomen,Right Lower Extremity, Left Lower Extremity,Genital/ Inguinal Manual Lymphatic Drainage Treatment Area MLD Treatment Area Abdomen,Right Lower Extremity, Left Lower Extremity,Genital/ Inguinal Wound Problems/Impairments Impairments Problems/Impairmments Impaired Range of Motion, Impaired Strength,Impaired Endurance,Impaired Transfers, Impaired Gait Pattern,Impaired Walking,Impaired Standing, Impaired Sitting,Impaired Driving,Impaired Lifting, Impaired Dressing,Impaired Shower/Bathing,Impaired Household Care,Increased Edema ,Lymphedema Present,Impaired Self Care/Self Management Prognosis Rehab Potential Fair Comment Pts significant morbid obesity complicates all aspects of her care. Clinical Impression Consistent with Diagnosis Yes Short Term Goals Number of Weeks 2 Decrease Lymphedema Yes: Moderate abdominal fibrotic edema Patient to Understand Lymphedema Yes Treatment and Exercises Decrease Girth Measurments by (cm) Yes: R LE edema by 5 cm total Jail Goals Number of Weeks 4 Decrease Lymphedema Yes: Minimal abdominal fibrotic edema Patient to be Ind w/ HEP Yes Patient to Adhere Lymphedema Precautions Yes Decrease Girth Measurments by (cm) Yes: R LE total by 10 cm Outpatient Therapy Plan of Care Treatment Plan May Include Therapeutic Exercise Including Home Yes Exercise Program Manual Therapy Techniques Yes Neuromuscular Re-education Yes Therapeutic Activities to Return to Yes Previous Functional/Work Level ADL/Self Care Education Yes Orthotics/Bracing/Splinting Yes Manual Lymphatic Drainage Yes Eval/Re-Eval Yes Frequency Times per week 2 Duration Number of Weeks 4 Addendums This patient is a candidate for social No or vocational rehab? Patient/Guardian verbally acknowledges Yes understanding of treatment program and consents to further treatment? Patient/Guardian verbally acknowledges Yes understanding of diagnosis, prognosis and goals for treatment? Eval Complexity PT Charges 04146 - High Complexity PHYSICIAN CERTIFICATION: I certify the specified therapy services for Lakshmi Merritt are required, authorized, and reviewed every 30 days.
== END 2023-09-26 11:20 | disposition home or self-care (01) ==
LOC: PT 10:00
PROVIDERS: Visit Provider Physician Assistant
DX: I89.0 Lymphedema, not elsewhere classified (principal)
CPT/HCPCS: 97110; 97140; 97163

== ENCOUNTER 2023-10-01 16:09 | Emergency (ER) | payer MEDICARE, MEDICAID, SELFPAY ==
[2023-10-01] VITALS (7 sets, daily range): BP systolic 122–144; BP diastolic 60–76; PULSE 63–75; RESP 15–18; TEMP 36.7–36.9; O2SAT 97–100; BMI 62.4
--- NOTE | 2023-10-01 17:10 | HMH.EDGENADL ---
Discharge Plan Disposition Patient Disposition: Home, Self-Care Chief Complaint: Fall Prescriptions Prescriptions: No Action diphenhydramine HCl [Benadryl] 25 mg capsule 25 mg PO HS acetaminophen 500 mg capsule 500 mg PO Q6HP PRN (Reason: pain) pantoprazole 40 mg tablet,delayed release (DR/EC) PO Patient Comments: TAKE 1 TABLET BY MOUTH EVERY DAY multivitamin [Daily Multi-Vitamin] Tablet 1 tab PO DAILY [place] 168 mg calcium (420 mg) tablet,chewable 168 mg PO TID ascorbate calcium (vitamin C) 500 mg tablet 500 mg PO DAILY ferrous sulfate 325 mg (65 mg iron) tablet 325 mg PO BID gabapentin 600 mg tablet 600 mg PO TID Qty: 90 4RF warfarin 4 mg tablet 4 mg PO DAILY Qty: 30 4RF oxybutynin chloride 5 mg tablet 5 mg PO HS Qty: 30 5RF sertraline 100 MG tablet 200 mg PO DAILY alprazolam 0.5 mg tablet 0.5 mg PO 0900,1200 Patient Comments: TAKE 1 TABLET BY MOUTH IN THE MORNING AND AT NOON AND 2 TABLETS EVERY NIGHT alprazolam 0.5 mg tablet 1 mg PO HS Patient Comments: TAKE 1 TABLET BY MOUTH IN THE MORNING AND AT NOON AND 2 TABLETS EVERY NIGHT levothyroxine 150 mcg tablet 150 mcg PO DAILY Patient Comments: TAKE 1 TABLET BY MOUTH EVERY DAY Referrals Follow up/Referrals: Suzette Barton MD [Primary Care Provider] - See instructions Activity Restrictions/Add. Instructions Additional Instructions/Restrictions: At this time it was felt you are safe to be discharged home. If new or worsening symptoms please do not hesitate to return the emergency department. Please follow-up with your family doctor as discussed. Clinical Impressions Clinical Impression: Declining functional status, Weakness Discharge ED Provider: Rudy Miller General Adult HPI General Chief complaint: Fall Stated complaint: dizzy, fatigued Time Seen by Provider: 10/01/23 16:37 Mode of Arrival: Wheelchair Source of Information: Patient Limitations: No Limitations Description of Symptoms (Recalled from ER Triage Doc. by RN): c/o feeling dizzy when she bends over or turns side way, states she slides out of bed and off her couch, denies any injury. History of Present Illness HPI narrative: Patient is a 62-year-old female with past medical history of multiple comorbidities, extensive lymphedema, wheelchair bound however is intermittently ambulatory with walker who presents emergency department for evaluation of weakness. Patient has had progressive weakness over the last month with functional decline decreased daily activities. Over the last week or so she has had difficulty transferring to her bathroom chair. Last night she slid out of her chair into the floor, no true fall, was lift assisted and decided to stay at home. She presents here for evaluation of her weakness. She complains that she has some posterior burning over her buttocks but has no other acute complaints at this time. No chest pain, no dysuria, no vomiting. Related Data Home Medications Medication Instructions Recorded Confirmed acetaminophen 500 mg capsule 500 mg PO Q6HP PRN pain 09/25/17 07/16/23 diphenhydramine HCl 25 mg capsule 25 mg PO HS sleep 09/25/17 07/16/23 (Benadryl) sertraline 100 mg tablet 200 mg PO DAILY mood 12/10/17 07/16/23 alprazolam 0.5 mg tablet 0.5 mg PO 0900,1200 Anxiety 02/03/23 07/16/23 alprazolam 0.5 mg tablet 1 mg PO HS Anxiety 02/03/23 07/16/23 levothyroxine 150 mcg tablet 150 mcg PO DAILY Thyroid 02/03/23 07/16/23 ferrous sulfate 325 mg (65 mg 325 mg PO BID Iron supplementation 02/13/23 07/16/23 iron) tablet pantoprazole 40 mg tablet,delayed mg PO 04/09/23 07/16/23 release ascorbate calcium (vitamin C) 500 500 mg PO DAILY 07/16/23 07/16/23 mg tablet calcium carbonate 168 mg calcium 168 mg PO TID 07/16/23 07/16/23 (420 mg) chewable tablet ([place]) multivitamin (Daily Multi-Vitamin 1 tab PO DAILY 07/16/23 07/16/23 tablet) Previous Rx's Medication Instructions Recorded gabapentin 600 mg tablet 600 mg PO TID #90 tabs 02/16/23 oxybutynin chloride 5 mg tablet 5 mg PO HS #30 tabs 02/16/23 warfarin 4 mg tablet 4 mg PO DAILY #30 tabs 02/16/23 Allergies Allergy/AdvReac Type Severity Reaction Status Date / Time levofloxacin [From LEVAQUIN] Allergy Mild Verified 07/16/23 09:17 sulfamethoxazole Allergy Mild Verified 07/16/23 09:17 [From BACTRIM] trimethoprim [From BACTRIM] Allergy Mild Verified 07/16/23 09:17 clavulanic acid AdvReac Severe Verified 07/16/23 09:17 [From Augmentin] cyclobenzaprine AdvReac Severe Verified 07/16/23 09:17 [From Flexeril] adhesive tape AdvReac Mild Verified 07/16/23 09:17 atorvastatin [From Lipitor] AdvReac Mild Verified 07/16/23 09:17 PFSH [facility] Disclaimer: The information contained in this section may have been updated after the patient was seen, as this information can be updated by other users. Medical History Abdominal pain Abrasion of lower extremity without infection [place] (acute kidney injury) Cellulitis Cellulitis of right abdominal wall Cystitis E. coli urinary tract infection Epistaxis Facet arthritis of lumbar region Fracture dislocation of joint Fracture of fifth toe, left, closed History of DVT (deep vein thrombosis) Hypertension Hypokalemia Hypotension Hypothyroidism [facility] current use of anticoagulant Morbid obesity Morbid obesity with BMI of 70 and over, adult Nasal septum ulceration Onychodystrophy Onychoincurvatum Osteoarthritis of left knee Osteoarthritis of right knee Paroxysmal atrial fibrillation Paroxysmal atrial fibrillation Right knee pain Sinusitis Sleep apnea Spinal stenosis at L4-L5 level Superficial laceration of foot Type 2 diabetes mellitus Umbilical hernia Yeast infection of the skin Surgical History H/O superior vena cava filter placement History of delivery History of cholecystectomy History of D&C History of ERCP History of esophagogastroduodenoscopy (EGD) History of gastric surgery History of tonsillectomy Family History Other Ankylosing spondylitis Social History Smoking Status: Never smoker alcohol intake: never substance use type: denies use current occupational status: other Travel in the last 8 weeks: None household members: spouse housing: house ROS Obtained: Yes Systems reviewed as appropriate & no additional complaints except as documented Physical Exam General General appearance: alert, in no apparent distress and other (Morbidly obese, extensive lymphedema, sitting in wheelchair in no acute distress) Head Head exam: atraumatic and normocephalic Eye Eye exam: Present PERRL and EOMI ENT ENT exam: Present mucous membranes moist Neck Neck exam: Present normal inspection Chest Chest inspection: Present normal inspection and symmetric chest wall rise Respiratory Respiratory exam: Present normal lung sounds bilaterally; Absent respiratory distress Cardiovascular Cardiovascular exam: Present regular rate and normal rhythm Abdominal Exam Abdominal exam: Present soft; Absent tenderness Bimanual exam: Present other (Apprentice Pattern Maker present, no pressure wounds, no overlying skin changes concerning for infection over the buttocks.) Extremities Exam Extremities exam: Present normal inspection Neurological Exam Neurological exam: Present alert Psychiatric Psychiatric exam: Present normal affect Skin Skin exam: Present warm and dry Medical Decision Making Kennedy Inquiry Pt receiving controlled substance: No Vital Signs: 10/01/23 16:10 10/01/23 16:30 10/01/23 17:15 Temperature 98.4 F Temperature Source Oral Pulse Rate 74 68 Pulse Rate [Left Radial] 75 Respiratory Rate 18 Blood Pressure 132/63 138/69 Blood Pressure [Right Arm] 141/65 H Blood Pressure Mean [Right Arm] 90 Blood Pressure Source [Right Arm] Automatic Cuff Blood Pressure Position [Right Arm] Sitting 02 Sat by Pulse Oximetry 99 97 99 Oxygen Delivery Method Room Air Room Air 10/01/23 17:45 10/01/23 18:01 Temperature Temperature Source Pulse Rate 63 73 Pulse Rate [Left Radial] Respiratory Rate Blood Pressure 144/61 H 134/68 Blood Pressure [Right Arm] Blood Pressure Mean [Right Arm] Blood Pressure Source [Right Arm] Blood Pressure Position [Right Arm] 02 Sat by Pulse Oximetry 97 98 Oxygen Delivery Method Lab Data Lab Results 10/01/23 17:20: WBC 5.7, RBC 4.03 L, Hgb 11.5 L, Hct 36.9 L, MCV 91.6, MCH 28.6, MCHC 31.2 L, RDW 17.3, Plt Count 115 L, MPV 9.3, Neut % (Auto) 76.0, Lymph % (Auto) 17.5, [place] % (Auto) 3.7, Eos % (Auto) 2.3, Baso % (Auto) 0.5, Neut # (Auto) 4.3, Lymph # (Auto) 1.0, [place] # (Auto) 0.2, Eos # (Auto) 0.1, Baso # (Auto) 0.0, Sodium 142, Potassium 4.8, Chloride 112 H, Carbon Dioxide 28, Anion Gap 6.8, BUN 27 H, Creatinine 1.00, Estimated Creat Clear 41, Estimated GFR 56 L, Est GFR ( Amer) 68, Glucose 106 H, Calcium 8.3 L, Magnesium 2.1, Total Bilirubin 0.9, AST 87 H, ALT 31, Alkaline Phosphatase 329 H, Total Protein 6.5, Albumin 2.9 L, Globulin 3.6 H, Albumin/Globulin Ratio 0.8 L 10/01/23 17:20 10/01/23 17:20 Orders (Tests/Meds): ORDERS Category Date Time Status CBC w/Auto Diff [Complete Blood Count Auto Diff] Stat Lab 10/01/23 17:20 Completed CMP [Comprehensive Metabolic Panel] Stat Lab 10/01/23 17:20 Completed MG [Magnesium] Stat Lab 10/01/23 17:20 Completed EKG Request [ECG Request] Stat Y 10/01/23 17:08 Ordered ECG Data Tracing #1: Independently interpreted by me, rate is 66, rhythm is regular, axis is normal, no ST elevation in anatomical contiguous leads. QTc 443. Medical Decision Narrative: In summary patient is a 62-year-old female past medical history described above who presents emergency department for evaluation of weakness in the setting of multiple comorbidities. Patient is hemodynamically stable nontoxic-appearing upon arrival, afebrile. Differential diagnosis includes progressive functional decline in the setting of her known comorbidities with deconditioning, electrolyte abnormality, among others. Given mechanism of fall no concern for actual traumatic pathology. Workup will be conducted with hematologic labs, EKG. workup reviewed by me, hematologic labs are nonactionable, stable anemia slightly improved from prior, no [place] or critical electrolyte abnormality. Shared decision-making discussion was had given functional [place] patient would likely benefit from evaluation placement however patient wishes to return home and will follow-up with her PCP on Sunday and was given return precautions. Critical Care Critical Care Time Critical Care Time: No
--- NOTE | 2023-10-01 17:16 | ECG_ITS ---
APPROVED REPORT Exam: Resting ECG HR:66 bpm ECG Measurements Heart Rate 66 AXES QRSd 103 QRS 29 QT 429 T 31 QTc 443 Conclusion ATRIAL FIBRILLATION LOW QRS VOLTAGE IN PRECORDIAL LEADS [QRS DEFLECTION < 1.0 mV IN CHEST LEADS] ABNORMAL RHYTHM ECG Electronically signed by : ALEIDA WRIGHT, 10/02/2023 00:48:19
[2023-10-01 17:34] LABS: Basophils % 0.5 % (0.1-2.0); Eosinophils # 0.1 K/mm3 (0.0-0.4); Eosinophils % 2.3 % (0.1-12.0); Hematocrit 36.9 % (37.0-47.0); Hemoglobin 11.5 g/dL (12.2-16.2); Lymphocytes % 17.5 % (10-50); Mean Corpuscular HGB Conc 31.2 g/dL (31.8-35.4); Mean Corpuscular Hemoglobin 28.6 pg (27.0-31.2); Mean Corpuscular Volume 91.6 fl (81-99); Mean Platelet Volume 9.3 fl (7.4-10.4); Monocytes # 0.2 K/mm3 (0.1-1.0); Monocytes % 3.7 % (1.7-9.3); Neutrophils # 4.3 K/mm3 (1.8-7.8); Platelet Count 115 K/mm3 (142-424); Red Blood Count 4.03 M/mm3 (4.20-5.40); Red Cell Distribution Width 17.3 % (11.5-17.5); White Blood Count 5.7 K/mm3 (4.8-10.8)
[2023-10-01 17:42] LABS: Chloride 112 mmol/L (98-107); Potassium 4.8 mmoL/L (3.5-5.1); Sodium 142 mmol/L (136-145)
[2023-10-01 17:44] LABS: Alanine Aminotransferase 31 U/L (12-78); Aspartate Amino Transferase 87 U/L (14-36); Blood Urea Nitrogen 27 mg/dl (7-17); Creatinine Clearance Estimated 41 mL/min (50-200); Estimated Glomerular Filt Rate 56 ml/min (>60); GFR (African American) 68 ML/MIN (>60)
[2023-10-01 17:45] LABS: Albumin Level 2.9 g/dl (3.5-5.0); Albumin/Globulin Ratio 0.8 (1.1-1.8); Alkaline Phosphatase 329 U/L (38-126); Anion Gap 6.8 mEq/L (5-15); Bilirubin,Total 0.9 mg/dl (0.2-1.3); Calcium 8.3 mg/dl (8.4-10.2); Carbon Dioxide 28 mmol/L (22.0-30.0); Globulin 3.6 g/dL (1.3-3.2); Glucose 106 mg/dl (74-100); Magnesium 2.1 mg/dl (1.6-2.3); Total Protein,Serum 6.5 g/dl (6.3-8.2)
== END 2023-10-01 19:25 | disposition home or self-care (01) ==
PROVIDERS: Emergency Provider Emergency Medicine; PCP Family Medicine
DX: R53.1 Weakness (principal); I48.0 Paroxysmal atrial fibrillation; R53.81 Other malaise; R42 Dizziness and giddiness; I10 Essential (primary) hypertension; E78.5 Hyperlipidemia, unspecified; E03.9 Hypothyroidism, unspecified; E11.9 Type 2 diabetes mellitus without complications; E66.01 Morbid (severe) obesity due to excess calories; I89.0 Lymphedema, not elsewhere classified; Z79.01 Long term (current) use of anticoagulants; Z68.44 Body mass index [BMI] 60.0-69.9, adult
CPT/HCPCS: 80053; 83735; 85025; 93005; 99283

== ENCOUNTER 2023-10-03 07:23 | Emergency (ER) | payer MEDICARE, MEDICAID, SELFPAY ==
[2023-10-03] VITALS (21 sets, daily range): BP systolic 101–125; BP diastolic 36–71; PULSE 63–75; RESP 16–19; TEMP 36.7; O2SAT 95–99; BMI 62.4
[2023-10-03 07:49] LABS: Microscopic, Urine URINE MICROSCOPIC (MICROSCOPIC)
[2023-10-03 07:51] LABS: Appearance,Urine CLEAR (Clear); Bilirubin,Urine Negative (Negative); Blood, Urine Negative (Negative); Color,Urine YELLOW (Yellow); Glucose,Urine (UA) Negative (Negative); Ketones,Urine TRACE (Negative); Leukocyte Esterase,Urine Negative (Negative); Nitrate,Urine POSITIVE (Negative); PH,Urine 5.5 (5.0-8.5); Protein,Urine Negative (Negative); Specific Gravity, Urine 1.025 (1.005-1.030); Urobilinogen,Urine 0.2 EU/dl (0.2)
--- NOTE | 2023-10-03 07:57 | ECG_ITS ---
APPROVED REPORT Exam: Resting ECG HR:70 bpm ECG Measurements Heart Rate 70 AXES ID 148 P 57 QRSd 90 QRS 24 QT 401 T 31 QTc 421 Conclusion SINUS RHYTHM WITH SINUS ARRHYTHMIA LOW QRS VOLTAGE IN PRECORDIAL LEADS [QRS DEFLECTION < 1.0 mV IN CHEST LEADS] NONSPECIFIC T-WAVE ABNORMALITY Electronically signed by : FIDEL KHAN, 10/03/2023 15:27:42
--- NOTE | 2023-10-03 08:04 | CA_ITS ---
FINAL REPORT TECHNIQUE: Multiple transverse and longitudinal images were performed of the right femoral-popliteal deep venous system with augmentation and compression maneuvers. CLINICAL HISTORY: Right leg pain, 4'9/325lb, Pannus extending to mid thigh COMPARISON: None FINDINGS: Extremely limited exam due to extreme body habitus. Right lower extremity duplex ultrasound demonstrates normal flow in the deep venous system. There is no abnormal echogenicity to suggest thrombus. There is normal compression and augmentation. IMPRESSION: No evidence of right DVT on this limited exam. Reviewed, Interpreted and Dictated by Cole Fields MD Transcribed by Annie Payton Authenticated and [facility]
--- NOTE | 2023-10-03 08:04 | XR_ITS ---
FINAL REPORT CLINICAL HISTORY: pain R knee, frequent falls FINDINGS: Right femur Two views were obtained. The bones are osteopenic. The films are under penetrated. There is moderate hip joint space narrowing. IMPRESSION: Suboptimal exam. No definite acute fracture identified. Reviewed, Interpreted and Dictated by Cole Fields MD Transcribed by Reyna Diane Authenticated and [facility]
--- NOTE | 2023-10-03 08:04 | ED_ITS ---
Discharge Plan Disposition Patient Disposition: Xfer SNF Prescriptions Prescriptions: New nitrofurantoin monohyd/m-cryst [Macrobid] 100 mg capsule 100 mg PO BID 7 Days Qty: 14 0RF Rx Instructions: must administer with a meal/food No Action diphenhydramine HCl [Benadryl] 25 mg capsule 25 mg PO HS acetaminophen 500 mg capsule 500 mg PO Q6HP PRN (Reason: pain) pantoprazole 40 mg tablet,delayed release (DR/EC) 40 mg PO DAILY Patient Comments: TAKE 1 TABLET BY MOUTH EVERY DAY multivitamin [Daily Multi-Vitamin] Tablet 1 tab PO DAILY [place] 168 mg calcium (420 mg) tablet,chewable 168 mg PO TID ascorbate calcium (vitamin C) 500 mg tablet 500 mg PO DAILY ferrous sulfate 325 mg (65 mg iron) tablet 325 mg PO BID gabapentin 600 mg tablet 600 mg PO TID Qty: 90 4RF oxybutynin chloride 5 mg tablet 5 mg PO HS Qty: 30 5RF sertraline 100 MG tablet 200 mg PO DAILY alprazolam 0.5 mg tablet 0.5 mg PO 0900,1200 Patient Comments: TAKE 1 TABLET BY MOUTH IN THE MORNING AND AT NOON AND 2 TABLETS EVERY NIGHT alprazolam 0.5 mg tablet 1 mg PO HS Patient Comments: TAKE 1 TABLET BY MOUTH IN THE MORNING AND AT NOON AND 2 TABLETS EVERY NIGHT levothyroxine 150 mcg tablet 150 mcg PO DAILY Patient Comments: TAKE 1 TABLET BY MOUTH EVERY DAY warfarin 4 mg tablet 6 mg PO DAILY Referrals Follow up/Referrals: Suzette Barton MD [Primary Care Provider] - See instructions Clinical Impressions Clinical Impression: Debility, Declining functional status, Obesity, UTI (urinary tract infection) Discharge ED Provider: Maame Orosco General Adult HPI General Chief complaint: Fall Stated complaint: weak Time Seen by Provider: 10/03/23 07:33 History of Present Illness HPI narrative: This patient is a 62-year-old female with a history of morbid obesity, general debility, functional decline, hypertension, hypothyroidism, type 2 diabetes, and anxiety presented to the emergency department for evaluation with concern for functional decline and difficulty with transfers at home. Patient reports that over the last several weeks, she has been much weaker than usual and has had difficulty standing like she used to. She has had multiple falls in which she has slid out of bed, for which she has had to call EMS for lift assist. She denies any injuries as a result of these falls, but she states that she is having more more trouble transferring and getting around at home. She lives by herself. She notes that the other day, her right knee felt like it locked up on her, and she has had some pain in her right knee and lower leg since then. She notes she does have a history of bad knees as well as chronic lymphedema. Per EMS and fire who brought the patient in, they have been to her house 14 times over the last few weeks for lift assist. She notes she has had to do inpatient rehab in the past, but she is 50/50 on the idea of doing that again. She denies any other concerns, such as fevers, chills, chest pain, shortness of breath, cough, congestion, abdominal pain, nausea, vomiting, changes in bowel movements, urinary symptoms, or other concerns. She reports she has been eating and drinking okay. Related Data Home Medications Medication Instructions Recorded Confirmed acetaminophen 500 mg capsule 500 mg PO Q6HP PRN pain 09/25/17 10/03/23 diphenhydramine HCl 25 mg capsule 25 mg PO HS sleep 09/25/17 10/03/23 (Benadryl) sertraline 100 mg tablet 200 mg PO DAILY mood 12/10/17 10/03/23 alprazolam 0.5 mg tablet 0.5 mg PO 0900,1200 Anxiety 02/03/23 10/03/23 alprazolam 0.5 mg tablet 1 mg PO HS Anxiety 02/03/23 10/03/23 levothyroxine 150 mcg tablet 150 mcg PO DAILY Thyroid 02/03/23 10/03/23 ferrous sulfate 325 mg (65 mg 325 mg PO BID Iron supplementation 02/13/23 10/03/23 iron) tablet pantoprazole 40 mg tablet,delayed 40 mg PO DAILY 04/09/23 10/03/23 release ascorbate calcium (vitamin C) 500 500 mg PO DAILY 07/16/23 10/03/23 mg tablet calcium carbonate 168 mg calcium 168 mg PO TID 07/16/23 10/03/23 (420 mg) chewable tablet ([place]) multivitamin (Daily Multi-Vitamin 1 tab PO DAILY 07/16/23 10/03/23 tablet) warfarin 4 mg tablet 6 mg PO DAILY 10/03/23 10/03/23 Previous Rx's Medication Instructions Recorded gabapentin 600 mg tablet 600 mg PO TID #90 tabs 02/16/23 oxybutynin chloride 5 mg tablet 5 mg PO HS #30 tabs 02/16/23 nitrofurantoin 100 mg PO BID 7 days #14 caps 10/03/23 monohydrate/macrocrystals 100 mg capsule (Macrobid) Allergies Allergy/AdvReac Type Severity Reaction Status Date / Time levofloxacin [From LEVAQUIN] Allergy Severe oral sores Verified 10/03/23 11:46 & constipation sulfamethoxazole Allergy Severe oral sores Verified 10/03/23 11:46 [From BACTRIM] & constipation trimethoprim [From BACTRIM] Allergy Severe oral sores Verified 10/03/23 11:46 & constipation atorvastatin [From Lipitor] AdvReac Severe broke Verified 10/03/23 11:46 down my muscles cyclobenzaprine AdvReac Severe Hallucinati Verified 10/03/23 11:46 [From Flexeril] ng adhesive tape AdvReac Mild skin Verified 10/03/23 11:46 irritation clavulanic acid AdvReac Unknown per Verified 10/03/23 11:46 [From Augmentin] Fito Loving [facility] Disclaimer: The information contained in this section may have been updated after the patient was seen, as this information can be updated by other users. Medical History E. 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 Cystitis Right knee pain Hypokalemia Paroxysmal atrial fibrillation Paroxysmal atrial fibrillation Hypotension [place] (acute kidney injury) Morbid obesity History of DVT (deep vein thrombosis) Hypothyroidism Hypertension Type 2 diabetes mellitus Sleep apnea Cellulitis of right abdominal wall Umbilical hernia Nasal septum ulceration Epistaxis Osteoarthritis of left knee Osteoarthritis of right knee Morbid obesity with BMI of 70 and over, adult Sinusitis Abrasion of lower extremity without infection Abdominal pain Fracture dislocation of joint Superficial laceration of foot Fracture of fifth toe, left, closed Onychoincurvatum Yeast infection of the skin Cellulitis Onychodystrophy Spinal stenosis at L4-L5 level Facet arthritis of lumbar region Surgical History H/O superior vena cava filter placement History of esophagogastroduodenoscopy (EGD) History of ERCP History of cholecystectomy History of gastric surgery History of D&C History of delivery History of tonsillectomy Family History Other Ankylosing spondylitis Social History Smoking Status: Never smoker alcohol intake: never substance use type: denies use current occupational status: other Travel in the last 8 weeks: None household members: spouse housing: house ROS Obtained: Yes All systems reviewed & no additional complaints except as documented Physical Exam General General appearance: alert, in no apparent distress and obese Head Head exam: atraumatic and normocephalic Eye Eye exam: Present normal appearance, PERRL and EOMI ENT ENT exam: Present normal oropharynx, mucous membranes dry and normal external ear exam Neck Neck exam: Present normal inspection, full ROM and trachea midline; Absent tenderness Chest Chest inspection: Present normal inspection and symmetric chest wall rise; Absent tenderness Respiratory Respiratory exam: Present normal lung sounds bilaterally; Absent respiratory distress, wheezes, stridor or accessory muscle use Cardiovascular Cardiovascular exam: Present regular rate and normal rhythm Abdominal Exam Abdominal exam: Present soft; Absent distention, tenderness or guarding Extremities Exam Extremities exam: Present full ROM, normal capillary refill and edema (Bilateral lower extremity edema, right greater than left); Absent tenderness or joint swelling Back Exam Back exam: Present normal inspection and full ROM; Absent tenderness Neurological Exam Neurological exam: Present alert, oriented X3, CN II-XII intact and normal gait; Absent motor sensory deficit Psychiatric Psychiatric exam: Present normal affect and normal mood Skin Skin exam: Present warm and dry Medical Decision Making Medical Records Medical records reviewed: Yes I reviewed the patient's medical records. [place] Inquiry Pt receiving controlled substance: No Vital Signs: 10/03/23 07:24 10/03/23 07:59 10/03/23 08:00 Temperature 98.1 F Temperature Source Oral Pulse Rate 72 71 Pulse Rate [Left Radial] 72 Respiratory Rate 16 Blood Pressure 111/57 L 124/60 Blood Pressure [Right Arm] 108/71 L Blood Pressure Mean Blood Pressure Mean [Right Arm] 83 02 Sat by Pulse Oximetry 98 98 97 Oxygen Delivery Method Room Air Room Air Room Air 10/03/23 08:30 10/03/23 09:00 10/03/23 09:30 Temperature Temperature Source Pulse Rate 67 63 70 Pulse Rate [Left Radial] Respiratory Rate Blood Pressure 117/41 L 116/68 120/60 Blood Pressure [Right Arm] Blood Pressure Mean 72 Blood Pressure Mean [Right Arm] 02 Sat by Pulse Oximetry 95 97 99 Oxygen Delivery Method Room Air Room Air 10/03/23 10:00 10/03/23 10:30 10/03/23 11:01 Temperature Temperature Source Pulse Rate 68 70 71 Pulse Rate [Left Radial] Respiratory Rate Blood Pressure 125/59 L 113/54 L 110/53 L Blood Pressure [Right Arm] Blood Pressure Mean 79 Blood Pressure Mean [Right Arm] 02 Sat by Pulse Oximetry 97 96 98 Oxygen Delivery Method Room Air Room Air Room Air 10/03/23 11:30 10/03/23 12:00 10/03/23 12:30 Temperature Temperature Source Pulse Rate 73 70 69 Pulse Rate [Left Radial] Respiratory Rate Blood Pressure 111/36 L 105/52 L 125/61 Blood Pressure [Right Arm] Blood Pressure Mean Blood Pressure Mean [Right Arm] 02 Sat by Pulse Oximetry 97 97 98 Oxygen Delivery Method Room Air Room Air Room Air 10/03/23 13:01 10/03/23 13:30 10/03/23 13:45 Temperature Temperature Source Pulse Rate 67 71 73 Pulse Rate [Left Radial] Respiratory Rate Blood Pressure 119/59 L Blood Pressure [Right Arm] Blood Pressure Mean Blood Pressure Mean [Right Arm] 02 Sat by Pulse Oximetry 97 99 97 Oxygen Delivery Method Room Air 10/03/23 14:00 10/03/23 14:26 Temperature Temperature Source Pulse Rate 72 75 Pulse Rate [Left Radial] Respiratory Rate Blood Pressure 116/48 L Blood Pressure [Right Arm] Blood Pressure Mean 80 Blood Pressure Mean [Right Arm] 02 Sat by Pulse Oximetry 99 98 Oxygen Delivery Method Lab Data Lab results reviewed: Yes I reviewed the patient's lab results. Lab Results 10/03/23 07:45: Urine Color Yellow, Urine Appearance Clear, Urine pH 5.5, Ur Specific [place] 1.025, Urine Protein Negative, Urine Glucose (UA) Negative, Urine Ketones Trace, Urine Blood Negative, Urine Nitrate Positive, Urine Bilirubin Negative, Urine Urobilinogen 0.2, Ur Leukocyte Esterase Negative, Urine RBC Occasional, Urine WBC 3-5, Ur Squamous Epith Cells 3-5, Urine Bacteria 4+ 10/03/23 08:20: WBC 4.9, RBC 3.51 L, Hgb 10.0 L, Hct 32.2 L, MCV 91.8, MCH 28.6, MCHC 31.2 L, RDW 17.1, Plt Count 75 L D, MPV 8.7, Neut % (Auto) 80.3 H, Lymph % (Auto) 12.2, [place] % (Auto) 4.0, Eos % (Auto) 3.0, Baso % (Auto) 0.5, Neut # (Auto) 3.9, Lymph # (Auto) 0.6 L, [place] # (Auto) 0.2, Eos # (Auto) 0.2, Baso # (Auto) 0.0, Sodium 141, Potassium 4.6, Chloride 114 H, Carbon Dioxide 28, Anion Gap 3.6 L, BUN 23 H, Creatinine 1.00, Estimated Creat Clear 41, Estimated GFR 56 L, Est GFR ( Amer) 68, Glucose 134 H, Calcium 8.0 L, Total Bilirubin 0.6, AST 86 H, ALT 29, Alkaline Phosphatase 331 H, Total Protein 5.9 L, Albumin 2.5 L , Globulin 3.4 H, Albumin/Globulin Ratio 0.7 L, TSH 1.57, Thyroxine (T4) 5.7 10/03/23 08:49: PT 29.8 H, INR 2.96 H 10/03/23 08:20 10/03/23 08:20 Orders (Tests/Meds): ED MEDICATIONS Discontinued Medications Generic Name Dose Route Start Last Admin Trade Name Freq PRN Reason Stop Dose Admin Nitrofurantoin Macrocrystals 100 mg 10/03/23 10:37 10/03/23 11:58 Nitrofurantoin 100mg Capsule PO 10/03/23 10:38 100 mg ONCE ONE Administration ORDERS Category Date Time Status XR femur RT 2V Stat Exams 10/03/23 08:04 Completed XR knee RT 3V Stat Exams 10/03/23 08:04 Completed XR tibia fibula RT 2V Stat Exams 10/03/23 08:04 Completed Complete Blood Count Auto Diff Stat Lab 10/03/23 08:20 Completed Comprehensive Metabolic Panel Stat Lab 10/03/23 08:20 Completed Prothrombin Time INR Stat Lab 10/03/23 08:49 Completed T4 (Thyroxine) Stat Lab 10/03/23 08:20 Completed Thyroid Stimulating Hormone Stat Lab 10/03/23 08:20 Completed Urinalysis and Microscopic Stat Lab 10/03/23 07:45 Completed Urine Culture Stat Micro 10/03/23 07:45 Received Urine Culture(cathed specimen) Stat Micro 10/03/23 08:34 Ordered CA venous doppler LE RT Stat Y 10/03/23 08:04 Completed ECG Data Tracing #1: I reviewed this ECG and interpreted as documented below: Normal sinus rhythm with a ventricular rate of [address] changes concerning for ischemia. Normal intervals. Medical Decision Narrative: In summary, this patient is a 62-year-old female presenting to the Emergency Department for evaluation of general debility and difficulty maneuvering at home in the setting of morbid obesity. She also complains that her right knee has felt like it is locked up. Differential diagnoses considered include but are not limited to functional decline, electrolyte derangements, dehydration, hypothyroidism, acute knee injury, osteoarthritis, right lower extremity DVT. Ruling out the most morbid conditions drove assessment. On medical record review, the patient was evaluated here 2 days ago with similar concerns. Admission was considered at that time for placement, however patient wanted to go home to follow-up with her primary care provider. She is supposed to follow-up today, but was not able to make the appointment given that she is here. On exam, patient is morbidly obese. Vitals are normal on cardiac telemetry. She has right greater than left lower extremity edema, but otherwise exam is reassuring without focal findings. Workup included CBC, CMP, TSH, T4, INR, EKG, and urinalysis. X-rays of the right lower extremity as well as DVT ultrasound were ordered as well. EKG obtained is reassuring. I independently interpreted x-ray and ultrasound prior to the radiologist read and noted no obvious acute fracture and no DVT within limitations of the study. Please see their read for final interpretation. Labs were obtained that demonstrated concerns for possible urinary tract infection, for which the patient was given oral Macrobid, but no other acutely concerning abnormalities. Kidney function is actually good for this patient. Ultimately, the patient is unable to stand on her own, care for herself at home, and given her obesity, family is unable to help at home. Given this, I feel that the only safe disposition at this time is placement. Patient and her daughter are agreeable with this. Given this, I initiated discussions with social work, who got the patient accepted to [facility] after PT/OT evaluation. Patient required significant assistance even to sit up in the bed. Ultimately, patient was transported to [facility] in stable condition with prescription for Macrobid for UTI. Critical Care Critical Care Time Critical Care Time: No
--- NOTE | 2023-10-03 08:04 | XR_ITS ---
FINAL REPORT CLINICAL HISTORY: pain R knee, frequent falls FINDINGS: Right tibia fibula Two views were obtained. There is no acute fracture or dislocation. There are soft tissue calcifications anterior to the tibia, probably dermal calcification. There is advanced medial compartment joint space narrowing. IMPRESSION: Degenerative changes as above. Reviewed, Interpreted and Dictated by Cole Fields MD Transcribed by Reyna Diane Authenticated and [facility]
--- NOTE | 2023-10-03 08:04 | XR_ITS ---
FINAL REPORT CLINICAL HISTORY: pain R knee, frequent falls FINDINGS: Right knee Four views were obtained. There is no acute fracture or dislocation. The knee is held in partial flexion. The bones are osteopenic. There are marked hypertrophic changes of the medial joint margin and patellofemoral joint space with prominent osteophytes in the distal femur and posterior femur. IMPRESSION: Significant degenerative changes as above. Reviewed, Interpreted and Dictated by Cole Fields MD Transcribed by Reyna Diane Authenticated and [facility]
[2023-10-03 08:14] LABS: Bacteria,Urine 4+ /lpf; RBC,Urine Occasional #/hpf (0-3)
--- NOTE | 2023-10-03 08:25 | PC.NURSE ---
s/w Care management in regards to pt & her daughter are wanting to start the process for placement. CM reports they will see the pt once her workup is complete and has no other reason for admission. Dr. Orosco notified of this.
--- NOTE | 2023-10-03 08:34 | PC.NURSE ---
RAD at BS
[2023-10-03 08:38] LABS: Chloride 114 mmol/L (98-107); Potassium 4.6 mmoL/L (3.5-5.1); Sodium 141 mmol/L (136-145)
[2023-10-03 08:40] LABS: Alanine Aminotransferase 29 U/L (12-78); Aspartate Amino Transferase 86 U/L (14-36); Blood Urea Nitrogen 23 mg/dl (7-17); Creatinine Clearance Estimated 41 mL/min (50-200); Estimated Glomerular Filt Rate 56 ml/min (>60); GFR (African American) 68 ML/MIN (>60)
[2023-10-03 08:41] LABS: Albumin Level 2.5 g/dl (3.5-5.0); Albumin/Globulin Ratio 0.7 (1.1-1.8); Alkaline Phosphatase 331 U/L (38-126); Anion Gap 3.6 mEq/L (5-15); Bilirubin,Total 0.6 mg/dl (0.2-1.3); Carbon Dioxide 28 mmol/L (22.0-30.0); Globulin 3.4 g/dL (1.3-3.2); Glucose 134 mg/dl (74-100); Total Protein,Serum 5.9 g/dl (6.3-8.2)
[2023-10-03 08:58] LABS: T4 (Thyroxine) 5.7 ug/dl (5.53-11.0)
[2023-10-03 09:00] LABS: Basophils % 0.5 % (0.1-2.0); Eosinophils # 0.2 K/mm3 (0.0-0.4); Hematocrit 32.2 % (37.0-47.0); Lymphocytes # 0.6 K/mm3 (0.7-4.5); Lymphocytes % 12.2 % (10-50); Mean Corpuscular HGB Conc 31.2 g/dL (31.8-35.4); Mean Corpuscular Hemoglobin 28.6 pg (27.0-31.2); Mean Corpuscular Volume 91.8 fl (81-99); Mean Platelet Volume 8.7 fl (7.4-10.4); Monocytes # 0.2 K/mm3 (0.1-1.0); Neutrophils # 3.9 K/mm3 (1.8-7.8); Neutrophils % 80.3 % (37.0-80.0); Platelet Count 75 K/mm3 (142-424); Red Blood Count 3.51 M/mm3 (4.20-5.40); Red Cell Distribution Width 17.1 % (11.5-17.5); White Blood Count 4.9 K/mm3 (4.8-10.8)
[2023-10-03 09:05] LABS: INR 2.96 (0.9-1.1); Prothrombin Time 29.8 seconds (10.1-12.5)
--- NOTE | 2023-10-03 09:05 | PC.NURSE ---
XR AT BEDSIDE
[2023-10-03 09:12] LABS: Thyroid Stimulating Hormone 1.57 uIU/mL (0.465-4.68)
--- NOTE | 2023-10-03 09:45 | SW/DCPLANNER ---
Addendum entered by [facility] 10/03/23 15:05: Patient/family are agreeable to placement at [facility]: will discharge ICF level of care today. Addendum entered by [facility] 10/03/23 13:29: [facility], [facility], [facility] are not able to accept this patient. [facility] can accept this patient however patient/family not interested. [facility] can accept this patient and daughter has requested to tour prior to making decision. I am currently waiting to hear back from [facility]. Addendum entered by [facility] 10/03/23 11:49: Patient information has been faxed to [facility]. Addendum entered by [facility] 10/03/23 11:40: Patient/family are also interested in [facility]: no beds available. I also have a message out to [facility] per family request. Addendum entered by [facility] 10/03/23 11:33: Muna w/ [facility] stated that they can not accept this patient due to Medicaid. The following facilities are still reviewing patient information: [facility], [facility] and [facility]. Patient's daughter plans to tour all facilities today. Original Note: I spoke w/ this patient and her family in the ED regarding discharge plans. After a lengthy discussion w/ the patient and her daughter it has been determined that patient will need a LTC Medicaid bed. Patient is agreeable for information to be faxed to the following facilities: [facility], [facility], [facility] and [facility]. I will follow up w/ facilities once information is reviewed.
--- NOTE | 2023-10-03 11:25 | PC.NURSE ---
REHAB NOTIFIED OF PT/OT EVAL
[2023-10-03] MEDS: NITROFURANTOIN 100MG CAPSULE 100 MG PO (11:58)
--- NOTE | 2023-10-03 13:02 | PC.NURSE ---
call made to rehab for update on status of PT/OT consult. stated they should be down there shortly.
--- NOTE | 2023-10-03 13:24 | PC.NURSE ---
DIETARY NOTIFIED FOR LUNCH TRAY
--- NOTE | 2023-10-03 13:50 | HMH.OTEV ---
OT Inpatient Evaluation Rehab OT IP Evaluation Start: 10/03/23 11:17 Freq: ONCE Status: Active Protocol: Document 10/03/23 13:41 [facility] (Rec: 10/03/23 13:49 [facility] [id number]) Rehab OT IP Assessment Subjective History Pt oriented x 3 on arrival. Pt's daughter present and supportive. Pt came to [facility] ER on 10/03/23 due to fall at home and weakness. History and physical report: This patient is a 62-year-old female with a history of morbid obesity, general debility, functional decline, hypertension, hypothyroidism, type 2 diabetes, and anxiety presented to the emergency department for evaluation with concern for functional decline and difficulty with transfers at home. Patient reports that over the last several weeks, she has been much weaker than usual and has had difficulty standing like she used to. She has had multiple falls in which she has slid out of bed, for which she has had to call EMS for lift assist. She denies any injuries as a result of these falls, but she states that she is having more more trouble transferring and getting around at home. She lives by herself. She notes that the other day, her right knee felt like it locked up on her, and she has had some pain in her right knee and lower leg since then. She notes she does have a history of bad knees as well as chronic lymphedema. Per EMS and fire who brought the patient in, they have been to her house 14 times over the last few weeks for lift assist. She notes she has had to do inpatient rehab in the past, but she is 50/50 on the idea of doing that again. She denies any other concerns, such as fevers, chills, chest pain, shortness of breath, cough, congestion, abdominal pain, nausea, vomiting, changes in bowel movements, urinary symptoms, or other concerns. She reports she has been eating and drinking okay . Subjective I have been having a hard time. Prior to being in the hosptial , pt was living at home alone. Since April 2023 she has been at home after spending 8 weeks at SNF for short term rehab. Pt claims to be independent with all ADLs. Family assists with IADLs. Pt was using motorized powerchair, but was able to transfer to and from chair with rolling walker. Objective Patient Orientation Person,Place,Birthday Right Upper Extremity Gross ROM WFL Left Upper Extremity Gross ROM WFL Bed Mobility bed mobility-scooting,bed mobility - supine/sit Assist Level Maximum x 2 (75% assist) Rehab OT IP prob,goals,plan Problems Date of Evaluation: 10/03/23 OT IP Problems Bed Mobility,Transfers,Balance ,Self care,Safety Rehab Potential Rehab Potential Good Equipment Needs Assistive Devices Rolling / Wheeled Walker, Wheelchair Plan OT intervention Plan Bed Mobility,Transfers,Balance ,Self care,Safety,Therapeutic Exercise OT Plan Frequency Daily Duration LOS Discharge Goals Bed Mobility Ability Assistance x1 Sit to Stand Chair Transfer Ability Moderate x 2 (50% assist) Chair Transfer Ability Moderate x 2 (50% assist) Chair Transfer Technique Stand Pivot Chair Transfer Assistive Devices Rolling Walker Feeding Ability Assist with Tray Set Up Lower Body Dressing Ability Moderate Assistance Upper Body Dressing Ability Contact Guard Bathing Ability Moderate Assistance Performing Toilet Hygiene Ability Moderate Assistance Overall Commode/Toilet Transfer Ability Moderate Assistance Commode/Toilet Transfer Technique Sit to/from Ambulatory Commode/Toilet Transfer Assistive Raised Toilet Seat,Grab Bars Devices Oral Care Assist Standby Assistance Decrease in Endurance Yes Discharge Plan OT Discharge Plan At this time, pt would benefit most from short term rehab at SNF upon discharge. Continued skilled therapy is important in order for patient to improve strength, safety, endurance, ADL independence, and functional transfers to reach PLOF. Eval Complexity Eval Charge Codes 14925 - Moderate Complexity PHYSICIAN CERTIFICATION: I certify the specified therapy services for Lakshmi Merritt are required, authorized, and reviewed every 30 days.
--- NOTE | 2023-10-03 13:53 | PC.NURSE ---
PT PROVIDED LUNCH TRAY NO NEEDS AT THIS TIME
--- NOTE | 2023-10-03 14:05 | HMH.PTEV ---
Physical Therapy Evaluation Rehab PT IP Evaluation Start: 10/03/23 11:17 Freq: ONCE Status: Complete Protocol: Document 10/03/23 13:56 MARY CARMEN (Rec: 10/03/23 14:04 MARY CARMEN [id number]) Subjective/History History History 62 yowf who presented to ED by EMS after falling out of bed at home. Pt states, I didn't really fall, I just slid down to the floor from my bed. This is the 12th such episode of falling requiring EMS intervention in the past 2-3 wks per family report. She reports she lives alone, no steps to enter the home, she has a walker for use at home to assist with transfers and generally mobilizes with a motorized w/c. She has PMH of morbid obesity, general debility, functional decline, hypertension, hypothyroidism, type 2 diabetes, and anxiety, lymphedema, R flank cellulitis . Subjective Subjective She reports feeling very tired at this time and has a dry mouth. She agrees to mobility assessment. New diagnosis of cancer in past 12 No months? Rehab PT IP Eval Objective Appearance Patient Behavior Appropriate Patient Orientation Person,Place,Time Difficulty following instructions none Speech Pattern Clear Ambulation Patient Able to Ambulate No Balance Ability to Arise Able, uses arms to help Sitting Balance Leans or slides in chair Dynamic Sitting Balance Ability Fair Transfers Bed Transfer Ability Moderate x 2 (50% assist) Rehab PT IP prob,goals,plan Problems Date of Evaluation: 10/03/23 Discharge Plan PT Discharge Plan Currently it would be unsafe to attempt standing with this patient from an ED stretcher, and therefore standing was deferred at this time. She is most appropriate for rehab placement currently and does not presently appear safe to remain living independently. Eval Complexity Eval Charge Codes 44673 - High Complexity PHYSICIAN CERTIFICATION: I certify the specified therapy services for Lakshmi Merritt are required, authorized, and reviewed every 30 days.
--- NOTE | 2023-10-03 15:23 | PC.NURSE ---
called [facility] dispatch after checking with [facility] about coming and transferring this pt to [facility]. [facility] Dispatch said they would check and call us back
--- NOTE | 2023-10-03 15:33 | PC.NURSE ---
discharge summary faxed to facility per uriel manor request before they will take report. attempted to call report, no answer.
--- NOTE | 2023-10-03 15:45 | PC.NURSE ---
Nurse Chirinos is talking to Alec Sidhu now giving report. [facility] has been called and on the way to [facility] pt with clearance from Director Bebeto Morse at [facility]
--- NOTE | 2023-10-03 15:50 | PC.NURSE ---
report called to prince at [facility]
--- NOTE | 2023-10-05 10:43 | PC.NURSE ---
urine culture results discussed with , pt was dc with macrobid, NTD
== END 2023-10-03 16:39 ==
PROVIDERS: Emergency Provider Emergency Medicine; PCP Family Medicine
DX: N39.0 Urinary tract infection, site not specified (principal); B96.29 Other Escherichia coli [E. coli] as the cause of diseases classified elsewhere; B95.7 Other staphylococcus as the cause of diseases classified elsewhere; R53.81 Other malaise; E66.01 Morbid (severe) obesity due to excess calories; E11.9 Type 2 diabetes mellitus without complications; I10 Essential (primary) hypertension; E03.9 Hypothyroidism, unspecified; Z68.44 Body mass index [BMI] 60.0-69.9, adult; R60.0 Localized edema
CPT/HCPCS: 73552; 73562; 73590; 80053; 81001; 84436; 84443; 85025; 85610; 87086; 93005; 93971; 99285